=== PATIENT | male | born 1955 | race Caucasian/White ===

== ENCOUNTER 2018-11-30 07:21 | Inpatient (IN) | payer MEDICARE, OTHER ==
[2018-11-30] MEDS ORDERED: FAMOTIDINE 20 MG/2 ML VIAL IV STA (07:38)
--- NOTE | 2018-11-30 07:43 | ED ---
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 He also states his abdomen is distended and feels tight. No reports of fevers chills sweats. He has no prior history of GI bleed he states. No other modifying factors currently MD complaint: coffee ground emesis, gross hematochezia - Related Data Home Medications Medication Instructions Recorded Confirmed Albuterol Nebulized [Ventolin 2.5 mg INHALATION RT-Q6H PRN 06/03/18 11/30/18 Nebulized] Aspirin 325 mg PO DAILY@1700 06/03/18 11/30/18 Atorvastatin [Lipitor] 20 mg PO DAILY@17006/03/18 11/30/18 Cholecalciferol (Vitamin D3) 2,000 unit PO DAILY@1700 06/03/18 11/30/18 [Vitamin D3] Clopidogrel Bisulfate [Plavix] 75 mg PO DAILY@1200 06/03/18 11/30/18 Furosemide [Lasix] 40 mg PO DAILY@0600 06/03/18 11/30/18 Gemfibrozil [Lopid] 600 mg PO BID@0900,1700 06/03/18 11/30/18 Insulin Aspart [NovoLOG Flexpen] 16 unit SQ AC-TID 06/03/18 11/30/18 Insulin Aspart [NovoLOG Flexpen] See Protocol SQ ACHS 06/03/18 11/30/18 Insulin Glargine,Hum.rec.anlog 20 unit SQ DAILY@0800 06/03/18 11/30/18 [Basaglar Kwikpen U-100] Insulin Glargine,Hum.rec.anlog 50 unit SQ DAILY@199906/03/18 11/30/18 [Basaglar Kwikpen U-100] Levothyroxine Sodium [Synthroid] 125 mcg PO DAILY@0606/03/1819 Liraglutide [Victoza 3-Felice] 1.2 mg PO DAILY@0600 06/03/18 11/30/18 Lisinopril 20 mg PO DAILY@0906/03/18 11/30/18 Metoprolol Tartrate [Lopressor] 50 mg PO BID@0600,1700 06/03/18 11/30/18 Niacin 500 mg PO DAILY@17006/03/18 11/30/18 PHENobarbital [Luminal] 64.8 mg PO DAILY@1200 06/03/18 11/30/18 Phenytoin Sodium Extended 200 mg PO BID@0900,17006/03/18 11/30/18 [Dilantin] Potassium Chloride [Klor-Con 20] 20 meq PO DAILY@0906/03/18 11/30/18 Topiramate [Topamax] 50 mg PO DAILY@17006/03/18 11/30/18 Vascepa (1gm) 2 gram PO BID@0900,17006/03/18 11/30/18 buPROPion HCL [buPROPion HCL SR] 150 mg PO DAILY@0906/03/18 11/30/18 buPROPion [Wellbutrin] 100 mg PO DAILY@169906/03/18 11/30/18 lamoTRIgine [LaMICtal] 25 mg PO BID@0900,169906/03/18 11/30/18 metFORMIN HCL 1,000 mg PO BID@0600,1700 06/03/18 11/30/18 Loperamide [Imodium] 4 mg PO BID PRN 11/30/18 11/30/18 Z-Guard 1 applic TOPICAL DIRECTED 11/30/18 11/30/18 Z-Guard 1 applic TOPICAL Q12H 11/30/18 11/30/18 Allergies Allergy/AdvReac Type Severity Reaction Status Date / Time No Known Allergies Allergy Verified 11/30/18 07:39 Review of Systems ROS Statement: Those systems with pertinent positive or pertinent negative responses have been documented in the HPI. ROS Other: All systems not noted in ROS Statement are negative. Past Medical History Past Medical History: CVA/TIA, Diabetes Mellitus, Hyperlipidemia, Hypertension, Myocardial Infarction (PR), Thyroid Disorder Additional Past Medical History / Comment(s): EPILEPSY History of Any Multi-Drug Resistant Organisms: None Reported Past Surgical History: Unable to Obtain Additional Past Surgical History / Comment(s): brain surg Past Psychological History: No Psychological Hx Reported Smoking Status: Current every day smoker Past Alcohol Use History: None Reported Past Drug Use History: None Reported General Exam - General Exam Comments Initial Comments: This a well-developed well-nourished awake alert oriented times 3 male Limitations: no limitations General appearance: alert, anxious, in distress, obese Head exam: Present: atraumatic, normocephalic, normal inspection Eye exam: Present: normal appearance, PERRL, EOMI. Absent: scleral icterus, conjunctival injection, periorbital swelling ENT exam: Present: mucous membranes dry, other (Black material in the patient's tongue which does test heme positive gastrocult at bedside) Neck exam: Present: normal inspection, full ROM. Absent: tenderness, men ingismus, lymphadenopathy Respiratory exam: Present: normal lung sounds bilaterally. Absent: respiratory distress, wheezes, rales, rhonchi, stridor Cardiovascular Exam: Present: normal rhythm, tachycardia, normal heart sounds. Absent: systolic murmur, diastolic murmur, rubs, gallop, clicks GI/Abdominal exam: Present: soft, distended, tenderness, normal bowel sounds. Absent: guarding, rebound, rigid Rectal exam: Present: normal inspection (Mucoid discharge no gross blood) Extremities exam: Present: normal capillary refill. Absent: full ROM, tenderness, pedal edema, joint swelling, calf tenderness Back exam: Present: normal inspection Neurological exam: Present: alert, oriented X3, CN II-XII intact, motor sensory deficit (Left upper and lower extremity hemiparesis) Psychiatric exam: Present: normal affect, normal mood Skin exam: Present: warm, dry, intact, normal color. Absent: rash Course Vital Signs 11/30/18 11/30/18 11/30/18 07:30 08:04 08:10 Temperature 98.3 F Pulse Rate 115 H 108 H 105 H Respiratory 18 26 H 23 Rate Blood Pressure 124/59 124/59 117/92 O2 Sat by Pulse 92 L 98 Oximetry 11/30/18 11/30/18 11/30/18 08:30 09:00 09:30 Temperature Pulse Rate 108 H 109 H 105 H Respiratory 24 23 Rate Blood Pressure 126/72 131/108 117/92 O2 Sat by Pulse Oximetry - Reevaluation(s) Reevaluation #1: 11/30/18 11:39 Reevaluation patient revealed that he did have improvement. He did feel better. He did have a large black bowel movement. Fecal management system was initiated. Reevaluation #2: 11/30/18 12:10 He has has been ordered I do anticipate this will be elevated due to the renal failure. Medical Decision Making - Medical Decision Making I did discuss findings with the patient and with Dr. Goldsmith patient will be admitted with GI consultation and nephrology consultation. - Lab Data Result diagrams: 11/30/18 07:50 11/30/18 07:50 Lab Results 11/30/18 11/30/18 11/30/18 Range/Units 07:50 07:50 07:50 WBC 26.6 H (3.8-10.6) k/uL RBC 4.76 (4.30-5.90) m/uL Hgb 13.7 (13.0-17.5) gm/dL Hct 41.8 (39.0-53.0) % MCV 87.7 (80.0-100.0) fL MCH 28.7 (25.0-35.0) pg MCHC 32.8 (31.0-37.0) g/dL RDW 13.4 (11.5-15.5) % Plt Count 498 H (150-450) k/uL Neutrophils % 93 % Lymphocytes % 3 % Monocytes % 3 % Eosinophils % 0 % Basophils % 0 % Neutrophils # 24.9 H (1.3-7.7) k/uL Lymphocytes # 0.7 L (1.0-4.8) k/uL Monocytes # 0.9 (0-1.0) k/uL Eosinophils # 0.0 (0-0.7) k/uL Basophils # 0.1 (0-0.2) k/uL Sodium 140 (137-145) mmol/L Potassium 6.6 H* (3.5-5.1) mmol/L Chloride 103 (98-107) mmol/L Carbon Dioxide 14 L (22-30) mmol/L Anion Gap 23 mmol/L BUN 79 H (9-20) mg/dL Creatinine 6.45 H (0.66-1.25) mg/dL Est GFR (CKD-EPI)AfAm 10 (>60 ml/min/1.73 sqM) Est GFR (CKD-EPI)NonAf 8 (>60 ml/min/1.73 sqM) Glucose 220 H (74-99) mg/dL Calcium 9.5 (8.4-10.2) mg/dL Magnesium 2.1 (1.6-2.3) mg/dL Total Bilirubin 0.9 (0.2-1.3) mg/dL AST 38 (17-59) U/L ALT 22 (21-72) U/L Alkaline Phosphatase 103 (38-126) U/L Creatine Kinase 263 H (55-170) U/L Total Protein 7.2 (6.3-8.2) g/dL Albumin 3.7 (3.5-5.0) g/dL Lipase 147 (23-300) U/L Stool Occult Blood (Negative) Blood Type B Positive Blood Type Recheck No Previous Record Bld Type Recheck Status CABO Indicated Antibody Screen NEGATIVE Spec Expiration Date 12/03/2018 - 234911/30/18 Range/Units 08:07 WBC (3.8-10.6) k/uL RBC (4.30-5.90) m/uL Hgb (13.0-17.5) gm/dL Hct (39.0-53.0) % MCV (80.0-100.0) fL MCH (25.0-35.0) pg MCHC (31.0-37.0) g/dL RDW (11.5-15.5) % Plt Count (150-450) k/uL Neutrophils % % Lymphocytes % % Monocytes % % Eosinophils % % Basophils % % Neutrophils # (1.3-7.7) k/uL Lymphocytes # (1.0-4.8) k/uL Monocytes # (0-1.0) k/uL Eosinophils # (0-0.7) k/uL Basophils # (0-0.2) k/uL Sodium (137-145) mmol/L Potassium (3.5-5.1) mmol/L Chloride (98-107) mmol/L Carbon Dioxide (22-30) mmol/L Anion Gap mmol/L BUN (9-20) mg/dL Creatinine (0.66-1.25) mg/dL Est GFR (CKD-EPI)AfAm (>60 ml/min/1.73 sqM) Est GFR (CKD-EPI)NonAf (>60 ml/min/1.73 sqM) Glucose (74-99) mg/dL Calcium (8.4-10.2) mg/dL Magnesium (1.6-2.3) mg/dL Total Bilirubin (0.2-1.3) mg/dL AST (17-59) U/L ALT (21-72) U/L Alkaline Phosphatase (38-126) U/L Creatine Kinase (55-170) U/L Total Protein (6.3-8.2) g/dL Albumin (3.5-5.0) g/dL Lipase (23-300) U/L Stool Occult Blood Positive (Negative) Blood Type Blood Type Recheck Bld Type Recheck Status Antibody Screen Spec Expiration Date - EKG Data -: EKG Interpreted by Me (EKG shows sinus tachycardia rate 105 appear interval 174 QRS duration 150 Q) EKG Comments: EKG shows a sinus tachycardia of 105 appear interval 174 QRS 150 QT since QTC 376/496 left exodeviation right bundle-branch block pattern this is similar to configuration noted on 05/08/12 - Radiology Data Radiology results: report reviewed (I did review the imaging and report evidence of dilated bowel in the upper abdomen. Some air-fluid level noted CAT scan showed evidence of colitis but no obstruction.), image reviewed Critical Care Time Critical Care Time: Yes Critical Care Time: 37 minutes of critical care time which includes initial presentation with history physical labs x-rays multiple reevaluation the patient response to therapy review old charting that was available discussed with the admitting physician discussion with the EMS crew breath patient admission orders and documentation above this does include discussion with Dr. Goldsmith. Disposition Clinical Impression: Hematochezia, Melena, Acute renal failure (ARF), Hyperkalemia, Colitis, Leukocytosis Disposition: ADMITTED IP TO THIS HOSP Condition: Fair Referrals: Eliezer Mandujano MD [Primary Care Provider] - 1-2 days
[2018-11-30 08:18] LABS: Basophils # (A) 0.1 k/uL (0-0.2); Basophils % (A) 0 %; Eosinophils % (A) 0 %; HCT 41.8 % (39.0-53.0); HGB 13.7 gm/dL (13.0-17.5); Lymphocytes # (A) 0.7 k/uL (1.0-4.8); Lymphocytes % (A) 3 %; MCH 28.7 pg (25.0-35.0); MCHC 32.8 g/dL (31.0-37.0); MCV 87.7 fL (80.0-100.0); Mean Platelet Volume 7.2; Monocytes # (A) 0.9 k/uL (0-1.0); Monocytes % (A) 3 %; Neutrophils # (A) 24.9 k/uL (1.3-7.7); Neutrophils % (A) 93 %; Platelet Count 498 k/uL (150-450); RBC 4.76 m/uL (4.30-5.90); RDW 13.4 % (11.5-15.5); WBC 26.6 k/uL (3.8-10.6)
[2018-11-30 08:26] LABS: Albumin 3.7 g/dL (3.5-5.0); Calcium 9.5 mg/dL (8.4-10.2); Magnesium 2.1 mg/dL (1.6-2.3); Total Bilirubin 0.9 mg/dL (0.2-1.3); Total Protein 7.2 g/dL (6.3-8.2)
[2018-11-30 08:33] LABS: Potassium 6.6 mmol/L (3.5-5.1)
[2018-11-30] MEDS ORDERED: SODIUM CHLORIDE 0.9% 1,000 ML IV STA (08:46)
[2018-11-30] MEDS ORDERED: SODIUM BICARB 8.4% 50 ML SYR (1 MEQ/ML) IV STA ×2 (08:46→19:44)
[2018-11-30] MEDS ORDERED: CALCIUM CHLORIDE 100 MG/ML 10 ML SYRINGE IVP STA (08:47)
--- NOTE | 2018-11-30 09:54 | XR ---
EXAMINATION TYPE: XR KUB portable DATE OF EXAM: 11/30/2018 9:49 AM CLINICAL HISTORY: GI bleed. Abdominal pain. TECHNIQUE: Single supine image of the abdomen is obtained. COMPARISON: None. FINDINGS: There is marked gastrectasis and dilatation of the colon up to 10.4 cm in the hepatic flexu re. Transverse colon measures up to 8.6 cm. Supine examination limits evaluation for pneumoperitoneum . Lung bases are well aerated. Paucity of bowel gas in the rectum is seen. Old fracture deformity or extensive arthropathy is seen of the left femoral acetabular joint. No suspicious calcifications in t he abdomen. IMPRESSION: Markedly dilated stomach and large bowel with paucity of gas in the rectum relates to sev ere ileus or large bowel obstruction.
--- NOTE | 2018-11-30 10:20 | CT ---
EXAMINATION TYPE: CT abdomen pelvis wo con DATE OF EXAM: 11/30/2018 COMPARISON: None INDICATION: Generalized pain and diarrhea DLP: 1701.4 mGycm, Automated exposure control for dose reduction was used. CONTRAST: 0 mL of Isovue 300. Study performed without Oral Contrast TECHNIQUE: Axial images were obtained from above the diaphragm to the pubic rami in the axial plane a t 5 mm thick sections. Reconstructed images are reviewed on the computer in the coronal plane. FINDINGS: Limited CT sections are obtained the lung bases. There is a consolidation within the left lower lobe . Correlate for pneumonia. CT ABDOMEN: Liver: Normal Spleen: Normal Pancreas: Normal Adrenal glands: The adrenal glands are normal. Gallbladder: Normal Kidneys: No masses are evident. No hydronephrosis is present. No cysts are present. Some minimal p erinephric stranding may be present. Aorta: Vascular calcification is within the aorta. Inferior vena cava: Normal. CT PELVIS: Loops of bowel within the abdomen and pelvis are normal. The distal colon contains fluid. Some mi ld inflammatory changes are adjacent. No diverticular changes are evident. Minimal wall thickening ma y be present. Fluid extends from the proximal descending colon through to the rectum. A mild colitis should be considered. Consider gastroenteritis. No dilated small bowel loops are evident. Appendix: Not visualized. No suspicious tubular structures are evident. There is some mild diffuse in flammatory change. Clinical management of any suspect appendicitis recommended. Inflammatory change a ppears more related to distal colon. Urinary bladder: Normal. Genitourinary structures: Prostate is unremarkable. Osseous structures: No suspicious lytic or sclerotic lesions. Old left pelvic fractures evident. IMPRESSIONS: 1. Fluid-filled ascending colon to rectum with minimal wall thickening and pericolonic inflammatory change. No diverticuli are evident. Findings are suggestive for mild colitis. Clinical correlation is recommended. Gastroenteritis could be considered.
[2018-11-30] MEDS: SODIUM CHLORIDE 0.9% 1,000 ML IV STA ×2 (10:49→15:14)
[2018-11-30] MEDS ORDERED: ONDANSETRON 4 MG/2 ML VIAL IVP PRN (11:46)
[2018-11-30] MEDS ORDERED: NALOXONE 0.4 MG/ML 1 ML VIAL IV PRN (11:46)
[2018-11-30] MEDS ORDERED: ALBUTEROL NEBULIZED (CONC) 20 MG, SODIUM CHLORIDE 0.9% NEBULIZ 3 ML INHALATION ONE ×2 (11:51)
[2018-11-30] MEDS ORDERED: PIPERACILLIN-TAZOBACTAM 3.375 GM in SODIUM CHLORIDE 0.9% 100 ML IVPB STA (12:06)
[2018-11-30] MEDS ORDERED: SODIUM CHLORIDE 0.9% 2,000 ML IV ONE (13:36)
[2018-11-30 13:38] LABS: Glucose,Whole Blood 181 mg/dL (75-99)
[2018-11-30 14:37] LABS: Amorphous Sediment,Urine Moderate /hpf; Appearance,Urine Turbid (Clear); Bilirubin,Urine Negative (Negative); Blood,Urine Small (Negative); Color,Urine Dark Brown; Glucose,Urine (UA) Trace (Negative); Ketones,Urine Negative (Negative); Leukocyte Esterase,Urine Negative (Negative); Mucus,Urine Rare /hpf; Nitrite,Urine Negative (Negative); PH, Urine 5.5 (5.0-8.0); Protein,Urine 2+ (Negative); RBC,Urine 5 /hpf (0-5); Specific Gravity,Urine 1.019 (1.001-1.035); Squamous Epithelial Cell,Urine 1 /hpf (0-4); Urobilinogen,Urine <2.0 mg/dL (<2.0); WBC,Urine <1 /hpf (0-5)
[2018-11-30 14:49] LABS: Basophils % (A) 0 %; Eosinophils % (A) 0 %; HCT 38.8 % (39.0-53.0); HGB 13.1 gm/dL (13.0-17.5); Lymphocytes # (A) 1.2 k/uL (1.0-4.8); Lymphocytes % (A) 6 %; MCH 29.6 pg (25.0-35.0); MCHC 33.8 g/dL (31.0-37.0); MCV 87.6 fL (80.0-100.0); Mean Platelet Volume 6.5; Monocytes # (A) 0.7 k/uL (0-1.0); Monocytes % (A) 4 %; Neutrophils # (A) 18.6 k/uL (1.3-7.7); Neutrophils % (A) 89 %; Platelet Count 366 k/uL (150-450); RBC 4.43 m/uL (4.30-5.90); RDW 13.2 % (11.5-15.5); WBC 20.8 k/uL (3.8-10.6)
[2018-11-30 14:57] LABS: Albumin 3.7 g/dL (3.5-5.0); Calcium 10.2 mg/dL (8.4-10.2); Total Bilirubin 0.6 mg/dL (0.2-1.3); Total Protein 7.6 g/dL (6.3-8.2)
[2018-11-30] MEDS ORDERED: SODIUM CHLORIDE 0.9% 1,000 ML IV ONE ×2 (15:02→18:52)
[2018-11-30 15:11] LABS: Potassium 6.4 mmol/L (3.5-5.1)
[2018-11-30 15:32] LABS: Glucose,Whole Blood 178 mg/dL (75-99)
[2018-11-30] MEDS: SODIUM CHLORIDE 0.9% 1,000 ML IV SCH ×2 (15:32→19:58)
[2018-11-30] MEDS ORDERED: DEXTROSE 50% SYRINGE 50 ML IVP STA ×2 (15:48→19:48)
[2018-11-30] MEDS ORDERED: INSULIN REGULAR 100 UNIT/ML VIAL IV ONE (15:48)
[2018-11-30] MEDS ORDERED: DEXTROSE 10 % IN WATER 125 ML IV STA (15:51)
[2018-11-30] MEDS ORDERED: ALBUTEROL NEBULIZED 2.5 MG/3 ML INHALATION PRN (16:38)
[2018-11-30 17:19] LABS: Glucose,Whole Blood 212 mg/dL (75-99)
[2018-11-30] MEDS: INSULIN ASPART (NovoLOG) 100 UNIT/ML VIAL SQ SCH (18:33)
[2018-11-30] MEDS: TOPIRAMATE 25 MG TAB PO SCH (18:34)
[2018-11-30] MEDS: PHENobarbital 64.8 MG TAB PO SCH (18:34)
[2018-11-30] MEDS: METOPROLOL TARTRATE 50 MG TAB PO SCH (18:34)
[2018-11-30] MEDS: ATORVASTATIN 20 MG TAB PO SCH (18:34)
--- NOTE | 2018-11-30 19:18 | P.CNPUL ---
History of Present Illness Consult date: 11/30/18 Chief complaint: GI bleed History of present illness: 63-year-old male patient with a known history of CVA with left-sided weakness who was brought in from care home due to concern of GI bleeding. The patient apparently has been having emesis for the past 2-3 days and he's been having coffee-ground emesis and he reported by the blood per rectum. His abdomen was quite distended time of his ED visit. NG tube was inserted and the patient had more than a liter of bloody material aspirated with some subsequent clinical improvement in his abdominal distention. No fever. No chills. No previous history of GI bleed. The patient has been maintained on aspirin on outpatient basis. The patient has also various comorbidities are then CVA which include hyperlipidemia, diabetes mellitus, hypothyroidism, hypertension, seizure disorder. The patient is currently in the intensive care unit. Hemoglobin is 13.1. White cell count is at 20.8. The patient was given IV fluids a total of 2 L in the emergency department currently is on normal saline at rate of 1 50 mL an hour. He is producing minimal amount of urine output in the order of 10 mL an hour. He has developed an acute kidney injury. Initial creatinine in the emergency department was at 6.7 with a BUN of 94. His potassium level is at 6.4. EKG showed sinus rhythm with a left axis deviation and right bundle branch block pattern. The patient has a lactic acid level of 4.9. CPKs at 263. Stool was positive for blood. Stool for C. diff has been negative. UA showing +2 protein. The CAT scan of the abdomen and pelvis was done in the emergency department and the patient was found to have fluid-filled ascending colon to the rectum with minimal amount of wall thickening and pericolonic inflammatory change. No diverticular disease. The findings were suggestive of mild colitis. No ileus and no dilated bowel. No free air. Currently the patient has FMF and he is producing liquid the black stool in the order of 100 mL over the past 8 hours. The patient also has an NG tube which is producing coffee-ground material. Review of Systems Constitutional: Reports fatigue, Reports poor appetite, Reports weakness (The patient is a wheelchair bound following his stroke. He has left-sided weakness.) Eyes: denies as per HPI, denies blurred vision, denies bulging eye, denies decreased vision, denies diplopia, denies discharge, denies dry eye, denies irritation, denies itching, denies pain, denies photophobia, denies loss of peripheral vision, denies loss of vision, denies tunnel vision/blind spots Ears: deny: decreased hearing, ear discharge, earache, tinnitus Ears, nose, mouth and throat: Reports as per HPI Cardiovascular: Denies chest pain, Denies shortness of breath Respiratory: Reports as per HPI Gastrointestinal: Reports BRBPR, Reports change in bowel habits, Reports coffee ground emesis, Reports nausea, Reports vomiting Genitourinary: Reports as per HPI (Diminished urine output and an acute kidney injury) Musculoskeletal: Reports as per HPI, Reports gait dysfunction, Reports muscle weakness Musculoskeletal: left: ankle swelling, absent: ankle pain, ankle stiffness Integumentary: Denies pruritus, Denies rash Neurological: Reports gait dysfunction, Reports lack of coordination, Reports paralysis, Reports seizures (Patient has history of seizure disorder), Reports weakness (The patient has paralysis on the left side) Psychiatric: Reports as per HPI, Reports depression Endocrine: Reports as per HPI Hematologic/Lymphatic: Reports as per HPI Allergic/Immunologic: Reports as per HPI Past Medical History Past Medical History: CVA/TIA, Diabetes Mellitus, Hyperlipidemia, Hypertension, Myocardial Infarction ([place]), Seizure Disorder, Thyroid Disorder, Vascular Disorder Additional Past Medical History / Comment(s): Brain surgery 10 yrs ago for aneurysm and had CVA with left sided weakness upper and lower extremity and had trach/vented, (pt was left hand dominent), muscle weakness, wheelchair bound, last seizure many years ago, ischemic cardiomyopathy, IDDM type II, hypothyroid, pilonidal cyst. Last Myocardial Infarction Date:: History of Any Multi-Drug Resistant Organisms: None Reported Past Surgical History: Unable to Obtain Additional Past Surgical History / Comment(s): brain surgery for aneurysm, PCI with stent, nasal cartlidge surgery. Past Anesthesia/Blood Transfusion Reactions: No Reported Reaction Smoking Status: Former smoker - Past Family History Mother History Unknown: Yes Additional Family Medical History / Comment(s): Mother is living. Father History Unknown: Yes Additional Family Medical History / Comment(s): Father is living. Medications and Allergies Home Medications Medication Instructions Recorded Confirmed Type Albuterol Nebulized [Ventolin 2.5 mg INHALATION RT-Q6H PRN 06/03/18 11/30/18 History Nebulized] Aspirin 325 mg PO DAILY@1700 06/03/18 11/30/18 History Atorvastatin [Lipitor] 20 mg PO DAILY@169906/03/18 11/30/18 History Cholecalciferol (Vitamin D3) 2,000 unit PO DAILY@0 06/03/18 11/30/18 History [Vitamin D3] Clopidogrel Bisulfate [Plavix] 75 mg PO DAILY@1200 06/03/18 11/30/18 History Furosemide [Lasix] 40 mg PO DAILY@0606/03/18 11/30/18 History Gemfibrozil [Lopid] 600 mg PO BID@0900,17006/03/18 11/30/18 History Insulin Aspart [NovoLOG Flexpen] 16 unit SQ AC-TID 06/03/18 11/30/18 History Insulin Aspart [NovoLOG Flexpen] See Protocol SQ ACHS 06/03/18 11/30/18 History Insulin Glargine,Hum.rec.anlog 20 unit SQ DAILY@0806/03/18 11/30/18 History [Basaglar Kwikpen U-100] Insulin Glargine,Hum.rec.anlog 50 unit SQ DAILY@199906/03/18 11/30/18 History [Basaglar Kwikpen U-100] Levothyroxine Sodium [Synthroid] 125 mcg PO DAILY@0606/03/18 11/30/18 History Liraglutide [Victoza 3-Felice] 1.2 mg PO DAILY@0606/03/18 11/30/18 History Lisinopril 20 mg PO DAILY@0900 06/03/18 11/30/18 History Metoprolol Tartrate [Lopressor] 50 mg PO BID@0600,1700 06/03/18 11/30/18 History Niacin 500 mg PO DAILY@169906/03/18 11/30/18 History PHENobarbital [Luminal] 64.8 mg PO DAILY@1200 06/03/18 11/30/18 History Phenytoin Sodium Extended 200 mg PO BID@0900,1700 06/03/18 11/30/18 History [Dilantin] Potassium Chloride [Klor-Con 20] 20 meq PO DAILY@0900 03/30/19 09/26/19 History Topiramate [Topamax] 50 mg PO DAILY@1700 06/03/18 11/30/18 History Vascepa (1gm) 2 gram PO BID@0900,1700 06/03/18 11/30/18 History buPROPion HCL [buPROPion HCL SR] 150 mg PO DAILY@0900 06/03/18 11/30/18 History buPROPion [Wellbutrin] 100 mg PO DAILY@17006/03/18 11/30/18 History lamoTRIgine [LaMICtal] 25 mg PO BID@0900,1700 06/03/18 11/30/18 History metFORMIN HCL 1,000 mg PO BID@0600,1700 06/03/18 11/30/18 History Loperamide [Imodium] 4 mg PO BID PRN 11/30/18 11/30/18 History Z-Guard 1 applic TOPICAL DIRECTED 11/30/18 11/30/18 History Z-Guard 1 applic TOPICAL Q12H 11/30/18 11/30/18 History Allergies Allergy/AdvReac Type Severity Reaction Status Date / Time No Known Allergies Allergy Verified 11/30/18 07:39 Physical Exam Vitals: Vital Signs Temp Pulse Resp BP Pulse Ox 11/30/18 18:00 100 23 103/56 99 11/30/18 17:30 106 H 19 114/61 98 11/30/18 17:00 106 H 20 130/61 99 11/30/18 16:30 108 H 22 145/54 96 11/30/18 16:00 98.4 F 107 H 21 131/57 99 11/30/18 15:30 106 H 19 136/58 98 11/30/18 15:00 106 H 21 118/69 98 11/30/18 14:30 108 H 24 103/63 98 11/30/18 14:00 106 H 26 H 122/66 98 11/30/18 13:36 98.6 F 103 H 17 122/66 97 11/30/18 13:32 102 H 11/30/18 13:27 98.3 F 107 H 22 135/86 97 11/30/18 13:00 135/86 11/30/18 12:30 97/81 97 11/30/18 12:00 107 H 22 150/65 11/30/18 11:30 101 H 11 L 128/87 11/30/18 11:00 112 H 29 H 117/82 11/30/18 10:30 30 H 107/88 11/30/18 10:00 120/83 11/30/18 09:30 105 H 23 117/92 11/30/18 09:00 109 H 131/108 11/30/18 08:30 108 H 24 126/72 11/30/18 08:10 105 H 23 117/92 11/30/18 08:04 108 H 26 H 124/59 98 11/30/18 07:30 98.3 F 115 H 18 124/59 92 L Intake and Output 11/30/18 11/30/18 11/30/18 06:59 14:59 22:59 Intake Total 1275 1825 Output Total 125 50 Balance 1150 1775 Intake: Amount of Fluid Infused ( 1200 ml) Intake, IV Titration 75 1825 Amount Dextrose 10 % in Water 125 125 ml @ 999 mls/hr IV ONCE STA Rx#:[id number] Piperacillin-Tazobactam 3 75 100 .375 gm In Sodium Chloride 0.9% 100 ml @ 200 mls/hr IVPB ONCE STA Rx#:[id number] Sodium Chloride 0.9% 1, 600 000 ml @ 150 mls/hr IV . Q6H40M [facility] Rx#:[id number] Sodium Chloride 0.9% 1, 1000 000 ml @ 999 mls/hr IV . Q1H1M [facility] Rx#:[id number] Output: Urine 125 50 Other: Voiding Method Indwelling Catheter Weight 125.1 kg Gen. appearance the patient is obese, comfortable likely distress. The patient currently has an NG tube in place. Coffee-ground material collecting in the suction canister. The patient has a garcia facies. The patient also has scar of previous craniotomy over the right scalp. Another scar in the front scalp/forehead area. A skin lesion was resected. Head exam was generally normal. There was no scleral icterus or corneal arcus. Mucous membranes were moist. Neck was supple and without jugular venous distension, thyromegaly, or carotid bruits. Carotids were easily palpable bilaterally. There was no adenopathy. The patient has NG tube in place. A tracheostomy scar is of an anterior neck area. Lungs were clear to auscultation and percussion, and with normal diaphragmatic excursion. No wheezes or rales were noted. Cardiac exam revealed the PMI to be normally situated and sized. The rhythm was regular and no extrasystoles were noted during several minutes of auscultation. The first and second heart sounds were normal and physiologic splitting of the second heart sound was noted. There were no murmurs, rubs, clicks, or gallops. Abdominal exam revealed normal bowel sounds. The abdomen was soft, non-tender, and without masses, organomegaly, or appreciable enlargement of the abdominal a tory.. Noted the patient's abdomen is less distended after insertion of an NG tube. No direct tenderness or rebound tensile guarding. The abdomen is still tympanic. Extremities are swollen and skin is quite thickened and scaly. No open wounds or sores or ulceration or cellulitis. Pulses are diminished at the present. No cyanosis or clubbing. The left lower extremity is quite swollen compared to the right and this is a chronic finding along with some extensive skin thickening with scaliness. Neurologically the patient has left-sided weakness along with chronic spasticity and contractures on the left. Results - Laboratory Findings CBC and BMP: 11/30/18 14:27 11/30/18 14:27 Abnormal lab findings: Abnormal Labs 11/30/18 11/30/18 11/30/18 07:50 07:50 13:36 WBC 26.6 H Hct Plt Count 498 H Neutrophils # 24.9 H Lymphocytes # 0.7 L Potassium 6.6 H* Carbon Dioxide 14 L BUN 79 H Creatinine 6.45 H Glucose 220 H POC Glucose (mg/dL) 181 H Plasma Lactic Acid Castro Creatine Kinase 263 H Urine Protein Urine Glucose (UA) Urine Blood Amorphous Sediment Urine Mucus 11/30/18 11/30/18 11/30/18 14:15 14:27 14:27 WBC 20.8 H Hct 38.8 L Plt Count Neutrophils # 18.6 H Lymphocytes # Potassium 6.4 H* Carbon Dioxide 16 L BUN 94 H Creatinine 6.71 H Glucose 208 H POC Glucose (mg/dL) Plasma Lactic Acid Castro Creatine Kinase Urine Protein 2+ H Urine Glucose (UA) Trace H Urine Blood Small H Amorphous Sediment Moderate H Urine Mucus Rare H 11/30/18 11/30/18 11/30/18 14:27 15:31 17:18 WBC Hct Plt Count Neutrophils # Lymphocytes # Potassium Carbon Dioxide BUN Creatinine Glucose POC Glucose (mg/dL) 178 H 212 H Plasma Lactic Acid Castro 4.9 H* Creatine Kinase Urine Protein Urine Glucose (UA) Urine Blood Amorphous Sediment Urine Mucus Assessment and Plan Plan: 1 acute GI bleed most likely an upper GI source. The presentation is possibly suggestive of Elis-Hqa tear as the patient had several bouts of emesis and subsequently developed coffee-ground emesis and bright red blood per rectum. Currently has an NG tube in place. Amount of blood is improved compared to this morning. NG tube was placed and the more than 1 L of coffee-ground material was aspirated. Abdomen is less distended. Extremities is in place and the patient is having some bloody dark material in small amounts. He ended 8, the patient is hemodynamically stable. However, despite this GI bleed, he maintained a hemoglobin of 13, probably hemoconcentrated. He shows no hypotension or hemodynamic instability. He has developed an acute kidney injury probably related to intravascular volume depletion and a creatinine is up to 6.7. CAT scan of the abdomen was done and the patient was found to have fluid- filled ascending colon to rectum. The ball is quite distended. The stomach is distended. No diverticular disease. Mild colitis. 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 Noted the patient required tracheostomy and he was vented for a long period of time following that neurologic event that occurred 10 years ago 8 wheelchair-bound and the patient is a care home resident 9 cardiomyopathy possibly of an ischemic type. Based on ejection fraction is not known 10 insulin-dependent diabetes mellitus type 2 11 hypothyroidism 12 history of pilonidal cyst 13 history of seizure disorder inactive and stable for now the patient has been well maintained on seizure medications 14 hyperlipidemia Plan Continue IV fluids with normal state rate of 150 mL an hour. Monitor lactic acid level. Given additional bolus of 1 L. We'll monitor urine output. Monitor renal function and electrolytes every 6 hours. Obtain ultrasound the kidneys. Keep the Plata catheter in place. Monitor urine output. Monitor potassium level. Monitored anion gap metabolic acidosis. Keep the NG tube in place. Keep the patient nothing by mouth for now. Keep the monitoring of the hemoglobin every 6 hours. IV Protonix. GI consultation regarding his ongoing GI bleed. The patient be kept in ICU for now. We'll also obtain an echocardiogram to assess LV function knowing that there is a history of ischemic cardiomyopathy. The patient will be given his antiepileptic medications. The patient will be given his Levemir insulin at a half dose. Hold aspirin for now. Hold Plavix . Keep nothing by mouth for now. Repeat abdominal films for tomorrow.
[2018-11-30 19:25] LABS: Basophils % (A) 0 %; Eosinophils % (A) 0 %; HCT 35.1 % (39.0-53.0); HGB 11.9 gm/dL (13.0-17.5); Lymphocytes # (A) 0.7 k/uL (1.0-4.8); Lymphocytes % (A) 4 %; MCH 29.6 pg (25.0-35.0); MCHC 33.9 g/dL (31.0-37.0); MCV 87.3 fL (80.0-100.0); Mean Platelet Volume 6.3; Monocytes # (A) 0.7 k/uL (0-1.0); Monocytes % (A) 4 %; Neutrophils # (A) 17.7 k/uL (1.3-7.7); Neutrophils % (A) 92 %; Platelet Count 388 k/uL (150-450); RBC 4.02 m/uL (4.30-5.90); RDW 13.2 % (11.5-15.5); WBC 19.3 k/uL (3.8-10.6)
[2018-11-30 19:36] LABS: Albumin 3.2 g/dL (3.5-5.0); Calcium 9.3 mg/dL (8.4-10.2); Total Bilirubin 0.5 mg/dL (0.2-1.3); Total Protein 6.4 g/dL (6.3-8.2)
[2018-11-30 19:41] LABS: Potassium 6.5 mmol/L (3.5-5.1)
[2018-11-30] MEDS ORDERED: INSULIN REGULAR 100 UNIT/ML VIAL IV STA (19:47)
[2018-11-30] MEDS ORDERED: DEXTROSE 10 % IN WATER 250 ML IV ONE (19:50)
[2018-11-30] MEDS: lamoTRIgine 25 MG TAB PO SCH (19:57)
[2018-11-30] MEDS: PHENYTOIN SODIUM EXTENDED 100 MG CAP PO SCH (19:57)
[2018-11-30] MEDS: buPROPion 100 MG TAB PO SCH ×2 (19:57→19:58)
[2018-11-30] MEDS: FENOFIBRATE 160 MG TAB PO SCH (19:57)
[2018-11-30] MEDS: INSULIN DETEMIR (LEVEMIR) 100 UNIT/ML SYR SQ SCH (20:56)
[2018-11-30] MEDS: PANTOPRAZOLE 40 MG/10 ML VIAL IV SCH (21:10)
--- NOTE | 2018-11-30 21:55 | P.HPIM ---
History of Present Illness H&P Date: 11/30/18 Chief Complaint: Coffee-ground emesis History of presenting complaint: This is a 63-year-old patient who follows with Dr. Mandujano. Presented to ER this morning. Patient has a prior history of stroke with left-sided paralysis and dysarthria. Patient was complaining of nausea and vomiting for last 2 or 3 days. Now presents with coffee-ground emesis and Dr. Romero stools. Has some abdominal discomfort 2. Patient was admitted to the ICU. NG tube was placed and also fecal management system was placed. No fever or chills. 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 Patient pretty much wheelchair-bound. Also as a stent coronary stent. Patient normally uses a power chair and can feed himself. Review of systems: GEN.: Tired EYES: None HEENT: None NECK: None RESPIRATORY: None CARDIOVASCULAR: None GASTROINTESTINAL: As above GENITOURINARY: Plata catheter MUSCULOSKELETAL: None LYMPHATICS: Chronic swelling of lower extremity HEMATOLOGICAL: None PSYCHIATRY: None NEUROLOGICAL: Left-sided weakness and dysarthria Social history: Lives in [facility]. Uses a power chair. Can feed himself. Patient was a heavy drinker up to 80s. Does smoke marijuana many years ago. Patient smoked since a teen and stopped smoking about a year ago. Family history: Reviewed, noncontributory to presentation Physical examination: VITAL SIGNS: 98.3, 115, 18, 124/59, 92% on 6 L GENERAL: BMI 43.2, laying in bed. EYES: Pupils equal. Conjunctiva normal. HEENT: External appearance of nose and ears normal, oral cavity dry, NG tube in place. NECK: JVD unable to assess neck is short and thick; masses not palpable. HEART: Distant heart sounds; some edema. LUNGS: Respiratory rate increased, diminished breath sounds. ABDOMEN: Soft, nontender, liver spleen not palpable, no masses palpable. PSYCH: Awake answering simple questionsl. NEUROLOGICAL: Dysarthric, power on the left side is 0/5. LYMPHATICS: No lymph nodes palpable in the axilla and neck Investigations White count 9.3 hemoglobin 11.9 potassium 6.5 BUN 98 crit to 6.3 to partake as a 3.1 Assessment: -Acute GI bleed in a patient is on aspirin and Plavix -Acute renal failure possibly ATN related further workup -Severe hyperkalemia in the setting of renal failure -Morbid obesity BMI 42.2 -Chronic left-sided hemiparesis from a brain tumor being removed -Avid is mellitus type II on oral hypoglycemic -Depression otherwise specified -hypothyroid new coronary artery disease with history of stent -Chronic dysarthria Plan: Patient admitted to the ICU. Child And Adolescent Psychologist was consulted. Also consultation made to GI nephrology. Patient been given cocktail to bring the potassium down. NG tube in place. Accu-Cheks will be closely followed. Prognosis guarded. Follow H&H closely. Past Medical History Past Medical History: CVA/TIA, Diabetes Mellitus, Hyperlipidemia, Hypertension, Myocardial Infarction ([place]), Seizure Disorder, Thyroid Disorder, Vascular Disorder Additional Past Medical History / Comment(s): Brain surgery 10 yrs ago for aneurysm and had CVA with left sided weakness upper and lower extremity and had trach/vented, (pt was left hand dominent), muscle weakness, wheelchair bound, last seizure many years ago, ischemic cardiomyopathy, IDDM type II, hypothyroid, pilonidal cyst. Last Myocardial Infarction Date:: History of Any Multi-Drug Resistant Organisms: None Reported Past Surgical History: Unable to Obtain Additional Past Surgical History / Comment(s): brain surgery for aneurysm, PCI with stent, nasal cartlidge surgery. Past Anesthesia/Blood Transfusion Reactions: No Reported Reaction Smoking Status: Former smoker - Past Family History Mother History Unknown: Yes Additional Family Medical History / Comment(s): Mother is living. Father History Unknown: Yes Additional Family Medical History / Comment(s): Father is living. Medications and Allergies Home Medications Medication Instructions Recorded Confirmed Type Albuterol Nebulized [Ventolin 2.5 mg INHALATION RT-Q6H PRN 06/03/18 11/30/18 History Nebulized] Aspirin 325 mg PO DAILY@169906/03/18 11/30/18 History Atorvastatin [Lipitor] 20 mg PO DAILY@169906/03/18 11/30/18 History Cholecalciferol (Vitamin D3) 2,000 unit PO DAILY@169906/03/18 11/30/18 History [Vitamin D3] Clopidogrel Bisulfate [Plavix] 75 mg PO DAILY@1200 06/03/18 11/30/18 History Furosemide [Lasix] 40 mg PO DAILY@0600 06/03/18 11/30/18 History Gemfibrozil [Lopid] 600 mg PO BID@0900,1700 06/03/18 11/30/18 History Insulin Aspart [NovoLOG Flexpen] 16 unit SQ AC-TID 06/03/18 11/30/18 History Insulin Aspart [NovoLOG Flexpen] See Protocol SQ ACHS 06/03/18 11/30/18 History Insulin Glargine,Hum.rec.anlog 20 unit SQ DAILY@0806/03/18 11/30/18 History [Basaglar Kwikpen U-100] Insulin Glargine,Hum.rec.anlog 50 unit SQ DAILY@199906/03/18 11/30/18 History [Basaglar Kwikpen U-100] Levothyroxine Sodium [Synthroid] 125 mcg PO DAILY@0606/03/18 11/30/18 History Liraglutide [Victoza 3-Felice] 1.2 mg PO DAILY@0606/03/18 11/30/18 History Lisinopril 20 mg PO DAILY@0906/03/18 11/30/18 History Metoprolol Tartrate [Lopressor] 50 mg PO BID@0600,169906/03/18 11/30/18 History Niacin 500 mg PO DAILY@169906/03/18 11/30/18 History PHENobarbital [Luminal] 64.8 mg PO DAILY@1200 06/03/18 11/30/18 History Phenytoin Sodium Extended 200 mg PO BID@0900,1700 06/03/18 11/30/18 History [Dilantin] Potassium Chloride [Klor-Con 20] 20 meq PO DAILY@0906/03/18 11/30/18 History Topiramate [Topamax] 50 mg PO DAILY@169906/03/18 11/30/18 History Vascepa (1gm) 2 gram PO BID@0900,1700 06/03/18 11/30/18 History buPROPion HCL [buPROPion HCL SR] 150 mg PO DAILY@0900 06/03/18 11/30/18 History buPROPion [Wellbutrin] 100 mg PO DAILY@1700 06/03/18 11/30/18 History lamoTRIgine [LaMICtal] 25 mg PO BID@0900,1700 06/03/18 11/30/18 History metFORMIN HCL 1,000 mg PO BID@0600,1700 06/03/18 11/30/18 History Loperamide [Imodium] 4 mg PO BID PRN 11/30/18 11/30/18 History Z-Guard 1 applic TOPICAL DIRECTED 11/30/18 11/30/18 History Z-Guard 1 applic TOPICAL Q12H 11/30/18 11/30/18 History Allergies Allergy/AdvReac Type Severity Reaction Status Date / Time No Known Allergies Allergy Verified 11/30/18 07:39 Physical Exam Vitals: Vital Signs Temp Pulse Resp BP Pulse Ox 11/30/18 21:00 84 22 113/65 98 11/30/18 20:00 98.2 F 84 23 116/70 96 11/30/18 19:29 99 11/30/18 19:00 100 22 127/65 97 11/30/18 18:30 104 H 19 113/57 98 11/30/18 18:00 100 23 103/56 99 11/30/18 17:30 106 H 19 114/61 98 11/30/18 17:00 106 H 20 130/61 99 11/30/18 16:30 108 H 22 145/54 96 11/30/18 16:00 98.4 F 107 H 21 131/57 99 11/30/18 15:30 106 H 19 136/58 98 11/30/18 15:00 106 H 21 118/69 98 11/30/18 14:30 108 H 24 103/63 98 11/30/18 14:00 106 H 26 H 122/66 98 11/30/18 13:36 98.6 F 103 H 17 122/66 97 11/30/18 13:32 102 H 11/30/18 13:27 98.3 F 107 H 22 135/86 97 11/30/18 13:00 135/86 11/30/18 12:30 97/81 97 11/30/18 12:00 107 H 22 150/65 11/30/18 11:30 101 H 11 L 128/87 11/30/18 11:00 112 H 29 H 117/82 11/30/18 10:30 30 H 107/88 11/30/18 10:00 120/83 11/30/18 09:30 105 H 23 117/92 11/30/18 09:00 109 H 131/108 11/30/18 08:30 108 H 24 126/72 11/30/18 08:10 105 H 23 117/92 11/30/18 08:04 108 H 26 H 124/59 98 11/30/18 07:30 98.3 F 115 H 18 124/59 92 L Intake and Output 11/30/18 11/30/18 11/30/18 06:59 14:59 22:59 Intake Total 1275 3675 Output Total 125 765 Balance 1150 2910 Intake: Amount of Fluid Infused ( 1200 ml) Intake, IV Titration 75 3525 Amount Dextrose 10 % in Water 125 125 ml @ 999 mls/hr IV ONCE STA Rx#:[id number] Dextrose 10 % in Water 250 250 ml @ 999 mls/hr IV ONCE ONE Rx#:[id number] Piperacillin-Tazobactam 3 75 100 .375 gm In Sodium Chloride 0.9% 100 ml @ 200 mls/hr IVPB ONCE STA Rx#:[id number] Sodium Chloride 0.9% 1, 1050 000 ml @ 150 mls/hr IV . Q6H40M [facility] Rx#:[id number] Sodium Chloride 0.9% 1, 1000 000 ml @ 999 mls/hr IV . Q1H1M ONE Rx#:[id number] Sodium Chloride 0.9% 1, 1000 000 ml @ 999 mls/hr IV . Q1H1M ONE Rx#:[id number] Oral 150 Output: Gastric Drainage 650 Urine 125 115 Other: Voiding Method Indwelling Catheter Weight 125.1 kg Results CBC & Chem 7: 11/30/18 19:05 11/30/18 18:41 Labs: Abnormal Lab Results - Last 24 Hours (Table) 11/30/18 11/30/18 11/30/18 Range/Units 07:50 07:50 13:36 WBC 26.6 H (3.8-10.6) k/uL RBC (4.30-5.90) m/uL Hgb (13.0-17.5) gm/dL Hct (39.0-53.0) % Plt Count 498 H (150-450) k/uL Neutrophils # 24.9 H (1.3-7.7) k/uL Lymphocytes # 0.7 L (1.0-4.8) k/uL Potassium 6.6 H* (3.5-5.1) mmol/L Carbon Dioxide 14 L (22-30) mmol/L BUN 79 H (9-20) mg/dL Creatinine 6.45 H (0.66-1.25) mg/dL Glucose 220 H (74-99) mg/dL POC Glucose (mg/dL) 181 H (75-99) mg/dL Plasma Lactic Acid Castro (0.7-2.0) mmol/L ALT (21-72) U/L Creatine Kinase 263 H (55-170) U/L Albumin (3.5-5.0) g/dL Urine Protein (Negative) Urine Glucose (UA) (Negative) Urine Blood (Negative) Amorphous Sediment (None) /hpf Urine Mucus (None) /hpf 11/30/18 11/30/18 11/30/18 Range/Units 14:15 14:27 14:27 WBC 20.8 H (3.8-10.6) k/uL RBC (4.30-5.90) m/uL Hgb (13.0-17.5) gm/dL Hct 38.8 L (39.0-53.0) % Plt Count (150-450) k/uL Neutrophils # 18.6 H (1.3-7.7) k/uL Lymphocytes # (1.0-4.8) k/uL Potassium 6.4 H* (3.5-5.1) mmol/L Carbon Dioxide 16 L (22-30) mmol/L BUN 94 H (9-20) mg/dL Creatinine 6.71 H (0.66-1.25) mg/dL Glucose 208 H (74-99) mg/dL POC Glucose (mg/dL) (75-99) mg/dL Plasma Lactic Acid Castro (0.7-2.0) mmol/L ALT (21-72) U/L Creatine Kinase (55-170) U/L Albumin (3.5-5.0) g/dL Urine Protein 2+ H (Negative) Urine Glucose (UA) Trace H (Negative) Urine Blood Small H (Negative) Amorphous Sediment Moderate H (None) /hpf Urine Mucus Rare H (None) /hpf 11/30/18 11/30/18 11/30/18 Range/Units 14:27 15:31 17:18 WBC (3.8-10.6) k/uL RBC (4.30-5.90) m/uL Hgb (13.0-17.5) gm/dL Hct (39.0-53.0) % Plt Count (150-450) k/uL Neutrophils # (1.3-7.7) k/uL Lymphocytes # (1.0-4.8) k/uL Potassium (3.5-5.1) mmol/L Carbon Dioxide (22-30) mmol/L BUN (9-20) mg/dL Creatinine (0.66-1.25) mg/dL Glucose (74-99) mg/dL POC Glucose (mg/dL) 178 H 212 H (75-99) mg/dL Plasma Lactic Acid Castro 4.9 H* (0.7-2.0) mmol/L ALT (21-72) U/L Creatine Kinase (55-170) U/L Albumin (3.5-5.0) g/dL Urine Protein (Negative) Urine Glucose (UA) (Negative) Urine Blood (Negative) Amorphous Sediment (None) /hpf Urine Mucus (None) /hpf 11/30/18 11/30/18 11/30/18 Range/Units 18:41 18:41 19:05 WBC 19.3 H (3.8-10.6) k/uL RBC 4.02 L (4.30-5.90) m/uL Hgb 11.9 L (13.0-17.5) gm/dL Hct 35.1 L (39.0-53.0) % Plt Count (150-450) k/uL Neutrophils # 17.7 H (1.3-7.7) k/uL Lymphocytes # 0.7 L (1.0-4.8) k/uL Potassium 6.5 H* (3.5-5.1) mmol/L Carbon Dioxide 12 L (22-30) mmol/L BUN 98 H (9-20) mg/dL Creatinine 6.32 H (0.66-1.25) mg/dL Glucose 195 H (74-99) mg/dL POC Glucose (mg/dL) (75-99) mg/dL Plasma Lactic Acid Castro 3.1 H* (0.7-2.0) mmol/L ALT 19 L (21-72) U/L Creatine Kinase (55-170) U/L Albumin 3.2 L (3.5-5.0) g/dL Urine Protein (Negative) Urine Glucose (UA) (Negative) Urine Blood (Negative) Amorphous Sediment (None) /hpf Urine Mucus (None) /hpf Microbiology - Last 24 Hours (Table) 11/30/18 14:15 Urine Culture - Preliminary Urine,Catheterized Thrombosis Risk Factor Assmnt - Choose All That Apply Any of the Below Risk Factors Present?: Yes Each Factor Represents 1 point: Obesity (BMI >25) Other Risk Factors: Yes Each Risk Factor Represents 2 Points: Age 61-74 years Other congenital or acquired thrombophilia - If yes, enter type in comment: No Thrombosis Risk Factor Assessment Total Risk Factor Score: 3 Thrombosis Risk Factor Assessment Level: Moderate Risk
[2018-12-01] MEDS ORDERED: FUROSEMIDE 10 MG/ML 4 ML VIAL IV STA (00:02)
[2018-12-01 00:05] LABS: Glucose,Whole Blood 127 mg/dL (75-99)
[2018-12-01] MEDS: DEXTROSE 5% IN WATER 1,000 ML with SODIUM BICARB (1 MEQ/ML) 150 ML IV SCH ×3 (00:07→18:20)
[2018-12-01 00:28] LABS: Basophils % (A) 0 %; Eosinophils % (A) 0 %; HCT 33.2 % (39.0-53.0); HGB 11.2 gm/dL (13.0-17.5); Lymphocytes # (A) 0.8 k/uL (1.0-4.8); Lymphocytes % (A) 5 %; MCH 29.5 pg (25.0-35.0); MCHC 33.8 g/dL (31.0-37.0); MCV 87.2 fL (80.0-100.0); Mean Platelet Volume 6.3; Monocytes # (A) 0.8 k/uL (0-1.0); Monocytes % (A) 5 %; Neutrophils # (A) 14.5 k/uL (1.3-7.7); Neutrophils % (A) 89 %; Platelet Count 373 k/uL (150-450); RBC 3.81 m/uL (4.30-5.90); RDW 13.2 % (11.5-15.5); WBC 16.3 k/uL (3.8-10.6)
[2018-12-01 00:41] LABS: Albumin 2.9 g/dL (3.5-5.0); Calcium 8.5 mg/dL (8.4-10.2); Total Bilirubin 0.4 mg/dL (0.2-1.3); Total Protein 5.9 g/dL (6.3-8.2)
[2018-12-01 00:47] LABS: Potassium 6.2 mmol/L (3.5-5.1)
[2018-12-01] MEDS: INSULIN ASPART (NovoLOG) 100 UNIT/ML VIAL SQ SCH ×5 (01:00→21:23)
[2018-12-01] MEDS: PIPERACILLIN-TAZOBACTAM 3.375 GM in SODIUM CHLORIDE 0.9% 100 ML IVPB SCH ×2 (01:05→12:02)
[2018-12-01 04:19] LABS: Basophils % (A) 0 %; Eosinophils % (A) 0 %; Lymphocytes # (A) 0.7 k/uL (1.0-4.8); Lymphocytes % (A) 5 %; MCH 29.6 pg (25.0-35.0); MCHC 33.2 g/dL (31.0-37.0); Mean Platelet Volume 7.4; Monocytes # (A) 0.5 k/uL (0-1.0); Monocytes % (A) 4 %; Neutrophils # (A) 12.9 k/uL (1.3-7.7); Neutrophils % (A) 90 %; Platelet Count 315 k/uL (150-450); RDW 13.4 % (11.5-15.5); WBC 14.3 k/uL (3.8-10.6)
[2018-12-01 04:31] LABS: Albumin 2.8 g/dL (3.5-5.0); Calcium 7.9 mg/dL (8.4-10.2); Total Bilirubin 0.6 mg/dL (0.2-1.3); Total Protein 5.7 g/dL (6.3-8.2)
[2018-12-01 04:32] LABS: Potassium 6.2 mmol/L (3.5-5.1)
[2018-12-01] MEDS ORDERED: SODIUM BICARB 8.4% 50 ML SYR (1 MEQ/ML) IV STA (05:25)
[2018-12-01] MEDS ORDERED: INSULIN REGULAR 100 UNIT/ML VIAL IV ONE (05:26)
[2018-12-01] MEDS ORDERED: DEXTROSE 50% SYRINGE 50 ML IVP STA (05:28)
[2018-12-01] MEDS: PANTOPRAZOLE 40 MG/10 ML VIAL IV SCH ×2 (08:39→21:24)
[2018-12-01] MEDS: METOPROLOL TARTRATE 50 MG TAB PO SCH ×2 (08:39→16:47)
[2018-12-01] MEDS: lamoTRIgine 25 MG TAB PO SCH ×2 (08:39→16:47)
[2018-12-01] MEDS: LEVOTHYROXINE 125 MCG TAB PO SCH (08:39)
[2018-12-01] MEDS: PHENYTOIN SODIUM EXTENDED 100 MG CAP PO SCH ×2 (08:39→16:47)
[2018-12-01] MEDS: buPROPion SR 150 MG TABLET.ER PO SCH (08:42)
[2018-12-01] MEDS ORDERED: LISINOPRIL 20 MG TAB PO SCH (09:00)
--- NOTE | 2018-12-01 09:17 | P.CONS ---
History of Present Illness - Reason for Consult Consult date: 11/30/18 Coffee ground emesis Requesting physician: Yonathan Goldsmith - Chief Complaint Nausea, vomiting, diarrhea - History of Present Illness 63-year-old male with multiple medical comorbidities including diabetes mellitus, hypothyroidism, hypertension, seizure disorder, CVA with left-sided weakness who presented to the hospital with a constellation of concerns including nausea, vomiting, diarrhea and GI bleed. Of note the patients history has been taken in conversation with the patient, the medical team and on review of the medical record. The patient had been having multiple episodes of loose stool was sent in for evaluation of blood noted with the bowel movements. Pat ient reports that he did not see any gross bleeding but believes that the workers at his facility had noted the blood and sent in for further evaluation. The patient also been having multiple episodes of nausea and vomiting and was noted to have coffee-ground emesis in the emergency department. An NG tube was placed with significant output of coffee-ground material. Patient reports that he has not had any endoscopic evaluation in the past. He denies any history of GI bleeding. Patient had multiple laboratory abnormalities on presentation with leukocytosis of 26.6, potassium 6.1, creatinine 6.7, lactic acid 4.9. Hemoglobin was 13.7 on presentation and subsequently 13.1 on repeat draw with total bilirubin 0.6, alkaline phosphatase 200, AST 41 and ALT 22. Computed tomography scan showed a fluid-filled colon with bowel wall thickening suggestive of mild colitis. Currently the patient has been admitted to the ICU where he is receiving care. Review of Systems REVIEW OF SYSTEMS: CONSTITUTIONAL: Denies any fevers, chills, weight change or fatigue. CARDIOVASCULAR: Denies any chest pain, palpitations high or low blood pressures RESPIRATORY: Denies any shortness of breath, hemoptysis or cough. GENITOURINARY: No dysuria or hematuria. MUSCULOSKELETAL: No weakness reported. SKIN: Denies any new rashes or lesions, jaundice or pallor. PSYCHIATRIC: Denies any depression or anxiety. NEUROLOGY: Denies headache, denies any new focal deficits, but has chronic stable left-sided weakness after CVA. EARS/NOSE/THROAT: No recent hearing change, congestion, nasal discharge or sore throat. EYES: No pain in eyes, discharge or change in vision. GASTROINTESTINAL: As per HPI. Past Medical History Past Medical History: CVA/TIA, Diabetes Mellitus, Hyperlipidemia, Hypertension, Myocardial Infarction ([place]), Seizure Disorder, Thyroid Disorder, Vascular Disorder Additional Past Medical History / Comment(s): Brain surgery 10 yrs ago for aneurysm and had CVA with left sided weakness upper and lower extremity and had trach/vented, (pt was left hand dominent), muscle weakness, wheelchair bound, last seizure many years ago, ischemic cardiomyopathy, IDDM type II, hypothyroid, pilonidal cyst. Last Myocardial Infarction Date:: History of Any Multi-Drug Resistant Organisms: None Reported Past Surgical History: Unable to Obtain Additional Past Surgical History / Comment(s): brain surgery for aneurysm, PCI with stent, nasal cartlidge surgery. Past Anesthesia/Blood Transfusion Reactions: No Reported Reaction Smoking Status: Former smoker - Past Family History Mother History Unknown: Yes Additional Family Medical History / Comment(s): Mother is living. Father History Unknown: Yes Additional Family Medical History / Comment(s): Father is living. Medications and Allergies Home Medications Medication Instructions Recorded Confirmed Type Albuterol Nebulized [Ventolin 2.5 mg INHALATION RT-Q6H PRN 06/03/18 11/30/18 History Nebulized] Aspirin 325 mg PO DAILY@1700 06/03/18 11/30/18 History Atorvastatin [Lipitor] 20 mg PO DAILY@1700 06/03/18 11/30/18 History Cholecalciferol (Vitamin D3) 2,000 unit PO DAILY@1700 06/03/18 11/30/18 History [Vitamin D3] Clopidogrel Bisulfate [Plavix] 75 mg PO DAILY@1200 06/03/18 11/30/18 History Furosemide [Lasix] 40 mg PO DAILY@0600 06/03/18 11/30/18 History Gemfibrozil [Lopid] 600 mg PO BID@0900,1700 06/03/18 11/30/18 History Insulin Aspart [NovoLOG Flexpen] 16 unit SQ AC-TID 06/03/18 11/30/18 History Insulin Aspart [NovoLOG Flexpen] See Protocol SQ ACHS 06/03/18 11/30/18 History Insulin Glargine,Hum.rec.anlog 20 unit SQ DAILY@0800 06/03/18 11/30/18 History [Basaglar Kwikpen U-100] Insulin Glargine,Hum.rec.anlog 50 unit SQ DAILY@199906/03/18 11/30/18 History [Basaglar Kwikpen U-100] Levothyroxine Sodium [Synthroid] 125 mcg PO DAILY@0606/03/18 11/30/18 History Liraglutide [Victoza 3-Felice] 1.2 mg PO DAILY@0606/03/18 11/30/18 History Lisinopril 20 mg PO DAILY@89906/03/18 11/30/18 History Metoprolol Tartrate [Lopressor] 50 mg PO BID@0600,169906/03/18 11/30/18 History Niacin 500 mg PO DAILY@169906/03/18 11/30/18 History PHENobarbital [Luminal] 64.8 mg PO DAILY@1200 06/03/18 11/30/18 History Phenytoin Sodium Extended 200 mg PO BID@0900,169906/03/18 11/30/18 History [Dilantin] Potassium Chloride [Klor-Con 20] 20 meq PO DAILY@0906/03/18 11/30/18 History Topiramate [Topamax] 50 mg PO DAILY@169906/03/18 11/30/18 History Vascepa (1gm) 2 gram PO BID@0900,169906/03/18 11/30/18 History buPROPion HCL [buPROPion HCL SR] 150 mg PO DAILY@0906/03/18 11/30/18 History buPROPion [Wellbutrin] 100 mg PO DAILY@169906/03/18 11/30/18 History lamoTRIgine [LaMICtal] 25 mg PO BID@0900,17006/03/18 11/30/18 History metFORMIN HCL 1,000 mg PO BID@0600,169906/03/18 11/30/18 History Loperamide [Imodium] 4 mg PO BID PRN 11/30/18 11/30/18 History Z-Guard 1 applic TOPICAL DIRECTED 11/30/18 11/30/18 History Z-Guard 1 applic TOPICAL Q12H 11/30/18 11/30/18 History Allergies Allergy/AdvReac Type Severity Reaction Status Date / Time No Known Allergies Allergy Verified 11/30/18 07:39 Physical Exam Vitals: Vital Signs Temp Pulse Resp BP Pulse Ox 11/30/18 15:00 106 H 21 118/69 98 11/30/18 14:30 108 H 24 103/63 98 11/30/18 14:00 106 H 26 H 122/66 98 11/30/18 13:36 98.6 F 103 H 17 122/66 97 11/30/18 13:32 102 H 11/30/18 13:27 98.3 F 107 H 22 135/86 97 11/30/18 13:00 135/86 11/30/18 12:30 97/81 97 11/30/18 12:00 107 H 22 150/65 11/30/18 11:30 101 H 11 L 128/87 11/30/18 11:00 112 H 29 H 117/82 11/30/18 10:30 30 H 107/88 11/30/18 10:00 120/83 11/30/18 09:30 105 H 23 117/92 11/30/18 09:00 109 H 131/108 11/30/18 08:30 108 H 24 126/72 11/30/18 08:10 105 H 23 117/92 11/30/18 08:04 108 H 26 H 124/59 98 11/30/18 07:30 98.3 F 115 H 18 124/59 92 L Intake and Output 11/30/18 11/30/18 11/30/18 06:59 14:59 22:59 Intake Total 1275 1250 Output Total 125 15 Balance 1150 1235 Intake: Amount of Fluid Infused ( 1200 ml) Intake, IV Titration 75 1250 Amount Piperacillin-Tazobactam 3 75 100 .375 gm In Sodium Chloride 0.9% 100 ml @ 200 mls/hr IVPB ONCE STA Rx#:[id number] Sodium Chloride 0.9% 1, 150 000 ml @ 150 mls/hr IV . Q6H40M [facility] Rx#:[id number] Sodium Chloride 0.9% 1, 1000 000 ml @ 999 mls/hr IV . Q1H1M ONE Rx#:[id number] Output: Urine 125 15 Other: Weight 125.1 kg On physical examination, patient appears comfortable in no apparent distress. HEAD: Normocephalic, atraumatic. EYES: No scleral icterus. No conjunctival injection. MOUTH: No lesions, tongue midline. NECK: Trachea midline, no gross abnormalities. CHEST: Decreased air entry in all lung ramirez, no wheezing appreciated. HEART: S1-S2 appreciated. ABDOMEN: Soft, obese, nontender. Bowel sounds are positive. No organomegaly. No guarding or rigidity. EXTREMITIES: No pedal edema. SKIN: No rashes, no jaundice. NEUROLOGIC: Alert and oriented x3. No focal deficits. Results CBC & Chem 7: 12/01/18 03:52 12/01/18 03:52 Labs: Abnormal Lab Results - Last 24 Hours (Table) 11/30/18 11/30/18 11/30/18 Range/Units 07:50 07:50 13:36 WBC 26.6 H (3.8-10.6) k/uL Hct (39.0-53.0) % Plt Count 498 H (150-450) k/uL Neutrophils # 24.9 H (1.3-7.7) k/uL Lymphocytes # 0.7 L (1.0-4.8) k/uL Potassium 6.6 H* (3.5-5.1) mmol/L Carbon Dioxide 14 L (22-30) mmol/L BUN 79 H (9-20) mg/dL Creatinine 6.45 H (0.66-1.25) mg/dL Glucose 220 H (74-99) mg/dL POC Glucose (mg/dL) 181 H (75-99) mg/dL Plasma Lactic Acid Castro (0.7-2.0) mmol/L Creatine Kinase 263 H (55-170) U/L Urine Protein (Negative) Urine Glucose (UA) (Negative) Urine Blood (Negative) Amorphous Sediment (None) /hpf Urine Mucus (None) /hpf 11/30/18 11/30/18 11/30/18 Range/Units 14:15 14:27 14:27 WBC 20.8 H (3.8-10.6) k/uL Hct 38.8 L (39.0-53.0) % Plt Count (150-450) k/uL Neutrophils # 18.6 H (1.3-7.7) k/uL Lymphocytes # (1.0-4.8) k/uL Potassium 6.4 H* (3.5-5.1) mmol/L Carbon Dioxide 16 L (22-30) mmol/L BUN 94 H (9-20) mg/dL Creatinine 6.71 H (0.66-1.25) mg/dL Glucose 208 H (74-99) mg/dL POC Glucose (mg/dL) (75-99) mg/dL Plasma Lactic Acid Castro (0.7-2.0) mmol/L Creatine Kinase (55-170) U/L Urine Protein 2+ H (Negative) Urine Glucose (UA) Trace H (Negative) Urine Blood Small H (Negative) Amorphous Sediment Moderate H (None) /hpf Urine Mucus Rare H (None) /hpf 11/30/18 11/30/18 Range/Units 14:27 15:31 WBC (3.8-10.6) k/uL Hct (39.0-53.0) % Plt Count (150-450) k/uL Neutrophils # (1.3-7.7) k/uL Lymphocytes # (1.0-4.8) k/uL Potassium (3.5-5.1) mmol/L Carbon Dioxide (22-30) mmol/L BUN (9-20) mg/dL Creatinine (0.66-1.25) mg/dL Glucose (74-99) mg/dL POC Glucose (mg/dL) 178 H (75-99) mg/dL Plasma Lactic Acid Castro 4.9 H* (0.7-2.0) mmol/L Creatine Kinase (55-170) U/L Urine Protein (Negative) Urine Glucose (UA) (Negative) Urine Blood (Negative) Amorphous Sediment (None) /hpf Urine Mucus (None) /hpf CT scan - abdomen: report reviewed (Computed tomography scan findings suggestive of mild colitis) Assessment and Plan (1) Coffee ground emesis Narrative/Plan: 63-year-old male with multiple medical comorbidities who presented with 2-3 days of nausea, vomiting and diarrhea and subsequently developed coffee-ground emesis in the emergency department. Hemoglobin was stable at 13.1 from 13.7 initially and then fell and has been stable in the 11 range after fluid hydration. Suspicion is for Elis-Haq tear in the setting of retching, nausea and vomiting, with differential also including peptic ulcer disease, gastritis/esophagitis, or other etiology. Current Visit: Yes Status: Acute Code(s): K92.0 - HEMATEMESIS SNOMED Code(s): 81366324 (2) Colitis Narrative/Plan: Patient with 2-3 days of nausea, vomiting and diarrhea with CT showing a fluid-filled colon with some wall thickening suggestive of mild colitis. Current Visit: Yes Status: Acute Code(s): K52.9 - NONINFECTIVE GASTROENTERITIS AND COLITIS, UNSPECIFIED SNOMED Code(s): 36843561 (3) Anemia associated with acute blood loss Current Visit: Yes Status: Acute Code(s): D62 - ACUTE POSTHEMORRHAGIC ANEMIA SNOMED Code(s): 298959437 (4) Acute renal failure (ARF) Current Visit: Yes Status: Acute Code(s): N17.9 - ACUTE KIDNEY FAILURE, UNSPECIFIED SNOMED Code(s): 34343200 Plan: Supportive care Continue to monitor hemoglobin and transfuse as needed Continue Protonix IV twice daily Continue broad-spectrum antibiotic use Continue ICU care of lactic acidosis, ROBERTO and hyperkalemia No plans for immediate endoscopic evaluation as the patient's hemoglobin has been stable after fluid resuscitation and he is currently receiving treatment for sepsis, however we'll investigate further when medically stable Thank you for allowing us to participate in the care of this patient we will continue to follow
--- NOTE | 2018-12-01 10:53 | P.PN ---
Subjective Progress Note Date: 12/01/18 Principal diagnosis: Nausea vomiting diarrhea possible GI bleed 63-year-old male admitted with nausea vomiting diarrhea GI bleed ATN. History of CVA left-sided hemiparesis. Occult blood positive. Multiple episodes of blood-tinged bowel movements. Coffee-ground emesis NG tube placed. No history of EGD colonoscopy. Admission hemoglobin 13.7 presently 11. BUN 98. Creatini ne 5.8. Potassium 6.2. C. diff negative. CT abdomen and pelvis minimal wall thickening. Colonic inflammatory change in the distal colon. Presently NGT w/o gross blood or CGE. Objective - Vital Signs Vital signs: Vital Signs Temp 97.5 F L 12/01/18 08:00 Pulse 80 12/01/18 09:00 Resp 10 L 12/01/18 09:00 BP 117/62 12/01/18 09:00 Pulse Ox 100 12/01/18 09:00 Intake & Output 11/30/18 12/01/18 12/01/18 18:59 06:59 18:59 Intake Total 3100 3200 150 Output Total 175 920 15 Balance 2925 2280 135 Weight 125.1 kg 128 kg Intake: Amount of Fluid Infused ( 1200 ml) Intake, IV Titration 1900 3050 150 Amount Dextrose 10 % in Water 125 125 ml @ 999 mls/hr IV ONCE STA Rx#:[id number] Dextrose 10 % in Water 250 250 ml @ 999 mls/hr IV ONCE ONE Rx#:[id number] Dextrose 5% in Water 1, 900 150 000 ml @ 150 mls/hr IV . Q7H40M MAGDA with Sodium Bicarb (1 Meq/ml) 150 ml Rx#:[id number] Piperacillin-Tazobactam 3 175 .375 gm In Sodium Chloride 0.9% 100 ml @ 200 mls/hr IVPB ONCE STA Rx#:[id number] Sodium Chloride 0.9% 1, 600 900 000 ml @ 150 mls/hr IV . Q6H40M MAGDA Rx#:[id number] Sodium Chloride 0.9% 1, 1000 000 ml @ 999 mls/hr IV . Q1H1M ONE Rx#:[id number] Sodium Chloride 0.9% 1, 1000 000 ml @ 999 mls/hr IV . Q1H1M ONE Rx#:[id number] Oral 150 Output: Gastric Drainage 650 Urine 175 270 15 Other: Voiding Method Indwelling Catheter Indwelling Catheter - Exam General appearance: The patient is alert, oriented, in no acute distress. HET: Head is normocephalic and atraumatic. Pupils are equal and reactive. Oropharynx is clear without lesions. NGT w/o gross blood. Neck: Supple without lymphadenopathy. Trachea midline. Heart: S1 S2. Regular rate and rhythm. Lungs: No crackles or wheezes are heard. Abdomen: Soft, nontender, nondistended with bowel sounds. No peritoneal signs. No palpable organomegaly or masses. - Labs CBC & Chem 7: 12/01/18 03:52 12/01/18 03:52 Labs: Abnormal Lab Results - Last 24 Hours (Table) 11/30/18 11/30/18 11/30/18 Range/Units 13:36 14:15 14:27 WBC 20.8 H (3.8-10.6) k/uL RBC (4.30-5.90) m/uL Hgb (13.0-17.5) gm/dL Hct 38.8 L (39.0-53.0) % Neutrophils # 18.6 H (1.3-7.7) k/uL Lymphocytes # (1.0-4.8) k/uL Potassium (3.5-5.1) mmol/L Carbon Dioxide (22-30) mmol/L BUN (9-20) mg/dL Creatinine (0.66-1.25) mg/dL Glucose (74-99) mg/dL POC Glucose (mg/dL) 181 H (75-99) mg/dL Plasma Lactic Acid Castro (0.7-2.0) mmol/L Calcium (8.4-10.2) mg/dL ALT (21-72) U/L Total Protein (6.3-8.2) g/dL Albumin (3.5-5.0) g/dL Urine Protein 2+ H (Negative) Urine Glucose (UA) Trace H (Negative) Urine Blood Small H (Negative) Amorphous Sediment Moderate H (None) /hpf Urine Mucus Rare H (None) /hpf 11/30/18 11/30/18 11/30/18 Range/Units 14:27 14:27 15:31 WBC (3.8-10.6) k/uL RBC (4.30-5.90) m/uL Hgb (13.0-17.5) gm/dL Hct (39.0-53.0) % Neutrophils # (1.3-7.7) k/uL Lymphocytes # (1.0-4.8) k/uL Potassium 6.4 H* (3.5-5.1) mmol/L Carbon Dioxide 16 L (22-30) mmol/L BUN 94 H (9-20) mg/dL Creatinine 6.71 H (0.66-1.25) mg/dL Glucose 208 H (74-99) mg/dL POC Glucose (mg/dL) 178 H (75-99) mg/dL Plasma Lactic Acid Castro 4.9 H* (0.7-2.0) mmol/L Calcium (8.4-10.2) mg/dL ALT (21-72) U/L Total Protein (6.3-8.2) g/dL Albumin (3.5-5.0) g/dL Urine Protein (Negative) Urine Glucose (UA) (Negative) Urine Blood (Negative) Amorphous Sediment (None) /hpf Urine Mucus (None) /hpf 11/30/18 11/30/18 11/30/18 Range/Units 17:18 18:41 18:41 WBC (3.8-10.6) k/uL RBC (4.30-5.90) m/uL Hgb (13.0-17.5) gm/dL Hct (39.0-53.0) % Neutrophils # (1.3-7.7) k/uL Lymphocytes # (1.0-4.8) k/uL Potassium 6.5 H* (3.5-5.1) mmol/L Carbon Dioxide 12 L (22-30) mmol/L BUN 98 H (9-20) mg/dL Creatinine 6.32 H (0.66-1.25) mg/dL Glucose 195 H (74-99) mg/dL POC Glucose (mg/dL) 212 H (75-99) mg/dL Plasma Lactic Acid Castro 3.1 H* (0.7-2.0) mmol/L Calcium (8.4-10.2) mg/dL ALT 19 L (21-72) U/L Total Protein (6.3-8.2) g/dL Albumin 3.2 L (3.5-5.0) g/dL Urine Protein (Negative) Urine Glucose (UA) (Negative) Urine Blood (Negative) Amorphous Sediment (None) /hpf Urine Mucus (None) /hpf 11/30/18 12/01/18 12/01/18 Range/Units 19:05 00:02 00:06 WBC 19.3 H (3.8-10.6) k/uL RBC 4.02 L (4.30-5.90) m/uL Hgb 11.9 L (13.0-17.5) gm/dL Hct 35.1 L (39.0-53.0) % Neutrophils # 17.7 H (1.3-7.7) k/uL Lymphocytes # 0.7 L (1.0-4.8) k/uL Potassium 6.2 H* (3.5-5.1) mmol/L Carbon Dioxide 17 L (22-30) mmol/L BUN 97 H (9-20) mg/dL Creatinine 6.50 H (0.66-1.25) mg/dL Glucose 144 H (74-99) mg/dL POC Glucose (mg/dL) 127 H (75-99) mg/dL Plasma Lactic Acid Castro (0.7-2.0) mmol/L Calcium (8.4-10.2) mg/dL ALT (21-72) U/L Total Protein 5.9 L (6.3-8.2) g/dL Albumin 2.9 L (3.5-5.0) g/dL Urine Protein (Negative) Urine Glucose (UA) (Negative) Urine Blood (Negative) Amorphous Sediment (None) /hpf Urine Mucus (None) /hpf 12/01/18 12/01/18 12/01/18 Range/Units 00:06 00:06 03:52 WBC 16.3 H (3.8-10.6) k/uL RBC 3.81 L (4.30-5.90) m/uL Hgb 11.2 L (13.0-17.5) gm/dL Hct 33.2 L (39.0-53.0) % Neutrophils # 14.5 H (1.3-7.7) k/uL Lymphocytes # 0.8 L (1.0-4.8) k/uL Potassium 6.2 H* (3.5-5.1) mmol/L Carbon Dioxide 11 L (22-30) mmol/L BUN 98 H (9-20) mg/dL Creatinine 5.84 H (0.66-1.25) mg/dL Glucose 165 H (74-99) mg/dL POC Glucose (mg/dL) (75-99) mg/dL Plasma Lactic Acid Castro 2.1 H* (0.7-2.0) mmol/L Calcium 7.9 L (8.4-10.2) mg/dL ALT (21-72) U/L Total Protein 5.7 L (6.3-8.2) g/dL Albumin 2.8 L (3.5-5.0) g/dL Urine Protein (Negative) Urine Glucose (UA) (Negative) Urine Blood (Negative) Amorphous Sediment (None) /hpf Urine Mucus (None) /hpf 12/01/18 Range/Units 03:52 WBC 14.3 H (3.8-10.6) k/uL RBC 3.70 L (4.30-5.90) m/uL Hgb 11.0 L (13.0-17.5) gm/dL Hct 33.0 L (39.0-53.0) % Neutrophils # 12.9 H (1.3-7.7) k/uL Lymphocytes # 0.7 L (1.0-4.8) k/uL Potassium (3.5-5.1) mmol/L Carbon Dioxide (22-30) mmol/L BUN (9-20) mg/dL Creatinine (0.66-1.25) mg/dL Glucose (74-99) mg/dL POC Glucose (mg/dL) (75-99) mg/dL Plasma Lactic Acid Castro (0.7-2.0) mmol/L Calcium (8.4-10.2) mg/dL ALT (21-72) U/L Total Protein (6.3-8.2) g/dL Albumin (3.5-5.0) g/dL Urine Protein (Negative) Urine Glucose (UA) (Negative) Urine Blood (Negative) Amorphous Sediment (None) /hpf Urine Mucus (None) /hpf Microbiology - Last 24 Hours (Table) 11/30/18 14:15 Stool Culture - Preliminary Stool 11/30/18 14:15 Urine Culture - Preliminary Urine,Catheterized Assessment and Plan (1) Acute GI bleeding Narrative/Plan: 63-year-old afebrile male admitted with acute coffee-ground emesis positive stool guaiac with 3 day history of nausea and diarrhea leukocytosis elevated BUN creatinine consistent with acute kidney injury ATN possible Elis-Haq tear possible peptic ulcer disease gastritis esophagitis or other etiology. History of CVA left sided hemiparesis maintained on dual intact platelet therapy prior to admission. Present hemoglobin 11. CT left-sided colitis underlying inflammatory possible self limiting infectious etiology cannot be excluded. Current Visit: Yes Status: Acute Code(s): K92.2 - GASTROINTESTINAL HEMORRHAGE, UNSPECIFIED SNOMED Code(s): 46759503 (2) Nausea vomiting and diarrhea Current Visit: Yes Status: Acute Code(s): R11.2 - NAUSEA WITH VOMITING, UNSPECIFIED; R19.7 - DIARRHEA, UNSPECIFIED SNOMED Code(s): 9870660 (3) Coffee ground emesis Current Visit: Yes Status: Acute Code(s): K92.0 - HEMATEMESIS SNOMED Code(s): 35615659 (4) Colitis Current Visit: Yes Status: Acute Code(s): K52.9 - NONINFECTIVE GASTROENTERITIS AND COLITIS, UNSPECIFIED SNOMED Code(s): 97598564 Plan: 1. CBC monitoring. Presently potassium 6.2. Creatinine slowly improving 5.8. Protonix IV twice daily. Broad spectrum antibiotics. No plans for endoscopic evaluation today; contingent on clinical course will continue to follow closely. Assessment and plan a care discussed with Dr. Quiñonez
--- NOTE | 2018-12-01 11:03 | ECHOF ---
Referral Reason:edema MEASUREMENTS -------- HEIGHT: 170.2 cm WEIGHT: 124.7 kg BP: 120/60 RVIDd: 3.1 cm (< 3.3) IVSd: 1.8 cm (0.6 - 1.1) LVIDd: 4.8 cm (3.9 - 5.3) LVPWd: 1.3 cm (0.6 - 1.1) IVSs: 2.5 cm LVIDs: 2.8 cm LVPWs: 1.9 cm Ao Diam: 3.2 cm (2.0 - 3.7) AV Cusp: 1.9 cm (1.5 - 2.6) LA Diam: 4.2 cm (2.7 - 3.8) EPSS: 0.6 cm MV E Young: 0.88 m/s MV DecT: 185 ms MV A Young: 0.96 m/s MV E/A Ratio: 0.92 RAP: 5.00 mmHg RVSP: 19.79 mmHg MV EF SLOPE: 54.04 mm/s (70 - 150) MV EXCURSION: 1.20 cm (> 18.000) FINDINGS -------- Sinus rhythm. This was a technically adequate study. The left ventricular size is normal. There is moderate concentric left ventricular hypertrophy. O verall left ventricular systolic function is normal with, an EF between 55 - 60 %. The diastolic fi lling pattern is normal for the age of the patient {E/E'}. The right ventricle is normal in size. The left atrium is mildly dilated. The right atrium was not well visualized. Lumason used Interatrial and interventricular septum intact. There is mild aortic valve sclerosis. There is no evidence of aortic regurgitation. The mitral valve was not well visualized. No mitral regurgitation. Mild tricuspid regurgitation present. There is no evidence of pulmonary hypertension. The right v entricular systolic pressure, as measured by Doppler, is 19.79mmHg. The pulmonic valve was not well visualized. There is no pulmonic regurgitation present. The aortic root size is normal. IVC not well visualized There is no pericardial effusion. CONCLUSIONS -------- 1. Sinus rhythm. 2. The left ventricular size is normal. 3. There is moderate concentric left ventricular hypertrophy. 4. Overall left ventricular systolic function is normal with, an EF between 55 - 60 %. 5. The diastolic filling pattern is normal for the age of the patient {E/E'} 6. The left atrium is mildly dilated. 7. The right atrium was not well visualized. 8. Lumason used 9. There is mild aortic valve sclerosis. 10. There is no evidence of aortic regurgitation. 11. The mitral valve was not well visualized. 12. No mitral regurgitation. 13. Mild tricuspid regurgitation present. 14. There is no evidence of pulmonary hypertension. 15. There is no pulmonic regurgitation present. 16. The aortic root size is normal. 17. IVC not well visualized 18. There is no pericardial effusion. PATIENT COORDINATOR FRONT DESK: Talia Zavala RDCS
--- NOTE | 2018-12-01 11:37 | XR ---
EXAMINATION TYPE: XR abdomen 1V DATE OF EXAM: 12/01/2018 COMPARISON: 11/30/2018 INDICATION: Abdominal distention TECHNIQUE: Single view abdomen supine view FINDINGS: There is a normal bowel gas pattern. Prominent bowel gas is within the colon. Psoas margins are poorly visualized. No organomegaly is present. Endotracheal tube tip is in the left upper quadrant of the abdomen. IMPRESSION: 1. Nonspecific abdomen.
--- NOTE | 2018-12-01 11:39 | US ---
EXAMINATION TYPE: US kidneys/renal and bladder DATE OF EXAM: 12/01/2018 COMPARISON: CT CLINICAL HISTORY: renal failure. Renal failure EXAM MEASUREMENTS: Right Kidney: 12.5 x 6.3 x 6.2 cm Left Kidney: 13.1 x 7.5 x 5.7 cm Right Kidney: Appeared wnl Left Kidney: Possible hypoechoic lesion laterally= 1.5 x 1.2 x 1.7 cm Bladder: Pt has cath in place IMPRESSION: 1. Small lateral cyst like area left kidney.
[2018-12-01 11:44] LABS: Glucose,Whole Blood 175 mg/dL (75-99)
[2018-12-01] MEDS: PHENobarbital 64.8 MG TAB PO SCH (12:03)
--- NOTE | 2018-12-01 13:24 | P.PN ---
Subjective Progress Note Date: 12/01/18 63-year-old male patient with a known history of CVA with left-sided weakness who was brought in from [facility] due to concern of GI bleeding. The patient apparently has been having emesis for the past 2-3 days and he's been having coffee-ground emesis and he reported by the blood per rectum. His abdomen was quite distended time of his ED visit. NG tube was inserted and the patient had more than a liter of bloody material aspirated with some subsequent clinical improvement in his abdominal distention. No fever. No chills. No previous history of GI bleed. The patient has been maintained on aspirin on outpatient basis. The patient has also various comorbidities are then CVA which include hyperlipidemia, diabetes mellitus, hypothyroidism, hypertension, seizure disorder. The patient is currently in the intensive care unit. Hemoglobin is 13.1. White cell count is at 20.8. The patient was given IV fluids a total of 2 L in the emergency department currently is on normal saline at rate of 1 50 mL an hour. He is producing minimal amount of urine output in the order of 10 mL an hour. He has developed an acute kidney injury. Initial creatinine in the emergency department was at 6.7 with a BUN of 94. His potassium level is at 6.4. EKG showed sinus rhythm with a left axis deviation and right bundle branch block pattern. The patient has a lactic acid level of 4.9. CPKs at 263. Stool was positive for blood. Stool for C. diff has been negative. UA showing +2 protein. The CAT scan of the abdomen and pelvis was done in the emergency department and the patient was found to have fluid-filled ascending colon to the rectum with minimal amount of wall thickening and pericolonic inflammatory change. No diverticular disease. The findings were suggestive of mild colitis. No ileus and no dilated bowel. No free air. Currently the patient has FMF and he is producing liquid the black stool in the order of 100 mL over the past 8 hours. The patient also has an NG tube which is producing coffee-ground material. On today's evaluation of 12/01/2018, the patient is being seen for a follow-up. The patient remains in intensive care unit. We also resuscitated with patient with IV fluids. The patient was switched a bicarb infusion based on ongoing metabolic acidosis and hyperkalemia. The patient lactic acidosis improving. The patient's creatinine is also improving. On today's evaluation, the patient has still an NG tube in place. Output from the NG tube is improved. The abdomen however is still tympanic and slightly distended. No episodes of any bloody bowel movement since yesterday. As far as the blood work, the patient's hemoglobin is at 11.0. The potassium level was at 6.2 and dropped down to 5.7. Creatinine is down to 5.84 and a BUN is down to 98. The serum bicarb is at 11 and 9 gap of 22. The lactic acid level has normalized and is down to 1.4. Stool cultures of been negative. Blood cultures of been negative. A repeat abdominal film shows a normal gas pattern. It is a nonspecific x-ray. The patient is awake and alert and following commands and answering questions appropriately. His abdomen remains slightly distended which is comparable to yesterday's examination. Her net fluid balance of the +5.2 L over the past 24 hours. The NG drainage was 650cc yesterday Objective - Vital Signs Vital signs: Vital Signs Temp 98.0 F 12/01/18 12:00 Pulse 73 12/01/18 12:00 Resp 14 12/01/18 12:00 BP 112/62 12/01/18 12:00 Pulse Ox 100 12/01/18 12:00 Intake & Output 11/30/18 12/01/18 12/01/18 18:59 06:59 18:59 Intake Total 3100 3200 900 Output Total 175 920 105 Balance 2925 2280 795 Weight 125.1 kg 128 kg Intake: IV 750 Dextrose 5% in Water 1, 750 000 ml @ 150 mls/hr IV . Q7H40M MAGDA with Sodium Bicarb (1 Meq/ml) 150 ml Rx#:[id number] Amount of Fluid Infused ( 1200 ml) Intake, IV Titration 1900 3050 150 Amount Dextrose 10 % in Water 125 125 ml @ 999 mls/hr IV ONCE STA Rx#:[id number] Dextrose 10 % in Water 250 250 ml @ 999 mls/hr IV ONCE ONE Rx#:[id number] Dextrose 5% in Water 1, 900 150 000 ml @ 150 mls/hr IV . Q7H40M MAGDA with Sodium Bicarb (1 Meq/ml) 150 ml Rx#:[id number] Piperacillin-Tazobactam 3 175 .375 gm In Sodium Chloride 0.9% 100 ml @ 200 mls/hr IVPB ONCE STA Rx#:[id number] Sodium Chloride 0.9% 1, 600 900 000 ml @ 150 mls/hr IV . Q6H40M MAGDA Rx#:[id number] Sodium Chloride 0.9% 1, 1000 000 ml @ 999 mls/hr IV . Q1H1M ONE Rx#:[id number] Sodium Chloride 0.9% 1, 1000 000 ml @ 999 mls/hr IV . Q1H1M ONE Rx#:[id number] Oral 150 Output: Gastric Drainage 650 Urine 175 270 105 Other: Voiding Method Indwelling Catheter Indwelling Catheter Indwelling Catheter - Exam Gen. appearance the patient is obese, comfortable likely distress. The patient currently has an NG tube in place. Coffee-ground material collecting in the suction canister. The patient has a garcia facies. The patient also has scar of previous craniotomy over the right scalp. Another scar in the front scalp/forehead area. A skin lesion was resected. Head exam was generally normal. There was no scleral icterus or corneal arcus. Mucous membranes were moist. Neck was supple and without jugular venous distension, thyromegaly, or carotid bruits. Carotids were easily palpable bilaterally. There was no adenopathy. The patient has NG tube in place. A tracheostomy scar is of an anterior neck area. Lungs were clear to auscultation and percussion, and with normal diaphragmatic excursion. No wheezes or rales were noted. Cardiac exam revealed the PMI to be normally situated and sized. The rhythm was regular and no extrasystoles were noted during several minutes of auscultation. The first and second heart sounds were normal and physiologic splitting of the second heart sound was noted. There were no murmurs, rubs, clicks, or gallops. Abdominal exam revealed normal bowel sounds. The abdomen was soft, non-tender, and without masses, organomegaly, or appreciable enlargement of the abdominal aorta.. Noted the patient's abdomen is less distended after insertion of an NG tube. No direct tenderness or rebound tensile guarding. The abdomen is still tympanic. Extremities are swollen and skin is quite thickened and scaly. No open wounds or sores or ulceration or cellulitis. Pulses are diminished at the present. No cyanosis or clubbing. The left lower extremity is quite swollen compared to the right and this is a chronic finding along with some extensive skin thickening with scaliness. Neurologically the patient has left-sided weakness along with chronic spasticity and contractures on the left. - Labs CBC & Chem 7: 12/01/18 03:52 12/01/18 10:27 Labs: Abnormal Lab Results - Last 24 Hours (Table) 11/30/18 11/30/18 11/30/18 Range/Units 13:36 14:15 14:27 WBC 20.8 H (3.8-10.6) k/uL RBC (4.30-5.90) m/uL Hgb (13.0-17.5) gm/dL Hct 38.8 L (39.0-53.0) % Neutrophils # 18.6 H (1.3-7.7) k/uL Lymphocytes # (1.0-4.8) k/uL Potassium (3.5-5.1) mmol/L Carbon Dioxide (22-30) mmol/L BUN (9-20) mg/dL Creatinine (0.66-1.25) mg/dL Glucose (74-99) mg/dL POC Glucose (mg/dL) 181 H (75-99) mg/dL Plasma Lactic Acid Castro (0.7-2.0) mmol/L Calcium (8.4-10.2) mg/dL ALT (21-72) U/L Total Protein (6.3-8.2) g/dL Albumin (3.5-5.0) g/dL Urine Protein 2+ H (Negative) Urine Glucose (UA) Trace H (Negative) Urine Blood Small H (Negative) Amorphous Sediment Moderate H (None) /hpf Urine Mucus Rare H (None) /hpf 11/30/18 11/30/18 11/30/18 Range/Units 14:27 14:27 15:31 WBC (3.8-10.6) k/uL RBC (4.30-5.90) m/uL Hgb (13.0-17.5) gm/dL Hct (39.0-53.0) % Neutrophils # (1.3-7.7) k/uL Lymphocytes # (1.0-4.8) k/uL Potassium 6.4 H* (3.5-5.1) mmol/L Carbon Dioxide 16 L (22-30) mmol/L BUN 94 H (9-20) mg/dL Creatinine 6.71 H (0.66-1.25) mg/dL Glucose 208 H (74-99) mg/dL POC Glucose (mg/dL) 178 H (75-99) mg/dL Plasma Lactic Acid Castro 4.9 H* (0.7-2.0) mmol/L Calcium (8.4-10.2) mg/dL ALT (21-72) U/L Total Protein (6.3-8.2) g/dL Albumin (3.5-5.0) g/dL Urine Protein (Negative) Urine Glucose (UA) (Negative) Urine Blood (Negative) Amorphous Sediment (None) /hpf Urine Mucus (None) /hpf 11/30/18 11/30/18 11/30/18 Range/Units 17:18 18:41 18:41 WBC (3.8-10.6) k/uL RBC (4.30-5.90) m/uL Hgb (13.0-17.5) gm/dL Hct (39.0-53.0) % Neutrophils # (1.3-7.7) k/uL Lymphocytes # (1.0-4.8) k/uL Potassium 6.5 H* (3.5-5.1) mmol/L Carbon Dioxide 12 L (22-30) mmol/L BUN 98 H (9-20) mg/dL Creatinine 6.32 H (0.66-1.25) mg/dL Glucose 195 H (74-99) mg/dL POC Glucose (mg/dL) 212 H (75-99) mg/dL Plasma Lactic Acid Castro 3.1 H* (0.7-2.0) mmol/L Calcium (8.4-10.2) mg/dL ALT 19 L (21-72) U/L Total Protein (6.3-8.2) g/dL Albumin 3.2 L (3.5-5.0) g/dL Urine Protein (Negative) Urine Glucose (UA) (Negative) Urine Blood (Negative) Amorphous Sediment (None) /hpf Urine Mucus (None) /hpf 11/30/18 12/01/18 12/01/18 Range/Units 19:05 00:02 00:06 WBC 19.3 H (3.8-10.6) k/uL RBC 4.02 L (4.30-5.90) m/uL Hgb 11.9 L (13.0-17.5) gm/dL Hct 35.1 L (39.0-53.0) % Neutrophils # 17.7 H (1.3-7.7) k/uL Lymphocytes # 0.7 L (1.0-4.8) k/uL Potassium 6.2 H* (3.5-5.1) mmol/L Carbon Dioxide 17 L (22-30) mmol/L BUN 97 H (9-20) mg/dL Creatinine 6.50 H (0.66-1.25) mg/dL Glucose 144 H (74-99) mg/dL POC Glucose (mg/dL) 127 H (75-99) mg/dL Plasma Lactic Acid Castro (0.7-2.0) mmol/L Calcium (8.4-10.2) mg/dL ALT (21-72) U/L Total Protein 5.9 L (6.3-8.2) g/dL Albumin 2.9 L (3.5-5.0) g/dL Urine Protein (Negative) Urine Glucose (UA) (Negative) Urine Blood (Negative) Amorphous Sediment (None) /hpf Urine Mucus (None) /hpf 12/01/18 12/01/18 12/01/18 Range/Units 00:06 00:06 03:52 WBC 16.3 H (3.8-10.6) k/uL RBC 3.81 L (4.30-5.90) m/uL Hgb 11.2 L (13.0-17.5) gm/dL Hct 33.2 L (39.0-53.0) % Neutrophils # 14.5 H (1.3-7.7) k/uL Lymphocytes # 0.8 L (1.0-4.8) k/uL Potassium 6.2 H* (3.5-5.1) mmol/L Carbon Dioxide 11 L (22-30) mmol/L BUN 98 H (9-20) mg/dL Creatinine 5.84 H (0.66-1.25) mg/dL Glucose 165 H (74-99) mg/dL POC Glucose (mg/dL) (75-99) mg/dL Plasma Lactic Acid Castro 2.1 H* (0.7-2.0) mmol/L Calcium 7.9 L (8.4-10.2) mg/dL ALT (21-72) U/L Total Protein 5.7 L (6.3-8.2) g/dL Albumin 2.8 L (3.5-5.0) g/dL Urine Protein (Negative) Urine Glucose (UA) (Negative) Urine Blood (Negative) Amorphous Sediment (None) /hpf Urine Mucus (None) /hpf 12/01/18 12/01/18 12/01/18 Range/Units 03:52 10:27 11:42 WBC 14.3 H (3.8-10.6) k/uL RBC 3.70 L (4.30-5.90) m/uL Hgb 11.0 L (13.0-17.5) gm/dL Hct 33.0 L (39.0-53.0) % Neutrophils # 12.9 H (1.3-7.7) k/uL Lymphocytes # 0.7 L (1.0-4.8) k/uL Potassium 5.7 H (3.5-5.1) mmol/L Carbon Dioxide (22-30) mmol/L BUN (9-20) mg/dL Creatinine (0.66-1.25) mg/dL Glucose (74-99) mg/dL POC Glucose (mg/dL) 175 H (75-99) mg/dL Plasma Lactic Acid Castro (0.7-2.0) mmol/L Calcium (8.4-10.2) mg/dL ALT (21-72) U/L Total Protein (6.3-8.2) g/dL Albumin (3.5-5.0) g/dL Urine Protein (Negative) Urine Glucose (UA) (Negative) Urine Blood (Negative) Amorphous Sediment (None) /hpf Urine Mucus (None) /hpf Microbiology - Last 24 Hours (Table) 11/30/18 14:15 Stool Culture - Preliminary Stool 11/30/18 14:15 Urine Culture - Preliminary Urine,Catheterized Assessment and Plan Plan: 1 acute GI bleed most likely an upper GI source. The presentation is possibly suggestive of Elis-Ahq tear as the patient had several bouts of emesis and subsequently developed coffee-ground emesis and bright red blood per rectum. Currently has an NG tube in place. Amount of blood is improved compared to this morning. NG tube was placed and the more than 1 L of coffee-ground material was aspirated. Abdomen is less distended. Extremities is in place and the patient is having some bloody dark material in small amounts. He ended 8, the patient is hemodynamically stable. However, despite this GI bleed, he maintained a hemoglobin of 13, probably hemoconcentrated. He shows no hypotension or hemodynamic instability. He has developed an acute kidney injury probably related to intravascular volume depletion and a creatinine is up to 6.7. CAT scan of the abdomen from yesterday was noted. Flat film of the abdomen from today was noted and the findings are nonspecific. No massive drop in hemoglobin which remains at 11.0. The patient is being resuscitated IV fluids. The creatinine is also improving. 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 Noted the patient required tracheostomy and he was vented for a long period of time following that neurologic event that occurred 10 years ago 8 wheelchair-bound and the patient is a [facility] resident 9 cardiomyopathy possibly of an ischemic type. Based on ejection fraction is not known 10 insulin-dependent diabetes mellitus type 2 11 hypothyroidism 12 history of pilonidal cyst 13 history of seizure disorder inactive and stable for now the patient has been well maintained on seizure medications 14 hyperlipidemia Plan Continue the bicarb infusion. Monitor hemoglobin. Keep NG tube in place. IV Protonix. Continue antibiotics. Endoscopy per GI. Meanwhile, we will aggressively monitor the patient's electrolytes including renal function and potassium and metabolic acidosis. Anticipate further improvement. We'll continue to follow.
[2018-12-01] MEDS ORDERED: FUROSEMIDE 10 MG/ML 10 ML VIAL IV STA (16:07)
[2018-12-01] MEDS: TOPIRAMATE 25 MG TAB PO SCH (16:47)
[2018-12-01] MEDS: ATORVASTATIN 20 MG TAB PO SCH (16:47)
[2018-12-01] MEDS: FENOFIBRATE 160 MG TAB PO SCH (16:48)
[2018-12-01 16:53] LABS: Glucose,Whole Blood 177 mg/dL (75-99)
--- NOTE | 2018-12-01 17:22 | P.PN ---
Progress Note - Text Progress Note Date: 12/01/18 Chief Complaint: Coffee-ground emesis Interval history: This is a 63-year-old patient who follows with Dr. Mandujano. Presented to ER this morning. Patient has a prior history of stroke with left-sided paralysis and dysarthria. Patient was complaining of nausea and vomiting for last 2 or 3 days. Now presents with coffee-ground emesis and DrRabia Louien stools. Has some abdominal discomfort 2. Patient was admitted to the ICU. NG tube was placed and also fecal management system was placed. No fever or chills. 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 Patient pretty much wheelchair-bound. Also as a stent coronary stent. Patient normally uses a power chair and can feed himself. Admitted with acute GI bleed Today-laying in bed. Dark stools in the [facility]. Has hematuria. On a clear liquid diet. Review of systems: Was done for constitutional, cardiovascular, GI, pulmonary. relevant finding as above Active Medications Albuterol Sulfate (Ventolin Nebulized) 2.5 mg INHALATION RT-Q6H PRN PRN Reason: Shortness Of Breath Atorvastatin Calcium (Lipitor) 20 mg PO DAILY@1700 [facility] Last Admin: 12/01/18 16:47 Dose: 20 mg Documented by: Bupropion HCl (Wellbutrin) 100 mg PO DAILY@1700 [facility] Last Admin: 11/30/18 19:58 Dose: 100 mg Documented by: Bupropion HCl (Wellbutrin Sr) 150 mg PO DAILY@0900 [facility] Last Admin: 12/01/18 08:42 Dose: 150 mg Documented by: Fenofibrate (Lofibra) 160 mg PO DAILY@1700 [facility] Last Admin: 12/01/18 16:48 Dose: 160 mg Documented by: Piperacillin Sod/Tazobactam (Sod 3.375 gm/ Sodium Chloride) 100 mls @ 25 mls/hr IVPB Q12H [facility] Last Admin: 12/01/18 12:02 Dose: 25 mls/hr Documented by: Sodium Bicarbonate 150 ml/ (Dextrose/Water) 1,150 mls @ 150 mls/hr IV .Q7H40M [facility] Last Admin: 12/01/18 08:51 Dose: 150 mls/hr Documented by: Insulin Aspart (Novolog) 0 unit SQ Q6HR [facility]; Protocol Last Admin: 12/01/18 16:57 Dose: 2 unit Documented by: Insulin Detemir (Levemir) 40 unit SQ DAILY@1999 [facility] Last Admin: 11/30/18 20:56 Dose: 40 unit Documented by: Lamotrigine (Lamictal) 25 mg PO BID@0900,1700 [facility] Last Admin: 12/01/18 16:47 Dose: 25 mg Documented by: Levothyroxine Sodium (Synthroid) 125 mcg PO DAILY@0600 [facility] Last Admin: 12/01/18 08:39 Dose: 125 mcg Documented by: Metoprolol Tartrate (Lopressor) 50 mg PO BID@0600,1700 [facility] Last Admin: 12/01/18 16:47 Dose: 50 mg Documented by: Naloxone HCl (Narcan) 0.2 mg IV Q2M PRN PRN Reason: Opioid Reversal Ondansetron HCl (Zofran) 4 mg IVP Q8HR PRN PRN Reason: Nausea And Vomiting Pantoprazole Sodium (Protonix) 40 mg IV BID [facility] Last Admin: 12/01/18 08:39 Dose: 40 mg Documented by: Phenobarbital (Luminal) 64.8 mg PO DAILY@1200 [facility] Last Admin: 12/01/18 12:03 Dose: 64.8 mg Documented by: Phenytoin Sodium (Dilantin) 200 mg PO BID@0900,1700 [facility] Last Admin: 12/01/18 16:47 Dose: 200 mg Documented by: Topiramate (Topamax) 50 mg PO DAILY@1700 [facility] Last Admin: 12/01/18 16:47 Dose: 50 mg Documented by: Physical examination: VITAL SIGNS: 98, 73, 14, 112 / 62, 100% on 4 L GENERAL: Laying in bed, awake no NG tube. EYES: Pupils equal. Conjunctiva normal. HEENT: External appearance of nose and ears normal, oral cavity dry, NG tube in place. NECK: JVD unable to assess neck is short and thick; masses not palpable. HEART: Distant heart sounds; some edema. LUNGS: Respiratory rate increased, diminished breath sounds. ABDOMEN: Soft, nontender, liver spleen not palpable, no masses palpable. Plata catheter with hematuria in the Plata bag PSYCH: Awake answering simple questionsl. NEUROLOGICAL: Dysarthric, power on the left side is 0/5. LYMPHATICS: No lymph nodes palpable in the axilla and neck Investigations White count 14.3 hemoglobin 11 potassium 6. 2 repeat 5.7 bun 98 creatinine 5.84 Assessment: -Acute GI bleed in a patient is on aspirin and Plavix -Acute renal failure possibly ATN related further workup -Severe hyperkalemia in the setting of renal failure, slow to respond -Morbid obesity BMI 42.2 -Chronic left-sided hemiparesis from a brain tumor being removed -Diabetes mellitus type II on oral hypoglycemic -Depression otherwise specified -hypothyroid new coronary artery disease with history of stent -Chronic dysarthria Plan: Remains in the ICU. Nephrology of the case. Received Lasix, 10 units of insulin with dextrose sodium bicarb. Prognosis guarded. Follow electrolytes closely.
--- NOTE | 2018-12-01 18:40 | CONS ---
CONSULTATION REASON FOR CONSULT: Renal failure, hyperkalemia. HISTORY OF PRESENT ILLNESS: Patient is a 63-year-old male who [facility] with having coffee-ground emesis. He also had bright red blood per rectum. Patient was hypotensive initially. Patient received IV fluids. His creatinine was noted to be 6.45 mg/dL and it did go up to 6.7. Urine output was about 30 to 40 mL/hour. Patient was found to be quite acidotic as well. Potassium was up to 6.6 and it is now down to 5.7. Lactic acid was elevated and now it is down to 1.4. Hemoglobin has dropped from about 13.7 to 11.0 now. It is difficult to obtain other history from the patient. However, he denies any prior kidney disease. No previous labs are available for comparison. PAST MEDICAL HISTORY: Past medical history is significant for: 1. History of type 2 diabetes. 2. Hyperlipidemia. 3. Hypertension. 4. Coronary artery disease. 5. Seizure disorder. 6. Hypothyroidism. 7. History of brain aneurysm, status post surgery. 8. History of CVA. 9. History of cardiomyopathy, ejection fraction not known. PAST SURGICAL HISTORY: Not available. MEDICATIONS: Medications prior to admission included: 1. Aspirin. 2. Lipitor. 3. Vitamin D3. 4. Albuterol. 5. Plavix. 6. Lasix. 7. Lopid. 8. Insulin. 9. Synthroid. 10.Victoza. 11.Lopressor. 12.Potassium. 13.Topamax. 14.Wellbutrin. 15.Lamictal. 16.Metformin. 17.Imodium. ALLERGIES: NONE. PHYSICAL EXAMINATION: Patient is currently comfortable. He is not in any acute distress. He was seen this morning. Blood pressure was 118/78, heart rate 71 per minute. He is afebrile. EXAMINATION OF THE HEART: S1 and S2. EXAMINATION OF LUNGS: Decreased breath sounds at bases. ABDOMEN: Soft, non-tender. Examination of lower extremities shows chronic skin changes. 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 Patient has been moving his extremities. LABS/IMAGING: Labs from this morning show sodium 138, potassium 6.2, chloride 105. CO2 is 11. BUN 98, serum creatinine 5.8. UA shows 2+ protein, blood small, WBCs less than 1. Stool for occult blood was positive. Echocardiogram from this morning shows moderate concentric LVH, EF 55% to 60%. ASSESSMENT: 1. Acute kidney injury, most likely acute tubular necrosis. Previous creatinine not available for comparison. Patient is nonoliguric; however, urine output is on the lower side. He is maintained on IV fluids, which I will continue for now. We will check an ultrasound of the kidneys and repeat labs in a.m. Avoid any nephrotoxic agents. Continue to hold off on the metformin. 2. Severe metabolic acidosis, anion gap, secondary to lactic acidosis, which can also be from the metformin. Currently improved. Continue with the IV bicarb. Lactic acid is down to 1.4; however, CO2 had decreased to 11 this morning. We will repeat labs again later on this evening. Continue with the bicarb drip for now. 3. Hyperkalemia associated with acute kidney injury, metabolic acidosis and gastrointestinal bleed. Serum potassium was improved to 5.7 this morning. We will repeat labs this evening. Expect further improvement with continuation of the bicarb drip. 4. Gastrointestinal bleed, status post evaluation by Gastroenterology. 5. History of cerebrovascular accident. 6. History of brain aneurysm, status post surgery and craniotomy, with left-sided weakness. PLAN: Continue bicarb drip. Repeat labs this evening. Follow up on ultrasound of the kidneys. Continue to avoid nephrotoxic medications. MMODL / IJN: [id number] /
[2018-12-01 20:24] LABS: Glucose,Whole Blood 164 mg/dL (75-99)
[2018-12-01] MEDS: INSULIN DETEMIR (LEVEMIR) 100 UNIT/ML SYR SQ SCH (20:55)
[2018-12-02] MEDS: PIPERACILLIN-TAZOBACTAM 3.375 GM in SODIUM CHLORIDE 0.9% 100 ML IVPB SCH ×2 (01:17→12:16)
[2018-12-02] MEDS: DEXTROSE 5% IN WATER 1,000 ML with SODIUM BICARB (1 MEQ/ML) 150 ML IV SCH ×2 (01:18→08:31)
[2018-12-02 04:40] LABS: Basophils % (A) 0 %; Eosinophils # (A) 0.2 k/uL (0-0.7); Eosinophils % (A) 2 %; HCT 30.2 % (39.0-53.0); HGB 10.2 gm/dL (13.0-17.5); Lymphocytes # (A) 0.8 k/uL (1.0-4.8); Lymphocytes % (A) 8 %; MCH 29.5 pg (25.0-35.0); MCHC 33.7 g/dL (31.0-37.0); MCV 87.4 fL (80.0-100.0); Mean Platelet Volume 7.1; Monocytes # (A) 0.5 k/uL (0-1.0); Monocytes % (A) 5 %; Neutrophils # (A) 8.4 k/uL (1.3-7.7); Neutrophils % (A) 84 %; Platelet Count 297 k/uL (150-450); RBC 3.45 m/uL (4.30-5.90); RDW 13.1 % (11.5-15.5); WBC 10.1 k/uL (3.8-10.6)
[2018-12-02 04:53] LABS: Albumin 2.7 g/dL (3.5-5.0); Calcium 7.4 mg/dL (8.4-10.2); Potassium 4.9 mmol/L (3.5-5.1); Total Bilirubin 0.6 mg/dL (0.2-1.3); Total Protein 5.4 g/dL (6.3-8.2)
[2018-12-02 07:02] LABS: Glucose,Whole Blood 105 mg/dL (75-99)
[2018-12-02] MEDS: METOPROLOL TARTRATE 50 MG TAB PO SCH ×2 (07:30→17:44)
[2018-12-02] MEDS: LEVOTHYROXINE 125 MCG TAB PO SCH (07:31)
[2018-12-02] MEDS: INSULIN ASPART (NovoLOG) 100 UNIT/ML VIAL SQ SCH ×4 (07:42→20:54)
[2018-12-02] MEDS: PANTOPRAZOLE 40 MG/10 ML VIAL IV SCH ×2 (08:31→21:00)
[2018-12-02] MEDS: lamoTRIgine 25 MG TAB PO SCH ×2 (08:31→17:44)
[2018-12-02] MEDS: buPROPion SR 150 MG TABLET.ER PO SCH (08:31)
[2018-12-02] MEDS: PHENYTOIN SODIUM EXTENDED 100 MG CAP PO SCH ×2 (08:32→17:44)
[2018-12-02] MEDS: SODIUM CHLORIDE 0.9% 1,000 ML IV SCH ×2 (09:56→20:55)
--- NOTE | 2018-12-02 10:25 | PN ---
PROGRESS NOTE DATE OF DICTATION: 12/02/2018 Patient is a 63-year-old white male with history of diabetes mellitus, hypothyroidism, hypertension, admitted to the hospital with nausea, vomiting, diarrhea and some rectal bleeding. He said he initially had some coffee-ground emesis. He was evaluated by Dr. Coffman on consultation 2 days ago. He was being treated conservatively and the symptoms have been gradually improving. This morning he is on a clear liquid diet, tolerating well. He denies any abdominal pain. No further episodes of nausea, vomiting. He had one bowel movement yesterday. He reports no abdominal pain. Stool studies for C difficile toxin were negative. CT of the abdomen showed some minimal wall thickening in the left colon. PHYSICAL EXAMINATION: He appears comfortable. No apparent distress. VITAL SIGNS: Stable. Blood pressure is 94/66, pulse rate 94, temperature 99.7. HEENT examination unremarkable. Conjunctivae pink, sclerae anicteric. Oral cavity no lesions. NECK: No JVD or lymph node enlargement. CHEST: Clear to auscultation. HEART: Regular rate and rhythm. ABDOMEN was obese. Bowel sounds are positive. No organomegaly. EXTREMITIES: No pedal edema. SKIN: No rashes. NEUROLOGIC: Alert and oriented x3. No focal deficits. LABS: WBC 10.1, hemoglobin 10.2. Platelets are normal. Basic metabolic panel showed a BUN of 109, creatinine of 6.7. The rest of the labs were within normal limits. Stool occult blood was positive. C difficile toxin was negative. IMPRESSION: 1. Acute onset of nausea, vomiting and diarrhea with a couple of episodes of coffee- ground emesis which subsequently have resolved. At present no further episodes of bleeding. No further episodes of nausea, vomiting or coffee-ground emesis. Tolerating clear liquid diet. 2. Elevated BUN and creatinine/acute tubular necrosis. Nephrology is following the patient closely. RECOMMENDATIONS: 1. Advance diet as tolerated. 2. Monitor CBC on a daily basis. 3. No plans for any endoscopic intervention at the present time. 4. Will continue to follow him closely during his hospital stay. Thank you for this consultation. MMGEEL / SOHAILN: [id number] /
--- NOTE | 2018-12-02 11:28 | XR ---
EXAMINATION TYPE: XR abdomen 1V , 3 VIEWS DATE OF EXAM ORDERED: 12/02/2018 HISTORY: Abdominal distention. COMPARISON: Previous study dated 12/01/2018. FINDINGS: There are mildly dilated loops of large bowel throughout the abdomen with air present the level of the rectum. A metallic suture line projects over the right midabdomen. The lung bases appear clear. No definite small bowel dilatation is seen. IMPRESSION: LARGE BOWEL DILATATION WITH AIR PRESENT IN THE COLON TO THE RECTUM. CONSIDER KANDIS'S SYNDROME.
--- NOTE | 2018-12-02 11:28 | P.PN ---
Subjective Progress Note Date: 12/02/18 Seen and examined for the follow-up of acute kidney injury. Denies any chest pain shortness of breath palpitation. Abdomen still distended with diarrhea and fecal pouch. Plata catheter is in place with dark brown/bloody urine. No nausea vomiting. Objective - Vital Signs Vital signs: Vital Signs Temp 99.7 F H 12/02/18 08:00 Pulse 72 12/02/18 10:00 Resp 16 12/02/18 10:00 BP 109/65 12/02/18 10:00 Pulse Ox 98 12/02/18 10:00 Intake & Output 12/01/18 12/02/18 12/02/18 18:59 06:59 18:59 Intake Total 1950 1650 600 Output Total 250 145 640 Balance 1700 1505 -40 Weight 129.1 kg Intake: IV 1800 1650 600 Dextrose 5% in Water 1, 1800 1650 600 000 ml @ 150 mls/hr IV . Q7H40M MAGDA with Sodium Bicarb (1 Meq/ml) 150 ml Rx#:[id number] Intake, IV Titration 150 Amount Dextrose 5% in Water 1, 150 000 ml @ 150 mls/hr IV . Q7H40M MAGDA with Sodium Bicarb (1 Meq/ml) 150 ml Rx#:[id number] Output: Urine 250 145 40 Stool 600 Other: Voiding Method Indwelling Catheter Indwelling Catheter Indwelling Catheter - Exam No acute distress S1-S2 heard Decreased breath sounds Abdomen distended and tight. Trace edema Plata with dark/bloody urine - Labs CBC & Chem 7: 12/02/18 04:18 12/02/18 04:18 Labs: Abnormal Lab Results - Last 24 Hours (Table) 12/01/18 12/01/18 12/01/18 Range/Units 11:42 16:52 17:28 RBC (4.30-5.90) m/uL Hgb (13.0-17.5) gm/dL Hct (39.0-53.0) % Neutrophils # (1.3-7.7) k/uL Lymphocytes # (1.0-4.8) k/uL Potassium 5.5 H (3.5-5.1) mmol/L Chloride (98-107) mmol/L BUN (9-20) mg/dL Creatinine (0.66-1.25) mg/dL Glucose (74-99) mg/dL POC Glucose (mg/dL) 175 H 177 H (75-99) mg/dL Calcium (8.4-10.2) mg/dL Total Protein (6.3-8.2) g/dL Albumin (3.5-5.0) g/dL 12/01/18 12/02/18 12/02/18 Range/Units 20:23 04:18 04:18 RBC 3.45 L (4.30-5.90) m/uL Hgb 10.2 L (13.0-17.5) gm/dL Hct 30.2 L (39.0-53.0) % Neutrophils # 8.4 H (1.3-7.7) k/uL Lymphocytes # 0.8 L (1.0-4.8) k/uL Potassium (3.5-5.1) mmol/L Chloride 92 L (98-107) mmol/L BUN 109 H* (9-20) mg/dL Creatinine 6.70 H (0.66-1.25) mg/dL Glucose 115 H (74-99) mg/dL POC Glucose (mg/dL) 164 H (75-99) mg/dL Calcium 7.4 L (8.4-10.2) mg/dL Total Protein 5.4 L (6.3-8.2) g/dL Albumin 2.7 L (3.5-5.0) g/dL 12/02/18 Range/Units 06:59 RBC (4.30-5.90) m/uL Hgb (13.0-17.5) gm/dL Hct (39.0-53.0) % Neutrophils # (1.3-7.7) k/uL Lymphocytes # (1.0-4.8) k/uL Potassium (3.5-5.1) mmol/L Chloride (98-107) mmol/L BUN (9-20) mg/dL Creatinine (0.66-1.25) mg/dL Glucose (74-99) mg/dL POC Glucose (mg/dL) 105 H (75-99) mg/dL Calcium (8.4-10.2) mg/dL Total Protein (6.3-8.2) g/dL Albumin (3.5-5.0) g/dL Microbiology - Last 24 Hours (Table) 11/30/18 14:15 Urine Culture - Final Urine,Catheterized 11/30/18 15:25 Blood Culture - Preliminary Blood No Growth after 24 hours 11/30/18 15:17 Blood Culture - Preliminary Blood No Growth after 24 hours Assessment and Plan Assessment: #1 oliguric acute kidney injury. Suspect hemodynamic ATN with low blood pressures and diarrhea. - Rule out abdominal compartment syndrome with distended belly. -Also rule out GN with abnormal urine. #2 suspect it CKD with underlying diabetes. Unknown baseline creatinine. #3 distended colon #4 metabolic acidosis secondary to acute kidney injury #5 hematuria Plan: #1 renal function continued to worsen. Check bladder pressures. If bladder pressures more than 20 he needs decompression of his colon. #2 GN serology #3 avoid nephrotoxic agents and hypotensive episodes. #4 no acute indication for renal replacement therapy at this time.
--- NOTE | 2018-12-02 11:30 | XR ---
EXAMINATION TYPE: XR chest 1V portable DATE OF EXAM: 12/02/2018 HISTORY: sob. REFERENCE: Previous study dated 05/08/2012. FINDINGS: Heart is mildly enlarged. There is bibasilar airspace disease either representing atelectas is or pneumonia. The study is quite rotated. There is blunting of the left CP angle. I could not excl ude a small left effusion. IMPRESSION: 1. MILD CARDIOMEGALY. 2. BIBASILAR AIRSPACE DISEASE. 3. LEFT-SIDED EFFUSION.
[2018-12-02 11:55] LABS: Glucose,Whole Blood 136 mg/dL (75-99)
[2018-12-02] MEDS: PHENobarbital 64.8 MG TAB PO SCH (12:16)
[2018-12-02] MEDS ORDERED: BENZOCAINE SPRAY 1 CAN MUCOUS MEM PRN (13:07)
--- NOTE | 2018-12-02 14:04 | P.PN ---
Subjective Progress Note Date: 12/02/18 63-year-old male patient with a known history of CVA with left-sided weakness who was brought in from [facility] due to concern of GI bleeding. The patient apparently has been having emesis for the past 2-3 days and he's been having coffee-ground emesis and he reported by the blood per rectum. His abdomen was quite distended time of his ED visit. NG tube was inserted and the patient had more than a liter of bloody material aspirated with some subsequent clinical improvement in his abdominal distention. No fever. No chills. No previous history of GI bleed. The patient has been maintained on aspirin on outpatient basis. The patient has also various comorbidities are then CVA which include hyperlipidemia, diabetes mellitus, hypothyroidism, hypertension, seizure disorder. The patient is currently in the intensive care unit. Hemoglobin is 13.1. White cell count is at 20.8. The patient was given IV fluids a total of 2 L in the emergency department currently is on normal saline at rate of 1 50 mL an hour. He is producing minimal amount of urine output in the order of 10 mL an hour. He has developed an acute kidney injury. Initial creatinine in the emergency department was at 6.7 with a BUN of 94. His potassium level is at 6.4. EKG showed sinus rhythm with a left axis deviation and right bundle branch block pattern. The patient has a lactic acid level of 4.9. CPKs at 263. Stool was positive for blood. Stool for C. diff has been negative. UA showing +2 protein. The CAT scan of the abdomen and pelvis was done in the emergency department and the patient was found to have fluid-filled ascending colon to the rectum with minimal amount of wall thickening and pericolonic inflammatory change. No diverticular disease. The findings were suggestive of mild colitis. No ileus and no dilated bowel. No free air. Currently the patient has FMF and he is producing liquid the black stool in the order of 100 mL over the past 8 hours. The patient also has an NG tube which is producing coffee-ground material. On today's evaluation of 12/01/2018, the patient is being seen for a follow-up. The patient remains in intensive care unit. We also resuscitated with patient with IV fluids. The patient was switched a bicarb infusion based on ongoing metabolic acidosis and hyperkalemia. The patient lactic acidosis improving. The patient's creatinine is also improving. On today's evaluation, the patient has still an NG tube in place. Output from the NG tube is improved. The abdomen however is still tympanic and slightly distended. No episodes of any bloody bowel movement since yesterday. As far as the blood work, the patient's hemoglobin is at 11.0. The potassium level was at 6.2 and dropped down to 5.7. Creatinine is down to 5.84 and a BUN is down to 98. The serum bicarb is at 11 and 9 gap of 22. The lactic acid level has normalized and is down to 1.4. Stool cultures of been negative. Blood cultures of been negative. A repeat abdominal film shows a normal gas pattern. It is a nonspecific x-ray. The patient is awake and alert and following commands and answering questions appropriately. His abdomen remains slightly distended which is comparable to yesterday's examination. Her net fluid balance of the +5.2 L over the past 24 hours. The NG drainage was 650cc yesterday on 12/02/2018 and seeing this patient for a follow-up. The patient is still having ongoing gastrointestinal issues as the patient's abdomen continues to be tympanic and distended. The patient had the NG tube removed yesterday and a son GIs recommendation was given some clear liquid diet.patient continues to be an acute kidney injury in renal failure. Urine output is still diminished. Urine output is also bloody. Based on all this, obtain another x-ray of the abdomen this morning that showed large bowel dilatation with air present in the colon to the rectum, suggestive of Leandra's syndrome.chest x-ray showing a left lower lobe consolidation and effusion. patient had a rectal tube earlier that was pulled out by the patient. accordingly was given a fecal management system and he has some liquidy stool, gout and the collection bag. Stool for C. diff has been negative. The patient is currently covered with IV Zosyn. The patient has shown some improvement in the where the lactic acid level dropped down to 1.4 times normalized. Meanwhile, the patient still having issues with acute kidney injury. Creatinine is up to 6.7 with a BUN of 109.the patient is potassium level is at 4.9. the patient is oliguric. Based on hybrid car mechanic recommendations, we measured intra-abdominal pressures which was measured to be around 22 and I recommended to put the NG tube back again and obtain a surgical consultation regarding this colonic distention/dilatation. Objective - Vital Signs Vital signs: Vital Signs Temp 97.9 F 12/02/18 12:00 Pulse 73 12/02/18 13:00 Resp 16 12/02/18 13:00 BP 99/60 12/02/18 13:00 Pulse Ox 99 12/02/18 13:00 Intake & Output 12/01/18 12/02/18 12/02/18 18:59 06:59 18:59 Intake Total 1950 1650 900 Output Total 250 145 675 Balance 1700 1505 225 Weight 129.1 kg Intake: IV 1800 1650 900 Dextrose 5% in Water 1, 1800 1650 600 000 ml @ 150 mls/hr IV . Q7H40M MAGDA with Sodium Bicarb (1 Meq/ml) 150 ml Rx#:[id number] Sodium Chloride 0.9% 1, 300 000 ml @ 100 mls/hr IV . Q10H MAGDA Rx#:[id number] Intake, IV Titration 150 Amount Dextrose 5% in Water 1, 150 000 ml @ 150 mls/hr IV . Q7H40M MAGDA with Sodium Bicarb (1 Meq/ml) 150 ml Rx#:[id number] Output: Urine 250 145 75 Stool 600 Other: Voiding Method Indwelling Catheter Indwelling Catheter Indwelling Catheter - Exam Gen. appearance the patient is obese, comfortable likely distress. The patient has a garcia facies. The patient also has scar of previous craniotomy over the right scalp. Another scar in the front scalp/forehead area. A skin lesion was resected. Head exam was generally normal. There was no scleral icterus or corneal arcus. Mucous membranes were moist. Neck was supple and without jugular venous distension, thyromegaly, or carotid bruits. Carotids were easily palpable bilaterally. There was no adenopathy. The patient has NG tube in place. A tracheostomy scar is of an anterior neck area. Lungs were clear to auscultation and percussion, and with normal diaphragmatic excursion. No wheezes or rales were noted. Cardiac exam revealed the PMI to be normally situated and sized. The rhythm was regular and no extrasystoles were noted during several minutes of auscultation. The first and second heart sounds were normal and physiologic splitting of the second heart sound was noted. There were no murmurs, rubs, clicks, or gallops. Abdominal exam revealed normal bowel sounds. The abdomen was soft, non-tender, and without masses, organomegaly, or appreciable enlargement of the abdominal aorta.. No direct tenderness or rebound tensile guarding. The abdomen is still tympanic *continues to be quite distended on today's evaluation. Extremities are swollen and skin is quite thickened and scaly. No open wounds or sores or ulceration or cellulitis. Pulses are diminished at the present. No cyanosis or clubbing. The left lower extremity is quite swollen compared to the right and this is a chronic finding along with some extensive skin thickening with scaliness. Neurologically the patient has left-sided weakness along with chronic spasticity and contractures on the left. - Labs CBC & Chem 7: 12/02/18 04:18 12/02/18 04:18 Labs: Abnormal Lab Results - Last 24 Hours (Table) 12/01/18 12/01/18 12/01/18 Range/Units 16:52 17:28 20:23 RBC (4.30-5.90) m/uL Hgb (13.0-17.5) gm/dL Hct (39.0-53.0) % Neutrophils # (1.3-7.7) k/uL Lymphocytes # (1.0-4.8) k/uL Potassium 5.5 H (3.5-5.1) mmol/L Chloride (98-107) mmol/L BUN (9-20) mg/dL Creatinine (0.66-1.25) mg/dL Glucose (74-99) mg/dL POC Glucose (mg/dL) 177 H 164 H (75-99) mg/dL Calcium (8.4-10.2) mg/dL Total Protein (6.3-8.2) g/dL Albumin (3.5-5.0) g/dL 12/02/18 12/02/18 12/02/18 Range/Units 04:18 04:18 06:59 RBC 3.45 L (4.30-5.90) m/uL Hgb 10.2 L (13.0-17.5) gm/dL Hct 30.2 L (39.0-53.0) % Neutrophils # 8.4 H (1.3-7.7) k/uL Lymphocytes # 0.8 L (1.0-4.8) k/uL Potassium (3.5-5.1) mmol/L Chloride 92 L (98-107) mmol/L BUN 109 H* (9-20) mg/dL Creatinine 6.70 H (0.66-1.25) mg/dL Glucose 115 H (74-99) mg/dL POC Glucose (mg/dL) 105 H (75-99) mg/dL Calcium 7.4 L (8.4-10.2) mg/dL Total Protein 5.4 L (6.3-8.2) g/dL Albumin 2.7 L (3.5-5.0) g/dL 12/02/18 Range/Units 11:53 RBC (4.30-5.90) m/uL Hgb (13.0-17.5) gm/dL Hct (39.0-53.0) % Neutrophils # (1.3-7.7) k/uL Lymphocytes # (1.0-4.8) k/uL Potassium (3.5-5.1) mmol/L Chloride (98-107) mmol/L BUN (9-20) mg/dL Creatinine (0.66-1.25) mg/dL Glucose (74-99) mg/dL POC Glucose (mg/dL) 136 H (75-99) mg/dL Calcium (8.4-10.2) mg/dL Total Protein (6.3-8.2) g/dL Albumin (3.5-5.0) g/dL Microbiology - Last 24 Hours (Table) 11/30/18 14:15 Urine Culture - Final Urine,Catheterized 11/30/18 15:25 Blood Culture - Preliminary Blood No Growth after 24 hours 11/30/18 15:17 Blood Culture - Preliminary Blood No Growth after 24 hours Assessment and Plan Plan: 1 acute GI bleed most likely an upper GI source. The presentation is possibly suggestive of Elis-Haq tear as the patient had several bouts of emesis and subsequently developed coffee-ground emesis and bright red blood per rectum. Currently has an NG tube in place. Amount of blood is improved compared to this morning. NG tube was placed and the more than 1 L of coffee-ground material was aspirated. Abdomen is less distended. Extremities is in place and the patient is having some bloody dark material in small amounts. He ended 8, the patient is hemodynamically stable. However, despite this GI bleed, he maintained a hemoglobin of 13, probably hemoconcentrated. subsequent hemoglobin dropped down the temperature is currently inactive and stable. 2 abdominal distention with colonic distention and there is also a in the colon and the rectum. Consider or guilty syndrome. Will need a surgical consultation. May need decompression whether it's manual or via crectal tube or endoscopic. 3 acute kidney injury with oligoria,And the patient the still receiving IV fluids in the form of normal saline at the rate of 100 mL an hour. Balance is +3.2 L over the past 24 hours. 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 Noted the patient required tracheostomy and he was vented for a long period of time following that neurologic event that occurred 10 years ago 8 wheelchair-bound and the patient is a [facility] resident 9 cardiomyopathy possibly of an ischemic type. Based on ejection fraction is not known 10 insulin-dependent diabetes mellitus type 2 11 hypothyroidism 12 history of pilonidal cyst 13 history of seizure disorder inactive and stable for now the patient has been well maintained on seizure medications 14 hyperlipidemia Plan into new normal saline. Insert NG tube. Obtain a surgical consultation regarding colonic decompression.the patient was kept in ICU. The patient will be kept nothing by mouth. We'll continue to follow.
--- NOTE | 2018-12-02 14:30 | P.PN ---
Progress Note - Text Progress Note Date: 12/02/18 Chief Complaint: Coffee-ground emesis Interval history: This is a 63-year-old patient who follows with Dr. Mandujano. Presented to ER this morning. Patient has a prior history of stroke with left-sided paralysis and dysarthria. Patient was complaining of nausea and vomiting for last 2 or 3 days. Now presents with coffee-ground emesis and DrRabia Louien stools. Has some abdominal discomfort 2. Patient was admitted to the ICU. NG tube was placed and also fecal management system was placed. No fever or chills. 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 Patient pretty much wheelchair-bound. Also as a stent coronary stent. Patient normally uses a power chair and can feed himself. Admitted with acute GI bleed Today-in ICU. patient still having dark liquid stools. Fecal management system in place. Still having hematuria. Abdomen more distended. Unsuccessful attempt at placing a G-tube earlier today. Review of systems: Was done for constitutional, cardiovascular, GI, pulmonary. relevant finding as above Active Medications Albuterol Sulfate (Ventolin Nebulized) 2.5 mg INHALATION RT-Q6H PRN PRN Reason: Shortness Of Breath Atorvastatin Calcium (Lipitor) 20 mg PO DAILY@1700 [facility] Last Admin: 12/01/18 16:47 Dose: 20 mg Documented by: Benzocaine (Hurricaine [place]) 1 spray MUCOUS MEM TID PRN PRN Reason: Mouth Irritation Bupropion HCl (Wellbutrin) 100 mg PO DAILY@1700 [facility] Last Admin: 11/30/18 19:58 Dose: 100 mg Documented by: Bupropion HCl (Wellbutrin Sr) 150 mg PO DAILY@0900 [facility] Last Admin: 12/02/18 08:31 Dose: 150 mg Documented by: Fenofibrate (Lofibra) 160 mg PO DAILY@1700 [facility] Last Admin: 12/01/18 16:48 Dose: 160 mg Documented by: Piperacillin Sod/Tazobactam (Sod 3.375 gm/ Sodium Chloride) 100 mls @ 25 mls/hr IVPB Q12H [facility] Last Admin: 12/02/18 12:16 Dose: 25 mls/hr Documented by: Sodium Chloride (Saline 0.9%) 1,000 mls @ 100 mls/hr IV .Q10H [facility] Last Admin: 12/02/18 09:56 Dose: 100 mls/hr Documented by: Insulin Aspart (Novolog) 0 unit SQ ACHS [facility]; Protocol Last Admin: 12/02/18 12:17 Dose: 1 unit Documented by: Insulin Detemir (Levemir) 40 unit SQ DAILY@2000 [facility] Last Admin: 12/01/18 20:55 Dose: 40 unit Documented by: Lamotrigine (Lamictal) 25 mg PO BID@0900,1700 [facility] Last Admin: 12/02/18 08:31 Dose: 25 mg Documented by: Levothyroxine Sodium (Synthroid) 125 mcg PO DAILY@0600 [facility] Last Admin: 12/02/18 07:31 Dose: 125 mcg Documented by: Metoprolol Tartrate (Lopressor) 50 mg PO BID@0600,1700 [facility] Last Admin: 12/02/18 07:30 Dose: 50 mg Documented by: Naloxone HCl (Narcan) 0.2 mg IV Q2M PRN PRN Reason: Opioid Reversal Ondansetron HCl (Zofran) 4 mg IVP Q8HR PRN PRN Reason: Nausea And Vomiting Pantoprazole Sodium (Protonix) 40 mg IV BID [facility] Last Admin: 12/02/18 08:31 Dose: 40 mg Documented by: Phenobarbital (Luminal) 64.8 mg PO DAILY@1200 [facility] Last Admin: 12/02/18 12:16 Dose: 64.8 mg Documented by: Phenytoin Sodium (Dilantin) 200 mg PO BID@0900,1700 [facility] Last Admin: 12/02/18 08:32 Dose: 200 mg Documented by: Topiramate (Topamax) 50 mg PO DAILY@1700 [facility] Last Admin: 12/01/18 16:47 Dose: 50 mg Documented by: Physical examination: VITAL SIGNS: 97.9, 72, 16, 103/59, 98% on 2 L GENERAL: Laying in bed, awake EYES: Pupils equal. Conjunctiva pale HEENT: External appearance of nose and ears normal, oral cavity dry, no NG tube NECK: JVD unable to assess neck is short and thick; masses not palpable. HEART: Distant heart sounds; some edema. LUNGS: Respiratory rate increased, diminished breath sounds. ABDOMEN: Soft, distended, hypertympanitic, mild-tender, liver spleen not palpable, no masses palpable. Plata catheter with hematuria in the Plata bag PSYCH: Awake answering questionsl. NEUROLOGICAL: Dysarthric, power on the left side is 0/5. 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 Romero. Patient may need a rectal tube for decompression significantly distended. General surgery will be consulted for the same. Keep a close eye on hemodynamics. Prognosis guarded.
--- NOTE | 2018-12-02 15:03 | P.GSCN ---
History of Present Illness Consult date: 12/02/18 History of present illness: CHIEF COMPLAINT: Abdominal distention HISTORY OF PRESENT ILLNESS: The patient is a 63 year old male who was admitted for nausea and vomiting including coffee ground emesis for over 2 days. He has baseline history of stroke with left sided paralysis. He has history of abdominal distention. He also had dark bowel movement. He comes in with acute renal failure. He has refractory hyperkalemia. He was being conservatively treated for colitis. Today, he has no reports of abdominal pain. He is independently breathing. He is in the ICU. General surgery is consulted for ileus. Initial WBC elevated of 26,000 is now normal to 10,000. PAST MEDICAL HISTORY: See list. PAST SURGICAL HISTORY: See list. MEDICATIONS: See list. ALLERGIES: See list. SOCIAL HISTORY: See list. FAMILY HISTORY: See list. REVIEW OF ORGAN SYSTEMS: CONSTITUTIONAL: No fevers or chills. No recent weight loss. EYES: Denies any trouble with vision. No glasses. HEENT: No difficulties with hearing. No nosebleeds. No difficulty swallowing. RESPIRATORY: Denies pneumonia. Has asthma CARDIOVASCULAR: Past chest pain, palpitations, or recent heart attacks. Has hyperlipidemia. Has hypertension. Has myocardial infarction. GASTROINTESTINAL: Has chronic diarrhea GENITOURINARY: Denies any blood in urine or increased urinary frequency. NEUROLOGICAL: Denies any numbness or tingling along the distal extremities. Has seizure disorders. Past stroke. MUSCULOSKELETAL: Denies any back pain, stiffness or joint arthritis. SKIN: No current skin cancer. No rash. PSYCHIATRIC: Has depression. No suicidal thoughts. Has anxiety. ENDOCRINE: Has thyroid disorders. Has blood sugar glucose intolerance. HEME/LYMPHATIC: Denies any lumps and bumps around the neck. No recent deep venous thrombosis. ALLERGY/IMMUNOLOGY: No immunoglobulin therapy. No immune deficiencies. BREAST: Denies current breast lumps, pain or nipple discharge. PHYSICAL EXAM: VITALS: Reviewed CONSTITUTIONAL: Well developed and in no acute distress. EYES: Conjuctivae without sclera icterus. Extraocular movements grossly intact. HEAD, EARS, NOSE, THROAT: Moist buccal mucosa. Head is atraumatic, normocephalic. Hears conversational speech. No nasal drainage. NECK: Supple. No JV distention. No thyroidomegaly. RESPIRATORY: Non-labored respirations and equal bilateral excursions. CARDIOVASCULAR: Regular rate and rhythm. Extremities with edema. Palpable 2+ radial pulses. ABDOMEN: Distended but still soft, obese. Non-tender. LYMPH: No neck lymphadenopathy. No axillary lymphadenopathy. MUSCULOSKELETAL: Nail and fingers with good capillary refill. SKIN: Warm and well perfused with good skin turgor. NEUROLOGIC: Cranial nerves I through XII grossly intact. Sensation upper and e xtremities intact. Left sided weakness. PSYCH: Alert and oriented to person. CLINCAL LABS: Reviewed. Initial 26,000 now to 10,000. Creatinine elevated 6.75 on admission still elevated. RADIOLOGY: Report reviewed showed colitis for gastroenteritis. Abdominal xray with diffuse ileus. IMAGING: Independently reviewed CT of the abdomen shows moderately dilated stomach. Colon was dilated. Recent abdominal xray shows air within rectum and colon. ASSESSMENT: 1. Colitis 2. Ileus 3. Acute renal failure 4. Morbid obesity PLAN: 1. He has ileus from multiple electrolyte dyscrasia 2. Agree with NGT with history of distended stomach 3. Hold rectal tube 4. May start Neostigmine tomorrow as he has transient hypotension now 5. No surgical intervention for now 6. Keep NPO for now. Thank you for this kind consultation. Past Medical History Past Medical History: CVA/TIA, Diabetes Mellitus, Hyperlipidemia, Hypertension, Myocardial Infarction (VT), Seizure Disorder, Thyroid Disorder, Vascular Disorder Additional Past Medical History / Comment(s): Brain surgery 10 yrs ago for aneurysm and had CVA with left sided weakness upper and lower extremity and had trach/vented, (pt was left hand dominent), muscle weakness, wheelchair bound, last seizure many years ago, ischemic cardiomyopathy, IDDM type II, hypothyroid, pilonidal cyst. Last Myocardial Infarction Date:: History of Any Multi-Drug Resistant Organisms: None Reported Past Surgical History: Unable to Obtain Additional Past Surgical History / Comment(s): brain surgery for aneurysm, PCI with stent, nasal cartlidge surgery. Past Anesthesia/Blood Transfusion Reactions: No Reported Reaction Smoking Status: Former smoker - Past Family History Mother History Unknown: Yes Additional Family Medical History / Comment(s): Mother is living. Father History Unknown: Yes Additional Family Medical History / Comment(s): Father is living. Medications and Allergies Home Medications Medication Instructions Recorded Confirmed Type Albuterol Nebulized [Ventolin 2.5 mg INHALATION RT-Q6H PRN 06/03/18 11/30/18 History Nebulized] Aspirin 325 mg PO DAILY@1700 06/03/18 11/30/18 History Atorvastatin [Lipitor] 20 mg PO DAILY@169906/03/18 11/30/18 History Cholecalciferol (Vitamin D3) 2,000 unit PO DAILY@0 06/03/18 11/30/18 History [Vitamin D3] Clopidogrel Bisulfate [Plavix] 75 mg PO DAILY@1200 06/03/18 11/30/18 History Furosemide [Lasix] 40 mg PO DAILY@0606/03/18 11/30/18 History Gemfibrozil [Lopid] 600 mg PO BID@0900,169906/03/18 11/30/18 History Insulin Aspart [NovoLOG Flexpen] 16 unit SQ AC-TID 06/03/18 11/30/18 History Insulin Aspart [NovoLOG Flexpen] See Protocol SQ ACHS 06/03/18 11/30/18 History Insulin Glargine,Hum.rec.anlog 20 unit SQ DAILY@0806/03/18 11/30/18 History [Basaglar Kwikpen U-100] Insulin Glargine,Hum.rec.anlog 50 unit SQ DAILY@199906/03/18 11/30/18 History [Basaglar Kwikpen U-100] Levothyroxine Sodium [Synthroid] 125 mcg PO DAILY@0606/03/18 11/30/18 History Liraglutide [Victoza 3-Felice] 1.2 mg PO DAILY@0606/03/18 11/30/18 History Lisinopril 20 mg PO DAILY@0900 06/03/18 11/30/18 History Metoprolol Tartrate [Lopressor] 50 mg PO BID@0600,1700 06/03/18 11/30/18 History Niacin 500 mg PO DAILY@169906/03/18 11/30/18 History PHENobarbital [Luminal] 64.8 mg PO DAILY@1200 06/03/18 11/30/18 History Phenytoin Sodium Extended 200 mg PO BID@0900,1700 06/03/18 11/30/18 History [Dilantin] Potassium Chloride [Klor-Con 20] 20 meq PO DAILY@0900 06/03/18 11/30/18 History Topiramate [Topamax] 50 mg PO DAILY@169906/03/18 11/30/18 History Vascepa (1gm) 2 gram PO BID@0900,169906/03/18 11/30/18 History buPROPion HCL [buPROPion HCL SR] 150 mg PO DAILY@0900 06/03/18 11/30/18 History buPROPion [Wellbutrin] 100 mg PO DAILY@169906/03/18 11/30/18 History lamoTRIgine [LaMICtal] 25 mg PO BID@0900,169906/03/18 11/30/18 History metFORMIN HCL 1,000 mg PO BID@0600,169906/03/18 11/30/18 History Loperamide [Imodium] 4 mg PO BID PRN 11/30/18 11/30/18 History Z-Guard 1 applic TOPICAL DIRECTED 11/30/18 11/30/18 History Z-Guard 1 applic TOPICAL Q12H 11/30/18 11/30/18 History Allergies Allergy/AdvReac Type Severity Reaction Status Date / Time No Known Allergies Allergy Verified 11/30/18 07:39 Surgical - Exam Vital Signs Temp Pulse Resp BP Pulse Ox 98.3 F 115 H 18 124/59 92 L 11/30/18 07:30 11/30/18 07:30 11/30/18 07:30 11/30/18 07:30 11/30/18 07:30 Results - Labs 12/02/18 04:18 12/02/18 04:18 Abnormal Lab Results - Last 24 Hours (Table) 12/01/18 12/01/18 12/01/18 Range/Units 16:52 17:28 20:23 RBC (4.30-5.90) m/uL Hgb (13.0-17.5) gm/dL Hct (39.0-53.0) % Neutrophils # (1.3-7.7) k/uL Lymphocytes # (1.0-4.8) k/uL Potassium 5.5 H (3.5-5.1) mmol/L Chloride (98-107) mmol/L BUN (9-20) mg/dL Creatinine (0.66-1.25) mg/dL Glucose (74-99) mg/dL POC Glucose (mg/dL) 177 H 164 H (75-99) mg/dL Calcium (8.4-10.2) mg/dL Total Protein (6.3-8.2) g/dL Albumin (3.5-5.0) g/dL 12/02/18 12/02/18 12/02/18 Range/Units 04:18 04:18 06:59 RBC 3.45 L (4.30-5.90) m/uL Hgb 10.2 L (13.0-17.5) gm/dL Hct 30.2 L (39.0-53.0) % Neutrophils # 8.4 H (1.3-7.7) k/uL Lymphocytes # 0.8 L (1.0-4.8) k/uL Potassium (3.5-5.1) mmol/L Chloride 92 L (98-107) mmol/L BUN 109 H* (9-20) mg/dL Creatinine 6.70 H (0.66-1.25) mg/dL Glucose 115 H (74-99) mg/dL POC Glucose (mg/dL) 105 H (75-99) mg/dL Calcium 7.4 L (8.4-10.2) mg/dL Total Protein 5.4 L (6.3-8.2) g/dL Albumin 2.7 L (3.5-5.0) g/dL 12/02/18 Range/Units 11:53 RBC (4.30-5.90) m/uL Hgb (13.0-17.5) gm/dL Hct (39.0-53.0) % Neutrophils # (1.3-7.7) k/uL Lymphocytes # (1.0-4.8) k/uL Potassium (3.5-5.1) mmol/L Chloride (98-107) mmol/L BUN (9-20) mg/dL Creatinine (0.66-1.25) mg/dL Glucose (74-99) mg/dL POC Glucose (mg/dL) 136 H (75-99) mg/dL Calcium (8.4-10.2) mg/dL Total Protein (6.3-8.2) g/dL Albumin (3.5-5.0) g/dL Microbiology - Last 24 Hours (Table) 11/30/18 14:15 Urine Culture - Final Urine,Catheterized 11/30/18 15:25 Blood Culture - Preliminary Blood No Growth after 24 hours 11/30/18 15:17 Blood Culture - Preliminary Blood No Growth after 24 hours Diabetes panel 12/01/18 12/02/18 Range/Units 17:28 04:18 Sodium 138 (137-145) mmol/L Potassium 5.5 H 4.9 (3.5-5.1) mmol/L Chloride 92 L (98-107) mmol/L Carbon Dioxide 25 (22-30) mmol/L BUN 109 H* (9-20) mg/dL Creatinine 6.70 H (0.66-1.25) mg/dL Glucose 115 H (74-99) mg/dL Calcium 7.4 L (8.4-10.2) mg/dL AST 50 (17-59) U/L ALT 35 (21-72) U/L Alkaline Phosphatase 51 (38-126) U/L Total Protein 5.4 L (6.3-8.2) g/dL Albumin 2.7 L (3.5-5.0) g/dL Calcium panel 12/02/18 Range/Units 04:18 Calcium 7.4 L (8.4-10.2) mg/dL Albumin 2.7 L (3.5-5.0) g/dL Pituitary panel 12/01/18 12/02/18 Range/Units 17:28 04:18 Sodium 138 (137-145) mmol/L Potassium 5.5 H 4.9 (3.5-5.1) mmol/L Chloride 92 L (98-107) mmol/L Carbon Dioxide 25 (22-30) mmol/L BUN 109 H* (9-20) mg/dL Creatinine 6.70 H (0.66-1.25) mg/dL Glucose 115 H (74-99) mg/dL Calcium 7.4 L (8.4-10.2) mg/dL Adrenal panel 12/01/18 12/02/18 Range/Units 17:28 04:18 Sodium 138 (137-145) mmol/L Potassium 5.5 H 4.9 (3.5-5.1) mmol/L Chloride 92 L (98-107) mmol/L Carbon Dioxide 25 (22-30) mmol/L BUN 109 H* (9-20) mg/dL Creatinine 6.70 H (0.66-1.25) mg/dL Glucose 115 H (74-99) mg/dL Calcium 7.4 L (8.4-10.2) mg/dL Total Bilirubin 0.6 (0.2-1.3) mg/dL AST 50 (17-59) U/L ALT 35 (21-72) U/L Alkaline Phosphatase 51 (38-126) U/L Total Protein 5.4 L (6.3-8.2) g/dL Albumin 2.7 L (3.5-5.0) g/dL Assessment and Plan (1) Morbid obesity due to excess calories Current Visit: Yes Status: Acute Code(s): E66.01 - MORBID (SEVERE) OBESITY DUE TO EXCESS CALORIES SNOMED Code(s): 565810709 (2) BMI 40.0-44.9, adult Current Visit: Yes Status: Acute Code(s): Z68.41 - BODY MASS INDEX (BMI) 40.0-44.9, ADULT SNOMED Code(s): 962701354 (3) Acute renal failure (ARF) Current Visit: Yes Status: Acute Code(s): N17.9 - ACUTE KIDNEY FAILURE, UNSPECIFIED SNOMED Code(s): 30620989 (4) Anemia associated with acute blood loss Current Visit: Yes Status: Acute Code(s): D62 - ACUTE POSTHEMORRHAGIC ANEMIA SNOMED Code(s): 767592407 (5) Coffee ground emesis Current Visit: Yes Status: Acute Code(s): K92.0 - HEMATEMESIS SNOMED Code(s): 85584674 (6) Colitis Current Visit: Yes Status: Acute Code(s): K52.9 - NONINFECTIVE GASTROENTERITIS AND COLITIS, UNSPECIFIED SNOMED Code(s): 23325151 (7) Hyperkalemia Current Visit: Yes Status: Acute Code(s): E87.5 - HYPERKALEMIA SNOMED Code(s): 56703407 (8) Leukocytosis Current Visit: Yes Status: Acute Code(s): D72.829 - ELEVATED WHITE BLOOD CELL COUNT, UNSPECIFIED SNOMED Code(s): 172292531 (9) Ileus Current Visit: Yes Status: Acute Code(s): K56.7 - ILEUS, UNSPECIFIED SNOM ED Code(s): 558221793
--- NOTE | 2018-12-02 16:27 | XR ---
EXAMINATION TYPE: XR chest 1V portable DATE OF EXAM: 12/02/2018 COMPARISON: 12/02/2018 INDICATION: NG Tube placement TECHNIQUE: Single frontal view of the chest is obtained. FINDINGS: The heart size is normal. The pulmonary vasculature is normal. The lungs are clear. Normal left pleural effusion may be present. The nasogastric tube is not identified. IMPRESSION: 1. Normal left pleural effusion. 2. Nasogastric tube is not within the [id number].
[2018-12-02 16:47] LABS: Glucose,Whole Blood 243 mg/dL (75-99)
[2018-12-02] MEDS: ATORVASTATIN 20 MG TAB PO SCH (17:43)
[2018-12-02 17:44] LABS: Glucose,Whole Blood 81 mg/dL (75-99)
[2018-12-02] MEDS: buPROPion 100 MG TAB PO SCH (17:44)
[2018-12-02] MEDS: TOPIRAMATE 25 MG TAB PO SCH (17:44)
[2018-12-02] MEDS: FENOFIBRATE 160 MG TAB PO SCH (18:27)
[2018-12-02 20:41] LABS: Glucose,Whole Blood 68 mg/dL (75-99)
[2018-12-02] MEDS ORDERED: DEXTROSE 50% SYRINGE 50 ML IVP STA (20:48)
[2018-12-02] MEDS ORDERED: DEXTROSE 10 % IN WATER 250 ML IV ONE (20:53)
[2018-12-02] MEDS: INSULIN DETEMIR (LEVEMIR) 100 UNIT/ML SYR SQ SCH (20:54)
[2018-12-02] MEDS ORDERED: INSULIN ASPART (NovoLOG) 100 UNIT/ML VIAL SQ SCH (21:05)
[2018-12-02 21:38] LABS: Glucose,Whole Blood 125 mg/dL (75-99)
--- NOTE | 2018-12-02 23:03 | XR ---
EXAMINATION TYPE: XR chest 1V DATE OF EXAM: 12/02/2018 COMPARISON: Today HISTORY: NG tube placement TECHNIQUE: Single frontal view of the chest is obtained. FINDINGS: Heart is probably enlarged. There is no gross heart failure. There is poor inspiration. Th ere is probably some atelectasis left lower lobe. There are chest leads. I see no nasogastric tube. IMPRESSION: There is some mild infiltrate and atelectasis left lower lobe unchanged compared to exam earlier today. No nasogastric tube seen.
--- NOTE | 2018-12-02 23:30 | XR ---
EXAMINATION TYPE: XR chest 1V DATE OF EXAM: 12/02/2018 COMPARISON: Today HISTORY: NG tube placement TECHNIQUE: Single frontal view of the chest is obtained. FINDINGS: There is nasogastric tube in the tip is well into the stomach. Lower end is not included o n the exam. There is some mild infiltrate and atelectasis left lower lobe. There is no gross heart fa ilure. IMPRESSION: Left lower lobe infiltrate and atelectasis unchanged. Nasogastric tube in good position.
[2018-12-03 02:15] LABS: Glucose,Whole Blood 73 mg/dL (75-99)
[2018-12-03 04:49] LABS: Basophils # (A) 0.1 k/uL (0-0.2); Basophils % (A) 0 %; Eosinophils # (A) 0.9 k/uL (0-0.7); Eosinophils % (A) 6 %; HCT 30.9 % (39.0-53.0); HGB 10.6 gm/dL (13.0-17.5); Lymphocytes # (A) 0.7 k/uL (1.0-4.8); Lymphocytes % (A) 5 %; MCH 29.4 pg (25.0-35.0); MCHC 34.3 g/dL (31.0-37.0); MCV 85.7 fL (80.0-100.0); Mean Platelet Volume 6.2; Monocytes # (A) 0.6 k/uL (0-1.0); Monocytes % (A) 5 %; Neutrophils % (A) 82 %; Platelet Count 336 k/uL (150-450); RDW 12.6 % (11.5-15.5); WBC 13.5 k/uL (3.8-10.6)
[2018-12-03 04:58] LABS: Albumin 2.7 g/dL (3.5-5.0); Potassium 5.3 mmol/L (3.5-5.1); Total Bilirubin 0.6 mg/dL (0.2-1.3); Total Protein 5.6 g/dL (6.3-8.2); Uric Acid 10.7 mg/dL (3.5-8.5)
[2018-12-03] MEDS: LEVOTHYROXINE 125 MCG TAB PO SCH (05:41)
[2018-12-03] MEDS: METOPROLOL TARTRATE 50 MG TAB PO SCH ×2 (05:41→16:52)
[2018-12-03] MEDS: SODIUM CHLORIDE 0.9% 1,000 ML IV SCH ×2 (05:42→16:44)
[2018-12-03] MEDS ORDERED: DEXTROSE 10 % IN WATER 250 ML IV ONE ×2 (05:54→17:18)
[2018-12-03 05:55] LABS: Glucose,Whole Blood 66 mg/dL (75-99)
[2018-12-03 06:38] LABS: Glucose,Whole Blood 122 mg/dL (75-99)
[2018-12-03] MEDS: INSULIN ASPART (NovoLOG) 100 UNIT/ML VIAL SQ SCH ×4 (06:50→22:44)
--- NOTE | 2018-12-03 08:03 | XR ---
EXAMINATION TYPE: XR abdomen 1V , 2 VIEWS DATE OF EXAM ORDERED: 12/03/2018 HISTORY: abdominal distention. COMPARISON: Previous study dated 12/02/2018. FINDINGS: The study is limited by technical factors. There continues to be some dilatation of the la rge bowel. Largest transverse diameter 12 cm at the level of the cecum. Surgical suture lines are aga in evident. Small bowel does not appear dilated. Distal colonic gas has been expelled. There is no lo nger gas within the rectum. IMPRESSION: FINDINGS MOST CONSISTENT WITH LARGE BOWEL ILEUS WITH MAXIMAL TRANSVERSE DIAMETER OF 12 CENTIMETERS. C ONSIDER KANDIS'S SYNDROME.
--- NOTE | 2018-12-03 08:40 | P.PN ---
Subjective Progress Note Date: 12/03/18 63-year-old male patient with a known history of CVA with left-sided weakness who was brought in from half-way due to concern of GI bleeding. The patient apparently has been having emesis for the past 2-3 days and he's been having coffee-ground emesis and he reported by the blood per rectum. His abdomen was quite distended time of his ED visit. NG tube was inserted and the patient had more than a liter of bloody material aspirated with some subsequent clinical improvement in his abdominal distention. No fever. No chills. No previous history of GI bleed. The patient has been maintained on aspirin on outpatient basis. The patient has also various comorbidities are then CVA which include hyperlipidemia, diabetes mellitus, hypothyroidism, hypertension, seizure disorder. The patient is currently in the intensive care unit. Hemoglobin is 13.1. White cell count is at 20.8. The patient was given IV fluids a total of 2 L in the emergency department currently is on normal saline at rate of 1 50 mL an hour. He is producing minimal amount of urine output in the order of 10 mL an hour. He has developed an acute kidney injury. Initial creatinine in the emergency department was at 6.7 with a BUN of 94. His potassium level is at 6.4. EKG showed sinus rhythm with a left axis deviation and right bundle branch block pattern. The patient has a lactic acid level of 4.9. CPKs at 263. Stool was positive for blood. Stool for C. diff has been negative. UA showing +2 protein. The CAT scan of the abdomen and pelvis was done in the emergency department and the patient was found to have fluid-filled ascending colon to the rectum with minimal amount of wall thickening and pericolonic inflammatory change. No diverticular disease. The findings were suggestive of mild colitis. No ileus and no dilated bowel. No free air. Currently the patient has FMF and he is producing liquid the black stool in the order of 100 mL over the past 8 hours. The patient also has an NG tube which is producing coffee-ground material. On today's evaluation of 12/01/2018, the patient is being seen for a follow-up. The patient remains in intensive care unit. We also resuscitated with patient with IV fluids. The patient was switched a bicarb infusion based on ongoing metabolic acidosis and hyperkalemia. The patient lactic acidosis improving. The patient's creatinine is also improving. On today's evaluation, the patient has still an NG tube in place. Output from the NG tube is improved. The abdomen however is still tympanic and slightly distended. No episodes of any bloody bowel movement since yesterday. As far as the blood work, the patient's hemoglobin is at 11.0. The potassium level was at 6.2 and dropped down to 5.7. Creatinine is down to 5.84 and a BUN is down to 98. The serum bicarb is at 11 and 9 gap of 22. The lactic acid level has normalized and is down to 1.4. Stool cultures of been negative. Blood cultures of been negative. A repeat abdominal film shows a normal gas pattern. It is a nonspecific x-ray. The patient is awake and alert and following commands and answering questions appropriately. His abdomen remains slightly distended which is comparable to yesterday's examination. Her net fluid balance of the +5.2 L over the past 24 hours. The NG drainage was 650cc yesterday on 12/02/2018 and seeing this patient for a follow-up. The patient is still having ongoing gastrointestinal issues as the patient's abdomen continues to be tympanic and distended. The patient had the NG tube removed yesterday and a son GIs recommendation was given some clear liquid diet.patient continues to be an acute kidney injury in renal failure. Urine output is still diminished. Urine output is also bloody. Based on all this, obtain another x-ray of the abdomen this morning that showed large bowel dilatation with air present in the colon to the rectum, suggestive of Leandra's syndrome.chest x-ray showing a left lower lobe consolidation and effusion. patient had a rectal tube earlier that was pulled out by the patient. accordingly was given a fecal management system and he has some liquidy stool, gout and the collection bag. Stool for C. diff has been negative. The patient is currently covered with IV Zosyn. The patient has shown some improvement in the where the lactic acid level dropped down to 1.4 times normalized. Meanwhile, the patient still having issues with acute kidney injury. Creatinine is up to 6.7 with a BUN of 109.the patient is potassium level is at 4.9. the patient is oliguric. Based on spice room worker recommendations, we measured intra-abdominal pressures which was measured to be around 22 and I recommended to put the NG tube back again and obtain a surgical consultation regarding this colonic distention/dilatation. On 12/03/2018 I'm seeing this patient for a follow-up. Is awake and alert. NG tube was inserted again yesterday and output is not considered to be high. Nevertheless, the abdomen remains quite distended and the presentation may be related to large bowel ileus with a maximum transverse diameter being around 12 cm, consider Leandra's syndrome. The patient unfortunately is not making much of urine output. Creatinine is on the rise. The patient's BUN is up to 118 in the creatinine is up to 8.2. No further episodes of any GI bleeding. Output from the NG tube is nonbloody. Hemoglobin stable at 10.6. I've consulted with nephrology. I will also consult with general surgery and GI. The patient would have his rectal tube inserted today. We noted that the intra-abdominal pressures were high and this could have been contributed to his acute kidney injury. His uric acid level is also at 10.7. His calcium is at 7. Blood sugars are stable at 122. Potassium level is at 5.3. He remains on IV Zosyn. His stool for C. diff has been negative. Objective - Vital Signs Vital signs: Vital Signs Temp 98.4 F 12/03/18 04:00 Pulse 70 12/03/18 07:00 Resp 18 12/03/18 07:00 BP 110/64 12/03/18 07:00 Pulse Ox 99 12/03/18 07:00 Intake & Output 12/02/18 12/03/18 12/03/18 18:59 06:59 18:59 Intake Total 1500 1200 100 Output Total 765 509 15 Balance 735 691 85 Weight 131.4 kg Intake: IV 1500 1200 100 Dextrose 5% in Water 1, 600 000 ml @ 150 mls/hr IV . Q7H40M MAGDA with Sodium Bicarb (1 Meq/ml) 150 ml Rx#:[id number] Piperacillin-Tazobactam 3 100 .375 gm In Sodium Chloride 0.9% 100 ml @ 25 mls/hr IVPB Q12H MAGDA Rx# :[id number] Sodium Chloride 0.9% 1, 900 1100 100 000 ml @ 100 mls/hr IV . Q10H MAGDA Rx#:[id number] Output: Gastric Drainage 300 Urine 165 209 15 Stool 600 Other: Voiding Method Indwelling Catheter Indwelling Catheter - Exam Gen. appearance the patient is obese, comfortable likely distress. The patient has a garcia facies. The patient also has scar of previous craniotomy over the right scalp. Another scar in the front scalp/forehead area. A skin lesion was resected. The NG tube is in place and output is low at this point in time. Head exam was generally normal. There was no scleral icterus or corneal arcus. Mucous membranes were moist. Neck was supple and without jugular venous distension, thyromegaly, or carotid bruits. Carotids were easily palpable bilaterally. There was no adenopathy. The patient has NG tube in place. A tracheostomy scar is of an anterior neck area. Lungs were clear to auscultation and percussion, and with normal diaphragmatic excursion. No wheezes or rales were noted. Cardiac exam revealed the PMI to be normally situated and sized. The rhythm was regular and no extrasystoles were noted during several minutes of auscultation. The first and second heart sounds were normal and physiologic splitting of the second heart sound was noted. There were no murmurs, rubs, clicks, or gallops. Abdominal exam revealed normal bowel sounds. The abdomen was soft, non-tender, and without masses, organomegaly, or appreciable enlargement of the abdominal aorta.. No direct tenderness or rebound tensile guarding. The abdomen is still tympanic *continues to be quite distended on today's evaluation. Extremities are swollen and skin is quite thickened and scaly. No open wounds or sores or ulceration or cellulitis. Pulses are diminished at the present. No cyanosis or clubbing. The left lower extremity is quite swollen compared to the right and this is a chronic finding along with some extensive skin thickening with scaliness. Neurologically the patient has left-sided weakness along with chronic spasticity and contractures on the left. - Labs CBC & Chem 7: 12/03/18 04:35 12/03/18 04:35 Labs: Abnormal Lab Results - Last 24 Hours (Table) 12/02/18 12/02/18 12/02/18 Range/Units 11:53 16:46 20:40 WBC (3.8-10.6) k/uL RBC (4.30-5.90) m/uL Hgb (13.0-17.5) gm/dL Hct (39.0-53.0) % Neutrophils # (1.3-7.7) k/uL Lymphocytes # (1.0-4.8) k/uL Eosinophils # (0-0.7) k/uL Sodium (137-145) mmol/L Potassium (3.5-5.1) mmol/L Chloride (98-107) mmol/L BUN (9-20) mg/dL Creatinine (0.66-1.25) mg/dL Glucose (74-99) mg/dL POC Glucose (mg/dL) 136 H 243 H 68 L (75-99) mg/dL Uric Acid (3.5-8.5) mg/dL Calcium (8.4-10.2) mg/dL Total Protein (6.3-8.2) g/dL Albumin (3.5-5.0) g/dL 12/02/18 12/03/18 12/03/18 Range/Units 21:36 02:12 04:35 WBC (3.8-10.6) k/uL RBC (4.30-5.90) m/uL Hgb (13.0-17.5) gm/dL Hct (39.0-53.0) % Neutrophils # (1.3-7.7) k/uL Lymphocytes # (1.0-4.8) k/uL Eosinophils # (0-0.7) k/uL Sodium 136 L (137-145) mmol/L Potassium 5.3 H (3.5-5.1) mmol/L Chloride 94 L (98-107) mmol/L BUN 115 H* (9-20) mg/dL Creatinine 8.27 H* (0.66-1.25) mg/dL Glucose 61 L (74-99) mg/dL POC Glucose (mg/dL) 125 H 73 L (75-99) mg/dL Uric Acid 10.7 H (3.5-8.5) mg/dL Calcium 7.0 L (8.4-10.2) mg/dL Total Protein 5.6 L (6.3-8.2) g/dL Albumin 2.7 L (3.5-5.0) g/dL 09/29/19 09/29/19 09/29/19 Range/Units 04:35 05:53 06:36 WBC 13.5 H (3.8-10.6) k/uL RBC 3.60 L (4.30-5.90) m/uL Hgb 10.6 L (13.0-17.5) gm/dL Hct 30.9 L (39.0-53.0) % Neutrophils # 11.0 H (1.3-7.7) k/uL Lymphocytes # 0.7 L (1.0-4.8) k/uL Eosinophils # 0.9 H (0-0.7) k/uL Sodium (137-145) mmol/L Potassium (3.5-5.1) mmol/L Chloride (98-107) mmol/L BUN (9-20) mg/dL Creatinine (0.66-1.25) mg/dL Glucose (74-99) mg/dL POC Glucose (mg/dL) 66 L 122 H (75-99) mg/dL Uric Acid (3.5-8.5) mg/dL Calcium (8.4-10.2) mg/dL Total Protein (6.3-8.2) g/dL Albumin (3.5-5.0) g/dL Microbiology - Last 24 Hours (Table) 11/30/18 14:15 Stool Culture - Preliminary Stool 11/30/18 15:17 Blood Culture - Preliminary Blood No Growth after 48 hours 11/30/18 15:25 Blood Culture - Preliminary Blood No Growth after 48 hours Assessment and Plan Plan: 1 acute GI bleed most likely an upper GI source. The presentation is possibly suggestive of Elis-Haq tear as the patient had several bouts of emesis and subsequently developed coffee-ground emesis and bright red blood per rectum. Currently has an NG tube in place. Amount of blood is improved compared to hemoglobin is stable and NG tube will be kept in place for now. GI is on the case. 2 abdominal distention with colonic distention and there is also a in the colon and the rectum. 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 Transverse colon is reaching up to 12 cm in size and his largest diameter. Abdomen remains distended. There is a concern for increased intra-abdominal pressure causing acute kidney injury. A rectal tube is being inserted by gastroenterology. Follow-up flat film of the abdomen will be obtained. 3 acute kidney injury with oligoria, oliguric and the patient has a rise in the creatinine of 8.27. 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 Noted the patient required tracheostomy and he was vented for a long period of time following that neurologic event that occurred 10 years ago 8 wheelchair-bound and the patient is a half-way resident 9 cardiomyopathy possibly of an ischemic type. Based on ejection fraction is not known 10 insulin-dependent diabetes mellitus type 2 11 hypothyroidism 12 history of pilonidal cyst 13 history of seizure disorder inactive and stable for now the patient has been well maintained on seizure medications 14 hyperlipidemia Plan We'll consult nephrology regarding the acute kidney injury. Continue IV fluids. Potassium is improved. Metabolic acidosis is improved. I'm hoping that insertion of a rectal tube was deflated abdomen and release some of the intra- abdominal pressure and improve his urine output. The patient will be kept in I [facility]. NG tube is in place. Keep the patient nothing by mouth. Monitor hemoglobin. We'll continue to follow.
[2018-12-03] MEDS: PANTOPRAZOLE 40 MG/10 ML VIAL IV SCH ×2 (09:24→22:53)
[2018-12-03] MEDS: PHENYTOIN SODIUM EXTENDED 100 MG CAP PO SCH ×2 (09:24→16:52)
[2018-12-03] MEDS: buPROPion SR 150 MG TABLET.ER PO SCH (09:24)
[2018-12-03] MEDS: lamoTRIgine 25 MG TAB PO SCH ×2 (09:24→16:52)
--- NOTE | 2018-12-03 10:11 | P.PN ---
Subjective Progress Note Date: 12/03/18 Seen and examined for the follow-up of acute kidney injury. Denies any chest pain shortness of breath palpitation. Abdominis still distended. Urine output about 1200 ML's in the last 24 hours. Urine still pinkish and dark. No nausea or vomiting. NG tube is placed and fecal tube was placed this morning. Objective - Vital Signs Vital signs: Vital Signs Temp 98.2 F 12/03/18 08:00 Pulse 71 12/03/18 10:00 Resp 16 12/03/18 10:00 BP 112/60 12/03/18 10:00 Pulse Ox 96 12/03/18 10:00 Intake & Output 12/02/18 12/03/18 12/03/18 18:59 06:59 18:59 Intake Total 1500 1200 400 Output Total 765 509 565 Balance 735 691 -165 Weight 131.4 kg Intake: IV 1500 1200 400 Dextrose 5% in Water 1, 600 000 ml @ 150 mls/hr IV . Q7H40M MAGDA with Sodium Bicarb (1 Meq/ml) 150 ml Rx#:[id number] Piperacillin-Tazobactam 3 100 .375 gm In Sodium Chloride 0.9% 100 ml @ 25 mls/hr IVPB Q12H MAGDA Rx# :[id number] Sodium Chloride 0.9% 1, 900 1100 400 000 ml @ 100 mls/hr IV . Q10H MAGDA Rx#:[id number] Output: Gastric Drainage 300 500 Urine 165 209 65 Stool 600 Other: Voiding Method Indwelling Catheter Indwelling Catheter Indwelling Catheter - Exam No acute distress S1-S2 heard Decreased breath sounds Abdomen distended and tight. Trace edema Plata with dark/bloody urine - Labs CBC & Chem 7: 12/03/18 04:35 12/03/18 04:35 Labs: Abnormal Lab Results - Last 24 Hours (Table) 12/02/18 12/02/18 12/02/18 Range/Units 11:53 16:46 20:40 WBC (3.8-10.6) k/uL RBC (4.30-5.90) m/uL Hgb (13.0-17.5) gm/dL Hct (39.0-53.0) % Neutrophils # (1.3-7.7) k/uL Lymphocytes # (1.0-4.8) k/uL Eosinophils # (0-0.7) k/uL Sodium (137-145) mmol/L Potassium (3.5-5.1) mmol/L Chloride (98-107) mmol/L BUN (9-20) mg/dL Creatinine (0.66-1.25) mg/dL Glucose (74-99) mg/dL POC Glucose (mg/dL) 136 H 243 H 68 L (75-99) mg/dL Uric Acid (3.5-8.5) mg/dL Calcium (8.4-10.2) mg/dL Total Protein (6.3-8.2) g/dL Albumin (3.5-5.0) g/dL 12/02/18 12/03/18 12/03/18 Range/Units 21:36 02:12 04:35 WBC (3.8-10.6) k/uL RBC (4.30-5.90) m/uL Hgb (13.0-17.5) gm/dL Hct (39.0-53.0) % Neutrophils # (1.3-7.7) k/uL Lymphocytes # (1.0-4.8) k/uL Eosinophils # (0-0.7) k/uL Sodium 136 L (137-145) mmol/L Potassium 5.3 H (3.5-5.1) mmol/L Chloride 94 L (98-107) mmol/L BUN 115 H* (9-20) mg/dL Creatinine 8.27 H* (0.66-1.25) mg/dL Glucose 61 L (74-99) mg/dL POC Glucose (mg/dL) 125 H 73 L (75-99) mg/dL Uric Acid 10.7 H (3.5-8.5) mg/dL Calcium 7.0 L (8.4-10.2) mg/dL Total Protein 5.6 L (6.3-8.2) g/dL Albumin 2.7 L (3.5-5.0) g/dL 12/03/18 12/03/18 12/03/18 Range/Units 04:35 05:53 06:36 WBC 13.5 H (3.8-10.6) k/uL RBC 3.60 L (4.30-5.90) m/uL Hgb 10.6 L (13.0-17.5) gm/dL Hct 30.9 L (39.0-53.0) % Neutrophils # 11.0 H (1.3-7.7) k/uL Lymphocytes # 0.7 L (1.0-4.8) k/uL Eosinophils # 0.9 H (0-0.7) k/uL Sodium (137-145) mmol/L Potassium (3.5-5.1) mmol/L Chloride (98-107) mmol/L BUN (9-20) mg/dL Creatinine (0.66-1.25) mg/dL Glucose (74-99) mg/dL POC Glucose (mg/dL) 66 L 122 H (75-99) mg/dL Uric Acid (3.5-8.5) mg/dL Calcium (8.4-10.2) mg/dL Total Protein (6.3-8.2) g/dL Albumin (3.5-5.0) g/dL Microbiology - Last 24 Hours (Table) 11/30/18 14:15 Stool Culture - Preliminary Stool 11/30/18 15:17 Blood Culture - Preliminary Blood No Growth after 48 hours 11/30/18 15:25 Blood Culture - Preliminary Blood No Growth after 48 hours Assessment and Plan Assessment: #1 non-oliguric acute kidney injury. Suspect hemodynamic ATN with low blood pre ssures and diarrhea. -Possibility of abdominal compartment syndrome with elevated bladder pressures. -Also rule out GN with abnormal urine. #2 suspect it CKD with underlying diabetes. Unknown baseline creatinine. #3 distended colon #4 metabolic acidosis secondary to acute kidney injury #5 hematuria Plan: #1 renal function continued to worsen. Appreciate GI input with rectal tube and NG tube. Bladder pressures around 25. #2 GN serology pending. #3 avoid nephrotoxic agents and hypotensive episodes. #4 no acute indication for renal replacement therapy at this time.
[2018-12-03 11:36] LABS: Glucose,Whole Blood 93 mg/dL (75-99)
[2018-12-03] MEDS: PHENobarbital 64.8 MG TAB PO SCH (12:17)
[2018-12-03] MEDS: PIPERACILLIN-TAZOBACTAM 3.375 GM in SODIUM CHLORIDE 0.9% 100 ML IVPB SCH ×3 (12:17)
[2018-12-03 13:12] VITALS: BMI 45.3
--- NOTE | 2018-12-03 14:03 | PN ---
PROGRESS NOTE DATE OF SERVICE: 12/03/2018 Patient is a 63-year-old pleasant white male admitted to hospital with acute onset of nausea, vomiting, and diarrhea with some rectal bleeding. His symptoms have gradually subsided. However, he has had developed an abdominal distention for the last 2 days. Abdominal x-rays done yesterday showed distended abdomen as well as dilated colon suggestive of syndrome. NG tube placed last night, which is connected to suction and he had in place for diarrhea. The was removed yesterday despite which there was no significant improvement in his symptoms. The patient is a poor historian. As per the nursing staff, he continued to have some abdominal distention. However, he denies any abdominal pain. He is presently n.p.o. He had abdominal x-rays done this morning that showed a dilated transverse colon with a maximum diameter of 12 cm. PHYSICAL EXAMINATION: He appears comfortable. No obvious distress. VITAL SIGNS: Stable. Blood pressure is 133/78, pulse rate is 70, temperature 98. HEENT examination unremarkable. Conjunctivae pink. Sclerae anicteric. Oral cavity no lesions. NECK: No JVD or lymph node enlargement. CHEST: Clear to auscultation. HEART: Regular rate and rhythm. ABDOMEN: Obese, it was slightly distended. It was tympanic. Bowel sounds are positive. Slight tenderness in the right lower quadrant and left lower quadrant area. EXTREMITIES: No pedal edema. SKIN no rashes. NEURO: He is alert and oriented x3. LAB: Done WBC 13.5, hemoglobin 10.6, platelets are normal. Basic metabolic panel showed a BUN of 115 and creatinine of 8.27. Stool Hemoccult was positive and C diff was negative. IMPRESSION: 1. Nausea, vomiting, diarrhea and coffee ground emesis at the time of admission to the hospital, which has resolved. 2. 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 3. Worsening BUN and creatinine/acute kidney injury. Nephrology following the patient closely. 4. Electrolytes abnormalities with hyperkalemia, which is gradually improving. 5. Diabetes mellitus type 2. RECOMMENDATIONS: 1. Reviewed the abdominal x-rays from today and yesterday and there was some worsening colonic distention noted. Hence, a rectal tube was placed without any difficulty and immediately there was some air and fluid that was coming out of the rectal tube. For now, we will keep it in place and connect it to the bag for continued decompression. 2. Continue with NG decompression for now. 3. We will monitor his clinical progress on a daily basis. If he continues to have worsening distention, consideration for IV neostigmine and this was briefly discussed with Dr. Romero. 4. Also, I discussed with Dr. Pena about conservative approach for now. 5. Monitor CBC on a daily basis. We will follow with you closely during his hospital stay. Thank you for this consultation. MMODL / IJN: [id number] /
--- NOTE | 2018-12-03 16:26 | P.PN ---
Subjective Progress Note Date: 12/03/18 CHIEF COMPLAINT: Abdominal distention HISTORY OF PRESENT ILLNESS: The patient is a 63 year old male who was admitted for nausea and vomiting including coffee ground emesis for over 2 days prior to admission. He has baseline history of stroke with left sided paralysis. Yesterday, surgery was consulted for abdominal distention. Nasogastric tube was placed however repeat films this morning demonstrated increased dilation of the cecum. A rectal tube was placed this morning. This time he is obtaining additional abdominal x-ray. No reports of increased abdominal pain. No reports of fevers or chills. He has persistent hypotension and in the ICU. ROS: No new chest pain. No productive sputum. No fevers or chills. PHYSICAL EXAM: VITALS: Reviewed CONSTITUTIONAL: Well developed and in no acute distress. EYES: Conjuctivae without sclera icterus. Extraocular movements grossly intact. HEAD, EARS, NOSE, THROAT: Moist buccal mucosa. Head is atraumatic, normocephalic. Hears conversational speech. Nasogastric tube present RESPIRATORY: Non-labored respirations and equal bilateral excursions. CARDIOVASCULAR: Regular rate and rhythm. Extremities with edema. Palpable 2+ radial pulses. ABDOMEN: Morbidly obese. Nontender. Soft. Has abdominal distention however improved. Rectal tube present. MUSCULOSKELETAL: Nail and fingers with good capillary refill. SKIN: Warm and well perfused with good skin turgor. NEUROLOGIC: Cranial nerves I through XII grossly intact. Sensation upper and extremities intact. Left sided weakness. PSYCH: Alert and oriented to person. CLINCAL LABS: Reviewed. Initial 26,000 now to 10,000 elevated 15,000. Creatinine elevated 6.75 to over 8.0 RADIOLOGY: Initial abdominal x-ray independently reviewed from this morning measured by me with cecum of 12 cm. Repeat abdominal films independently reviewed done at bedside demonstrates decreased gaseous distention of the colon. ASSESSMENT: 1. Colitis 2. Ileus 3. Acute renal failure 4. Morbid obesity PLAN: 1. Continue nasogastric tube including rectal tube. 2. Do not remove until electrolyte dyscrasias are resolved for more than 24 hours. 3. No acute surgical intervention at this time Objective - Vital Signs Vital signs: Vital Signs Temp 98.2 F 12/03/18 12:00 Pulse 68 12/03/18 15:00 Resp 12 12/03/18 15:00 BP 123/65 12/03/18 15:00 Pulse Ox 96 12/03/18 15:00 Intake & Output 12/02/18 12/03/18 12/03/18 18:59 06:59 18:59 Intake Total 1500 1200 1000 Output Total 765 509 690 Balance 735 691 310 Weight 131.4 kg 131.4 kg Intake: IV 1500 1200 1000 Dextrose 5% in Water 1, 600 000 ml @ 150 mls/hr IV . Q7H40M MAGDA with Sodium Bicarb (1 Meq/ml) 150 ml Rx#:[id number] Piperacillin-Tazobactam 3 100 100 .375 gm In Sodium Chloride 0.9% 100 ml @ 25 mls/hr IVPB Q12H MAGDA Rx# :[id number] Sodium Chloride 0.9% 1, 900 1100 900 000 ml @ 100 mls/hr IV . Q10H MAGDA Rx#:[id number] Output: Gastric Drainage 300 500 Urine 165 209 190 Stool 600 Other: Voiding Method Indwelling Catheter Indwelling Catheter Indwelling Catheter - Labs CBC & Chem 7: 12/03/18 04:35 12/03/18 04:35 Labs: Abnormal Lab Results - Last 24 Hours (Table) 12/02/18 12/02/18 12/02/18 Range/Units 16:46 20:40 21:36 WBC (3.8-10.6) k/uL RBC (4.30-5.90) m/uL Hgb (13.0-17.5) gm/dL Hct (39.0-53.0) % Neutrophils # (1.3-7.7) k/uL Lymphocytes # (1.0-4.8) k/uL Eosinophils # (0-0.7) k/uL Sodium (137-145) mmol/L Potassium (3.5-5.1) mmol/L Chloride (98-107) mmol/L BUN (9-20) mg/dL Creatinine (0.66-1.25) mg/dL Glucose (74-99) mg/dL POC Glucose (mg/dL) 243 H 68 L 125 H (75-99) mg/dL Uric Acid (3.5-8.5) mg/dL Calcium (8.4-10.2) mg/dL Total Protein (6.3-8.2) g/dL Albumin (3.5-5.0) g/dL 12/03/18 12/03/18 12/03/18 Range/Units 02:12 04:35 04:35 WBC 13.5 H (3.8-10.6) k/uL RBC 3.60 L (4.30-5.90) m/uL Hgb 10.6 L (13.0-17.5) gm/dL Hct 30.9 L (39.0-53.0) % Neutrophils # 11.0 H (1.3-7.7) k/uL Lymphocytes # 0.7 L (1.0-4.8) k/uL Eosinophils # 0.9 H (0-0.7) k/uL Sodium 136 L (137-145) mmol/L Potassium 5.3 H (3.5-5.1) mmol/L Chloride 94 L (98-107) mmol/L BUN 115 H* (9-20) mg/dL Creatinine 8.27 H* (0.66-1.25) mg/dL Glucose 61 L (74-99) mg/dL POC Glucose (mg/dL) 73 L (75-99) mg/dL Uric Acid 10.7 H (3.5-8.5) mg/dL Calcium 7.0 L (8.4-10.2) mg/dL Total Protein 5.6 L (6.3-8.2) g/dL Albumin 2.7 L (3.5-5.0) g/dL 12/03/18 12/03/18 Range/Units 05:53 06:36 WBC (3.8-10.6) k/uL RBC (4.30-5.90) m/uL Hgb (13.0-17.5) gm/dL Hct (39.0-53.0) % Neutrophils # (1.3-7.7) k/uL Lymphocytes # (1.0-4.8) k/uL Eosinophils # (0-0.7) k/uL Sodium (137-145) mmol/L Potassium (3.5-5.1) mmol/L Chloride (98-107) mmol/L BUN (9-20) mg/dL Creatinine (0.66-1.25) mg/dL Glucose (74-99) mg/dL POC Glucose (mg/dL) 66 L 122 H (75-99) mg/dL Uric Acid (3.5-8.5) mg/dL Calcium (8.4-10.2) mg/dL Total Protein (6.3-8.2) g/dL Albumin (3.5-5.0) g/dL Microbiology - Last 24 Hours (Table) 11/30/18 14:15 Stool Culture - Preliminary Stool 11/30/18 15:17 Blood Culture - Preliminary Blood No Growth after 48 hours 11/30/18 15:25 Blood Culture - Preliminary Blood No Growth after 48 hours Assessment and Plan (1) Morbid obesity due to excess calories Current Visit: Yes Status: Acute Code(s): E66.01 - MORBID (SEVERE) OBESITY DUE TO EXCESS CALORIES SNOMED Code(s): 763437103 (2) BMI 40.0-44.9, adult Current Visit: Yes Status: Acute Code(s): Z68.41 - BODY MASS INDEX (BMI) 40.0-44.9, ADULT SNOMED Code(s): 712507673 (3) Acute renal failure (ARF) Current Visit: Yes Status: Acute Code(s): N17.9 - ACUTE KIDNEY FAILURE, UNSPECIFIED SNOMED Code(s): 03338334 (4) Anemia associated with acute blood loss Current Visit: Yes Status: Acute Code(s): D62 - ACUTE POSTHEMORRHAGIC ANEMIA SNOMED Code(s): 369591776 (5) Coffee ground emesis Current Visit: Yes Status: Acute Code(s): K92.0 - HEMATEMESIS SNOMED Code(s): 53360773 (6) Colitis Current Visit: Yes Status: Acute Code(s): K52.9 - NONINFECTIVE GASTROENTERITIS AND COLITIS, UNSPECIFIED SNOMED Code(s): 16013107 (7) Hyperkalemia Current Visit: Yes Status: Acute Code(s): E87.5 - HYPERKALEMIA SNOMED Code(s): 98816996 (8) Leukocytosis Current Visit: Yes Status: Acute Code(s): D72.829 - ELEVATED WHITE BLOOD CELL COUNT, UNSPECIFIED SNOMED Code(s): 267243358 (9) Ileus Current Visit: Yes Status: Acute Code(s): K56.7 - ILEUS, UNSPECIFIED SNOMED Code(s): 321520635
[2018-12-03] MEDS: TOPIRAMATE 25 MG TAB PO SCH (16:52)
[2018-12-03] MEDS: ATORVASTATIN 20 MG TAB PO SCH (16:52)
[2018-12-03] MEDS: FENOFIBRATE 160 MG TAB PO SCH (16:52)
[2018-12-03] MEDS: buPROPion 100 MG TAB PO SCH (16:52)
--- NOTE | 2018-12-03 17:14 | XR ---
EXAMINATION TYPE: XR abdomen 1V DATE OF EXAM: 12/03/2018 COMPARISON: Today HISTORY: Abdominal distention TECHNIQUE: 2 views supine FINDINGS: There is increased density over the abdomen suggestive of ascites. There is some gas disten tion of large bowel without disproportionate enlargement of any one loop. Ascending colon measures 11 cm unchanged. There is a linear metallic density over the right mid abdomen consistent with a foreig n body that measures 6 cm in length. IMPRESSION: Mild large bowel ileus. No free air. Abdominal ascites. Metallic right-sided abdominal fo reign body unchanged.
[2018-12-03 17:19] LABS: Glucose,Whole Blood 68 mg/dL (75-99)
[2018-12-03 17:38] LABS: Glucose,Whole Blood 130 mg/dL (75-99)
[2018-12-03 20:08] LABS: Glucose,Whole Blood 105 mg/dL (75-99)
--- NOTE | 2018-12-03 22:40 | P.PN ---
Progress Note - Text Progress Note Date: 12/03/18 Chief Complaint: Coffee-ground emesis Interval history: This is a 63-year-old patient who follows with Dr. Mandujano. Presented to ER this morning. Patient has a prior history of stroke with left-sided paralysis and dysarthria. Patient was complaining of nausea and vomiting for last 2 or 3 days. Now presents with coffee-ground emesis and DrRabia Louien stools. Has some abdominal discomfort 2. Patient was admitted to the ICU. NG tube was placed and also fecal management system was placed. No fever or chills. 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 Patient pretty much wheelchair-bound. Also as a stent coronary stent. Patient normally uses a power chair and can feed himself. Admitted with acute GI bleed. Patient is having dark stools. Also is having hematuria. Had a fecal management system in place. Patient developed large bowel ileus on December 02. Today-in ICU. Abdomen was more distended this morning. Patient was seen by Dr. Bird yesterday evening. X-ray showed worsening large bowel ileus with about 12 cm diameter. Rectal tube was placed with patient passing gas liquids. Some improvement. Hematuria is improving. NG tube has been in place. Renal function has been worsening. Review of systems: Was done for constitutional, cardiovascular, GI, pulmonary. relevant finding as above Active Medications Albuterol Sulfate (Ventolin Nebulized) 2.5 mg INHALATION RT-Q6H PRN PRN Reason: Shortness Of Breath Atorvastatin Calcium (Lipitor) 20 mg PO DAILY@1700 MAGDA Last Admin: 12/03/18 16:52 Dose: 20 mg Documented by: Benzocaine (Hurricaine [place]) 1 spray MUCOUS MEM TID PRN PRN Reason: Mouth Irritation Last Admin: 12/02/18 14:51 Dose: 1 spray Documented by: Bupropion HCl (Wellbutrin) 100 mg PO DAILY@1700 MAGDA Last Admin: 12/03/18 16:52 Dose: 100 mg Documented by: Bupropion HCl (Wellbutrin Sr) 150 mg PO DAILY@0900 MAGDA Last Admin: 12/03/18 09:24 Dose: 150 mg Documented by: Fenofibrate (Lofibra) 160 mg PO DAILY@1700 [facility] Last Admin: 12/03/18 16:52 Dose: 160 mg Documented by: Piperacillin Sod/Tazobactam (Sod 3.375 gm/ Sodium Chloride) 100 mls @ 25 mls/hr IVPB Q12H [facility] Last Admin: 12/03/18 12:17 Dose: 25 mls/hr Documented by: Sodium Chloride (Saline 0.9%) 1,000 mls @ 100 mls/hr IV .Q10H [facility] Last Admin: 12/03/18 16:44 Dose: 100 mls/hr Documented by: Insulin Aspart (Novolog) 0 unit SQ Q4H [facility]; Protocol Lamotrigine (Lamictal) 25 mg PO BID@0900,1700 [facility] Last Admin: 12/03/18 16:52 Dose: 25 mg Documented by: Levothyroxine Sodium (Synthroid) 125 mcg PO DAILY@0600 [facility] Last Admin: 12/03/18 05:41 Dose: Not Given Documented by: Metoprolol Tartrate (Lopressor) 50 mg PO BID@0600,1700 [facility] Last Admin: 12/03/18 16:52 Dose: 50 mg Documented by: Naloxone HCl (Narcan) 0.2 mg IV Q2M PRN PRN Reason: Opioid Reversal Ondansetron HCl (Zofran) 4 mg IVP Q8HR PRN PRN Reason: Nausea And Vomiting Pantoprazole Sodium (Protonix) 40 mg IV BID [facility] Last Admin: 12/03/18 09:24 Dose: 40 mg Documented by: Phenobarbital (Luminal) 64.8 mg PO DAILY@1200 [facility] Last Admin: 12/03/18 12:17 Dose: 64.8 mg Documented by: Phenytoin Sodium (Dilantin) 200 mg PO BID@0900,1700 [facility] Last Admin: 12/03/18 16:52 Dose: 200 mg Documented by: Topiramate (Topamax) 50 mg PO DAILY@1700 [facility] Last Admin: 12/03/18 16:52 Dose: 50 mg Documented by: Physical examination: VITAL SIGNS: 98.2, 66, 14, 124/68, 96% GENERAL: Laying in bed, awake EYES: Pupils equal. Conjunctiva pale HEENT: External appearance of nose and ears normal, oral cavity dry, NG tube in place NECK: JVD unable to assess neck is short and thick; masses not palpable. HEART: Distant heart sounds; some edema. LUNGS: Respiratory rate increased, diminished breath sounds. ABDOMEN: Soft, a bit less distended, hypertympanitic, mild-tender, liver spleen not palpable, no masses palpable. Plata catheter with decreased bloody urine in the Plata bag PSYCH: Awake answering questionsl. NEUROLOGICAL: Dysarthric, power on the left side is 0/5. Investigations: White count 13.5 hemoglobin 10.6 potassium 5.3 bun 115, creatinine 8.27 uric acid 10.7 calcium 7 albumin 2.7 Accu-Cheks 66, 122 Abdominal x-ray film personally reviewed by me shows distended large bowel up to 12 cm reported, from this morning Assessment: -Acute GI bleed in a patient is on aspirin and Plavix, persisting -Acute renal failure possibly ATN related further workup, worsening -Severe hyperkalemia in the setting of renal failure, again worsening -Normocytic anemia multifactorial -Large bowel ileus, worsening -Morbid obesity BMI 42.2 -Chronic left-sided hemiparesis from a brain tumor being removed -Diabetes mellitus type II on oral hypoglycemic -Depression otherwise specified -hypothyroid new coronary artery disease with history of stent -Chronic dysarthria -Metabolic acidosis Plan: Patient is a rectal tube in place. Hematuria is improving. Renal function is worsening. Getting IV fluids. NG tube remains in place. If renal function continues to get worse patient will require renal replacement therapy. Especially in setting of metabolic acidosis hyperkalemia. Prognosis guarded
[2018-12-03 23:59] LABS: Glucose,Whole Blood 101 mg/dL (75-99)
[2018-12-04] MEDS: INSULIN ASPART (NovoLOG) 100 UNIT/ML VIAL SQ SCH ×4 (00:10→12:42)
[2018-12-04] MEDS: PIPERACILLIN-TAZOBACTAM 3.375 GM in SODIUM CHLORIDE 0.9% 100 ML IVPB SCH ×2 (00:58→12:41)
[2018-12-04] MEDS: SODIUM CHLORIDE 0.9% 1,000 ML IV SCH ×2 (02:17→12:42)
[2018-12-04 03:08] LABS: Anti-Glomerular Basement Memb 2 UNITS (0-20)
[2018-12-04 04:11] LABS: Glucose,Whole Blood 91 mg/dL (75-99)
[2018-12-04] MEDS: LEVOTHYROXINE 125 MCG TAB PO SCH (06:09)
[2018-12-04] MEDS: METOPROLOL TARTRATE 50 MG TAB PO SCH (06:09)
[2018-12-04 06:10] LABS: Basophils % (A) 0 %; Eosinophils % (A) 7 %; HCT 32.4 % (39.0-53.0); HGB 11.2 gm/dL (13.0-17.5); Lymphocytes # (A) 0.7 k/uL (1.0-4.8); Lymphocytes % (A) 5 %; MCH 29.3 pg (25.0-35.0); MCHC 34.5 g/dL (31.0-37.0); Mean Platelet Volume 6.5; Monocytes # (A) 0.7 k/uL (0-1.0); Monocytes % (A) 5 %; Neutrophils # (A) 11.5 k/uL (1.3-7.7); Neutrophils % (A) 82 %; Platelet Count 390 k/uL (150-450); RBC 3.82 m/uL (4.30-5.90); RDW 12.5 % (11.5-15.5); WBC 14.1 k/uL (3.8-10.6)
[2018-12-04 06:52] LABS: Calcium 7.2 mg/dL (8.4-10.2); Potassium 5.8 mmol/L (3.5-5.1)
[2018-12-04] MEDS ORDERED: buPROPion 75 MG TAB PO SCH ×2 (09:00→12:30)
[2018-12-04] MEDS: PHENYTOIN SODIUM EXTENDED 100 MG CAP PO SCH (10:52)
[2018-12-04] MEDS: PANTOPRAZOLE 40 MG/10 ML VIAL IV SCH (10:53)
[2018-12-04] MEDS: lamoTRIgine 25 MG TAB PO SCH (10:53)
[2018-12-04] MEDS: buPROPion SR 150 MG TABLET.ER PO SCH ×2 (10:53→12:06)
[2018-12-04] MEDS ORDERED: INSULIN REGULAR 100 UNIT/ML VIAL IV ONE (11:34)
[2018-12-04] MEDS ORDERED: DEXTROSE 50% SYRINGE 50 ML IVP STA (11:34)
[2018-12-04] MEDS ORDERED: DEXTROSE 10 % IN WATER 250 ML IV ONE (11:36)
--- NOTE | 2018-12-04 11:36 | P.PN ---
Subjective Patient is seen in follow-up for acute kidney injury. Renal function continues to worsen. Creatinine 9.29 today. Urine output about 50-70 mL an hour. Potassium remains persistently elevated. It is 5.8 this morning. Patient's bladder pressure this morning was 24. Surgery has been notified. Patient has an NG tube and a rectal tube in place. Vital signs are stable. General: The patient appeared well nourished and normally developed. HEENT: Head exam is unremarkable. Neck is without jugular venous distension. LUNGS: Lungs are clear to auscultation and percussion. Breath sounds decreased. HEART: Rate and Rhythm are regular. First and second heart sounds normal. No murmurs, rubs or gallops. ABDOMEN: Distention noted. EXTREMITITES: No clubbing, cyanosis, or edema. Objective - Vital Signs Vital signs: Vital Signs Temp 98.2 F 12/04/18 08:00 Pulse 83 12/04/18 08:00 Resp 10 L 12/04/18 08:00 BP 149/73 12/04/18 08:00 Pulse Ox 95 12/04/18 08:00 Intake & Output 12/03/18 12/04/18 12/04/18 18:59 06:59 18:59 Intake Total 1400 1140 200 Output Total 970 535 330 Balance 430 605 -130 Weight 131.4 kg 130.7 kg Intake: IV 1400 1100 200 Piperacillin-Tazobactam 3 100 .375 gm In Sodium Chloride 0.9% 100 ml @ 25 mls/hr IVPB Q12H MAGDA Rx# :[id number] Sodium Chloride 0.9% 1, 1300 1100 200 000 ml @ 100 mls/hr IV . Q10H MAGDA Rx#:[id number] Oral 40 Output: Gastric Drainage 600 50 Urine 325 535 130 Stool 45 150 Other: Voiding Method Indwelling Catheter Indwelling Catheter Indwelling Catheter - Labs CBC & Chem 7: 12/04/18 05:45 12/04/18 05:45 Labs: Abnormal Lab Results - Last 24 Hours (Table) 12/02/18 12/03/18 12/03/18 Range/Units 11:00 17:18 17:36 WBC (3.8-10.6) k/uL RBC (4.30-5.90) m/uL Hgb (13.0-17.5) gm/dL Hct (39.0-53.0) % Neutrophils # (1.3-7.7) k/uL Lymphocytes # (1.0-4.8) k/uL Eosinophils # (0-0.7) k/uL Potassium (3.5-5.1) mmol/L BUN (9-20) mg/dL Creatinine (0.66-1.25) mg/dL POC Glucose (mg/dL) 68 L 130 H (75-99) mg/dL Calcium (8.4-10.2) mg/dL Free [place] LC, Quant 36.10 H (0.33-1.94) mg/dL 12/03/18 12/03/18 12/03/18 Range/Units 20:07 20:19 23:57 WBC (3.8-10.6) k/uL RBC (4.30-5.90) m/uL Hgb (13.0-17.5) gm/dL Hct (39.0-53.0) % Neutrophils # (1.3-7.7) k/uL Lymphocytes # (1.0-4.8) k/uL Eosinophils # (0-0.7) k/uL Potassium 5.7 H (3.5-5.1) mmol/L BUN (9-20) mg/dL Creatinine (0.66-1.25) mg/dL POC Glucose (mg/dL) 105 H 101 H (75-99) mg/dL Calcium (8.4-10.2) mg/dL Free [place] LC, Quant (0.33-1.94) mg/dL 12/04/18 12/04/18 Range/Units 05:45 05:45 WBC 14.1 H (3.8-10.6) k/uL RBC 3.82 L (4.30-5.90) m/uL Hgb 11.2 L (13.0-17.5) gm/dL Hct 32.4 L (39.0-53.0) % Neutrophils # 11.5 H (1.3-7.7) k/uL Lymphocytes # 0.7 L (1.0-4.8) k/uL Eosinophils # 1.0 H (0-0.7) k/uL Potassium 5.8 H (3.5-5.1) mmol/L BUN 110 H* (9-20) mg/dL Creatinine 9.29 H* (0.66-1.25) mg/dL POC Glucose (mg/dL) (75-99) mg/dL Calcium 7.2 L (8.4-10.2) mg/dL Free [place] LC, Quant (0.33-1.94) mg/dL Microbiology - Last 24 Hours (Table) 11/30/18 14:15 Stool Culture - Final Stool 11/30/18 15:25 Blood Culture - Preliminary Blood No Growth after 72 hours 11/30/18 15:17 Blood Culture - Preliminary Blood No Growth after 72 hours Assessment and Plan Plan: Assessment: 1. Acute kidney injury secondary to ATN secondary to hypotension. Also concern for abdominal compartment syndrome. Bladder pressure this morning was 124. Rule out GN. Creatinine up to 9.29 today. Unknown baseline renal function. 2. Hyperkalemia secondary to acute kidney injury. 3. Colitis maintained on antibiotics. 4. Ileus. Surgery following. Currently has an NG tube and rectal tube. Plan: With worsening renal failure and persistent hyperkalemia, I will initiate renal replacement therapy. Consult vascular surgery for dialysis catheter placement. Plan for first time it of hemodialysis today and second treatment tomorrow. Surgery has been notified regarding the elevated bladder pressures. Patient may be transferred to a tertiary care center. Continue to monitor renal function and urine output. 10 units of IV insulin with an amp of D50 now. Follow-up serologies.
[2018-12-04] MEDS ORDERED: PHENYTOIN SODIUM INJ 50 MG/ML 2 ML VIAL IVP SCH (11:53)
[2018-12-04] MEDS ORDERED: PHENYTOIN SODIUM INJ 200 MG in SODIUM CHLORIDE 0.9% 100 ML IVPB SCH (12:00)
[2018-12-04 12:03] LABS: Glucose,Whole Blood 85 mg/dL (75-99)
[2018-12-04] MEDS: PHENobarbital 64.8 MG TAB PO SCH (12:03)
[2018-12-04 12:27] LABS: DNA Double-Stranded NEGATIVE (NEGATIVE)
[2018-12-04] MEDS ORDERED: PHENYTOIN SODIUM EXTENDED 100 MG CAP PO SCH ×2 (12:30→17:00)
[2018-12-04] MEDS ORDERED: buPROPion SR 150 MG TABLET.ER PO SCH (12:30)
[2018-12-04 12:43] VITALS: TEMP 97.9
--- NOTE | 2018-12-04 14:02 | P.PN ---
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 63-year-old male patient with a known history of CVA with left-sided weakness who was brought in from correction due to concern of GI bleeding. The patient apparently has been having emesis for the past 2-3 days and he's been having coffee-ground emesis and he reported by the blood per rectum. His abdomen was quite distended time of his ED visit. NG tube was inserted and the patient had more than a liter of bloody material aspirated with some subsequent clinical improvement in his abdominal distention. No fever. No chills. No previous history of GI bleed. The patient has been maintained on aspirin on outpatient basis. The patient has also various comorbidities are then CVA which include hyperlipidemia, diabetes mellitus, hypothyroidism, hypertension, seizure disorder. The patient is currently in the intensive care unit. Hemoglobin is 13.1. White cell count is at 20.8. The patient was given IV fluids a total of 2 L in the emergency department currently is on normal saline at rate of 1 50 mL an hour. He is producing minimal amount of urine output in the order of 10 mL an hour. He has developed an acute kidney injury. Initial creatinine in the emergency department was at 6.7 with a BUN of 94. His potassium level is at 6.4. EKG showed sinus rhythm with a left axis deviation and right bundle branch block pattern. The patient has a lactic acid level of 4.9. CPKs at 263. Stool was positive for blood. Stool for C. diff has been negative. UA showing +2 protein. The CAT scan of the abdomen and pelvis was done in the emergency department and the patient was found to have fluid-filled ascending colon to the rectum with minimal amount of wall thickening and pericolonic inflammatory change. No diverticular disease. The findings were suggestive of mild colitis. No ileus and no dilated bowel. No free air. Currently the patient has FMF and he is producing liquid the black stool in the order of 100 mL over the past 8 hours. The patient also has an NG tube which is producing coffee-ground material. On today's evaluation of 12/01/2018, the patient is being seen for a follow-up. The patient remains in intensive care unit. We also resuscitated with patient with IV fluids. The patient was switched a bicarb infusion based on ongoing metabolic acidosis and hyperkalemia. The patient lactic acidosis improving. The patient's creatinine is also improving. On today's evaluation, the patient has still an NG tube in place. Output from the NG tube is improved. The abdomen however is still tympanic and slightly distended. No episodes of any bloody bowel movement since yesterday. As far as the blood work, the patient's hemoglobin is at 11.0. The potassium level was at 6.2 and dropped down to 5.7. Creatinine is down to 5.84 and a BUN is down to 98. The serum bicarb is at 11 and 9 gap of 22. The lactic acid level has normalized and is down to 1.4. Stool cultures of been negative. Blood cultures of been negative. A repeat abdominal film shows a normal gas pattern. It is a nonspecific x-ray. The patient is awake and alert and following commands and answering questions appropriately. His abdomen remains slightly distended which is comparable to yesterday's examination. Her net fluid balance of the +5.2 L over the past 24 hours. The NG drainage was 650cc yesterday on 12/02/2018 and seeing this patient for a follow-up. The patient is still having ongoing gastrointestinal issues as the patient's abdomen continues to be tympanic and distended. The patient had the NG tube removed yesterday and a son GIs recommendation was given some clear liquid diet.patient continues to be an acute kidney injury in renal failure. Urine output is still diminished. Urine output is also bloody. Based on all this, obtain another x-ray of the abdomen this morning that showed large bowel dilatation with air present in the colon to the rectum, suggestive of Leandra's syndrome.chest x-ray showing a left lower lobe consolidation and effusion. patient had a rectal tube earlier that was pulled out by the patient. accordingly was given a fecal management system and he has some liquidy stool, gout and the collection bag. Stool for C. diff has been negative. The patient is currently covered with IV Zosyn. The patient has shown some improvement in the where the lactic acid level dropped down to 1.4 times normalized. Meanwhile, the patient still having issues with acute kidney injury. Creatinine is up to 6.7 with a BUN of 109.the patient is potassium level is at 4.9. the patient is oliguric. Based on manager of engineering recommendati ons, we measured intra-abdominal pressures which was measured to be around 22 and I recommended to put the NG tube back again and obtain a surgical consultation regarding this colonic distention/dilatation. On 12/03/2018 I'm seeing this patient for a follow-up. Is awake and alert. NG tube was inserted again yesterday and output is not considered to be high. Nevertheless, the abdomen remains quite distended and the presentation may be related to large bowel ileus with a maximum transverse diameter being around 12 cm, consider Leandra's syndrome. The patient unfortunately is not making much of urine output. Creatinine is on the rise. The patient's BUN is up to 118 in the creatinine is up to 8.2. No further episodes of any GI bleeding. Output from the NG tube is nonbloody. Hemoglobin stable at 10.6. I've consulted with nephrology. I will also consult with general surgery and GI. The patient would have his rectal tube inserted today. We noted that the intra-abdominal pressure s were high and this could have been contributed to his acute kidney injury. His uric acid level is also at 10.7. His calcium is at 7. Blood sugars are stable at 122. Potassium level is at 5.3. He remains on IV Zosyn. His stool for C. diff has been negative. Reevaluated today on 12/04/2018, patient remains in the ICU, continues to have nasogastric tube in place with significant output, has a rectal tube in place with minimal output. Abdomen remains quite distended, slightly tender to palp ation, and his bladder pressure is noted to be in the range of 24. Renal functioning seems to be getting worse, hence patient may require surgery/decompression for what seems to be a compartment syndrome. GI is on the case, discussed his condition with the admitting physician, and I have a feeling that the patient will require surgery, but he is extremely high surgical risk, and may not be a bad idea to consider a tertiary care center referral. Assuming the general surgeon on the case is agreeable with the transfer. Renal functioning is getting significantly worse BUN is 110 and creatinine is 9.29. WBC count is 14.1 hemoglobin is 11.2. Potassium is 5.8. Seen by nephrology today, and felt that the patient had acute kidney injury secondary to ATN secondary to hypotension and he is also as concerned as I am regarding possible abdominal compartment syndrome. The manager of engineering on the case is recommending renal replacement therapy and he is already consulting vascular surgery for dial ysis catheter placement. Surgery on the case is very well aware of the elevated bladder pressures and they seem to be agreeable to referral to a tertiary care center. His hyperkalemia is being addressed by nephrology. Given 10 units of IV insulin followed by 1 amp of D50. Objective - Vital Signs Vital signs: Vital Signs Temp 97.9 F 12/04/18 12:00 Pulse 87 12/04/18 13:00 Resp 16 12/04/18 13:00 BP 163/78 12/04/18 13:00 Pulse Ox 93 L 12/04/18 13:00 Intake & Output 12/03/18 12/04/18 12/04/18 18:59 06:59 18:59 Intake Total 1400 1140 800 Output Total 970 535 665 Balance 430 605 135 Weight 131.4 kg 130.7 kg Intake: IV 1400 1100 800 Piperacillin-Tazobactam 3 100 100 .375 gm In Sodium Chloride 0.9% 100 ml @ 25 mls/hr IVPB Q12H [facility] Rx# :[id number] Sodium Chloride 0.9% 1, 1300 1100 700 000 ml @ 100 mls/hr IV . Q10H [facility] Rx#:[id number] Oral 40 Output: Gastric Drainage 600 50 Urine 325 535 435 Stool 45 180 Other: Voiding Method Indwelling Catheter Indwelling Catheter Indwelling Catheter - Exam Physical Exam: Revealed a 63-year-old white male morbidly obese, in no distress. Head: Atraumatic, normocephalic. Nasogastric tube is noted with significant output. HEENT:[Neck is supple.] [No neck masses.] [No thyromegaly.] [No JVD.] Short obese neck is noted. Chest: [Diminished breath sounds at the bases no crackles or rhonchi or wheezes. Cardiac Exam: [Normal S1 and S2, no S3 gallop, no murmur.] Abdomen: [Distended, slightly tender, no megaly, no rebound, no guarding, negative bowel sounds Extremities: [No clubbing, no edema, no cyanosis.] Neurological Exam: [No focal neurologic deficit.] Alert and oriented 3. Psychiatric: Normal mood affect and normal mental status examination. Skin: No rashes. Skin is noted to be scaly. And thickened. Lymphatics: No lymphadenopathy. - Labs CBC & Chem 7: 12/04/18 05:45 12/04/18 05:45 Labs: Abnormal Lab Results - Last 24 Hours (Table) 12/02/18 12/03/18 12/03/18 Range/Units 11:00 17:18 17:36 WBC (3.8-10.6) k/uL RBC (4.30-5.90) m/uL Hgb (13.0-17.5) gm/dL Hct (39.0-53.0) % Neutrophils # (1.3-7.7) k/uL Lymphocytes # (1.0-4.8) k/uL Eosinophils # (0-0.7) k/uL Potassium (3.5-5.1) mmol/L BUN (9-20) mg/dL Creatinine (0.66-1.25) mg/dL POC Glucose (mg/dL) 68 L 130 H (75-99) mg/dL Calcium (8.4-10.2) mg/dL Free [place] LC, Quant 36.10 H (0.33-1.94) mg/dL 12/03/18 12/03/18 12/03/18 Range/Units 20:07 20:19 23:57 WBC (3.8-10.6) k/uL RBC (4.30-5.90) m/uL Hgb (13.0-17.5) gm/dL Hct (39.0-53.0) % Neutrophils # (1.3-7.7) k/uL Lymphocytes # (1.0-4.8) k/uL Eosinophils # (0-0.7) k/uL Potassium 5.7 H (3.5-5.1) mmol/L BUN (9-20) mg/dL Creatinine (0.66-1.25) mg/dL POC Glucose (mg/dL) 105 H 101 H (75-99) mg/dL Calcium (8.4-10.2) mg/dL Free [place] LC, Quant (0.33-1.94) mg/dL 12/04/18 12/04/18 Range/Units 05:45 05:45 WBC 14.1 H (3.8-10.6) k/uL RBC 3.82 L (4.30-5.90) m/uL Hgb 11.2 L (13.0-17.5) gm/dL Hct 32.4 L (39.0-53.0) % Neutrophils # 11.5 H (1.3-7.7) k/uL Lymphocytes # 0.7 L (1.0-4.8) k/uL Eosinophils # 1.0 H (0-0.7) k/uL Potassium 5.8 H (3.5-5.1) mmol/L BUN 110 H* (9-20) mg/dL Creatinine 9.29 H* (0.66-1.25) mg/dL POC Glucose (mg/dL) (75-99) mg/dL Calcium 7.2 L (8.4-10.2) mg/dL Free [place] LC, Quant (0.33-1.94) mg/dL Microbiology - Last 24 Hours (Table) 11/30/18 14:15 Stool Culture - Final Stool 11/30/18 15:25 Blood Culture - Preliminary Blood No Growth after 72 hours 11/30/18 15:17 Blood Culture - Preliminary Blood No Growth after 72 hours Assessment and Plan Assessment: Impression: 1 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 Patient has a rectal tube in place and nasogastric tube in place, however considering his abnormal bladder pressures, surgery may have to be seriously considered. I have discussed the patient's condition with the admitting physician, and I would suggest tertiary care referral at this point. Patient will need to be transferred. Assuming the surgeons on the case are agreeable with this decision. 3 acute kidney injury with oliguria possibly secondary to abdominal compartment syndrome and possible ATN. 4 acute hyperkalemia secondary to acute renal failure 5 acute lactic acidosis on presentation, resolved. 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 7 wheelchair bound patient in a correction. Patient is medically debilitated. 8 insulin-dependent diabetes2 9 Hypothyroidism 10 history of seizure disorder Recommendation: Discussed the patient's condition with multiple physicians on the case, patient will likely require surgical intervention considering his abdominal distention and considering his abnormal pressures of the bladder co nsistent with acute abdominal compartment syndrome. I discussed with Dr. Goldsmith, and we both feel at this point it would be best to transfer the patient to a tertiary care center of Dr. Goldsmith's choice. And he will discuss the patient's condition with the surgeon on the case. Prognosis is definitely poor and guarded, we'll continue to follow. Critical care time is 34 minutes Time with Patient: Greater than 30
[2018-12-04 14:05] VITALS: BP 143/72; PULSE 84; RESP 11
[2018-12-04 14:07] LABS: C-ANCA <1:20 Titer (<1:20)
--- NOTE | 2018-12-04 14:56 | P.PN ---
<Judy Conti - Last Filed: 12/04/18 14:56> Subjective Progress Note Date: 12/04/18 CHIEF COMPLAINT: Abdominal distention HISTORY OF PRESENT ILLNESS: Patient examined this morning in the ICU. He is awake and alert. Denies abdominal pain. Rectal tube present. NG to LIS. Patient remains NPO. Abdominal xray this morning reveals mild large bowel ileus. Abdominal ascites. WBC 14.1. Hemoglobin 11.2. Creatinine increased to 9.29. PHYSICAL EXAM: VITAL SIGNS: Reviewed GENERAL: Well-developed in no acute distress. HEENT: NG to LIS. No sclera icterus. Extraocular movements grossly intact. Moist buccal mucosa. Head is atraumatic, normocephalic. Hears conversational speech. No nasal drainage. NECK: Supple without lymphadenopathy. CHEST: Non-labored respirations and equal bilateral excursions. CARDIOVASCULAR: Regular rate with regular rhythm. Palpable 2+ radial pulses. ABDOMEN: Obese. Soft. Distended. Nontender. Positive bowel sounds. Rectal tube in place. MUSCULOSKELETAL: No clubbing or cyanosis. NEUROLOGIC: No focal or lateralizing signs. Cranial nerves II through XII grossly intact. PSYCH: Appropriate affect. Alert and oriented to person, place and time. SKIN: Well perfused. Good skin turgor. ASSESSMENT: 1. Colitis 2. Ileus with distended transverse colon, measuring 12cm 3. Acute renal failure 4. Morbid obesity PLAN: Dr. Mancilla is recommending transfer to tertiary center. Case discussed with Dr. Pena. Patient apparently had normal intra-abdominal pressures yesterday and this morning was found to have abdominal pressure of 25. Patients clinical exam has not changed since previous examination. He denies any abdominal pain. Creatinine is worsening, however he presented with kidney failure on the day of admission. Usually intra-abdominal pressures are performed on patients who are critically ill and unable to articulate if they are having abdominal pain (such as in the case if the patient were intubated). Patient is not having any abdominal discomfort at the time of examination. Per Dr. Pena, Intra- abdominal pressures can be inaccurate and unreliable in obese patients. Also, can not rule out possibility of clinical error during bladder pressure monito ring as this is not performed routinely at current facility so there is possibility of inaccurate technique when obtaining reading. It is noted the patient had normal pressures yesterday per nursing. After discussing case with Dr. Pena, she does not feel as though the patient has abdominal compartment syndrome. However, she is agreeable to transfer to tertiary center per Dr. Mancilla's recommendations for further evaluation Nurse practitioner note has been reviewed by physician. Signing provider agrees with the documented findings, assessment, and plan of care. Objective - Vital Signs Vital signs: Vital Signs Temp 97.9 F 12/04/18 12:00 Pulse 87 12/04/18 13:00 Resp 16 12/04/18 13:00 BP 163/78 12/04/18 13:00 Pulse Ox 93 L 12/04/18 13:00 Intake & Output 12/03/18 12/04/18 12/04/18 18:59 06:59 18:59 Intake Total 1400 1140 800 Output Total 970 535 665 Balance 430 605 135 Weight 131.4 kg 130.7 kg Intake: IV 1400 1100 800 Piperacillin-Tazobactam 3 100 100 .375 gm In Sodium Chloride 0.9% 100 ml @ 25 mls/hr IVPB Q12H [facility] Rx# :[id number] Sodium Chloride 0.9% 1, 1300 1100 700 000 ml @ 100 mls/hr IV . Q10H [facility] Rx#:[id number] Oral 40 Output: Gastric Drainage 600 50 Urine 325 535 435 Stool 45 180 Other: Voiding Method Indwelling Catheter Indwelling Catheter Indwelling Catheter - Labs CBC & Chem 7: 12/04/18 05:45 12/04/18 05:45 Labs: Abnormal Lab Results - Last 24 Hours (Table) 12/02/18 12/03/18 12/03/18 Range/Units 11:00 17:18 17:36 WBC (3.8-10.6) k/uL RBC (4.30-5.90) m/uL Hgb (13.0-17.5) gm/dL Hct (39.0-53.0) % Neutrophils # (1.3-7.7) k/uL Lymphocytes # (1.0-4.8) k/uL Eosinophils # (0-0.7) k/uL Potassium (3.5-5.1) mmol/L BUN (9-20) mg/dL Creatinine (0.66-1.25) mg/dL POC Glucose (mg/dL) 68 L 130 H (75-99) mg/dL Calcium (8.4-10.2) mg/dL Free [place] LC, Quant 36.10 H (0.33-1.94) mg/dL 12/03/18 12/03/18 12/03/18 Range/Units 20:07 20:19 23:57 WBC (3.8-10.6) k/uL RBC (4.30-5.90) m/uL Hgb (13.0-17.5) gm/dL Hct (39.0-53.0) % Neutrophils # (1.3-7.7) k/uL Lymphocytes # (1.0-4.8) k/uL Eosinophils # (0-0.7) k/uL Potassium 5.7 H (3.5-5.1) mmol/L BUN (9-20) mg/dL Creatinine (0.66-1.25) mg/dL POC Glucose (mg/dL) 105 H 101 H (75-99) mg/dL Calcium (8.4-10.2) mg/dL Free [place] LC, Quant (0.33-1.94) mg/dL 12/04/18 12/04/18 Range/Units 05:45 05:45 WBC 14.1 H (3.8-10.6) k/uL RBC 3.82 L (4.30-5.90) m/uL Hgb 11.2 L (13.0-17.5) gm/dL Hct 32.4 L (39.0-53.0) % Neutrophils # 11.5 H (1.3-7.7) k/uL Lymphocytes # 0.7 L (1.0-4.8) k/uL Eosinophils # 1.0 H (0-0.7) k/uL Potassium 5.8 H (3.5-5.1) mmol/L BUN 110 H* (9-20) mg/dL Creatinine 9.29 H* (0.66-1.25) mg/dL POC Glucose (mg/dL) (75-99) mg/dL Calcium 7.2 L (8.4-10.2) mg/dL Free [place] LC, Quant (0.33-1.94) mg/dL Microbiology - Last 24 Hours (Table) 11/30/18 14:15 Stool Culture - Final Stool 11/30/18 15:25 Blood Culture - Preliminary Blood No Growth after 72 hours 11/30/18 15:17 Blood Culture - Preliminary Blood No Growth after 72 hours <Whitney Pena N - Last Filed: 12/04/18 18:08> Subjective As above. Patient presents with multiple medical comorbidities including ileus secondary to acute renal failure, persistent hyperkalemia, multiple electrolyte dyscrasias and hypotension. Since assessments, patient denied any abdominal pain. Interventions and rectal tube demonstrated improvement of ileus. Agreeable with transfer to tertiary care center with multiple medical comorbidities. Patient overall extremely high risk for any surgical interventions with perioperative and postoperative complications. Objective - Vital Signs Vital signs: Vital Signs Temp 97.9 F 12/04/18 12:00 Pulse 84 12/04/18 14:00 Resp 11 L 12/04/18 14:00 BP 143/72 12/04/18 14:00 Pulse Ox 94 L 12/04/18 14:00 Intake & Output 12/03/18 12/04/18 12/04/18 18:59 06:59 18:59 Intake Total 1400 1140 900 Output Total 970 535 725 Balance 430 605 175 Weight 131.4 kg 130.7 kg Intake: IV 1400 1100 900 Piperacillin-Tazobactam 3 100 100 .375 gm In Sodium Chloride 0.9% 100 ml @ 25 mls/hr IVPB Q12H [facility] Rx# :[id number] Sodium Chloride 0.9% 1, 1300 1100 800 000 ml @ 100 mls/hr IV . Q10H [facility] Rx#:[id number] Oral 40 Output: Gastric Drainage 600 50 Urine 325 535 495 Stool 45 180 Other: Voiding Method Indwelling Catheter Indwelling Catheter Indwelling Catheter - Labs CBC & Chem 7: 12/04/18 05:45 12/04/18 05:45 Labs: Abnormal Lab Results - Last 24 Hours (Table) 12/02/18 12/03/18 12/03/18 Range/Units 11:00 20:07 20:19 WBC (3.8-10.6) k/uL RBC (4.30-5.90) m/uL Hgb (13.0-17.5) gm/dL Hct (39.0-53.0) % Neutrophils # (1.3-7.7) k/uL Lymphocytes # (1.0-4.8) k/uL Eosinophils # (0-0.7) k/uL Potassium 5.7 H (3.5-5.1) mmol/L BUN (9-20) mg/dL Creatinine (0.66-1.25) mg/dL POC Glucose (mg/dL) 105 H (75-99) mg/dL Calcium (8.4-10.2) mg/dL Free [place] LC, Quant 36.10 H (0.33-1.94) mg/dL 12/03/18 12/04/18 12/04/18 Range/Units 23:57 05:45 05:45 WBC 14.1 H (3.8-10.6) k/uL RBC 3.82 L (4.30-5.90) m/uL Hgb 11.2 L (13.0-17.5) gm/dL Hct 32.4 L (39.0-53.0) % Neutrophils # 11.5 H (1.3-7.7) k/uL Lymphocytes # 0.7 L (1.0-4.8) k/uL Eosinophils # 1.0 H (0-0.7) k/uL Potassium 5.8 H (3.5-5.1) mmol/L BUN 110 H* (9-20) mg/dL Creatinine 9.29 H* (0.66-1.25) mg/dL POC Glucose (mg/dL) 101 H (75-99) mg/dL Calcium 7.2 L (8.4-10.2) mg/dL Free [place] LC, Quant (0.33-1.94) mg/dL Microbiology - Last 24 Hours (Table) 11/30/18 15:25 Blood Culture - Preliminary Blood No Growth after 96 hours 11/30/18 15:17 Blood Culture - Preliminary Blood No Growth after 96 hours 11/30/18 14:15 Stool Culture - Final Stool Assessment and Plan (1) Morbid obesity due to excess calories Current Visit: Yes Status: Acute Code(s): E66.01 - MORBID (SEVERE) OBESITY DUE TO EXCESS CALORIES SNOMED Code(s): 640218340 (2) BMI 40.0-44.9, adult Current Visit: Yes Status: Acute Code(s): Z68.41 - BODY MASS INDEX (BMI) 40.0-44.9, ADULT SNOMED Code(s): 252295306 (3) Acute renal failure (ARF) Current Visit: Yes Status: Acute Code(s): N17.9 - ACUTE KIDNEY FAILURE, UNSPECIFIED SNOMED Code(s): 32675678 (4) Anemia associated with acute blood loss Current Visit: Yes Status: Acute Code(s): D62 - ACUTE POSTHEMORRHAGIC ANEMIA SNOMED Code(s): 250150957 (5) Coffee ground emesis Current Visit: Yes Status: Acute Code(s): K92.0 - HEMATEMESIS SNOMED Code(s): 67110711 (6) Colitis Current Visit: Yes Status: Acute Code(s): K52.9 - NONINFECTIVE GASTROENTERITIS AND COLITIS, UNSPECIFIED SNOMED Code(s): 75390939 (7) Hyperkalemia Current Visit: Yes Status: Acute Code(s): E87.5 - HYPERKALEMIA SNOMED Code(s): 13606153 (8) Leukocytosis Current Visit: Yes Status: Acute Code(s): D72.829 - ELEVATED WHITE BLOOD CELL COUNT, UNSPECIFIED SNOMED Code(s): 915455661 (9) Ileus Current Visit: Yes Status: Acute Code(s): K56.7 - ILEUS, UNSPECIFIED SNOMED Code(s): 756835165
--- NOTE | 2018-12-04 19:51 | P.DS ---
Providers Date of admission: 11/30/18 11:46 Expected date of discharge: 12/04/18 Attending physician: Yonathan Goldsmith Consults: 11/30/18 11:47 Consult Physician Routine Consulting Provider: Andrew Coffman Consult Reason/Comments: GI bleed Do you want consulting provider notified?: Yes 11/30/18 11:48 Consult Physician Routine Consulting Provider: Yoli Rdz Consult Reason/Comments: Acute renal failure Do you want consulting provider notified?: Yes 11/30/18 14:51 Consult Physician Routine Consulting Provider: Maraim Romero Consult Reason/Comments: ICU management Do you want consulting provider notified?: Already Contacted 12/02/18 14:06 Consult Physician Urgent Consulting Provider: Whitney Pena Consult Reason/Comments: large bowel dilation Do you want consulting provider notified?: Yes Primary care physician: Eliezer Mandujano [facility] Course: Chief Complaint: Coffee-ground emesis Hospital course: This is a 63-year-old patient who follows with Dr. Mandujano. Presented to ER this morning. Patient has a prior history of stroke with left-sided paralysis and dysarthria. Patient was complaining of nausea and vomiting for last 2 or 3 days. Now presents with coffee-ground emesis and Dr. Romero stools. Has some abdominal discomfort 2. Patient was admitted to the ICU. NG tube was placed and also fecal management system was placed. No fever or chills. Chronic stable medical conditions include left-sided paresis, diabetes, hypertension, hyperlipidemia, seizure disorder, hypothyroid brain surgery 10 years ago for an eurysm leaving him left-sided week. Patient pretty much wheelchair-bound. Also as a stent coronary stent. Patient normally uses a power chair and can feed himself. Admitted with acute GI bleed. Patient is having dark stools. Also is having hematuria. Had a fecal management system in place. Patient developed large bowel ileus on December 02. Subsequently patient had a rectal tube placed. Only slight improvement. Today-in the ICU. Dr. Waite called me this morning stating that patient Will be better served at a [facility] as he is concerned patient's abdomen is more surgical. Has a high risk surgical candidate. Concern about compartment syndrome in the abdomen. Pressures 24 this morning. Still slight hematuria. NG tube remains in place. I communicated this to Dr. Bird. She is okay with the patient getting transferred. I spoke to the accepting physician at ICU at [facility]. Get a full report. Patient is accepted. Did talk with the patient. He is agreeable to same. Discussion and discharge planning more than 35 minutes Consultation: Dr. Waite and colleagues from friction paint machine tender Dr. Bird from general surgery Dr. Jacquelyn Quiñonez from GI Physical examination: VITAL SIGNS: 97.9, 81, 14, and 4781, 94% room air GENERAL: Laying in bed, awake, tired EYES: Pupils equal. Conjunctiva pale HEENT: External appearance of nose and ears normal, oral cavity dry, NG tube in place NECK: JVD unable to assess neck is short and thick; masses not palpable. HEART: Distant heart sounds; some edema. LUNGS: Respiratory rate increased, diminished breath sounds. ABDOMEN: Soft, distended, hypertympanitic, mild-tender, liver spleen not palpable, no masses palpable. Plata catheter with decreased bloody urine in the Plata bag, rectal tube in place PSYCH: Awake answering questionsl. NEUROLOGICAL: Dysarthric, power on the left side is 0/5. Investigations: White count 14.1 hemoglobin 11.2 potassium 5.8 bun 110 creatinine 9.29 Admission labs White count 13.5 hemoglobin 10.6 potassium 5.3 bun 115, creatinine 8.27 uric acid 10.7 calcium 7 albumin 2.7 Accu-Cheks 66, 122 Abdominal x-ray film personally reviewed by me shows distended large bowel discharge diagnosis: -Acute GI bleed in a patient is on aspirin and Plavix, slowly improving -Acute renal failure possibly ATN related further workup, worsening -Severe hyperkalemia in the setting of renal failure, again worsening -Normocytic anemia multifactorial -Large bowel ileus, worsening -Morbid obesity BMI 42.2 -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 Jack for higher level of care Patient Condition at Discharge: Undetermined Plan - Discharge Summary Discharge Rx Participant: No New Discharge Prescriptions: No Action Albuterol Nebulized [Ventolin Nebulized] 2.5 mg INHALATION RT-Q6H PRN PRN Reason: Shortness Of Breath Insulin Aspart [NovoLOG Flexpen] See Protocol SQ ACHS Phenytoin Sodium Extended [Dilantin] 200 mg PO BID@0900,1700 Insulin Aspart [NovoLOG Flexpen] 16 unit SQ AC-TID metFORMIN HCL 1,000 mg PO BID@0600,1700 Metoprolol Tartrate [Lopressor] 50 mg PO BID@0600,1700 lamoTRIgine [LaMICtal] 25 mg PO BID@0900,1700 Gemfibrozil [Lopid] 600 mg PO BID@0900,1700 Liraglutide [Victoza 3-Felice] 1.2 mg PO DAILY@0600 Cholecalciferol (Vitamin D3) [Vitamin D3] 2,000 unit PO DAILY@1700 Topiramate [Topamax] 50 mg PO DAILY@1700 Furosemide [Lasix] 40 mg PO DAILY@0600 PHENobarbital [Luminal] 64.8 mg PO DAILY@1200 Niacin 500 mg PO DAILY@1700 Lisinopril 20 mg PO DAILY@0900 Potassium Chloride [Klor-Con 20] 20 meq PO DAILY@0900 Levothyroxine Sodium [Synthroid] 125 mcg PO DAILY@0600 Clopidogrel Bisulfate [Plavix] 75 mg PO DAILY@1200 buPROPion HCL [buPROPion HCL SR] 150 mg PO DAILY@0900 buPROPion [Wellbutrin] 100 mg PO DAILY@1700 Insulin Glargine,Hum.rec.anlog [Basaglar Kwikpen U-100] 20 unit SQ DAILY@0800 Insulin Glargine,Hum.rec.anlog [Basaglar Kwikpen U-100] 50 unit SQ DAILY@2000 Atorvastatin [Lipitor] 20 mg PO DAILY@1700 Aspirin 325 mg PO DAILY@1700 Vascepa (1gm) 2 gram PO BID@0900,1700 Z-Guard 1 applic TOPICAL Q12H Loperamide [Imodium] 4 mg PO BID PRN PRN Reason: Diarrhea Z-Guard 1 applic TOPICAL DIRECTED Discharge Medication List Albuterol Nebulized [Ventolin Nebulized] 2.5 mg INHALATION RT-Q6H PRN 06/03/18 [History] Aspirin 325 mg PO DAILY@1700 06/03/18 [History] Atorvastatin [Lipitor] 20 mg PO DAILY@169906/03/18 [History] Cholecalciferol (Vitamin D3) [Vitamin D3] 2,000 unit PO DAILY@169906/03/18 [History] Clopidogrel Bisulfate [Plavix] 75 mg PO DAILY@1200 06/03/18 [History] Furosemide [Lasix] 40 mg PO DAILY@0600 06/03/18 [History] Gemfibrozil [Lopid] 600 mg PO BID@0900,1700 06/03/18 [History] Insulin Aspart [NovoLOG Flexpen] 16 unit SQ AC-TID 06/03/18 [History] Insulin Aspart [NovoLOG Flexpen] See Protocol SQ ACHS 06/03/18 [History] Insulin Glargine,Hum.rec.anlog [Basaglar Kwikpen U-100] 20 unit SQ DAILY@0806/03/18 [History] Insulin Glargine,Hum.rec.anlog [Basaglar Kwikpen U-100] 50 unit SQ DAILY@199906/03/18 [History] Levothyroxine Sodium [Synthroid] 125 mcg PO DAILY@0606/03/18 [History] Liraglutide [Victoza 3-Felice] 1.2 mg PO DAILY@0606/03/18 [History] Lisinopril 20 mg PO DAILY@0906/03/18 [History] Metoprolol Tartrate [Lopressor] 50 mg PO BID@0600,1700 06/03/18 [History] Niacin 500 mg PO DAILY@169906/03/18 [History] PHENobarbital [Luminal] 64.8 mg PO DAILY@1200 06/03/18 [History] Phenytoin Sodium Extended [Dilantin] 200 mg PO BID@0900,1700 06/03/18 [History] Potassium Chloride [Klor-Con 20] 20 meq PO DAILY@0900 06/03/18 [History] Topiramate [Topamax] 50 mg PO DAILY@169906/03/18 [History] Vascepa (1gm) 2 gram PO BID@0900,1700 06/03/18 [History] buPROPion HCL [buPROPion HCL SR] 150 mg PO DAILY@0900 06/03/18 [History] buPROPion [Wellbutrin] 100 mg PO DAILY@1700 06/03/18 [History] lamoTRIgine [LaMICtal] 25 mg PO BID@0900,1700 06/03/18 [History] metFORMIN HCL 1,000 mg PO BID@0600,1700 06/03/18 [History] Loperamide [Imodium] 4 mg PO BID PRN 11/30/18 [History] Z-Guard 1 applic TOPICAL DIRECTED 11/30/18 [History] Z-Guard 1 applic TOPICAL Q12H 11/30/18 [History] Follow up Appointment(s)/Referral(s): Eliezer Mandujano MD [Primary Care Provider] - 1-2 days
== END 2018-12-04 14:15 | disposition short-term general hospital (02) | DRG 377 ==
LOC: EC 07:21 → 3SCARD 11:46 → 2SICU 12:44
PROVIDERS: ADMIT Hospitalist; ATTEND Hospitalist
PROC: 0D9670Z Drainage of Stomach with Drainage Device, Via Natural or Artificial Opening (ICD-10-PCS; principal; 2018-11-30)
DX: K92.2 Gastrointestinal hemorrhage, unspecified (principal); N17.0 Acute kidney failure with tubular necrosis; M79.A3 Nontraumatic compartment syndrome of abdomen; E87.2 Acidosis; K56.7 Ileus, unspecified; R18.8 Other ascites; Z68.42 Body mass index [BMI] 45.0-49.9, adult; I69.354 Hemiplegia and hemiparesis following cerebral infarction affecting left non-dominant side; D62 Acute posthemorrhagic anemia; K51.50 Left sided colitis without complications; I95.9 Hypotension, unspecified; E11.22 Type 2 diabetes mellitus with diabetic chronic kidney disease; E66.01 Morbid (severe) obesity due to excess calories; E87.5 Hyperkalemia; I12.9 Hypertensive chronic kidney disease with stage 1 through stage 4 chronic kidney disease, or unspecified chronic kidney disease; N18.9 Chronic kidney disease, unspecified; E86.9 Volume depletion, unspecified; G40.909 Epilepsy, unspecified, not intractable, without status epilepticus; I25.5 Ischemic cardiomyopathy; I25.10 Atherosclerotic heart disease of native coronary artery without angina pectoris; I69.322 Dysarthria following cerebral infarction; R31.9 Hematuria, unspecified; I45.10 Unspecified right bundle-branch block; E03.9 Hypothyroidism, unspecified; E78.5 Hyperlipidemia, unspecified; F32.9 Major depressive disorder, single episode, unspecified; I25.2 Old myocardial infarction; R40.2142 Coma scale, eyes open, spontaneous, at arrival to emergency department; R40.2362 Coma scale, best motor response, obeys commands, at arrival to emergency department; R40.2252 Coma scale, best verbal response, oriented, at arrival to emergency department; Z79.82 Long term (current) use of aspirin; Z79.02 Long term (current) use of antithrombotics/antiplatelets; Z79.4 Long term (current) use of insulin; Z79.890 Hormone replacement therapy; Z87.891 Personal history of nicotine dependence; Z79.899 Other long term (current) drug therapy; Z71.3 Dietary counseling and surveillance; Z86.79 Personal history of other diseases of the circulatory system; Z95.5 Presence of coronary angioplasty implant and graft; Z99.3 Dependence on wheelchair; Z98.890 Other specified postprocedural states; Z87.39 Personal history of other diseases of the musculoskeletal system and connective tissue
CPT/HCPCS: 36415; 71045; 74018; 74176; 76770; 80048; 80053; 81001; 82272; 82550; 83516; 83605; 83690; 83735; 83883; 84132; 84550; 85025; 86038; 86160; 86225; 86255; 86850; 86900; 86901; 87040; 87045; 87046; 87086; 87324; 93005; 93306; 94640; 96361; 96374; 96375; 99291

== ENCOUNTER 2019-01-07 00:21 | Inpatient (IN) | payer MEDICARE, OTHER ==
[2019-01-07 00:57] LABS: Albumin 3.8 g/dL (3.5-5.0); Anisocytosis Slight; Calcium 9.9 mg/dL (8.4-10.2); HCT 31.4 % (39.0-53.0); HGB 10.2 gm/dL (13.0-17.5); Hypochromasia Slight; MCH 29.9 pg (25.0-35.0); MCHC 32.6 g/dL (31.0-37.0); Mean Platelet Volume 6.3; Platelet Count 338 k/uL (150-450); Poikilocytosis Slight; RBC 3.42 m/uL (4.30-5.90); RDW 16.4 % (11.5-15.5); Total Bilirubin 0.3 mg/dL (0.2-1.3); Total Protein 8.2 g/dL (6.3-8.2); WBC 8.7 k/uL (3.8-10.6)
[2019-01-07 00:59] LABS: Potassium 6.1 mmol/L (3.5-5.1)
[2019-01-07 01:00] LABS: MCV 91.8 fL (80.0-100.0)
[2019-01-07] MEDS ORDERED: DEXTROSE 10 % IN WATER 250 ML IV ONE (01:00)
[2019-01-07] MEDS ORDERED: CALCIUM GLUCONATE 1 GM in SODIUM CHLORIDE 0.9% 100 ML IVPB ONE (01:00)
[2019-01-07] MEDS ORDERED: INSULIN REGULAR 100 UNIT/ML VIAL IV ONE (01:00)
[2019-01-07] MEDS ORDERED: SODIUM BICARB 8.4% 50 ML SYR (1 MEQ/ML) IV ONE (01:00)
[2019-01-07 01:25] LABS: Appearance,Urine Turbid (Clear); Bacteria,Urine Rare /hpf; Bilirubin,Urine Negative (Negative); Blood,Urine Moderate (Negative); Budding Yeast,Urine Many /hpf; Color,Urine Yellow; Glucose,Urine (UA) Negative (Negative); Granular Casts,Urine 39 /lpf (0); Hyaline Casts,Urine 31 /lpf (0-2); Ketones,Urine Negative (Negative); Leukocyte Esterase,Urine Large (Negative); Mucus,Urine Few /hpf; Nitrite,Urine Negative (Negative); Protein,Urine 2+ (Negative); RBC,Urine 164 /hpf (0-5); Specific Gravity,Urine 1.014 (1.001-1.035); Urobilinogen,Urine <2.0 mg/dL (<2.0); WBC,Urine >182 /hpf (0-5)
--- NOTE | 2019-01-07 01:27 | ED ---
General Adult HPI - General Source: EMS, RN notes reviewed, old records reviewed Mode of arrival: EMS Limitations: no limitations <Jose Alberto Jaramillo - Last Filed: 01/07/19 02:45> <Bharat Ruiz - Last Filed: 01/08/19 04:13> - General Chief complaint: Recheck/Abnormal Lab/Rx Stated complaint: abnormal labs Time Seen by Provider: 01/07/19 00:23 - History of Present Illness Initial comments: 63-year-old male patient with extensive past medical history, living in assisted care facility presents to ED for chief complaint of hyperkalemia. Patient reports he had labs drawn at this facility which displays hyperkalemia. Denies any complaints at this time. Systemic: Pt denies fatigue, fever/chills, rash. Pt denies weakness, night sweats, weight loss. Neuro: Pt denies headache, visual disturbances, syncope or pre-syncope. HEENT: Pt denies ocular discharge or irritation, otalgia, rhinorrhea, pharyngitis or notable lymphadenopathy. Cardiopulmonary: Pt denies chest pain, SOB, heart palpitations, dyspnea on exer tion. Abdominal/GI: Pt denies abdominal pain, n/v/d. : Pt denies dysuria, burning w/ urination, frequency/urgency. Denies new onset urinary or bowel incontinence. MSK: Pt denies myalgia, loss of strength or function in extremities. Neuro: Pt denies new onset weakness, paresthesias. (Jose Alberto Jaramillo) - Related Data Home Medications Medication Instructions Recorded Confirmed Atorvastatin [Lipitor] 20 mg PO DAILY@1700 06/03/18 01/07/19 Cholecalciferol (Vitamin D3) 2,000 unit PO DAILY@1700 06/03/18 01/07/19 [Vitamin D3] Gemfibrozil [Lopid] 600 mg PO BID@0900,1700 06/03/18 01/07/19 Insulin Aspart [NovoLOG Flexpen] 14 unit SQ AC-TID 06/03/18 01/07/19 Insulin Aspart [NovoLOG Flexpen] See Protocol SQ ACHS 06/03/18 01/07/19 Insulin Glargine,Hum.rec.anlog 10 unit SQ HS@2100 06/03/18 01/07/19 [Basaglar Kwikpen U-100] Levothyroxine Sodium [Synthroid] 125 mcg PO DAILY@0600 06/03/18 01/07/19 Liraglutide [Victoza 3-Felice] 1.2 mg PO DAILY@0600 06/03/18 01/07/19 Lisinopril 20 mg PO DAILY@0900 06/03/18 01/07/19 Metoprolol Tartrate [Lopressor] 50 mg PO BID@0600,1700 06/03/18 01/07/19 Niacin 500 mg PO DAILY@17006/03/18 01/07/19 PHENobarbital [Luminal] 64.8 mg PO DAILY@1200 06/03/18 01/07/19 Phenytoin Sodium Extended 200 mg PO BID@0900,1700 06/03/18 01/07/19 [Dilantin] Potassium Chloride [Klor-Con 20] 20 meq PO DAILY@0900 06/03/18 01/07/19 Topiramate [Topamax] 50 mg PO DAILY@1700 06/03/18 01/07/19 Vascepa (1gm) 2 gram PO BID@0900,1700 06/03/18 01/07/19 lamoTRIgine [LaMICtal] 50 mg PO BID@0900,1700 06/03/18 01/07/19 metFORMIN HCL 1,000 mg PO BID@0600,1700 06/03/18 01/07/19 Z-Guard 1 applic TOPICAL Q12H 11/30/18 01/07/19 Albuterol Sulfate [Proventil Hfa] 2 puff INHALATION RT-Q4H PRN 01/07/19 01/07/19 Aspirin [[place] Aspirin EC] 81 mg PO DAILY@0900 01/07/19 01/07/19 Cefepime HCl [Maxipime] 2 gm IV BID@0900,2100 01/07/19 01/07/19 Folic Acid 1 mg PO DAILY@1200 01/07/19 01/07/19 Folic Acid-Vit B Complex-Vit C 1 mg PO DAILY@1700 01/07/19 01/07/19 [Nephrocaps] Heparin Sodium,Porcine [Heparin 5,000 unit SQ TID@0600,1400,2200 01/07/19 01/07/19 Sodium] Thiamine HCl [Vitamin B-1] 100 mg PO DAILY@1200 01/07/19 01/07/19 Allergies Allergy/AdvReac Type Severity Reaction Status Date / Time piperacillin [From Zosyn] Allergy Unknown Verified 01/07/19 08:37 tazobactam [From Zosyn] Allergy Unknown Verified 01/07/19 08:37 Review of Systems ROS Other: All systems not noted in ROS Statement are negative. <Jose Alberto Jaramillo - Last Filed: 01/07/19 02:45> ROS Other: All systems not noted in ROS Statement are negative. <Bharat Ruiz - Last Filed: 01/08/19 04:13> ROS Statement: Those systems with pertinent positive or pertinent negative responses have been documented in the HPI. Past Medical History Past Medical History: CVA/TIA, Diabetes Mellitus, Hyperlipidemia, Hypertension, Myocardial Infarction ([place]), Seizure Disorder, Thyroid Disorder, Vascular Disorder Additional Past Medical History / Comment(s): Brain surgery 10 yrs ago for aneurysm and had CVA with left sided weakness upper and lower extremity and had trach/vented, (pt was left hand dominent), muscle weakness, wheelchair bound, last seizure many years ago, ischemic cardiomyopathy, IDDM type II, hypothyroid, pilonidal cyst. Last Myocardial Infarction Date:: History of Any Multi-Drug Resistant Organisms: None Reported Past Surgical History: Unable to Obtain Additional Past Surgical History / Comment(s): brain surgery for aneurysm, PCI with stent, nasal cartlidge surgery. Past Anesthesia/Blood Transfusion Reactions: No Reported Reaction Smoking Status: Former smoker - Past Family History Mother History Unknown: Yes Additional Family Medical History / Comment(s): Mother is living. Father History Unknown: Yes Additional Family Medical History / Comment(s): Father is living. <Jose Alberto Jaramillo - Last Filed: 01/07/19 02:45> General Exam Limitations: no limitations <Jose Alberto Jaramillo - Last Filed: 01/07/19 02:45> - General Exam Comments Initial Comments: Constitutional: NAD, AOX3, Pt has pleasant affect. HEENT: NC/AT, trachea midline, neck supple, no lymphadenopathy. Posterior pharynx non erythematous, without exudates. External ears appear normal, without discharge. Mucous membranes moist. Eyes PERRLA, EOM intact. There is no scleral icterus. No pallor noted. Cardiopulmonary: RRR, no murmurs, rubs or gallops, no JVD noted. Lungs CTAB in anterior and posterior ramirez. No peripheral edema. Abdominal exam: Abdomen soft and non-distended. Abdomen non-tender to palpation in all 4 quadrants. Bowel sounds active in LLQ. No hepatosplenomegaly. No ecchymosis Neuro: CN II-XII grossly intact. No nuchal rigidity. No raccon eyes, no hernández sign, no hemotympanum. No cervical spinal tenderness. MSK: No posterior calf tenderness bilaterally, homans sign negative bilaterally. Posterior tibialis and radial pulse +2 bilaterally. Sensation intact in upper and lower extremities. Full active ROM in upper and lower extremities, 5/5 stregnth. (Jose Alberto Jaramillo) Course Vital Signs 01/07/19 01/07/19 01/07/19 00:24 00:26 00:30 Temperature 98.1 F Pulse Rate 94 93 92 Pulse Rate [ Pulse Oximetery ] Respiratory 18 18 18 Rate Blood Pressure 154/85 154/85 Blood Pressure [Right Arm] O2 Sat by Pulse 98 99 99 Oximetry 01/07/19 01/07/19 01/07/19 00:40 00:50 01:00 EST Temperature 98.4 F 98 F Pulse Rate 96 99 90 Pulse Rate [ Pulse Oximetery ] Respiratory 17 14 20 Rate Blood Pressure 154/85 154/85 150/84 Blood Pressure [Right Arm] O2 Sat by Pulse 99 98 99 Oximetry 01/07/19 01/07/19 01/07/19 01:10 EST 01:20 EST 01:30 EST Temperature 98 F Pulse Rate 90 92 90 Pulse Rate [ Pulse Oximetery ] Respiratory 20 23 20 Rate Blood Pressure 150/84 142/88 150/84 Blood Pressure [Right Arm] O2 Sat by Pulse 99 Oximetry 01/07/19 01/07/19 01/07/19 01:40 EST 01:50 EST 02:00 Temperature Pulse Rate 90 90 96 Pulse Rate [ Pulse Oximetery ] Respiratory 20 24 18 Rate Blood Pressure 150/84 152/88 147/88 Blood Pressure [Right Arm] O2 Sat by Pulse Oximetry 01/07/19 01/07/19 01/07/19 02:30 02:50 03:00 Temperature 98 F 98.6 F Pulse Rate 95 94 Pulse Rate [ Pulse Oximetery ] Respiratory 20 19 Rate Blood Pressure 148/86 160/85 160/85 Blood Pressure [Right Arm] O2 Sat by Pulse Oximetry 01/07/19 01/07/19 01/07/19 03:10 03:20 03:30 Temperature Pulse Rate 93 92 92 Pulse Rate [ Pulse Oximetery ] Respiratory Rate Blood Pressure 174/92 174/92 174/92 Blood Pressure [Right Arm] O2 Sat by Pulse Oximetry 01/07/19 01/07/19 01/07/19 04:00 04:30 04:40 Temperature 98 F 98 F Pulse Rate 98 96 94 Pulse Rate [ Pulse Oximetery ] Respiratory Rate Blood Pressure 167/90 116/43 119/95 Blood Pressure [Right Arm] O2 Sat by Pulse Oximetry 01/07/19 01/07/19 01/07/19 04:50 05:00 05:10 Temperature Pulse Rate 93 94 93 Pulse Rate [ Pulse Oximetery ] Respiratory Rate Blood Pressure 119/95 119/95 148/72 Blood Pressure [Right Arm] O2 Sat by Pulse Oximetry 01/07/19 01/07/19 01/07/19 05:20 05:30 05:40 Temperature Pulse Rate 90 93 92 Pulse Rate [ Pulse Oximetery ] Respiratory Rate Blood Pressure 148/72 148/72 151/81 Blood Pressure [Right Arm] O2 Sat by Pulse Oximetry 01/07/19 01/07/19 01/07/19 05:50 06:00 06:10 Temperature Pulse Rate 93 92 91 Pulse Rate [ Pulse Oximetery ] Respiratory Rate Blood Pressure 151/81 151/81 149/84 Blood Pressure [Right Arm] O2 Sat by Pulse Oximetry 01/07/19 01/07/19 06:20 06:24 Temperature 97.7 F Pulse Rate 94 Pulse Rate [ 94 Pulse Oximetery ] Respiratory 16 Rate Blood Pressure 149/84 Blood Pressure 138/78 [Right Arm] O2 Sat by Pulse 95 Oximetry Medical Decision Making - Lab Data Result diagrams: 01/07/19 00:33 01/07/19 02:03 - EKG Data -: EKG Interpreted by Ct (and Dr. Gilliland) <Jose Alberto Jaramillo - Last Filed: 01/07/19 02:45> - Lab Data Result diagrams: 01/07/19 00:33 11/03/19 02:03 <Bharat Ruiz - Last Filed: 01/08/19 04:13> - Medical Decision Making 63-year-old male patient with extensive past medical history, living in assisted care facility presents to ED for chief complaint of hyperkalemia. Patient reports he had labs drawn at this facility which displays hyperkalemia. Denies any complaints at this time. Patient vital signs stable, afebrile. Physical exam did not say acute pathology. Laboratory investigations revealed hyperkalemia on UTI. EKG unchanged from prior. Hyperkalemia treatment initiated. He to achieve initiated and Rocephin. Patient be admitted for continued observation and treatment. Case discussed with Dr. Gilliland. (Jose Alberto Jaramillo) I saw this patient in conjunction with the physician family readiness support assistant. I performed independent history and physical exam. Agree with case management. (Bharat Ruiz) - Lab Data Lab Results 01/07/19 01/07/19 01/07/19 Range/Units 00:33 00:33 01:02 EST WBC 8.7 (3.8-10.6) k/uL RBC 3.42 L (4.30-5.90) m/uL Hgb 10.2 L (13.0-17.5) gm/dL Hct 31.4 L (39.0-53.0) % MCV 91.8 D (80.0-100.0) fL MCH 29.9 (25.0-35.0) pg MCHC 32.6 (31.0-37.0) g/dL RDW 16.4 H (11.5-15.5) % Plt Count 338 (150-450) k/uL Neutrophils % (Manual) 51 % Band Neutrophils % 4 % Lymphocytes % (Manual) 24 % Monocytes % (Manual) 6 % Eosinophils % (Manual) 15 % Neutrophils # (Manual) 4.70 (1.3-7.7) k/uL Lymphocytes # (Manual) 2.09 (1.0-4.8) k/uL Monocytes # (Manual) 0.52 (0-1.0) k/uL Eosinophils # (Manual) 1.31 H (0-0.7) k/uL Nucleated RBCs 0 (0-0) /100 WBC Manual Slide Review Performed Large Platelets Present Polychromasia Present Hypochromasia Slight Poikilocytosis Slight Anisocytosis Slight Sodium 141 (137-145) mmol/L Potassium 6.1 H* (3.5-5.1) mmol/L Chloride 113 H (98-107) mmol/L Carbon Dioxide 17 L (22-30) mmol/L Anion Gap 11 mmol/L BUN 35 H (9-20) mg/dL Creatinine 1.50 H (0.66-1.25) mg/dL Est GFR (CKD-EPI)AfAm 57 (>60 ml/min/1.73 sqM) Est GFR (CKD-EPI)NonAf 49 (>60 ml/min/1.73 sqM) Glucose 137 H (74-99) mg/dL Plasma Lactic Acid Castro (0.7-2.0) mmol/L Calcium 9.9 (8.4-10.2) mg/dL Total Bilirubin 0.3 (0.2-1.3) mg/dL AST 19 (17-59) U/L ALT 14 L (21-72) U/L Alkaline Phosphatase 142 H (38-126) U/L Total Protein 8.2 (6.3-8.2) g/dL Albumin 3.8 (3.5-5.0) g/dL Urine Color Yellow Urine Appearance Turbid (Clear) Urine pH 6.0 (5.0-8.0) Ur Specific [place] 1.014 (1.001-1.035) Urine Protein 2+ H (Negative) Urine Glucose (UA) Negative (Negative) Urine Ketones Negative (Negative) Urine Blood Moderate H (Negative) Urine Nitrite Negative (Negative) Urine Bilirubin Negative (Negative) Urine Urobilinogen <2.0 (<2.0) mg/dL Ur Leukocyte Esterase Large H (Negative) Urine RBC 164 H (0-5) /hpf Urine WBC >182 H (0-5) /hpf Urine WBC Clumps Few H (None) /hpf Urine Bacteria Rare H (None) /hpf Hyaline Casts 31 H (0-2) /lpf Granular Casts 39 (0) /lpf Urine Mucus Few H (None) /hpf Urine Yeast (Budding) Many H (None) /hpf 01/07/19 01/07/19 Range/Units 01:28 EST 02:03 WBC (3.8-10.6) k/uL RBC (4.30-5.90) m/uL Hgb (13.0-17.5) gm/dL Hct (39.0-53.0) % MCV (80.0-100.0) fL MCH (25.0-35.0) pg MCHC (31.0-37.0) g/dL RDW (11.5-15.5) % Plt Count (150-450) k/uL Neutrophils % (Manual) % Band Neutrophils % % Lymphocytes % (Manual) % Monocytes % (Manual) % Eosinophils % (Manual) % Neutrophils # (Manual) (1.3-7.7) k/uL Lymphocytes # (Manual) (1.0-4.8) k/uL Monocytes # (Manual) (0-1.0) k/uL Eosinophils # (Manual) (0-0.7) k/uL Nucleated RBCs (0-0) /100 WBC Manual Slide Review Large Platelets Polychromasia Hypochromasia Poikilocytosis Anisocytosis Sodium (137-145) mmol/L Potassium 5.2 H (3.5-5.1) mmol/L Chloride (98-107) mmol/L Carbon Dioxide (22-30) mmol/L Anion Gap mmol/L BUN (9-20) mg/dL Creatinine (0.66-1.25) mg/dL Est GFR (CKD-EPI)AfAm (>60 ml/min/1.73 sqM) Est GFR (CKD-EPI)NonAf (>60 ml/min/1.73 sqM) Glucose (74-99) mg/dL Plasma Lactic Acid Castro 1.1 (0.7-2.0) mmol/L Calcium (8.4-10.2) mg/dL Total Bilirubin (0.2-1.3) mg/dL AST (17-59) U/L ALT (21-72) U/L Alkaline Phosphatase (38-126) U/L Total Protein (6.3-8.2) g/dL Albumin (3.5-5.0) g/dL Urine Color Urine Appearance (Clear) Urine pH (5.0-8.0) Ur Specific [place] (1.001-1.035) Urine Protein (Negative) Urine Glucose (UA) (Negative) Urine Ketones (Negative) Urine Blood (Negative) Urine Nitrite (Negative) Urine Bilirubin (Negative) Urine Urobilinogen (<2.0) mg/dL Ur Leukocyte Esterase (Negative) Urine RBC (0-5) /hpf Urine WBC (0-5) /hpf Urine WBC Clumps (None) /hpf Urine Bacteria (None) /hpf Hyaline Casts (0-2) /lpf Granular Casts (0) /lpf Urine Mucus (None) /hpf Urine Yeast (Budding) (None) /hpf - EKG Data EKG Comments: Ventricular rate 94,. Full 172, QRS 144, QT/QTC 376 as 47. Normal sinus rhythm, left axis deviation, right bundle-branch block. Septal infarct age indeterminate. Abnormal ECG. No significant change from prior. No concern for acute ischemia.. (Jose Alberto Jaramillo) Disposition Is patient prescribed a controlled substance at d/c from ED?: No <Jose Alberto Jaramillo - Last Filed: 01/07/19 02:45> <Bharat Ruiz - Last Filed: 01/08/19 04:13> Clinical Impression: Hyperkalemia, UTI (urinary tract infection) Disposition: ADMITTED IP TO THIS HOSP Condition: Serious
[2019-01-07 01:32] LABS: Band Neutrophils % 4 %; Eosinophils # (M) 1.31 k/uL (0-0.7); Lymphocytes # (M) 2.09 k/uL (1.0-4.8); Monocytes # (M) 0.52 k/uL (0-1.0); Neutrophils % (M) 51 %; Nucleated Red Blood Cells 0 /100 WBC (0-0); Total Cells Counted 100
[2019-01-07 01:34] LABS: Large Platelets Present; Polychromasia Present
[2019-01-07] MEDS ORDERED: SODIUM CHLORIDE 0.9% 1,000 ML IV STA (01:55)
[2019-01-07] MEDS ORDERED: FUROSEMIDE 10 MG/ML 4 ML VIAL IV STA (01:56)
[2019-01-07] MEDS ORDERED: NALOXONE 0.4 MG/ML 1 ML VIAL IV PRN (02:49)
[2019-01-07] MEDS: SODIUM CHLORIDE 0.9% 1,000 ML IV SCH ×2 (03:33→17:04)
[2019-01-07 07:14] LABS: Glucose,Whole Blood 125 mg/dL (75-99)
[2019-01-07] MEDS: ASPIRIN 81 MG PO SCH (11:12)
[2019-01-07] MEDS: FOLIC ACID 1 MG TAB PO SCH (11:13)
[2019-01-07] MEDS: LISINOPRIL 20 MG TAB PO SCH (11:13)
[2019-01-07] MEDS ORDERED: NON FORMULARY DRUG (Cefepime Hcl [Maxipime] 2 GM) IV SCH (11:15)
[2019-01-07] MEDS: PHENYTOIN SODIUM EXTENDED 100 MG CAP PO SCH ×2 (11:21→17:04)
[2019-01-07] MEDS: lamoTRIgine 25 MG TAB PO SCH ×2 (11:21→17:04)
[2019-01-07] MEDS: metFORMIN 500 MG TAB PO SCH ×2 (11:25→17:12)
[2019-01-07 11:48] LABS: Glucose,Whole Blood 214 mg/dL (75-99)
[2019-01-07] MEDS: THIAMINE 100 MG TAB PO SCH (11:52)
[2019-01-07 12:12] VITALS: BMI 35.2
[2019-01-07] MEDS: PHENobarbital 64.8 MG TAB PO SCH (12:12)
[2019-01-07] MEDS: INSULIN ASPART (NovoLOG) 100 UNIT/ML VIAL SQ SCH ×3 (12:12→21:58)
[2019-01-07] MEDS ORDERED: PHENYTOIN SODIUM EXTENDED 100 MG CAP PO SCH (17:00)
[2019-01-07] MEDS ORDERED: metFORMIN 500 MG TAB PO SCH (17:00)
[2019-01-07] MEDS ORDERED: lamoTRIgine 25 MG TAB PO SCH (17:00)
[2019-01-07 17:02] LABS: Glucose,Whole Blood 114 mg/dL (75-99)
[2019-01-07] MEDS: TOPIRAMATE 25 MG TAB PO SCH (17:03)
[2019-01-07] MEDS: FENOFIBRATE 160 MG TAB PO SCH (17:04)
[2019-01-07] MEDS: CHOLECALCIFEROL 1,000 UNIT TAB PO SCH (17:04)
[2019-01-07] MEDS: FOLIC ACID-VIT B COMPLEX-VIT C 1 CAP PO SCH (17:04)
[2019-01-07] MEDS: NIACIN TR 500 MG CAPLET PO SCH (17:04)
[2019-01-07] MEDS: HEPARIN SODIUM,PORCINE 5,000 UNIT/ML 1 ML VIAL SQ SCH ×2 (17:04→21:58)
[2019-01-07] MEDS: ICOSAPENT ETHYL PO SCH (17:05)
[2019-01-07] MEDS: LIRAGLUTIDE 1.2 MG PO SCH (17:05)
[2019-01-07] MEDS: METOPROLOL TARTRATE 50 MG TAB PO SCH (17:12)
[2019-01-07] MEDS: ATORVASTATIN 20 MG TAB PO SCH (17:12)
--- NOTE | 2019-01-07 17:12 | P.HPIM ---
History of Present Illness H&P Date: 01/07/19 Chief Complaint: Hyperkalemia History of presenting complaint: This is a 63-year-old patient who is currently a resident of [facility] at [facility] being followed by Dr. Mandujano. Chronic stable medical conditions include diabetes mellitus type 2, hyperlipidemia, hypertension, seizure disorder, hypothyroid,. 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 Patient's primary much wheelchair-bound. Also could've ischemic cardiomyopathy and is mellitus type II. Patient had blood drawn on this Tuesday and patient's potassium came back at 6 has patient was sent into the hospital for further management. Patient in the ER received calcium gluconate, 10 units of insulin, sodium bicarbonate. Patient repeat potassium the ER was 6.1. Head and repeat potassium came down to 5.2. Patient is a poor historian. Speech is slow. Patient's in the hospital about a month ago-was in the ICU. [place] to have compartment syndrome of the abdomen. Patient was then seen by Dr. Waite from critical care and Dr. Bird from general surgery. Patient was transferred [facility]. Patient is not sure what transpired there. On the last admission patient also had a GI bleed from antiplatelet agents. Also had l arge bowel ileus. Review of systems: GEN.: Tired EYES: None HEENT: None NECK: None RESPIRATORY: None CARDIOVASCULAR: None GASTROINTESTINAL: None GENITOURINARY: Plata catheter MUSCULOSKELETAL: None LYMPHATICS: None HEMATOLOGICAL: None PSYCHIATRY: None NEUROLOGICAL: Left-sided weakness with a slow speech Social history: Resident of [facility]. Patient smoked for several years. Was a heavy drinker stopped the . Did marijuana many years ago. Family history: Patient cannot tell Physical examination: VITAL SIGNS: 98.1, 94, 18, 154/85, 98% room air GENERAL: [BMI 35.2, laying in bed awake tired. EYES: Pupils equal. Conjunctiva normal. HEENT: External appearance of nose and ears normal, oral cavity grossly normal. NECK: JVD unable to assess; masses not palpable. HEART: First and second heart sounds are normal; no edema. LUNGS: Respiratory rate normal; decreased breath sounds. ABDOMEN: Soft, nontender, liver spleen not palpable, no masses palpable. PSYCH: [Patient is able to answer simple questions l. NEUROLOGICAL: Speech is slow, left-sided weakness. LYMPHATICS: No lymph nodes palpable in the axilla and neck INVESTIGATIONS, reviewed in the clinical context: White count 8.7 hemoglobin 10.2 L 338 potassium 6.1 bun 35 creatinine 1.50 by cup 17 repeat potassium 5.2 admitted be noted that patient's BUN/creatinine was 110/10.2 and when patient was transferred out of here. 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 We'll keep the patient on IV fluids. Repeat potassium in the morning. Patient is on antibiotics will be continued. We'll try to obtain more information regarding patient's recent visit [facility]. Past Medical History Past Medical History: CVA/TIA, Diabetes Mellitus, Hyperlipidemia, Hypertension, Myocardial Infarction (RI), Seizure Disorder, Thyroid Disorder, Vascular Disorder Additional Past Medical History / Comment(s): Brain surgery 10 yrs ago for aneurysm and had CVA with left sided weakness upper and lower extremity and had trach/vented, (pt was left hand dominent), muscle weakness, wheelchair bound, last seizure many years ago, ischemic cardiomyopathy, IDDM type II, hypothyroid, pilonidal cyst. Last Myocardial Infarction Date:: History of Any Multi-Drug Resistant Organisms: None Reported Past Surgical History: Unable to Obtain Additional Past Surgical History / Comment(s): brain surgery for aneurysm, PCI with stent, nasal cartlidge surgery. Past Anesthesia/Blood Transfusion Reactions: No Reported Reaction Past Psychological History: Anxiety, Depression Additional Psychological History / Comment(s): Pt resides at [facility]. He is up in a powerchair. He feeds himself. Smoking Status: Former smoker Past Alcohol Use History: None Reported Additional Past Alcohol Use History / Comment(s): Pt started smoking as a teen and quit almost one year ago. In the past he was a very heavy drinker but gave that up in the . Past Drug Use History: Marijuana Additional Drug Use History / Comment(s): Pt smoked marijuana many years ago. - Past Family History Mother History Unknown: Yes Additional Family Medical History / Comment(s): Mother is living. Father History Unknown: Yes Additional Family Medical History / Comment(s): Father is living. Medications and Allergies Home Medications Medication Instructions Recorded Confirmed Type Atorvastatin [Lipitor] 20 mg PO DAILY@1700 06/03/18 01/07/19 History Cholecalciferol (Vitamin D3) 2,000 unit PO DAILY@1700 06/03/18 01/07/19 History [Vitamin D3] Gemfibrozil [Lopid] 600 mg PO BID@0900,1700 06/03/18 01/07/19 History Insulin Aspart [NovoLOG Flexpen] 14 unit SQ AC-TID 06/03/18 01/07/19 History Insulin Aspart [NovoLOG Flexpen] See Protocol SQ ACHS 06/03/18 01/07/19 History Insulin Glargine,Hum.rec.anlog 10 unit SQ HS@2100 06/03/18 01/07/19 History [Basaglar Kwikpen U-100] Levothyroxine Sodium [Synthroid] 125 mcg PO DAILY@0600 06/03/18 01/07/19 History Liraglutide [Victoza 3-Felice] 1.2 mg PO DAILY@0600 06/03/18 01/07/19 History Lisinopril 20 mg PO DAILY@0900 06/03/18 01/07/19 History Metoprolol Tartrate [Lopressor] 50 mg PO BID@0600,1700 06/03/18 01/07/19 History Niacin 500 mg PO DAILY@1700 06/03/18 01/07/19 History PHENobarbital [Luminal] 64.8 mg PO DAILY@1200 06/03/18 01/07/19 History Phenytoin Sodium Extended 200 mg PO BID@0900,1700 06/03/18 01/07/19 History [Dilantin] Potassium Chloride [Klor-Con 20] 20 meq PO DAILY@0900 06/03/18 01/07/19 History Topiramate [Topamax] 50 mg PO DAILY@1700 06/03/18 01/07/19 History Vascepa (1gm) 2 gram PO BID@0900,1700 06/03/18 01/07/19 History lamoTRIgine [LaMICtal] 50 mg PO BID@0900,1700 06/03/18 01/07/19 History metFORMIN HCL 1,000 mg PO BID@0600,1700 06/03/18 01/07/19 History Z-Guard 1 applic TOPICAL Q12H 11/30/18 01/07/19 History Albuterol Sulfate [Proventil Hfa] 2 puff INHALATION RT-Q4H PRN 01/07/19 01/07/19 History Aspirin [[place] Aspirin EC] 81 mg PO DAILY@0900 01/07/19 01/07/19 History Cefepime HCl [Maxipime] 2 gm IV BID@0900,2100 01/07/19 01/07/19 History Folic Acid 1 mg PO DAILY@1200 01/07/19 01/07/19 History Folic Acid-Vit B Complex-Vit C 1 mg PO DAILY@1700 01/07/19 01/07/19 History [Nephrocaps] Heparin Sodium,Porcine [Heparin 5,000 unit SQ TID@0600,1400,2200 01/07/19 1 03/09/18 History Sodium] Thiamine HCl [Vitamin B-1] 100 mg PO DAILY@1200 01/07/19 01/07/19 History Allergies Allergy/AdvReac Type Severity Reaction Status Date / Time piperacillin [From Zosyn] Allergy Unknown Verified 01/07/19 08:37 tazobactam [From Zosyn] Allergy Unknown Verified 01/07/19 08:37 Physical Exam Vitals: Vital Signs Temp Pulse Pulse Resp BP BP Pulse Ox 01/07/19 15:22 98 16 01/07/19 15:00 98.1 F 103 H 16 105/55 96 01/07/19 07:00 98 F 98 16 124/73 99 01/07/19 06:24 97.7 F 94 16 138/78 95 01/07/19 06:20 94 149/84 01/07/19 06:10 91 149/84 01/07/19 06:00 92 151/81 01/07/19 05:50 93 151/81 01/07/19 05:40 92 151/81 01/07/19 05:30 93 148/72 01/07/19 05:20 90 148/72 01/07/19 05:10 93 148/72 01/07/19 05:00 94 119/95 01/07/19 04:50 93 119/95 01/07/19 04:40 94 119/95 01/07/19 04:30 98 F 96 116/43 01/07/19 04:00 98 F 98 167/90 01/07/19 03:30 92 174/92 01/07/19 03:20 92 174/92 01/07/19 03:10 93 174/92 01/07/19 03:00 160/85 01/07/19 02:50 98.6 F 94 19 160/85 01/07/19 02:30 98 F 95 20 148/86 01/07/19 02:00 96 18 147/88 01/07/19 01:50 EST 90 24 152/88 01/07/19 01:40 EST 90 20 150/84 01/07/19 01:30 EST 90 20 150/84 01/07/19 01:20 EST 92 23 142/88 01/07/19 01:10 EST 98 F 90 20 150/84 99 01/07/19 01:00 EST 98 F 90 20 150/84 99 01/07/19 00:50 98.4 F 99 14 154/85 98 01/07/19 00:40 96 17 154/85 99 01/07/19 00:30 92 18 154/85 99 01/07/19 00:26 93 18 99 01/07/19 00:24 98.1 F 94 18 154/85 98 Intake and Output 01/07/19 01/07/19 01/07/19 06:59 14:59 22:59 Intake Total 118 Output Total Balance 118 Intake: Oral 118 Output: Urine Other: Voiding Method Indwelling Catheter Weight Results CBC & Chem 7: 01/07/19 00:33 01/07/19 02:03 Labs: Abnormal Lab Results - Last 24 Hours (Table) 01/07/19 01/07/19 01/07/19 Range/Units 00:33 00:33 01:02 EST RBC 3.42 L (4.30-5.90) m/uL Hgb 10.2 L (13.0-17.5) gm/dL Hct 31.4 L (39.0-53.0) % RDW 16.4 H (11.5-15.5) % Eosinophils # (Manual) 1.31 H (0-0.7) k/uL Potassium 6.1 H* (3.5-5.1) mmol/L Chloride 113 H (98-107) mmol/L Carbon Dioxide 17 L (22-30) mmol/L BUN 35 H (9-20) mg/dL Creatinine 1.50 H (0.66-1.25) mg/dL Glucose 137 H (74-99) mg/dL POC Glucose (mg/dL) (75-99) mg/dL ALT 14 L (21-72) U/L Alkaline Phosphatase 142 H (38-126) U/L Urine Protein 2+ H (Negative) Urine Blood Moderate H (Negative) Ur Leukocyte Esterase Large H (Negative) Urine RBC 164 H (0-5) /hpf Urine WBC >182 H (0-5) /hpf Urine WBC Clumps Few H (None) /hpf Urine Bacteria Rare H (None) /hpf Hyaline Casts 31 H (0-2) /lpf Urine Mucus Few H (None) /hpf Urine Yeast (Budding) Many H (None) /hpf 01/07/19 01/07/19 01/07/19 Range/Units 02:03 07:12 11:47 RBC (4.30-5.90) m/uL Hgb (13.0-17.5) gm/dL Hct (39.0-53.0) % RDW (11.5-15.5) % Eosinophils # (Manual) (0-0.7) k/uL Potassium 5.2 H (3.5-5.1) mmol/L Chloride (98-107) mmol/L Carbon Dioxide (22-30) mmol/L BUN (9-20) mg/dL Creatinine (0.66-1.25) mg/dL Glucose (74-99) mg/dL POC Glucose (mg/dL) 125 H 214 H (75-99) mg/dL ALT (21-72) U/L Alkaline Phosphatase (38-126) U/L Urine Protein (Negative) Urine Blood (Negative) Ur Leukocyte Esterase (Negative) Urine RBC (0-5) /hpf Urine WBC (0-5) /hpf Urine WBC Clumps (None) /hpf Urine Bacteria (None) /hpf Hyaline Casts (0-2) /lpf Urine Mucus (None) /hpf Urine Yeast (Budding) (None) /hpf Microbiology - Last 24 Hours (Table) 01/07/19 01:02 EST Urine Culture - Preliminary Urine,Catheterized
[2019-01-07 20:28] LABS: Glucose,Whole Blood 138 mg/dL (75-99)
[2019-01-07] MEDS: INSULIN DETEMIR (LEVEMIR) 100 UNIT/ML SYR SQ SCH (21:58)
[2019-01-08] MEDS: SODIUM CHLORIDE 0.9% 1,000 ML IV SCH ×2 (01:13→09:14)
[2019-01-08] MEDS: METOPROLOL TARTRATE 50 MG TAB PO SCH ×2 (06:03→17:01)
[2019-01-08] MEDS: HEPARIN SODIUM,PORCINE 5,000 UNIT/ML 1 ML VIAL SQ SCH ×3 (06:03→21:08)
[2019-01-08] MEDS: metFORMIN 500 MG TAB PO SCH (06:03)
[2019-01-08] MEDS: LEVOTHYROXINE 125 MCG TAB PO SCH (06:03)
[2019-01-08] MEDS: LIRAGLUTIDE 1.2 MG PO SCH (06:04)
[2019-01-08 06:49] LABS: Glucose,Whole Blood 108 mg/dL (75-99)
[2019-01-08] MEDS: INSULIN ASPART (NovoLOG) 100 UNIT/ML VIAL SQ SCH ×4 (07:02→21:07)
[2019-01-08 07:36] LABS: Anisocytosis Slight; Basophils # (A) 0.1 k/uL (0-0.2); Basophils % (A) 1 %; Eosinophils # (A) 0.9 k/uL (0-0.7); Eosinophils % (A) 8 %; HCT 28.7 % (39.0-53.0); HGB 9.2 gm/dL (13.0-17.5); Hypochromasia Slight; Lymphocytes # (A) 2.3 k/uL (1.0-4.8); Lymphocytes % (A) 21 %; MCH 29.8 pg (25.0-35.0); MCV 93.2 fL (80.0-100.0); Mean Platelet Volume 6.3; Monocytes # (A) 0.6 k/uL (0-1.0); Monocytes % (A) 5 %; Neutrophils # (A) 6.5 k/uL (1.3-7.7); Neutrophils % (A) 61 %; Platelet Count 340 k/uL (150-450); Poikilocytosis Slight; RBC 3.08 m/uL (4.30-5.90); RDW 16.3 % (11.5-15.5); WBC 10.7 k/uL (3.8-10.6)
[2019-01-08 07:48] LABS: Albumin 3.4 g/dL (3.5-5.0); Calcium 9.1 mg/dL (8.4-10.2); Potassium 5.8 mmol/L (3.5-5.1); Total Bilirubin 0.3 mg/dL (0.2-1.3); Total Protein 7.2 g/dL (6.3-8.2)
[2019-01-08] MEDS ORDERED: ASPIRIN 81 MG PO SCH (09:00)
[2019-01-08] MEDS ORDERED: LISINOPRIL 20 MG TAB PO SCH (09:00)
[2019-01-08] MEDS ORDERED: POTASSIUM CHLORIDE ER 20 MEQ TAB.ER PO SCH (09:00)
[2019-01-08] MEDS: LISINOPRIL 20 MG TAB PO SCH (09:12)
[2019-01-08] MEDS: ASPIRIN 81 MG PO SCH (09:12)
[2019-01-08] MEDS: FOLIC ACID 1 MG TAB PO SCH (09:12)
[2019-01-08] MEDS: THIAMINE 100 MG TAB PO SCH (09:12)
[2019-01-08] MEDS: PHENYTOIN SODIUM EXTENDED 100 MG CAP PO SCH ×2 (09:14→17:02)
[2019-01-08] MEDS: ICOSAPENT ETHYL PO SCH ×2 (09:15→16:49)
[2019-01-08] MEDS: lamoTRIgine 25 MG TAB PO SCH ×2 (09:17→17:02)
[2019-01-08] MEDS ORDERED: SODIUM POLYSTYRENE SULFONATE 15 GM/60 ML BOTTLE PO STA (11:19)
[2019-01-08] MEDS: PHENobarbital 64.8 MG TAB PO SCH (11:54)
[2019-01-08] MEDS: DEXTROSE 5% IN WATER 1,000 ML with SODIUM BICARB (1 MEQ/ML) 150 ML IV SCH (13:08)
[2019-01-08] MEDS: CEFEPIME 2 GM in SODIUM CHLORIDE 0.9% 100 ML IVPB SCH ×2 (13:18→23:12)
[2019-01-08 16:52] LABS: Glucose,Whole Blood 145 mg/dL (75-99)
--- NOTE | 2019-01-08 16:57 | CONS ---
CONSULTATION REASON FOR CONSULT: Renal failure, hyperkalemia. HISTORY OF PRESENT ILLNESS: Patient is a 63-year-old male who has been transferred from [facility] mainly for abnormal labs. It appears that patient had a prolonged hospitalization prior to this admission. He has a history of ischemic cardiomyopathy, type 2 diabetes, and left- sided weakness following a brain surgery. The patient had compartment syndrome and was evaluated by General Surgery during his last admission about a month ago and was then transferred to [facility]. Currently patient has an indwelling Plata catheter. He is mildly acidotic with CO2 at 15. Potassium was 5.8, which is down from 6.1 initially. The patient has received Kayexalate. His creatinine is 1.9, which is up from 1.5 yesterday. Previous creatinine was as high as 9.29 on 12/04/2018. I believe this was all acute kidney injury at that time. No nephrotoxic agents on board, although patient admitted having taken Motrin on and off for pain. PAST MEDICAL HISTORY: Type 2 diabetes, history of left-sided weakness after brain surgery, hypertension, history of coronary artery disease, seizure disorder, hypothyroidism, brain surgery for aneurysm, history of vent dependent respiratory failure, cardiomyopathy. PAST SURGICAL HISTORY: Brain surgery for aneurysm, coronary artery stent placement. SOCIAL HISTORY: Patient is a former smoker. No history of drug abuse or alcohol abuse. MEDICATIONS: Medications prior to admission included Lipitor, vitamin D3, insulin, Synthroid, lisinopril, Lopressor, potassium, Topamax, Lamictal, metformin, albuterol, Nephrocaps, thiamine. ALLERGIES: Include ZOSYN. EXAMINATION: Patient is currently awake, comfortable. He is not in any acute distress. Blood pressure this morning was 112/70, heart rate 95 per minute, he is afebrile. Examination of the heart S1, S2. Examination of the lungs, bilateral breath sounds are heard. Abdomen is soft, non-tender. Examination of lower extremities shows left-sided paralysis. Chronic skin changes are noted. Wasting is noted in the legs. LAB: Show sodium 140, potassium 5.8, chloride 114, CO2 is 15, BUN 41, creatinine 1.9, hemoglobin 9.2 g/dL. ASSESSMENT: 1. Acute kidney injury associated with hypotension, hypoperfusion, use of SHORTY inhibitors, currently nonoliguric. Patient has an indwelling Plata catheter, which we will continue. I will maintain him on IV fluids. Continue off SHORTY inhibitors for now. 2. Metabolic acidosis secondary to renal failure as well as possibly related to metformin. Discontinue the metformin for now. Maintain patient on IV bicarb. 3. Hyperkalemia associated with acute kidney injury and metabolic acidosis. Continue off SHORTY inhibitors. Avoid any nonsteroidal anti-inflammatory agents. No evidence of obstruction as patient has an indwelling Plata catheter. Correct acidosis and repeat labs in a.m. The patient has received Kayexalate. 4. History of recent hospitalization with abdominal compartment syndrome for which patient was transferred to another facility out of [facility]. 5. Anemia. No active bleeding noted at this time. Check iron studies. PLAN: Add IV bicarb. Repeat labs in a.m. Continue with Plata catheter. DC metformin. Continue off SHORTY inhibitors as well. Avoid NSAIDs. Thank you for this consultation. We will continue to follow the patient with you during his hospitalization. MMGEEL / SOHAILN: [id number] /
[2019-01-08] MEDS: CHOLECALCIFEROL 1,000 UNIT TAB PO SCH (17:01)
[2019-01-08] MEDS: FOLIC ACID-VIT B COMPLEX-VIT C 1 CAP PO SCH (17:01)
[2019-01-08] MEDS: ATORVASTATIN 20 MG TAB PO SCH (17:01)
[2019-01-08] MEDS: FENOFIBRATE 160 MG TAB PO SCH (17:01)
[2019-01-08] MEDS: TOPIRAMATE 25 MG TAB PO SCH (17:02)
[2019-01-08] MEDS: NIACIN TR 500 MG CAPLET PO SCH (17:02)
[2019-01-08 20:58] LABS: Glucose,Whole Blood 177 mg/dL (75-99)
[2019-01-08] MEDS: INSULIN DETEMIR (LEVEMIR) 100 UNIT/ML SYR SQ SCH (21:07)
--- NOTE | 2019-01-08 22:27 | P.PN ---
Progress Note - Text Progress Note Date: 01/08/19 Chief Complaint: Hyperkalemia History of presenting complaint: This is a 63-year-old patient who is currently a resident of [facility] at [facility] being followed by Dr. Mandujano. Chronic stable medical conditions include diabetes mellitus type 2, hyperlipidemia, hypertension, seizure disorder, hypothyroid,. 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 Patient's primary much wheelchair-bound. Also could've ischemic cardiomyopathy and is mellitus type II. Patient had blood drawn on this Tuesday and patient's potassium came back at 6 has patient was sent into the hospital for further management. Patient in the ER received calcium gluconate, 10 units of insulin, sodium bicarbonate. Patient repeat potassium the ER was 6.1. Head and repeat potassium came down to 5.2. Patient is a poor historian. Speech is slow. Patient's in the hospital about a month ago-was in the ICU. [place] to have compartment syndrome of the abdomen. Patient was then seen by Dr. Waite from critical care and Dr. Bird from general surgery. Patient was transferred [facility]. Patient is not sure what transpired there. On the last admission patient also had a GI bleed from antiplatelet agents. Also had large bowel ileus. Admitted with hyperkalemia Today-patient's potassium was gone up. Worsening of renal function. I ordered Kayexalate this morning. And nephrology consultation. Patient did tolerate some diet. Laying in bed. Review of systems: Was done for constitutional, cardiovascular, GI, pulmonary. relevant finding as above Active Medications Aspirin (Aspirin) 81 mg PO DAILY@0900 [facility] Last Admin: 01/08/19 09:12 Dose: 81 mg Documented by: Atorvastatin Calcium (Lipitor) 20 mg PO DAILY@1700 [facility] Last Admin: 01/08/19 17:01 Dose: 20 mg Documented by: Cholecalciferol (Vitamin D3 (25 Mcg = 1000 Iu)) 2,000 unit PO DAILY@1700 [facility] Last Admin: 01/08/19 17:01 Dose: 2,000 unit Documented by: Fenofibrate (Lofibra) 160 mg PO DAILY@1700 [facility] Last Admin: 01/08/19 17:01 Dose: 160 mg Documented by: Folic Acid (Folic Acid) 1 mg PO DAILY@1200 [facility] Last Admin: 01/08/19 09:12 Dose: 1 mg Documented by: Heparin Sodium (Porcine) (Heparin) 5,000 unit SQ TID@0600,1400,2200 [facility] Last Admin: 01/08/19 21:08 Dose: 5,000 unit Documented by: Cefepime HCl 2 gm/ Sodium (Chloride) 100 mls @ 200 mls/hr IVPB Q12HR@0000,1200 [facility] Stop: 01/12/19 23:00 Last Admin: 01/08/19 13:18 Dose: 200 mls/hr Documented by: Sodium Bicarbonate 150 ml/ (Dextrose/Water) 1,150 mls @ 75 mls/hr IV .[id number] [facility] Last Admin: 01/08/19 13:08 Dose: 75 mls/hr Documented by: Insulin Aspart (Novolog) 0 unit SQ ACHS [facility]; Protocol Last Admin: 01/08/19 21:07 Dose: 3 unit Documented by: Insulin Detemir (Levemir) 10 unit SQ HS@2100 [facility] Last Admin: 01/08/19 21:07 Dose: 10 unit Documented by: Lamotrigine (Lamictal) 50 mg PO BID@0900,1700 [facility] Last Admin: 01/08/19 17:02 Dose: 50 mg Documented by: Levothyroxine Sodium (Synthroid) 125 mcg PO DAILY@0600 [facility] Last Admin: 01/08/19 06:03 Dose: 125 mcg Documented by: Metoprolol Tartrate (Lopressor) 50 mg PO BID@0600,1700 [facility] Last Admin: 01/08/19 17:01 Dose: 50 mg Documented by: Multivit/Ca Carb/B Cmplx/FA/Prenat (Nephrocaps) 1 each PO DAILY@1700 [facility] Last Admin: 01/08/19 17:01 Dose: 1 each Documented by: Naloxone HCl (Narcan) 0.2 mg IV Q2M PRN PRN Reason: Opioid Reversal Niacin (Niacin Tr) 500 mg PO DAILY@1700 [facility] Last Admin: 01/08/19 17:02 Dose: 500 mg Documented by: Non-Formulary Medication (Liraglutide [Victoza 3-Felice]) 1.2 mg PO DAILY@0600 [facility] Last Admin: 01/08/19 06:04 Dose: Not Given Documented by: Non-Formulary Medication (Vascepa (1gm)) 2 gram PO BID@0900,1700 [facility] Last Admin: 01/08/19 16:49 Dose: Not Given Documented by: Phenobarbital (Luminal) 64.8 mg PO DAILY@1200 [facility] Last Admin: 01/08/19 11:54 Dose: 64.8 mg Documented by: Phenytoin Sodium (Dilantin) 200 mg PO BID@0900,1700 [facility] Last Admin: 01/08/19 17:02 Dose: 200 mg Documented by: Thiamine HCl (Vitamin B-1) 100 mg PO DAILY@1200 [facility] Last Admin: 01/08/19 09:12 Dose: 100 mg Documented by: Topiramate (Topamax) 50 mg PO DAILY@1700 [facility] Last Admin: 01/08/19 17:02 Dose: 50 mg Documented by: Physical examination: VITAL SIGNS: 98.7, 95, 16, 11 2/70, 95% room air GENERAL: Laying in bed, awake tired EYES: Pupils equal. Conjunctiva normal. HEENT: External appearance of nose and ears normal, oral cavity grossly normal. NECK: JVD unable to assess; masses not palpable. HEART: First and second heart sounds are normal; no edema. LUNGS: Respiratory rate normal; decreased breath sounds. ABDOMEN: Soft, nontender, liver spleen not palpable, no masses palpable. PSYCH: [Patient is able to answer simple questions l. NEUROLOGICAL: Speech is slow, left-sided weakness. INVESTIGATIONS, reviewed in the clinical context: White count 10.7 hemoglobin 9.2 platelets 340 potassium 4.8 white count 50 bun 41 crit 1.91 Previous testing White count 8.7 hemoglobin 10.2 L 338 potassium 6.1 bun 35 creatinine 1.50 by cup 17 repeat potassium 5.2 admitted be noted that patient's BUN/creatinine was 110/10.2 and when patient was transferred out of here. 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 SHORTY inhibitor discontinued. Kayexalate 30 g a given. Care was discussed with the patient. Nephrology was consulted. Repeat labs in the morning. Patient on a low potassium diet reinforced with the nurse.
[2019-01-09] MEDS: LEVOTHYROXINE 125 MCG TAB PO SCH (05:55)
[2019-01-09] MEDS: DEXTROSE 5% IN WATER 1,000 ML with SODIUM BICARB (1 MEQ/ML) 150 ML IV SCH ×2 (05:55→17:21)
[2019-01-09] MEDS: HEPARIN SODIUM,PORCINE 5,000 UNIT/ML 1 ML VIAL SQ SCH ×3 (05:55→20:49)
[2019-01-09] MEDS: METOPROLOL TARTRATE 50 MG TAB PO SCH ×2 (05:55→17:17)
[2019-01-09] MEDS: LIRAGLUTIDE 1.2 MG PO SCH (05:55)
[2019-01-09 06:56] LABS: Glucose,Whole Blood 150 mg/dL (75-99)
[2019-01-09 07:44] LABS: Calcium 8.7 mg/dL (8.4-10.2); Potassium 4.9 mmol/L (3.5-5.1)
[2019-01-09] MEDS: INSULIN ASPART (NovoLOG) 100 UNIT/ML VIAL SQ SCH ×4 (07:55→20:49)
[2019-01-09] MEDS: THIAMINE 100 MG TAB PO SCH (07:56)
[2019-01-09] MEDS: FOLIC ACID 1 MG TAB PO SCH (07:56)
[2019-01-09] MEDS: ASPIRIN 81 MG PO SCH (07:56)
[2019-01-09] MEDS: lamoTRIgine 25 MG TAB PO SCH ×2 (07:57→17:18)
[2019-01-09] MEDS: ICOSAPENT ETHYL PO SCH ×2 (07:58→17:13)
[2019-01-09] MEDS: PHENYTOIN SODIUM EXTENDED 100 MG CAP PO SCH ×2 (07:58→17:18)
[2019-01-09] MEDS: CEFEPIME 2 GM in SODIUM CHLORIDE 0.9% 100 ML IVPB SCH (11:11)
[2019-01-09] MEDS: PHENobarbital 64.8 MG TAB PO SCH (11:11)
[2019-01-09 11:48] LABS: Glucose,Whole Blood 149 mg/dL (75-99)
[2019-01-09 16:49] LABS: Glucose,Whole Blood 133 mg/dL (75-99)
[2019-01-09] MEDS: ATORVASTATIN 20 MG TAB PO SCH (17:17)
[2019-01-09] MEDS: FENOFIBRATE 160 MG TAB PO SCH (17:17)
[2019-01-09] MEDS: CHOLECALCIFEROL 1,000 UNIT TAB PO SCH (17:18)
[2019-01-09] MEDS: TOPIRAMATE 25 MG TAB PO SCH (17:18)
[2019-01-09] MEDS: NIACIN TR 500 MG CAPLET PO SCH (17:18)
[2019-01-09] MEDS: FOLIC ACID-VIT B COMPLEX-VIT C 1 CAP PO SCH (17:18)
[2019-01-09 20:44] LABS: Glucose,Whole Blood 168 mg/dL (75-99)
[2019-01-09] MEDS: INSULIN DETEMIR (LEVEMIR) 100 UNIT/ML SYR SQ SCH (20:49)
--- NOTE | 2019-01-09 23:05 | P.PN ---
Progress Note - Text Progress Note Date: 01/09/19 Chief Complaint: Hyperkalemia History of presenting complaint: This is a 63-year-old patient who is currently a resident of [facility] at [facility] being followed by Dr. Mandujano. Chronic stable medical conditions include diabetes mellitus type 2, hyperlipidemia, hypertension, seizure disorder, hypothyroid,. 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 Patient's primary much wheelchair-bound. Also could've ischemic cardiomyopathy and is mellitus type II. Patient had blood drawn on this Tuesday and patient's potassium came back at 6 has patient was sent into the hospital for further management. Patient in the ER received calcium gluconate, 10 units of insulin, sodium bicarbonate. Patient repeat potassium the ER was 6.1. Head and repeat potassium came down to 5.2. Patient is a poor historian. Speech is slow. Patient's in the hospital about a month ago-was in the ICU. [place] to have compartment syndrome of the abdomen. Patient was then seen by Dr. Waite from critical care and Dr. Bird from general surgery. Patient was transferred [facility]ab[facility]. Patient is not sure what transpired there. On the last admission patient also had a GI bleed from antiplatelet agents. Also had large bowel ileus. Admitted with hyperkalemia Today-laying in bed. Tired. Renal function is worse. Potassium did come down. Did tolerate her diet. Review of systems: Was done for constitutional, cardiovascular, GI, pulmonary. relevant finding as above Active Medications Aspirin (Aspirin) 81 mg PO DAILY@0900 [facility] Last Admin: 01/09/19 07:56 Dose: 81 mg Documented by: Atorvastatin Calcium (Lipitor) 20 mg PO DAILY@1700 [facility] Last Admin: 01/09/19 17:17 Dose: 20 mg Documented by: Cholecalciferol (Vitamin D3 (25 Mcg = 1000 Iu)) 2,000 unit PO DAILY@1700 [facility] Last Admin: 01/09/19 17:18 Dose: 2,000 unit Documented by: Fenofibrate (Lofibra) 160 mg PO DAILY@1700 [facility] Last Admin: 01/09/19 17:17 Dose: 160 mg Documented by: Folic Acid (Folic Acid) 1 mg PO DAILY@1200 [facility] Last Admin: 01/09/19 07:56 Dose: 1 mg Documented by: Heparin Sodium (Porcine) (Heparin) 5,000 unit SQ TID@0600,1400,2200 [facility] Last Admin: 01/09/19 20:49 Dose: 5,000 unit Documented by: Cefepime HCl 2 gm/ Sodium (Chloride) 100 mls @ 200 mls/hr IVPB Q12HR@0000,1200 [facility] Stop: 01/12/19 23:00 Last Admin: 01/09/19 11:11 Dose: 200 mls/hr Documented by: Sodium Bicarbonate 150 ml/ (Dextrose/Water) 1,150 mls @ 75 mls/hr IV .[id number] [facility] Last Admin: 01/09/19 17:21 Dose: Not Given Documented by: Insulin Aspart (Novolog) 0 unit SQ ACHS [facility]; Protocol Last Admin: 01/09/19 20:49 Dose: 2 unit Documented by: Insulin Detemir (Levemir) 10 unit SQ HS@2100 [facility] Last Admin: 01/09/19 20:49 Dose: 10 unit Documented by: Lamotrigine (Lamictal) 50 mg PO BID@0900,1700 [facility] Last Admin: 01/09/19 17:18 Dose: 50 mg Documented by: Levothyroxine Sodium (Synthroid) 125 mcg PO DAILY@0600 [facility] Last Admin: 01/09/19 05:55 Dose: 125 mcg Documented by: Metoprolol Tartrate (Lopressor) 50 mg PO BID@0600,1700 [facility] Last Admin: 01/09/19 17:17 Dose: 50 mg Documented by: Multivit/Ca Carb/B Cmplx/FA/Prenat (Nephrocaps) 1 each PO DAILY@1700 [facility] Last Admin: 01/09/19 17:18 Dose: 1 each Documented by: Naloxone HCl (Narcan) 0.2 mg IV Q2M PRN PRN Reason: Opioid Reversal Niacin (Niacin Tr) 500 mg PO DAILY@1700 [facility] Last Admin: 01/09/19 17:18 Dose: 500 mg Documented by: Non-Formulary Medication (Liraglutide [Victoza 3-Felice]) 1.2 mg PO DAILY@0600 [facility] Last Admin: 01/09/19 05:55 Dose: Not Given Documented by: Non-Formulary Medication (Vascepa (1gm)) 2 gram PO BID@0900,1700 [facility] Last Admin: 01/09/19 17:13 Dose: Not Given Documented by: Phenobarbital (Luminal) 64.8 mg PO DAILY@1200 [facility] Last Admin: 01/09/19 11:11 Dose: 64.8 mg Documented by: Phenytoin Sodium (Dilantin) 200 mg PO BID@0900,1700 [facility] Last Admin: 01/09/19 17:18 Dose: 200 mg Documented by: Thiamine HCl (Vitamin B-1) 100 mg PO DAILY@1200 [facility] Last Admin: 01/09/19 07:56 Dose: 100 mg Documented by: Topiramate (Topamax) 50 mg PO DAILY@1700 [facility] Last Admin: 01/09/19 17:18 Dose: 50 mg Documented by: Physical examination: VITAL SIGNS: 98.5, 88, 16, 120/69, 96% room air GENERAL: Laying in bed, awake EYES: Pupils equal. Conjunctiva normal. HEENT: External appearance of nose and ears normal, oral cavity grossly normal. NECK: JVD unable to assess; masses not palpable. HEART: First and second heart sounds are normal; no edema. LUNGS: Respiratory rate normal; decreased breath sounds. ABDOMEN: Soft, nontender, liver spleen not palpable, no masses palpable. PSYCH: [Patient is able to answer simple questions l. NEUROLOGICAL: Speech is slow, left-sided weakness. INVESTIGATIONS, reviewed in the clinical context: Potassium 4.9 bun 47 creatinine 2.36 bicarb 19 Previous testing White count 8.7 hemoglobin 10.2 L 338 potassium 6.1 bun 35 creatinine 1.50 by cup 17 repeat potassium 5.2 admitted be noted that patient's BUN/creatinine was 110/10.2 and when patient was transferred out of here. 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 Follow with nephrology. Care was discussed with the patient. Will add Diflucan. Continue with cefepime.
--- NOTE | 2019-01-09 23:10 | PN ---
PROGRESS NOTE Patient is seen for followup for acute kidney injury. His renal function is again slightly worse today, with creatinine up to 2.3 from 1.9 yesterday. Patient is maintained on IV fluids. He has an indwelling Plata catheter and has had good urine output with 24-hour urine output of 1 liter. There are no nephrotoxic agents on board. PHYSICAL EXAMINATION: On examination today, blood pressure was 103/63, heart rate of 90 per minute. He is afebrile. Examination of lower extremities shows chronic skin changes, bilateral lower extremities, with left hemiparesis noted. ABDOMEN: Soft, obese, nontender. VOCATIONAL PLACEMENT SPECIALIST examination shows left hemiparesis. LABS: Sodium 141, potassium 4.9, BUN 47, serum creatinine 2.36. ASSESSMENT: 1. Acute kidney injury with worsening renal function, currently maintained on IV fluids. Patient has good urine output. He has an indwelling Plata catheter. I will check an ultrasound of the kidneys since his renal function continues to worsen. Continue with IV fluids as well for now. Repeat labs in a.m. 2. Metabolic acidosis secondary to renal failure, currently improved. Patient is maintained on IV bicarb. 3. Mild hyperkalemia on initial admission, now improved. Patient received Kayexalate yesterday. 4. History of recent hospitalization with abdominal compartment syndrome, for which patient was transferred out of town. PLAN: Continue IV fluids. Check ultrasound of the kidneys. Repeat labs in a.m. MMJOCELINE / TOYIN: [id number] /
[2019-01-10] MEDS: CEFEPIME 2 GM in SODIUM CHLORIDE 0.9% 100 ML IVPB SCH ×2 (00:30→12:24)
[2019-01-10] MEDS: FLUCONAZOLE 100 MG TAB PO SCH ×2 (00:30→08:08)
[2019-01-10] MEDS: DEXTROSE 5% IN WATER 1,000 ML with SODIUM BICARB (1 MEQ/ML) 150 ML IV SCH (00:30)
[2019-01-10] MEDS: LIRAGLUTIDE 1.2 MG PO SCH (02:20)
[2019-01-10] MEDS: LEVOTHYROXINE 125 MCG TAB PO SCH (05:48)
[2019-01-10] MEDS: HEPARIN SODIUM,PORCINE 5,000 UNIT/ML 1 ML VIAL SQ SCH ×3 (05:48→21:18)
[2019-01-10] MEDS: METOPROLOL TARTRATE 50 MG TAB PO SCH ×2 (05:48→16:29)
[2019-01-10 07:00] LABS: Glucose,Whole Blood 159 mg/dL (75-99)
[2019-01-10] MEDS: INSULIN ASPART (NovoLOG) 100 UNIT/ML VIAL SQ SCH ×4 (07:43→21:17)
[2019-01-10] MEDS: ASPIRIN 81 MG PO SCH (08:08)
[2019-01-10] MEDS: lamoTRIgine 25 MG TAB PO SCH ×2 (08:08→16:30)
[2019-01-10] MEDS: PHENYTOIN SODIUM EXTENDED 100 MG CAP PO SCH ×2 (08:08→16:30)
[2019-01-10] MEDS: ICOSAPENT ETHYL PO SCH ×2 (08:09→16:31)
[2019-01-10 08:36] LABS: Calcium 8.8 mg/dL (8.4-10.2); Potassium 4.3 mmol/L (3.5-5.1)
--- NOTE | 2019-01-10 09:12 | US ---
EXAMINATION TYPE: US renals and bladder DATE OF EXAM: 01/10/2019 COMPARISON: US 2019 CLINICAL HISTORY: rf. Renal failure, hyperkalemia, UTI, exam done portable. EXAM MEASUREMENTS: Right Kidney: 13.2 x 6.1 x 6.6 cm Left Kidney: 14.9 x 7.3 x 6.6 cm Right Kidney: no hydronephrosis or masses seen Left Kidney: limited visualization, no hydronephrosis, lateral cyst seen on previous ultrasound not s een on today's exam Bladder: not distended, bonilla catheter There is no evidence for hydronephrosis at this point in time. No nephrolithiasis is seen. No andrzej s are identified. The urinary bladder is anechoic. Bilateral ureteral jets are seen. IMPRESSION: No significant abnormality appreciated.
[2019-01-10 11:42] LABS: Glucose,Whole Blood 531 mg/dL (75-99)
[2019-01-10 11:42] LABS: Glucose,Whole Blood 367 mg/dL (75-99)
[2019-01-10] MEDS: PHENobarbital 64.8 MG TAB PO SCH (12:24)
[2019-01-10] MEDS: THIAMINE 100 MG TAB PO SCH (12:24)
[2019-01-10] MEDS: FOLIC ACID 1 MG TAB PO SCH (12:24)
--- NOTE | 2019-01-10 14:45 | CDI ---
Documentation Clarification Form Date: 01/10/2019 2:06:45 PM From: Elva Chang RN CCDS Admit Date: 01/07/2019 2:50:00 AM Patient Name: Sharan Bermeo Visit Number: [id number] Discharge Date: ATTENTION: The Clinical Documentation Specialists (CDI) and [facility] Coding Staff appreciate your assistance in clarifying documentation. Please respond to the clarification below the line at the bottom and electronically sign. The CDI & [facility] Coding staff will review the response and follow-up if needed. Please note: Queries are made part of the Legal Health Record. If you have any questions, please contact the author of this message via ITS. Dr. Yonathan Goldsmith Acute UTI form cystitis is documented in your progress note 01/09/2019 History/Risk Factors: 63 year old male presents to the ED from [facility] for Potassium of 6. Medical history Wheelchair bound. Clinical Indicators: US - of Renals and bladder Vital Signs: 154/85 94 98.1 18 98% ra WBC: 11/3 Wbc 8.7 Urinalysis: Leukocyte Esterase Large; Wbc >182; Yeast budding many Urine Culture: Linda sp, not albicans/galbr Treatment Antibiotics Cefepime; Diflucan; Urinary Catheter Management Please document the condition that these clinical indicators signify, whether Present on Admission, and cause if known: * UTI POA not related to Catheter * UTI POA related to indwelling Catheter * UTI ruled out, Candiuria only * Other, please specify * Unable to determine (Last Revision: December 2016) UTI, POA, related to indwelling catheter MTDD
[2019-01-10] MEDS: FENOFIBRATE 160 MG TAB PO SCH (16:29)
[2019-01-10] MEDS: CHOLECALCIFEROL 1,000 UNIT TAB PO SCH (16:29)
[2019-01-10] MEDS: ATORVASTATIN 20 MG TAB PO SCH (16:29)
[2019-01-10] MEDS: TOPIRAMATE 25 MG TAB PO SCH (16:30)
[2019-01-10] MEDS: NIACIN TR 500 MG CAPLET PO SCH (16:31)
[2019-01-10] MEDS: FOLIC ACID-VIT B COMPLEX-VIT C 1 CAP PO SCH (16:31)
[2019-01-10 16:53] LABS: Glucose,Whole Blood 147 mg/dL (75-99)
[2019-01-10 18:35] LABS: Hemoglobin A1C 5.3 % (4.0-6.0)
--- NOTE | 2019-01-10 19:32 | PN ---
PROGRESS NOTE Patient is seen for followup for acute kidney injury. He was admitted to the hospital with hyperkalemia and elevated creatinine. Patient's creatinine continues to increase from 1.5 on initial admission up to 2.6 today. He is maintained on IV fluids. Patient also has an indwelling Plata catheter. UA is suggestive of UTI. Urine culture is growing paola. The patient is not on any nephrotoxic medications. He is maintained on IV fluids. Blood pressure is not significantly low. The patient has not had any IV contrast recently. Urine eosinophils have been sent out today to rule out underlying interstitial nephritis. Ultrasound was also ordered this morning. PHYSICAL EXAMINATION: On examination, blood pressure was 139/70, heart rate 82 per minute. He is afebrile. EXAMINATION OF THE HEART: S1 and S2. EXAMINATION OF LUNGS: Bilateral breath sounds are heard. ABDOMEN: Soft, non-tender. Examination of lower extremities shows trace edema bilaterally with chronic skin changes. Patient has left hemiparesis. LABS: Sodium 142, potassium 4.3, BUN 48, serum creatinine 2.64. ASSESSMENT: 1. Acute kidney injury, acute tubular necrosis. Rule out acute interstitial nephritis. Check urine for eosinophiles. There are no nephrotoxic agents on board. Patient has an indwelling Plata catheter. An ultrasound of the kidneys has been ordered. We will check serologies if renal function continues to worsen. I will continue with the IV fluids for now. 2. Hyperkalemia associated acute kidney injury and metabolic acidosis, now improved. 3. Non-gap metabolic acidosis secondary to renal failure, maintained on IV bicarb and improved. 4. History of cerebrovascular accident with left hemiparesis after brain surgery for aneurysm. 5. Type 2 diabetes. 6. Urinary tract infection with urine culture growing paola. 7. Coronary artery disease with history of coronary stents. PLAN: Check urine eosinophils. Add serologies if renal function continues to worsen tomorrow. MMODL / IJN: [id number] /
[2019-01-10 20:24] LABS: Glucose,Whole Blood 155 mg/dL (75-99)
[2019-01-10] MEDS: INSULIN DETEMIR (LEVEMIR) 100 UNIT/ML SYR SQ SCH (21:18)
--- NOTE | 2019-01-10 22:44 | P.PN ---
Progress Note - Text Progress Note Date: 01/10/19 Chief Complaint: Hyperkalemia History of presenting complaint: This is a 63-year-old patient who is currently a resident of [facility] at [facility] being followed by Dr. Mandujano. Chronic stable medical conditions include diabetes mellitus type 2, hyperlipidemia, hypertension, seizure disorder, hypothyroid,. 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 Patient's pretty much wheelchair-bound. Also has ischemic cardiomyopathy and diabetes mellitus type II. Patient had blood drawn on this Tuesday and patient's potassium came back at 6 . patient was sent into the hospital for further management. Patient in the ER received calcium gluconate, 10 units of insulin, sodium bicarbonate. Patient repeat potassium the ER was 6.1. repeat potassium came down to 5.2. Patient is a poor historian. Speech is slow. Patient's was in the hospital about a month ago-was in the ICU. [place] to have compartment syndrome of the abdomen. Patient was then seen by Dr. Waiet from critical care and Dr. Bird from general surgery. Patient was transferred to Dr. Ang Gandhi [facility]. Patient is not sure what transpired there. On the last admission patient also had a GI bleed from antiplatelet agents. Also had large bowel ileus. Admitted with hyperkalemia, acute renal failure Today-laying in bed. Tolerating his diet. Kidney function is worsening. There are no regional offensive medications.. Review of systems: Was done for constitutional, cardiovascular, GI, pulmonary. relevant finding as above Active Medications Aspirin (Aspirin) 81 mg PO DAILY@0900 [facility] Last Admin: 01/10/19 08:08 Dose: 81 mg Documented by: Atorvastatin Calcium (Lipitor) 20 mg PO DAILY@1700 [facility] Last Admin: 01/10/19 16:29 Dose: 20 mg Documented by: Cholecalciferol (Vitamin D3 (25 Mcg = 1000 Iu)) 2,000 unit PO DAILY@1700 [facility] Last Admin: 01/10/19 16:29 Dose: 2,000 unit Documented by: Fenofibrate (Lofibra) 160 mg PO DAILY@1700 [facility] Last Admin: 01/10/19 16:29 Dose: 160 mg Documented by: Fluconazole (Diflucan) 100 mg PO DAILY [facility] Last Admin: 01/10/19 08:08 Dose: 100 mg Documented by: Folic Acid (Folic Acid) 1 mg PO DAILY@1200 [facility] Last Admin: 01/10/19 12:24 Dose: 1 mg Documented by: Heparin Sodium (Porcine) (Heparin) 5,000 unit SQ TID@0600,1400,2200 [facility] Last Admin: 01/10/19 21:18 Dose: 5,000 unit Documented by: Cefepime HCl 2 gm/ Sodium (Chloride) 100 mls @ 200 mls/hr IVPB Q12HR@0000,1200 [facility] Stop: 01/12/19 23:00 Last Admin: 01/10/19 12:24 Dose: 200 mls/hr Documented by: Sodium Bicarbonate 150 ml/ (Dextrose/Water) 1,150 mls @ 75 mls/hr IV .[id number] [facility] Last Admin: 01/10/19 00:30 Dose: 75 mls/hr Documented by: Insulin Aspart (Novolog) 0 unit SQ ACHS [facility]; Protocol Last Admin: 01/10/19 21:17 Dose: 2 unit Documented by: Insulin Detemir (Levemir) 10 unit SQ HS@2100 [facility] Last Admin: 01/10/19 21:18 Dose: 10 unit Documented by: Lamotrigine (Lamictal) 50 mg PO BID@0900,1700 [facility] Last Admin: 01/10/19 16:30 Dose: 50 mg Documented by: Levothyroxine Sodium (Synthroid) 125 mcg PO DAILY@0600 [facility] Last Admin: 01/10/19 05:48 Dose: 125 mcg Documented by: Metoprolol Tartrate (Lopressor) 50 mg PO BID@0600,1700 [facility] Last Admin: 01/10/19 16:29 Dose: 50 mg Documented by: Multivit/Ca Carb/B Cmplx/FA/Prenat (Nephrocaps) 1 each PO DAILY@1700 [facility] Last Admin: 01/10/19 16:31 Dose: 1 each Documented by: Naloxone HCl (Narcan) 0.2 mg IV Q2M PRN PRN Reason: Opioid Reversal Niacin (Niacin Tr) 500 mg PO DAILY@1700 [facility] Last Admin: 01/10/19 16:31 Dose: 500 mg Documented by: Non-Formulary Medication (Liraglutide [Victoza 3-Felice]) 1.2 mg PO DAILY@0600 [facility] Last Admin: 01/10/19 02:20 Dose: Not Given Documented by: Non-Formulary Medication (Vascepa (1gm)) 2 gram PO BID@0900,1700 [facility] Last Admin: 01/10/19 16:31 Dose: Not Given Documented by: Phenobarbital (Luminal) 64.8 mg PO DAILY@1200 [facility] Last Admin: 01/10/19 12:24 Dose: 64.8 mg Documented by: Phenytoin Sodium (Dilantin) 200 mg PO BID@0900,1700 [facility] Last Admin: 01/10/19 16:30 Dose: 200 mg Documented by: Thiamine HCl (Vitamin B-1) 100 mg PO DAILY@1200 [facility] Last Admin: 01/10/19 12:24 Dose: 100 mg Documented by: Topiramate (Topamax) 50 mg PO DAILY@1700 [facility] Last Admin: 01/10/19 16:30 Dose: 50 mg Documented by: Physical examination: VITAL SIGNS: 98.3, 90, 18, 11 5/66, 95% room air GENERAL: Laying in bed, awake EYES: Pupils equal. Conjunctiva normal. HEENT: External appearance of nose and ears normal, oral cavity grossly normal. NECK: JVD unable to assess; masses not palpable. HEART: First and second heart sounds are normal; no edema. LUNGS: Respiratory rate normal; decreased breath sounds. ABDOMEN: Soft, nontender, liver spleen not palpable, no masses palpable. PSYCH: [Patient is able to answer simple questions l. NEUROLOGICAL: Speech is slow, left-sided weakness. INVESTIGATIONS, reviewed in the clinical context: Potassium 4.3 bun 48 creatine 2.64 Urine is no focal 0 Previous testing White count 8.7 hemoglobin 10.2 L 338 potassium 6.1 bun 35 creatinine 1.50 by cup 17 repeat potassium 5.2 admitted be noted that patient's BUN/creatinine was 110/10.2 and when patient was transferred out of here. 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 Continue current medication treatment plan. Follow with nephrology. Will get ID input.
[2019-01-11] MEDS: CEFEPIME 2 GM in SODIUM CHLORIDE 0.9% 100 ML IVPB SCH ×3 (01:10→23:35)
[2019-01-11] MEDS: DEXTROSE 5% IN WATER 1,000 ML with SODIUM BICARB (1 MEQ/ML) 150 ML IV SCH (05:03)
[2019-01-11] MEDS: LIRAGLUTIDE 1.2 MG PO SCH (05:03)
[2019-01-11] MEDS: METOPROLOL TARTRATE 50 MG TAB PO SCH ×2 (05:03→17:47)
[2019-01-11] MEDS: HEPARIN SODIUM,PORCINE 5,000 UNIT/ML 1 ML VIAL SQ SCH ×3 (05:03→22:21)
[2019-01-11] MEDS: LEVOTHYROXINE 125 MCG TAB PO SCH (05:03)
[2019-01-11 06:57] LABS: Glucose,Whole Blood 147 mg/dL (75-99)
[2019-01-11 07:33] LABS: Basophils # (A) 0.1 k/uL (0-0.2); Basophils % (A) 1 %; Eosinophils # (A) 0.6 k/uL (0-0.7); Eosinophils % (A) 9 %; HCT 26.1 % (39.0-53.0); HGB 8.7 gm/dL (13.0-17.5); Lymphocytes # (A) 1.4 k/uL (1.0-4.8); Lymphocytes % (A) 23 %; MCHC 33.2 g/dL (31.0-37.0); MCV 90.2 fL (80.0-100.0); Mean Platelet Volume 6.3; Monocytes # (A) 0.6 k/uL (0-1.0); Monocytes % (A) 9 %; Neutrophils # (A) 3.2 k/uL (1.3-7.7); Neutrophils % (A) 53 %; Platelet Count 335 k/uL (150-450); RDW 15.9 % (11.5-15.5); WBC 6.1 k/uL (3.8-10.6)
[2019-01-11] MEDS: INSULIN ASPART (NovoLOG) 100 UNIT/ML VIAL SQ SCH ×4 (07:40→22:18)
[2019-01-11 07:43] LABS: Albumin 3.2 g/dL (3.5-5.0); Calcium 8.6 mg/dL (8.4-10.2); Potassium 3.7 mmol/L (3.5-5.1); Total Bilirubin 0.3 mg/dL (0.2-1.3); Total Protein 6.7 g/dL (6.3-8.2)
[2019-01-11] MEDS: ICOSAPENT ETHYL PO SCH ×2 (09:36→17:49)
[2019-01-11] MEDS: PHENYTOIN SODIUM EXTENDED 100 MG CAP PO SCH ×2 (09:41→17:48)
[2019-01-11] MEDS: lamoTRIgine 25 MG TAB PO SCH ×2 (09:41→17:48)
[2019-01-11] MEDS: FLUCONAZOLE 100 MG TAB PO SCH (09:41)
[2019-01-11] MEDS: ASPIRIN 81 MG PO SCH (09:42)
--- NOTE | 2019-01-11 11:36 | P.PN ---
Subjective Patient is seen in follow-up for acute kidney injury. Renal function is a little worse today. Creatinine 2.91 today. Bicarb level is 25. He is c urrently maintained on bicarb drip at 75 mL an hour. Oral intake is fair. Vital signs are stable. General: The patient appeared well nourished and normally developed. HEENT: Head exam is unremarkable. Neck is without jugular venous distension. LUNGS: Lungs are clear to auscultation and percussion. Breath sounds decreased. HEART: Rate and Rhythm are regular. First and second heart sounds normal. No murmurs, rubs or gallops. ABDOMEN: Abdominal exam reveals normal bowel sounds. Non-tender and non- distended. Obese. EXTREMITITES: Chronic changes noted. Objective - Vital Signs Vital signs: Vital Signs Temp 98.1 F 01/11/19 07:00 Pulse 88 01/11/19 07:00 Resp 17 01/11/19 07:00 BP 144/76 01/11/19 07:00 Pulse Ox 97 01/11/19 07:00 Intake & Output 01/10/19 01/11/19 01/11/19 18:59 06:59 18:59 Intake Total 118 Output Total 600 1651 Balance -600 -1651 118 Intake: Oral 118 Output: Urine 600 1650 Uretheral (Plata) 600 Stool 1 Other: Voiding Method Indwelling Catheter Indwelling Catheter - Labs CBC & Chem 7: 01/11/19 07:00 01/11/19 07:00 Labs: Abnormal Lab Results - Last 24 Hours (Table) 01/10/19 01/10/19 01/10/19 Range/Units 11:39 11:40 16:49 RBC (4.30-5.90) m/uL Hgb (13.0-17.5) gm/dL Hct (39.0-53.0) % RDW (11.5-15.5) % Chloride (98-107) mmol/L BUN (9-20) mg/dL Creatinine (0.66-1.25) mg/dL Glucose (74-99) mg/dL POC Glucose (mg/dL) 531 H 367 H 147 H (75-99) mg/dL AST (17-59) U/L ALT (21-72) U/L Albumin (3.5-5.0) g/dL 01/10/19 01/11/19 01/11/19 Range/Units 20:22 06:56 07:00 RBC 2.90 L (4.30-5.90) m/uL Hgb 8.7 L (13.0-17.5) gm/dL Hct 26.1 L (39.0-53.0) % RDW 15.9 H (11.5-15.5) % Chloride (98-107) mmol/L BUN (9-20) mg/dL Creatinine (0.66-1.25) mg/dL Glucose (74-99) mg/dL POC Glucose (mg/dL) 155 H 147 H (75-99) mg/dL AST (17-59) U/L ALT (21-72) U/L Albumin (3.5-5.0) g/dL 01/11/19 Range/Units 07:00 RBC (4.30-5.90) m/uL Hgb (13.0-17.5) gm/dL Hct (39.0-53.0) % RDW (11.5-15.5) % Chloride 108 H (98-107) mmol/L BUN 45 H (9-20) mg/dL Creatinine 2.91 H (0.66-1.25) mg/dL Glucose 147 H (74-99) mg/dL POC Glucose (mg/dL) (75-99) mg/dL AST 16 L (17-59) U/L ALT 16 L (21-72) U/L Albumin 3.2 L (3.5-5.0) g/dL Assessment and Plan Plan: Assessment: 1. Acute kidney injury secondary to ATN secondary to infection. Rule out GN. No evidence of hydronephrosis noted on kidney ultrasound. Creatinine 2.91 today. Urine eosinophils negative. 2. UTI with urine culture positive for Linda. 3. Metabolic acidosis secondary to acute kidney injury. Resolved. 4. Anemia. Rule out iron deficiency. 5. Hyperkalemia secondary to acute kidney injury and metabolic acidosis. Resolved. 6. Diabetes mellitus. Plan: Plata catheter to be changed. Repeat UA and urine culture. Quantify proteinuria and check serologies. Encourage oral intake. Change IV fluids to normal saline. Discontinue bicarbonate drip. Check iron studies. Repeat electrolytes in the morning.
[2019-01-11 11:57] LABS: Glucose,Whole Blood 172 mg/dL (75-99)
[2019-01-11] MEDS: PHENobarbital 64.8 MG TAB PO SCH (12:56)
[2019-01-11] MEDS: THIAMINE 100 MG TAB PO SCH (12:56)
[2019-01-11] MEDS: FOLIC ACID 1 MG TAB PO SCH (12:57)
[2019-01-11 16:44] LABS: Glucose,Whole Blood 158 mg/dL (75-99)
[2019-01-11 17:16] LABS: Appearance,Urine Clear (Clear); Bilirubin,Urine Negative (Negative); Blood,Urine Moderate (Negative); Color,Urine Yellow; Glucose,Urine (UA) Negative (Negative); Hyaline Casts,Urine 1 /lpf (0-2); Ketones,Urine Negative (Negative); Leukocyte Esterase,Urine Small (Negative); Mucus,Urine Rare /hpf; Nitrite,Urine Negative (Negative); PH, Urine 7.5 (5.0-8.0); Protein,Urine 2+ (Negative); RBC,Urine 80 /hpf (0-5); Specific Gravity,Urine 1.014 (1.001-1.035); Squamous Epithelial Cell,Urine <1 /hpf (0-4); Urobilinogen,Urine <2.0 mg/dL (<2.0)
[2019-01-11] MEDS: FOLIC ACID-VIT B COMPLEX-VIT C 1 CAP PO SCH (17:47)
[2019-01-11] MEDS: NIACIN TR 500 MG CAPLET PO SCH (17:47)
[2019-01-11] MEDS: TOPIRAMATE 25 MG TAB PO SCH (17:48)
[2019-01-11] MEDS: CHOLECALCIFEROL 1,000 UNIT TAB PO SCH (17:48)
[2019-01-11] MEDS: ATORVASTATIN 20 MG TAB PO SCH (17:48)
[2019-01-11] MEDS: FENOFIBRATE 160 MG TAB PO SCH (17:48)
[2019-01-11] MEDS: SODIUM CHLORIDE 0.9% 1,000 ML IV SCH (17:49)
[2019-01-11 19:58] LABS: % Iron Saturation 15.81 (15.00-50.00)
[2019-01-11 20:04] LABS: Hepatitis A Antibody IgM Non-Reactive (Non-Reactive); Hepatitis B Core IgM Non-Reactive (Non-Reactive); Hepatitis B Surface Antigen Non-Reactive (Non-Reactive); Hepatitis C IgG Antibody Non-Reactive (Non-Reactive)
[2019-01-11 20:06] LABS: DNA Double-Stranded NEGATIVE (NEGATIVE)
[2019-01-11 20:07] LABS: Ferritin 134.8 ng/mL (22.0-322.0)
[2019-01-11 20:39] LABS: Protein, Total 6.1 g/dL (6.2-8.2)
[2019-01-11] MEDS: INSULIN DETEMIR (LEVEMIR) 100 UNIT/ML SYR SQ SCH (22:24)
[2019-01-11 22:34] LABS: Glucose,Whole Blood 180 mg/dL (75-99)
--- NOTE | 2019-01-11 23:18 | P.PN ---
Progress Note - Text Progress Note Date: 01/11/19 Chief Complaint: Hyperkalemia History of presenting complaint: This is a 63-year-old patient who is currently a resident of [facility] at [facility] being followed by Dr. Mandujano. Chronic stable medical conditions include diabetes mellitus type 2, hyperlipidemia, hypertension, seizure disorder, hypothyroid,. 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 Patient's pretty much wheelchair-bound. Also has ischemic cardiomyopathy and diabetes mellitus type II. Patient had blood drawn on this Tuesday and patient's potassium came back at 6 . patient was sent into the hospital for further management. Patient in the ER received calcium gluconate, 10 units of insulin, sodium bicarbonate. Patient repeat potassium the ER was 6.1. repeat potassium came down to 5.2. Patient is a poor historian. Speech is slow. Patient's was in the hospital about a month ago-was in the ICU. [place] to have compartment syndrome of the abdomen. Patient was then seen by Dr. Waite from critical care and Dr. Bird from general surgery. Patient was transferred to Dr. Ang Gandhi [facility]. Patient is not sure what transpired there. On the last admission patient also had a GI bleed from antiplatelet agents. Also had large bowel ileus. Admitted with hyperkalemia, acute renal failure. Renal function has been worsening Today-..laying in bed. Starting a diet. Bicarbonate drip.was discontinued by nephrology. Review of systems: Was done for constitutional, cardiovascular, GI, pulmonary. relevant finding as above Active Medications Aspirin (Aspirin) 81 mg PO DAILY@0900 [facility] Last Admin: 01/11/19 09:42 Dose: 81 mg Documented by: Atorvastatin Calcium (Lipitor) 20 mg PO DAILY@1700 [facility] Last Admin: 01/11/19 17:48 Dose: 20 mg Documented by: Cholecalciferol (Vitamin D3 (25 Mcg = 1000 Iu)) 2,000 unit PO DAILY@1700 [facility] Last Admin: 01/11/19 17:48 Dose: 2,000 unit Documented by: Fenofibrate (Lofibra) 160 mg PO DAILY@1700 [facility] Last Admin: 01/11/19 17:48 Dose: 160 mg Documented by: Fluconazole (Diflucan) 100 mg PO DAILY [facility] Last Admin: 01/11/19 09:41 Dose: 100 mg Documented by: Folic Acid (Folic Acid) 1 mg PO DAILY@1200 [facility] Last Admin: 01/11/19 12:57 Dose: 1 mg Documented by: Heparin Sodium (Porcine) (Heparin) 5,000 unit SQ TID@0600,1400,2200 [facility] Last Admin: 01/11/19 22:21 Dose: 5,000 unit Documented by: Cefepime HCl 2 gm/ Sodium (Chloride) 100 mls @ 200 mls/hr IVPB Q12HR@0000,1200 [facility] Stop: 01/12/19 23:00 Last Admin: 01/11/19 12:57 Dose: 200 mls/hr Documented by: Sodium Chloride (Saline 0.9%) 1,000 mls @ 75 mls/hr IV .[id number] [facility] Last Admin: 01/11/19 17:49 Dose: Not Given Documented by: Insulin Aspart (Novolog) 0 unit SQ ACHS [facility]; Protocol Last Admin: 01/11/19 22:18 Dose: 3 unit Documented by: Insulin Detemir (Levemir) 10 unit SQ HS@2100 [facility] Last Admin: 01/11/19 22:24 Dose: 10 unit Documented by: Lamotrigine (Lamictal) 50 mg PO BID@0900,1700 [facility] Last Admin: 01/11/19 17:48 Dose: 50 mg Documented by: Levothyroxine Sodium (Synthroid) 125 mcg PO DAILY@0600 [facility] Last Admin: 01/11/19 05:03 Dose: 125 mcg Documented by: Metoprolol Tartrate (Lopressor) 50 mg PO BID@0600,1700 [facility] Last Admin: 01/11/19 17:47 Dose: 50 mg Documented by: Multivit/Ca Carb/B Cmplx/FA/Prenat (Nephrocaps) 1 each PO DAILY@1700 [facility] Last Admin: 01/11/19 17:47 Dose: 1 each Documented by: Naloxone HCl (Narcan) 0.2 mg IV Q2M PRN PRN Reason: Opioid Reversal Niacin (Niacin Tr) 500 mg PO DAILY@1700 [facility] Last Admin: 01/11/19 17:47 Dose: 500 mg Documented by: Non-Formulary Medication (Liraglutide [Victoza 3-Felice]) 1.2 mg PO DAILY@0600 [facility] Last Admin: 01/11/19 05:03 Dose: Not Given Documented by: Non-Formulary Medication (Vascepa (1gm)) 2 gram PO BID@0900,1700 [facility] Last Admin: 01/11/19 17:49 Dose: Not Given Documented by: Phenobarbital (Luminal) 64.8 mg PO DAILY@1200 [facility] Last Admin: 01/11/19 12:56 Dose: 64.8 mg Documented by: Phenytoin Sodium (Dilantin) 200 mg PO BID@0900,1700 [facility] Last Admin: 01/11/19 17:48 Dose: 200 mg Documented by: Thiamine HCl (Vitamin B-1) 100 mg PO DAILY@1200 [facility] Last Admin: 01/11/19 12:56 Dose: 100 mg Documented by: Topiramate (Topamax) 50 mg PO DAILY@1700 [facility] Last Admin: 01/11/19 17:48 Dose: 50 mg Documented by: Physical examination: VITAL SIGNS: 98.1, 88, 17, 144/76, 97% room air GENERAL: Laying in bed, awake EYES: Pupils equal. Conjunctiva normal. HEENT: External appearance of nose and ears normal, oral cavity grossly normal. NECK: JVD unable to assess; masses not palpable. HEART: First and second heart sounds are normal; no edema. LUNGS: Respiratory rate normal; decreased breath sounds. ABDOMEN: Soft, nontender, liver spleen not palpable, no masses palpable. PSYCH: [Patient is able to answer simple questions l. NEUROLOGICAL: Speech is slow, left-sided weakness. INVESTIGATIONS, reviewed in the clinical context: white count 6.1 hemoglobin 8.7 potassium 3.7 bun 45 creatinine 2.91 TU screen negative. Hepatitis screen negative. Previous testing White count 8.7 hemoglobin 10.2 L 338 potassium 6.1 bun 35 creatinine 1.50 by cup 17 repeat potassium 5.2 admitted be noted that patient's BUN/creatinine was 110/10.2 and when patient was transferred out of here. 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 Additional testing is being carried out by nephrology. Hepatitis screen and and ANAnegative.infection may be contributing. ID on the case.output input. Care was discussed with the patient.
[2019-01-12] MEDS: SODIUM CHLORIDE 0.9% 1,000 ML IV SCH ×2 (04:38→20:50)
[2019-01-12] MEDS: LIRAGLUTIDE 1.2 MG PO SCH (06:15)
[2019-01-12] MEDS: HEPARIN SODIUM,PORCINE 5,000 UNIT/ML 1 ML VIAL SQ SCH ×3 (06:18→20:50)
[2019-01-12] MEDS: METOPROLOL TARTRATE 50 MG TAB PO SCH ×2 (06:19→17:09)
[2019-01-12] MEDS: LEVOTHYROXINE 125 MCG TAB PO SCH (06:19)
[2019-01-12 06:36] LABS: Glucose,Whole Blood 146 mg/dL (75-99)
[2019-01-12] MEDS: INSULIN ASPART (NovoLOG) 100 UNIT/ML VIAL SQ SCH ×4 (07:39→20:50)
[2019-01-12] MEDS: lamoTRIgine 25 MG TAB PO SCH ×2 (08:00→17:10)
[2019-01-12] MEDS: ASPIRIN 81 MG PO SCH (08:00)
[2019-01-12] MEDS: FLUCONAZOLE 100 MG TAB PO SCH (08:00)
[2019-01-12] MEDS: PHENYTOIN SODIUM EXTENDED 100 MG CAP PO SCH ×2 (08:01→17:10)
--- NOTE | 2019-01-12 08:50 | P.CONS ---
History of Present Illness - Reason for Consult Consult date: 01/11/19 Urinary tract infection Requesting physician: Yonathan Goldsmith - Chief Complaint Elevated potassium/abnormal lab 1 day - History of Present Illness Patient is 63 year male residential resident has been sent to the ER at [facility] after the patient was noticed to have elevated potassium on her outpatient blood test, patient do have a history of brain surgery with left-sided weakness patient is mostly wheelchair/bed bound and did have a chronic indwelling Plata catheter for urinary retention that apparently is changed once a month she is not a very clear when he was changing last before this admission to the hospital on admission the patient had did have a normal white count and the patient has been afebrile patient did have a UA obtained from his Plata catheter which was positive cloudy with large inside histories and it shows many budding yeast with the culture subsequently finalized as linda glabrata, that prompted his infectious disease consultation patient currently denies having any chest pain or shortness of breath or cough denies any nausea no vomiting denies having any suprapubic discomfort and no diarrhea Review of Systems Positive point has been mentioned in the HPI rest of the systems are negative Past Medical History Past Medical History: CVA/TIA, Diabetes Mellitus, Hyperlipidemia, Hypertension, Myocardial Infarction (DC), Seizure Disorder, Thyroid Disorder, Vascular Disorder Additional Past Medical History / Comment(s): Brain surgery 10 yrs ago for aneurysm and had CVA with left sided weakness upper and lower extremity and had trach/vented, (pt was left hand dominent), muscle weakness, wheelchair bound, last seizure many years ago, ischemic cardiomyopathy, IDDM type II, hypothyroid, pilonidal cyst. Last Myocardial Infarction Date:: History of Any Multi-Drug Resistant Organisms: None Reported Past Surgical History: Unable to Obtain Additional Past Surgical History / Comment(s): brain surgery for aneurysm, PCI with stent, nasal cartlidge surgery. Past Anesthesia/Blood Transfusion Reactions: No Reported Reaction Past Psychological History: Anxiety, Depression Additional Psychological History / Comment(s): Pt resides at [facility]. He is up in a powerchair. He feeds himself. Smoking Status: Former smoker Past Alcohol Use History: None Reported Additional Past Alcohol Use History / Comment(s): Pt started smoking as a teen and quit almost one year ago. In the past he was a very heavy drinker but gave that up in the 1980s. Past Drug Use History: Marijuana Additional Drug Use History / Comment(s): Pt smoked marijuana many years ago. - Past Family History Mother History Unknown: Yes Additional Family Medical History / Comment(s): Mother is living. Father History Unknown: Yes Additional Family Medical History / Comment(s): Father is living. Medications and Allergies Home Medications Medication Instructions Recorded Confirmed Type Atorvastatin [Lipitor] 20 mg PO DAILY@169906/03/18 01/07/19 History Cholecalciferol (Vitamin D3) 2,000 unit PO DAILY@169906/03/18 01/07/19 History [Vitamin D3] Gemfibrozil [Lopid] 600 mg PO BID@0900,169906/03/18 01/07/19 History Insulin Aspart [NovoLOG Flexpen] 14 unit SQ AC-TID 06/03/18 01/07/19 History Insulin Aspart [NovoLOG Flexpen] See Protocol SQ ACHS 06/03/18 01/07/19 History Insulin Glargine,Hum.rec.anlog 10 unit SQ HS@2100 06/03/18 01/07/19 History [Basaglar Kwikpen U-100] Levothyroxine Sodium [Synthroid] 125 mcg PO DAILY@0600 06/03/18 01/07/19 History Liraglutide [Victoza 3-Felice] 1.2 mg PO DAILY@0600 06/03/18 01/07/19 History Lisinopril 20 mg PO DAILY@0900 06/03/18 01/07/19 History Metoprolol Tartrate [Lopressor] 50 mg PO BID@0600,169906/03/18 01/07/19 History Niacin 500 mg PO DAILY@169906/03/18 01/07/19 History PHENobarbital [Luminal] 64.8 mg PO DAILY@1200 06/03/18 01/07/19 History Phenytoin Sodium Extended 200 mg PO BID@0900,1700 06/03/18 01/07/19 History [Dilantin] Potassium Chloride [Klor-Con 20] 20 meq PO DAILY@0900 06/03/18 01/07/19 History Topiramate [Topamax] 50 mg PO DAILY@17006/03/18 01/07/19 History Vascepa (1gm) 2 gram PO BID@0900,1700 06/03/18 01/07/19 History lamoTRIgine [LaMICtal] 50 mg PO BID@0900,1700 06/03/18 01/07/19 History metFORMIN HCL 1,000 mg PO BID@0600,1700 06/03/18 01/07/19 History Z-Guard 1 applic TOPICAL Q12H 11/30/18 01/07/19 History Albuterol Sulfate [Proventil Hfa] 2 puff INHALATION RT-Q4H PRN 01/07/19 01/07/19 History Aspirin [Henrietta Aspirin EC] 81 mg PO DAILY@0900 01/07/19 01/07/19 History Cefepime HCl [Maxipime] 2 gm IV BID@0900,2100 01/07/19 01/07/19 History Folic Acid 1 mg PO DAILY@1200 01/07/19 01/07/19 History Folic Acid-Vit B Complex-Vit C 1 mg PO DAILY@1700 01/07/19 01/07/19 History [Nephrocaps] Heparin Sodium,Porcine [Heparin 5,000 unit SQ TID@0600,1400,2200 01/07/19 01/07/19 History Sodium] Thiamine HCl [Vitamin B-1] 100 mg PO DAILY@1200 01/07/19 01/07/19 History Allergies Allergy/AdvReac Type Severity Reaction Status Date / Time piperacillin [From Zosyn] Allergy Unknown Verified 01/07/19 08:37 tazobactam [From Zosyn] Allergy Unknown Verified 01/07/19 08:37 Physical Exam Vitals: Vital Signs Temp Pulse Pulse Resp BP BP Pulse Ox 01/11/19 07:00 98.1 F 88 17 144/76 97 01/11/19 01:46 98.5 F 87 17 135/70 96 01/10/19 18:37 98.9 F 85 18 128/72 96 01/10/19 14:38 98.3 F 90 18 115/66 95 Intake and Output 01/10/19 01/11/19 01/11/19 22:59 06:59 14:59 Intake Total 118 Output Total 498 9516 Balance -250 -1273 118 Intake: Oral 118 Output: Urine 775 1275 Uretheral (Plata) 600 Stool 1 Other: Voiding Method Indwelling Catheter Indwelling Catheter GENERAL DESCRIPTION: Middle-aged male lying in bed, no distress. No tachypnea or accessory muscle of respiration use. HEENT: Shows Pallor , no scleral icterus. Oral mucous membrane is dry. No pharyngeal erythema or thrush NECK: Trachea central, no thyromegaly. LUNGS: Unlabored breathing. Clear to auscultation anteriorly. No wheeze or c rackle. HEART: S1, S2, regular rate and rhythm. No loud murmur ABDOMEN: Soft, no tenderness , guarding or rigidity, no organomegaly EXTREMITIES: No edema of feet. SKIN: No rash, no masses palpable. NEUROLOGICAL: The patient is awake, alert, oriented x3, mood and affect normal. Results CBC & Chem 7: 01/11/19 07:00 01/11/19 07:00 Labs: Abnormal Lab Results - Last 24 Hours (Table) 01/10/19 01/10/19 01/10/19 Range/Units 11:39 11:40 16:49 RBC (4.30-5.90) m/uL Hgb (13.0-17.5) gm/dL Hct (39.0-53.0) % RDW (11.5-15.5) % Chloride (98-107) mmol/L BUN (9-20) mg/dL Creatinine (0.66-1.25) mg/dL Glucose (74-99) mg/dL POC Glucose (mg/dL) 531 H 367 H 147 H (75-99) mg/dL AST (17-59) U/L ALT (21-72) U/L Albumin (3.5-5.0) g/dL 01/10/19 01/11/19 01/11/19 Range/Units 20:22 06:56 07:00 RBC 2.90 L (4.30-5.90) m/uL Hgb 8.7 L (13.0-17.5) gm/dL Hct 26.1 L (39.0-53.0) % RDW 15.9 H (11.5-15.5) % Chloride (98-107) mmol/L BUN (9-20) mg/dL Creatinine (0.66-1.25) mg/dL Glucose (74-99) mg/dL POC Glucose (mg/dL) 155 H 147 H (75-99) mg/dL AST (17-59) U/L ALT (21-72) U/L Albumin (3.5-5.0) g/dL 01/11/19 Range/Units 07:00 RBC (4.30-5.90) m/uL Hgb (13.0-17.5) gm/dL Hct (39.0-53.0) % RDW (11.5-15.5) % Chloride 108 H (98-107) mmol/L BUN 45 H (9-20) mg/dL Creatinine 2.91 H (0.66-1.25) mg/dL Glucose 147 H (74-99) mg/dL POC Glucose (mg/dL) (75-99) mg/dL AST 16 L (17-59) U/L ALT 16 L (21-72) U/L Albumin 3.2 L (3.5-5.0) g/dL Assessment and Plan Assessment: 1-patient with a positive urine culture with Linda glabrata in this patient with a chronic indwelling Plata catheter and this a UA has been obtained from Plata catheter with a question of possible Plata colonization as the patient is currently not running any fever and did not have an elevated white count and no systemic symptoms (1) UTI (urinary tract infection) Current Visit: Yes Status: Acute Code(s): N39.0 - URINARY TRACT INFECTION, SITE NOT SPECIFIED SNOMED Code(s): 05120939 Plan: 1-change Plata catheter and obtain a urine culture from the new Plata 2-we will hold on adding antifungal at this point We will follow on clinical condition and cultures to further adjust medication if needed Thank you for this consultation will follow this patient with you Time with Patient: Greater than 30
[2019-01-12 11:41] LABS: Glucose,Whole Blood 146 mg/dL (75-99)
[2019-01-12] MEDS: ICOSAPENT ETHYL PO SCH ×2 (12:05→18:04)
[2019-01-12] MEDS: CEFEPIME 2 GM in SODIUM CHLORIDE 0.9% 100 ML IVPB SCH (12:35)
[2019-01-12] MEDS: FOLIC ACID 1 MG TAB PO SCH (12:36)
[2019-01-12] MEDS: THIAMINE 100 MG TAB PO SCH (12:36)
[2019-01-12] MEDS: PHENobarbital 64.8 MG TAB PO SCH (12:36)
[2019-01-12 13:26] LABS: Albumin 2.77 g/dL (3.80-4.90); Gamma Globulin 0.99 g/dL (0.70-1.50)
[2019-01-12 13:59] LABS: C-ANCA <1:20 Titer (<1:20)
[2019-01-12 16:39] LABS: Glucose,Whole Blood 148 mg/dL (75-99)
--- NOTE | 2019-01-12 16:52 | P.PN ---
Progress Note - Text Progress Note Date: 01/12/19 Chief Complaint: Hyperkalemia History of presenting complaint: This is a 63-year-old patient who is currently a resident of [facility] at [facility] being followed by Dr. Mandujano. Chronic stable medical conditions include diabetes mellitus type 2, hyperlipidemia, hypertension, seizure disorder, hypothyroid,. 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 Patient's pretty much wheelchair-bound. Also has ischemic cardiomyopathy and diabetes mellitus type II. Patient had blood drawn on this Tuesday and patient's potassium came back at 6 . patient was sent into the hospital for further management. Patient in the ER received calcium gluconate, 10 units of insulin, sodium bicarbonate. Patient repeat potassium the ER was 6.1. repeat potassium came down to 5.2. Patient is a poor historian. Speech is slow. Patient's was in the hospital about a month ago-was in the ICU. [place] to have compartment syndrome of the abdomen. Patient was then seen by Dr. Waite from critical care and Dr. Bird from general surgery. Patient was transferred to Dr. Ang Gandhi [facility] Patient is not sure what transpired there. On the last admission patient also had a GI bleed from antiplatelet agents. Also had large bowel ileus. Admitted with hyperkalemia, acute renal failure. Renal function has been worsening. Has been on antibiotics. From previous admission. Plata cath on this admission was changed. Today-. Laying in bed. Did tolerate his diet. Labs are pending from today. Brothers present. Did update him. Review of systems: Was done for constitutional, cardiovascular, GI, pulmonary. relevant finding as above Active Medications Aspirin (Aspirin) 81 mg PO DAILY@0900 [facility] Last Admin: 01/12/19 08:00 Dose: 81 mg Documented by: Atorvastatin Calcium (Lipitor) 20 mg PO DAILY@1700 [facility] Last Admin: 01/11/19 17:48 Dose: 20 mg Documented by: Cholecalciferol (Vitamin D3 (25 Mcg = 1000 Iu)) 2,000 unit PO DAILY@1700 [facility] Last Admin: 01/11/19 17:48 Dose: 2,000 unit Documented by: Fenofibrate (Lofibra) 160 mg PO DAILY@1700 [facility] Last Admin: 01/11/19 17:48 Dose: 160 mg Documented by: Fluconazole (Diflucan) 100 mg PO DAILY [facility] Last Admin: 01/12/19 08:00 Dose: 100 mg Documented by: Folic Acid (Folic Acid) 1 mg PO DAILY@1200 [facility] Last Admin: 01/12/19 12:36 Dose: 1 mg Documented by: Heparin Sodium (Porcine) (Heparin) 5,000 unit SQ TID@0600,1400,2200 [facility] Last Admin: 01/12/19 12:48 Dose: 5,000 unit Documented by: Cefepime HCl 2 gm/ Sodium (Chloride) 100 mls @ 200 mls/hr IVPB Q12HR@0000,1200 [facility] Stop: 01/12/19 23:00 Last Admin: 01/12/19 12:35 Dose: 200 mls/hr Documented by: Sodium Chloride (Saline 0.9%) 1,000 mls @ 75 mls/hr IV .[id number] [facility] Last Admin: 01/12/19 04:38 Dose: Not Given Documented by: Insulin Aspart (Novolog) 0 unit SQ ACHS [facility]; Protocol Last Admin: 01/12/19 12:48 Dose: 1 unit Documented by: Insulin Detemir (Levemir) 10 unit SQ HS@2100 [facility] Last Admin: 01/11/19 22:24 Dose: 10 unit Documented by: Lamotrigine (Lamictal) 50 mg PO BID@0900,1700 [facility] Last Admin: 01/12/19 08:00 Dose: 50 mg Documented by: Levothyroxine Sodium (Synthroid) 125 mcg PO DAILY@0600 [facility] Last Admin: 01/12/19 06:19 Dose: 125 mcg Documented by: Metoprolol Tartrate (Lopressor) 50 mg PO BID@0600,1700 [facility] Last Admin: 01/12/19 06:19 Dose: 50 mg Documented by: Multivit/Ca Carb/B Cmplx/FA/Prenat (Nephrocaps) 1 each PO DAILY@1700 [facility] Last Admin: 01/11/19 17:47 Dose: 1 each Documented by: Naloxone HCl (Narcan) 0.2 mg IV Q2M PRN PRN Reason: Opioid Reversal Niacin (Niacin Tr) 500 mg PO DAILY@1700 [facility] Last Admin: 01/11/19 17:47 Dose: 500 mg Documented by: Non-Formulary Medication (Liraglutide [Victoza 3-Felice]) 1.2 mg PO DAILY@0600 [facility] Last Admin: 01/12/19 06:15 Dose: Not Given Documented by: Non-Formulary Medication (Vascepa (1gm)) 2 gram PO BID@0900,1700 [facility] Last Admin: 01/12/19 12:05 Dose: Not Given Documented by: Phenobarbital (Luminal) 64.8 mg PO DAILY@1200 [facility] Last Admin: 01/12/19 12:36 Dose: 64.8 mg Documented by: Phenytoin Sodium (Dilantin) 200 mg PO BID@0900,1700 [facility] Last Admin: 01/12/19 08:01 Dose: 200 mg Documented by: Thiamine HCl (Vitamin B-1) 100 mg PO DAILY@1200 [facility] Last Admin: 01/12/19 12:36 Dose: 100 mg Documented by: Topiramate (Topamax) 50 mg PO DAILY@1700 [facility] Last Admin: 01/11/19 17:48 Dose: 50 mg Documented by: Physical examination: VITAL SIGNS: 97.5, 76, 17, 1 4574, 97% room air GENERAL: Laying in bed, awake EYES: Pupils equal. Conjunctiva normal. HEENT: External appearance of nose and ears normal, oral cavity grossly normal. NECK: JVD unable to assess; masses not palpable. HEART: First and second heart sounds are normal; no edema. LUNGS: Respiratory rate normal; decreased breath sounds. ABDOMEN: Soft, nontender, liver spleen not palpable, no masses palpable. PSYCH: [Patient is able to answer simple questions l. NEUROLOGICAL: Speech is slow, left-sided weakness. INVESTIGATIONS, reviewed in the clinical context: Labs pending from today Previous testing White count 8.7 hemoglobin 10.2 L 338 potassium 6.1 bun 35 creatinine 1.50 by cup 17 repeat potassium 5.2 admitted be noted that patient's BUN/creatinine was 110/10.2 and when patient was transferred out of here. UA positive for leukoesterase WBC many yeast TU screen negative. Hepatitis screen negative. 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 Plan. Follow with nephrology. Patient remains on cefepime. And Diflucan. Follow with ID.
[2019-01-12] MEDS: FENOFIBRATE 160 MG TAB PO SCH (17:09)
[2019-01-12] MEDS: CHOLECALCIFEROL 1,000 UNIT TAB PO SCH (17:09)
[2019-01-12] MEDS: ATORVASTATIN 20 MG TAB PO SCH (17:09)
[2019-01-12] MEDS: NIACIN TR 500 MG CAPLET PO SCH (17:10)
[2019-01-12] MEDS: TOPIRAMATE 25 MG TAB PO SCH (17:10)
[2019-01-12] MEDS: FOLIC ACID-VIT B COMPLEX-VIT C 1 CAP PO SCH (17:11)
--- NOTE | 2019-01-12 18:33 | PN ---
PROGRESS NOTE DATE OF SERVICE: 01/12/2019 REASON FOR FOLLOWUP: Positive urine cultures. INTERVAL HISTORY: The patient is currently afebrile. The patient is breathing comfortably. Denies having any chest pain or cough. No nausea, vomiting, or any diarrhea. PHYSICAL EXAMINATION: Blood pressure 170/74 with a pulse of 79, temp is 97.9. He is 97% on room air. General description is a middle-aged male lying in bed in no distress. Respiratory system: Unlabored breathing. Clear to auscultation anteriorly. Heart S1, S2. Regular rate and rhythm. Abdomen is soft, no tenderness. LABS: Repeat urine did not show any yeast. Did have a white count of 22. DIAGNOSTIC IMPRESSION AND PLAN: Patient with a positive urine culture with Linda glabrata with possible Plata colonization as repeat urine did not show significant yeast. Will wait for the repeat culture to finalize and adjust medications further if needed. Currently on cefepime. Monitor clinical course closely. Continue supportive care. MMODL / IJN: [id number] /
[2019-01-12 19:15] LABS: Calcium 8.3 mg/dL (8.4-10.2); Potassium 3.7 mmol/L (3.5-5.1)
--- NOTE | 2019-01-12 20:06 | PN ---
PROGRESS NOTE Patient is seen for followup for acute kidney injury. The patient's brother was sitting at bedside this morning and he informed me that patient had been started on dialysis during his last admission when he was transferred to . At that time, it looks like his renal function had started to improve and renal replacement therapy was discontinued. The patient was discharged to rehab and from there he was readmitted with hyperkalemia and worsening renal function. He has had an indwelling Plata catheter with fair amount of urine output. There are no nephrotoxic agents on board and blood pressure has not been low. There is no evidence of obstructive uropathy. I have advised patient's brother that he may need to restart hemodialysis if his renal function continues to worsen, although there is no indication to start dialysis right at this moment. We will repeat labs in a.m. He may need to start dialysis by Tuesday if renal function continues to worsen. Eventually he will benefit from a kidney biopsy as well. So far, all serologies are negative. The patient does have 2+ proteinuria. O/E VSS Pt is awake, comfortable. alert and oriented x2. Heart exam shows S1 and S 2 Lungs are clear Abdomen is soft , nontender Ext shows chronic skin changes with Left hemiparesis. 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 Labs are reviewed ASSESSMENT: 1. 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 Consider kidney BX down the road. Serologies are negative. No obstruction noted. No nephrotoxic meds on board. 1. Hyperkalemia, currently improved. 2. Left hemiparesis. 3. Hypothyroidism. 4. Coronary artery disease with history of coronary stent placement. PLAN: Repeat labs in a.m., possibly start dialysis by Tuesday if renal function continues to worsen. The patient had been on dialysis prior to his readmission to the hospital this visit. MMODL / IJN: [id number] / ISMAEL
[2019-01-12 20:45] LABS: Glucose,Whole Blood 187 mg/dL (75-99)
[2019-01-12] MEDS: INSULIN DETEMIR (LEVEMIR) 100 UNIT/ML SYR SQ SCH (20:50)
[2019-01-13] MEDS: LIRAGLUTIDE 1.2 MG PO SCH (05:44)
[2019-01-13 07:05] LABS: Glucose,Whole Blood 152 mg/dL (75-99)
[2019-01-13 07:32] LABS: Calcium 8.3 mg/dL (8.4-10.2); Potassium 3.8 mmol/L (3.5-5.1)
[2019-01-13] MEDS: LEVOTHYROXINE 125 MCG TAB PO SCH (08:00)
[2019-01-13] MEDS: FLUCONAZOLE 100 MG TAB PO SCH (08:00)
[2019-01-13] MEDS: METOPROLOL TARTRATE 50 MG TAB PO SCH ×2 (08:00→17:17)
[2019-01-13] MEDS: ASPIRIN 81 MG PO SCH (08:01)
[2019-01-13] MEDS: HEPARIN SODIUM,PORCINE 5,000 UNIT/ML 1 ML VIAL SQ SCH ×3 (08:01→21:03)
[2019-01-13] MEDS: lamoTRIgine 25 MG TAB PO SCH ×2 (08:01→17:17)
[2019-01-13] MEDS: ICOSAPENT ETHYL PO SCH ×2 (08:02→17:09)
[2019-01-13] MEDS: INSULIN ASPART (NovoLOG) 100 UNIT/ML VIAL SQ SCH ×4 (08:02→20:42)
[2019-01-13] MEDS: PHENYTOIN SODIUM EXTENDED 100 MG CAP PO SCH ×2 (08:02→17:18)
[2019-01-13] MEDS: SODIUM CHLORIDE 0.9% 1,000 ML IV SCH ×2 (08:03→17:19)
[2019-01-13 11:38] LABS: Glucose,Whole Blood 165 mg/dL (75-99)
[2019-01-13] MEDS: THIAMINE 100 MG TAB PO SCH (12:05)
[2019-01-13] MEDS: PHENobarbital 64.8 MG TAB PO SCH (12:05)
[2019-01-13] MEDS: FOLIC ACID 1 MG TAB PO SCH (12:05)
--- NOTE | 2019-01-13 13:22 | P.PN ---
Subjective 63-year-old patient who is currently a resident of ECF at [facility] being followed by Dr. Mandujano. Chronic stable medical conditions include diabetes mellitus type 2, hyperlipidemia, hypertension, seizure disorder, hypothyroid,. 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 Patient's pretty much wheelchair-bound. Also has ischemic cardiomyopathy and diabetes mellitus type II. Patient had blood drawn on this Tuesday and patient's potassium came back at 6 . patient was sent into the hospital for further management. Patient in the ER received calcium gluconate, 10 units of insulin, sodium bicarbonate. Patient repeat potassium the ER was 6.1. repeat potassium came down to 5.2. Patient is a poor historian. Speech is slow. Patient's was in the hospital about a month ago-was in the ICU. [place] to have compartment syndrome of the abdomen. Patient was then seen by Dr. Waite from critical care and Dr. Bird from general surgery. Patient was transferred to [facility]. Patient is not sure what transpired there. On the last admission patient also had a GI bleed from antiplatelet agents. Also had large bowel ileus. Admitted with hyperkalemia, acute renal failure. Renal function has been worsening. Has been on antibiotics. From previous admission. Plata cath on this admission was changed. 01/13/2019 Nephrology valid to the patient in the recommending the hemodialysis which will be discussed with the family and will be initiated on hemodialysis on Tuesday no significant change in his clinical condition patient doesn't answer my questions much. Patient has weakness on the left side itches chronic. review of systems: Unable to obtain due to his clinical condition All inpatient medications were reviewed and appropriate changes in these medications as dictated in the interval history and assessment and plan. Objective - Vital Signs Vital signs: Vital Signs Temp 98.0 F 01/13/19 07:00 Pulse 75 01/13/19 07:00 Resp 17 01/13/19 08:00 BP 134/68 01/13/19 07:00 Pulse Ox 97 01/13/19 07:00 Intake & Output 01/12/19 01/13/19 01/13/19 18:59 06:59 18:59 Intake Total 250 1510 Output Total 1040 2400 700 Balance -790 -890 -700 Weight 102.058 kg Intake: Intake, IV Titration 1030 Amount Sodium Chloride 0.9% 1, 1030 000 ml @ 75 mls/hr IV . [id number] [facility] Rx#:[id number] Oral 250 480 Output: Urine 1040 2400 700 Uretheral (Plata) 240 Other: Voiding Method Indwelling Catheter Indwelling Catheter # Bowel Movements 2 - Exam PHYSICAL EXAMINATION: GENERAL: The patient is alertunable does his orientation not in acute distress. Obese. HEENT: Pupils are round and equally reacting to light. EOMI. No scleral icterus. No conjunctival pallor. Normocephalic, atraumatic. No pharyngeal erythema. No thyromegaly. CARDIOVASCULAR: S1 and S2 present. No murmurs, rubs, or gallops. PULMONARY: Chest is clear to auscultation, no wheezing or crackles. ABDOMEN: Soft, nontender, nondistended, normoactive bowel sounds. No palpable organomegaly. MUSCULOSKELETAL: No joint swelling or deformity. EXTREMITIES: No cyanosis, clubbing, or pedal edema. NEUROLOGICAL: Gross neurological examination did not reveal any newfocal de ficits. sleep bed bound generalized weakness along with significant weakness in the left side of the body which is chronic SKIN: No rashes. - Labs CBC & Chem 7: 01/11/19 07:00 01/13/19 07:01 Labs: Abnormal Lab Results - Last 24 Hours (Table) 01/11/19 01/12/19 01/12/19 Range/Units 12:18 16:38 18:30 Chloride 111 H (98-107) mmol/L Carbon Dioxide 20 L (22-30) mmol/L BUN 47 H (9-20) mg/dL Creatinine 2.86 H (0.66-1.25) mg/dL Glucose 176 H (74-99) mg/dL POC Glucose (mg/dL) 148 H (75-99) mg/dL Calcium 8.3 L (8.4-10.2) mg/dL Albumin (PEP) 2.77 L (3.80-4.90) g/dL Wickl-1-Depsfxjsk 0.41 H (0.10-0.40) g/dL 01/12/19 01/13/19 01/13/19 Range/Units 20:44 06:57 07:01 Chloride 115 H (98-107) mmol/L Carbon Dioxide 18 L (22-30) mmol/L BUN 45 H (9-20) mg/dL Creatinine 2.81 H (0.66-1.25) mg/dL Glucose 120 H (74-99) mg/dL POC Glucose (mg/dL) 187 H 152 H (75-99) mg/dL Calcium 8.3 L (8.4-10.2) mg/dL Albumin (PEP) (3.80-4.90) g/dL Rtncj-0-Mfqiugnlu (0.10-0.40) g/dL 01/13/19 Range/Units 11:33 Chloride (98-107) mmol/L Carbon Dioxide (22-30) mmol/L BUN (9-20) mg/dL Creatinine (0.66-1.25) mg/dL Glucose (74-99) mg/dL POC Glucose (mg/dL) 165 H (75-99) mg/dL Calcium (8.4-10.2) mg/dL Albumin (PEP) (3.80-4.90) g/dL Grgyp-4-Ykcrvtszv (0.10-0.40) g/dL Microbiology - Last 24 Hours (Table) 01/11/19 13:55 Urine Culture - Final Urine,Voided Assessment and Plan Plan: 510 hyperkalemia secondary to acute renal failure which is improving at this time patient's his serum creatinine is 5.0 -Renal failure: Patient appears to have had acute tubular necrosis and was on hemodialysis until recently, nephrology evaluated the patient patient now appears to have chronic kidney disease stage V and nephrology is recommending reinitiation of hemodialysis. -Type 2 diabetes mellitus -Depression -Coronary artery disease with history of stents in the past -Metabolic acidosis secondary to uremia and acute renal failure -Linda in the urine secondary to antibiotics and Plata catheter which was replaced and infectious disease is following the patient patient is on cefepime not sure if he requires that -generalized weakness from deconditioning and weakness as well as side of the body from his previous brain tumor
--- NOTE | 2019-01-13 13:29 | PN ---
PROGRESS NOTE DATE OF SERVICE: 01/13/2019 REASON FOR FOLLOWUP: Urinary tract infection. INTERVAL HISTORY: The patient is currently afebrile. Patient is breathing comfortably. Denies having any chest pain. No cough. No nausea, vomiting. No abdominal pain or diarrhea reported. PHYSICAL EXAMINATION: Blood pressure 134/68 with a pulse of 75, temperature 98. He is 97% on room air. General description is a middle-aged male lying in bed in no distress. Respiratory system: Unlabored breathing. Clear to auscultation anteriorly. Heart S1, S2. Regular rate and rhythm. Abdomen soft, no tenderness. LABS: Creatinine is 2.81. Repeat urine is so far negative. DIAGNOSTIC IMPRESSION AND PLAN: Patient with positive urine cultures with Linda glabrata, likely representing a Plata colonization as repeat UA is slightly positive but the culture has been negative. Antibiotic can be safely discontinued. Will monitor the patient closely off antibiotic therapy. Continue supportive care. MMODL / IJN: [id number] /
--- NOTE | 2019-01-13 17:10 | PN ---
PROGRESS NOTE Patient has had worsening renal function since admission. However, serum creatinine seems to have stabilized at 2.8 since yesterday. He continues to have good urine output. He has an indwelling Plata catheter. The patient had been on hemodialysis at the other facility prior to his readmission to this hospital and he was just taken off of dialysis about 3-4 weeks ago. PHYSICAL EXAMINATION: This morning, patient is comfortable, awake. He is not in any acute distress. Blood pressure was 134/68, heart rate 75 per minute, he is afebrile. Examination of the heart S1, S2. Examination of lungs, decreased breath sounds at the bases. Abdomen is soft, nontender. Examination of lower extremities shows chronic skin changes. Edema noted, 1+ bilaterally. Patient has left hemiplegia. LABS: Sodium 144, potassium 3.8, CO2 is 18, BUN 45, creatinine 2.8. ASSESSMENT: Acute kidney injury. Serum creatinine seems to have stabilized. There is no evidence of obstruction. No significant hypotension noted. Serologies have been negative. The patient may need to restart dialysis if his renal function continues to worsen. However, it appears that he has stabilized at a creatinine of about 2.8. He will continue with the indwelling Plata catheter for now and repeat labs in a.m. If he remains stable, patient can be discharged with plans to follow up as outpatient closely to monitor for restarting renal replacement therapy. MMGEEL / TOYIN: [id number] /
[2019-01-13 17:15] LABS: Glucose,Whole Blood 155 mg/dL (75-99)
[2019-01-13] MEDS: ATORVASTATIN 20 MG TAB PO SCH (17:16)
[2019-01-13] MEDS: CHOLECALCIFEROL 1,000 UNIT TAB PO SCH (17:16)
[2019-01-13] MEDS: FENOFIBRATE 160 MG TAB PO SCH (17:16)
[2019-01-13] MEDS: NIACIN TR 500 MG CAPLET PO SCH (17:18)
[2019-01-13] MEDS: FOLIC ACID-VIT B COMPLEX-VIT C 1 CAP PO SCH (17:18)
[2019-01-13] MEDS: TOPIRAMATE 25 MG TAB PO SCH (17:19)
[2019-01-13 20:18] LABS: Glucose,Whole Blood 191 mg/dL (75-99)
[2019-01-13] MEDS: INSULIN DETEMIR (LEVEMIR) 100 UNIT/ML SYR SQ SCH (20:42)
[2019-01-14] MEDS: LIRAGLUTIDE 1.2 MG PO SCH (04:12)
[2019-01-14 07:09] LABS: Glucose,Whole Blood 196 mg/dL (75-99)
[2019-01-14 07:39] LABS: Calcium 8.6 mg/dL (8.4-10.2)
[2019-01-14] MEDS: FLUCONAZOLE 100 MG TAB PO SCH (07:52)
[2019-01-14] MEDS: METOPROLOL TARTRATE 50 MG TAB PO SCH ×2 (07:52→17:11)
[2019-01-14] MEDS: ASPIRIN 81 MG PO SCH (07:52)
[2019-01-14] MEDS: LEVOTHYROXINE 125 MCG TAB PO SCH (07:53)
[2019-01-14] MEDS: INSULIN ASPART (NovoLOG) 100 UNIT/ML VIAL SQ SCH ×4 (07:53→21:21)
[2019-01-14] MEDS: HEPARIN SODIUM,PORCINE 5,000 UNIT/ML 1 ML VIAL SQ SCH ×3 (07:53→21:22)
[2019-01-14] MEDS: SODIUM CHLORIDE 0.9% 1,000 ML IV SCH ×2 (07:53→21:22)
[2019-01-14] MEDS: ICOSAPENT ETHYL PO SCH ×2 (07:54→17:09)
[2019-01-14] MEDS: PHENYTOIN SODIUM EXTENDED 100 MG CAP PO SCH ×2 (07:54→17:12)
[2019-01-14] MEDS: lamoTRIgine 25 MG TAB PO SCH ×2 (07:54→17:12)
--- NOTE | 2019-01-14 10:27 | PN ---
PROGRESS NOTE The patient is seen for followup for chronic kidney disease and acute kidney injury. Currently, renal function is stable for the last 3 days with creatinine staying at about 2.8 to 2.7 mg/dL. The patient was recently taken off dialysis. At this point, he does not need to resume renal replacement therapy. However, he will need close monitoring as outpatient. PHYSICAL EXAMINATION: On examination today, blood pressure was 162/73, heart rate 85 per minute, patient is afebrile. Examination of the heart S1, S2. Examination of the lungs, bilateral breath sounds are heard. ABDOMEN: Soft, nontender. Examination of lower extremities shows chronic skin changes. LEGAL EXECUTIVE exam shows left hemiplegia. LAB: Show sodium 145, potassium 4.0, chloride 116, CO2 is 18, BUN 41, creatinine 2.76. ASSESSMENT: 1. Acute kidney injury most likely acute tubular necrosis. Renal function stable for the last 3-4 days. No need to start dialysis this admission. However, patient will need close monitoring as outpatient. 2. Hyperkalemia, on initial admission, currently resolved. 3. History of recent dialysis dependent acute kidney injury. The patient came off dialysis about 3-4 weeks ago. 4. Metabolic acidosis secondary to renal failure, add oral sodium bicarb. PLAN: Continue to encourage increased oral intake. I will likely discontinue the IV fluids tomorrow. Add oral sodium bicarb. No need to start dialysis this admission, patient will need close followup as outpatient. MMGEEL / IJN: [id number] /
--- NOTE | 2019-01-14 11:19 | P.PN ---
Subjective 63-year-old patient who is currently a resident of ECF at [facility] being followed by Dr. Mandujano. Chronic stable medical conditions include diabetes mellitus type 2, hyperlipidemia, hypertension, seizure disorder, hypothyroid,. 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 Patient's pretty much wheelchair-bound. Also has ischemic cardiomyopathy and diabetes mellitus type II. Patient had blood drawn on this Tuesday and patient's potassium came back at 6 . patient was sent into the hospital for further management. Patient in the ER received calcium gluconate, 10 units of insulin, sodium bicarbonate. Patient repeat potassium the ER was 6.1. repeat potassium came down to 5.2. Patient is a poor historian. Speech is slow. Patient's was in the hospital about a month ago-was in the ICU. [place] to have compartment syndrome of the abdomen. Patient was then seen by Dr. Waite from critical care and Dr. Bird from general surgery. Patient was transferred to Dr. Fry [facility]. Patient is not sure what transpired there. On the last admission patient also had a GI bleed from antiplatelet agents. Also had large bowel ileus. Admitted with hyperkalemia, acute renal failure. Renal function has been worsening. Has been on antibiotics. From previous admission. Plata cath on this admission was changed. 01/13/2019 Nephrology valid to the patient in the recommending the hemodialysis which will be discussed with the family and will be initiated on hemodialysis on Tuesday no significant change in his clinical condition patient doesn't answer my questions much. Patient has weakness on the left side itches chronic. 01/14/2019 Patient's metabolic acidosis bit worse because of worsening renal function review of systems: Unable to obtain due to his clinical condition All inpatient medications were reviewed and appropriate changes in these medications as dictated in the interval history and assessment and plan. Objective - Vital Signs Vital signs: Vital Signs Temp 98.1 F 01/14/19 07:00 Pulse 85 01/14/19 07:00 Resp 17 01/14/19 08:30 BP 162/73 01/14/19 07:00 Pulse Ox 98 01/14/19 07:00 Intake & Output 01/13/19 01/14/19 01/14/19 18:59 06:59 18:59 Intake Total 900 Output Total 2024 300 226 Balance -2024 600 -226 Intake: Intake, IV Titration 900 Amount Sodium Chloride 0.9% 1, 900 000 ml @ 75 mls/hr IV . [id number] [facility] Rx#:[id number] Output: Urine 2024 300 225 Stool 1 Other: Voiding Method Indwelling Catheter Indwelling Catheter Indwelling Catheter - Exam PHYSICAL EXAMINATION: GENERAL: The patient is alertunable does his orientation not in acute distress. Obese. HEENT: Pupils are round and equally reacting to light. EOMI. No scleral icterus. No conjunctival pallor. Normocephalic, atraumatic. No pharyngeal erythema. No thyromegaly. CARDIOVASCULAR: S1 and S2 present. No murmurs, rubs, or gallops. PULMONARY: Chest is clear to auscultation, no wheezing or crackles. ABDOMEN: Soft, nontender, nondistended, normoactive bowel sounds. No palpable organomegaly. MUSCULOSKELETAL: No joint swelling or deformity. EXTREMITIES: No cyanosis, clubbing, or pedal edema. NEUROLOGICAL: Gross neurological examination did not reveal any newfocal deficits. sleep bed bound generalized weakness along with significant weakness in the left side of the body which is chronic SKIN: No rashes. - Labs CBC & Chem 7: 01/11/19 07:00 01/14/19 06:56 Labs: Abnormal Lab Results - Last 24 Hours (Table) 01/13/19 01/13/19 01/13/19 Range/Units 11:33 17:12 20:17 Chloride (98-107) mmol/L Carbon Dioxide (22-30) mmol/L BUN (9-20) mg/dL Creatinine (0.66-1.25) mg/dL Glucose (74-99) mg/dL POC Glucose (mg/dL) 165 H 155 H 191 H (75-99) mg/dL 01/14/19 01/14/19 Range/Units 06:56 07:07 Chloride 116 H (98-107) mmol/L Carbon Dioxide 18 L (22-30) mmol/L BUN 41 H (9-20) mg/dL Creatinine 2.76 H (0.66-1.25) mg/dL Glucose 162 H (74-99) mg/dL POC Glucose (mg/dL) 196 H (75-99) mg/dL Assessment and Plan Plan: 510 hyperkalemia secondary to acute renal failure which is improving at this time patient's his serum creatinine is 5.0 -Renal failure: Patient appears to have had acute tubular necrosis and was on hemodialysis until recently, nephrology evaluated the patient patient now appears to have chronic kidney disease stage V and nephrology is recommending reinitiation of hemodialysis. -Type 2 diabetes mellitus -Depression -Coronary artery disease with history of stents in the past -Metabolic acidosis secondary to uremia and acute renal failure -Linda in the urine secondary to antibiotics and Plata catheter which was replaced and infectious disease is following the patient patient is on cefepime not sure if he requires that -generalized weakness from deconditioning and weakness as well as side of the body from his previous brain tumor
[2019-01-14 11:39] LABS: Glucose,Whole Blood 184 mg/dL (75-99)
[2019-01-14] MEDS: THIAMINE 100 MG TAB PO SCH (11:58)
[2019-01-14] MEDS: FOLIC ACID 1 MG TAB PO SCH (11:58)
[2019-01-14] MEDS: PHENobarbital 64.8 MG TAB PO SCH (11:58)
[2019-01-14 16:42] LABS: Glucose,Whole Blood 228 mg/dL (75-99)
[2019-01-14] MEDS: FENOFIBRATE 160 MG TAB PO SCH (17:10)
[2019-01-14] MEDS: CHOLECALCIFEROL 1,000 UNIT TAB PO SCH (17:10)
[2019-01-14] MEDS: ATORVASTATIN 20 MG TAB PO SCH (17:11)
[2019-01-14] MEDS: FOLIC ACID-VIT B COMPLEX-VIT C 1 CAP PO SCH (17:12)
[2019-01-14] MEDS: NIACIN TR 500 MG CAPLET PO SCH (17:13)
[2019-01-14] MEDS: TOPIRAMATE 25 MG TAB PO SCH (17:13)
--- NOTE | 2019-01-14 19:08 | PN ---
PROGRESS NOTE DATE OF SERVICE: 01/14/2019 REASON FOR FOLLOWUP VISIT: Positive urine culture. INTERVAL HISTORY: The patient is currently afebrile. Patient is breathing comfortably. Hemodynamically stable. No chest pain. No cough or abdominal pain. No nausea, vomiting or diarrhea reported. PHYSICAL EXAMINATION: Blood pressure 132/73 with a pulse of 95, temperature 98.1. He is 98% on room air. General description is a middle-aged male lying in bed in no distress. Respiratory system: Unlabored breathing, clear to auscultation anteriorly. Heart S1, S2. Regular rate and rhythm. Abdomen soft, no tenderness. LABS: Repeat urine is negative. Initial was non albicans glabrata. DIAGNOSTIC IMPRESSION AND PLAN: Patient with a positive urine culture with Linda glabrata, possible colonization as the patient repeat UA looks clean and culture has been negative. No need for Diflucan antibiotic therapy. We will monitor the patient closely off antibiotics. Continue supportive care. MMODL / IJN: [id number] /
[2019-01-14 21:12] LABS: Glucose,Whole Blood 194 mg/dL (75-99)
[2019-01-14] MEDS: INSULIN DETEMIR (LEVEMIR) 100 UNIT/ML SYR SQ SCH (21:21)
[2019-01-14] MEDS: SODIUM BICARBONATE TAB 650 MG TAB PO SCH (21:21)
[2019-01-15 03:32] VITALS: TEMP 97.9
[2019-01-15] MEDS: LIRAGLUTIDE 1.2 MG PO SCH (05:40)
[2019-01-15 07:07] LABS: Glucose,Whole Blood 136 mg/dL (75-99)
[2019-01-15 07:07] LABS: Calcium 8.9 mg/dL (8.4-10.2); Potassium 4.2 mmol/L (3.5-5.1)
[2019-01-15] MEDS: INSULIN ASPART (NovoLOG) 100 UNIT/ML VIAL SQ SCH ×2 (07:13→12:27)
[2019-01-15] MEDS: METOPROLOL TARTRATE 50 MG TAB PO SCH (09:22)
[2019-01-15] MEDS: HEPARIN SODIUM,PORCINE 5,000 UNIT/ML 1 ML VIAL SQ SCH ×2 (09:22→15:18)
[2019-01-15] MEDS: ASPIRIN 81 MG PO SCH (09:22)
[2019-01-15] MEDS: FLUCONAZOLE 100 MG TAB PO SCH (09:22)
[2019-01-15] MEDS: LEVOTHYROXINE 125 MCG TAB PO SCH (09:22)
[2019-01-15] MEDS: PHENYTOIN SODIUM EXTENDED 100 MG CAP PO SCH (09:23)
[2019-01-15] MEDS: lamoTRIgine 25 MG TAB PO SCH (09:23)
[2019-01-15 09:24] VITALS: BP 146/82; PULSE 83; RESP 17
[2019-01-15] MEDS: SODIUM BICARBONATE TAB 650 MG TAB PO SCH (09:27)
[2019-01-15 12:28] LABS: Glucose,Whole Blood 142 mg/dL (75-99)
[2019-01-15] MEDS: ICOSAPENT ETHYL PO SCH (12:28)
--- NOTE | 2019-01-15 12:51 | P.DS ---
Providers Date of admission: 01/07/19 02:50 Expected date of discharge: 01/15/19 Attending physician: Yonathan Goldsmith Consults: 01/08/19 11:18 Consult Physician Routine Consulting Provider: Rikki Wyman Consult Reason/Comments: ROBERTO Do you want consulting provider notified?: Yes 01/10/19 22:45 Consult Physician Routine Consulting Provider: Sharif Scott Consult Reason/Comments: UTI/infection Do you want consulting provider notified?: Yes Primary care physician: Eliezer Mandujano Hospital Course: Final diagnosis -hyperkalemia secondary to acute renal failure -Renal failure: Patient appears to have had acute tubular necrosis and was on hemodialysis until recently, appears to have chronic kidney disease stage V -Type 2 diabetes mellitus -Depression -Coronary artery disease with history of stents in the past -Metabolic acidosis secondary to uremia and acute renal failure -Linda in the urine secondary to antibiotics and Plata catheter -generalized weakness from deconditioning and weakness Discharge disposition Patient is being discharged in a stable condition with guarded prognosis to [facility] on the [place] where he [place]. Patient will follow-up with nephrology in the outpatient setting upon discharge. Total time taken is 35 minutes. History of present illness This is a 63-year-old male who was recently admitted for hyperkalemia and acute renal failure and was being closely monitored. Patient's potassium today is 4.2. Patient's sodium is slightly elevated today at 146 and was recently started on sodium bicarbonate oral tabs and will continue in the outpatient setting. Patient will follow-up with nephrology in the outpatient setting upon discharge. During hospitalization it was discussed about possible resumption of dialysis and will continue to follow in the outpatient setting with nephrology closely. Patient will need repeat labs in a few days to monitor electrolytes. During hospitalization patient had indwelling Plata catheter replaced and is draining clear yellow urine. Repeat urine culture thus far is negative is the original one was showing Linda and was treated with oral Diflucan. Infectious disease was following. Currently patient's condition is stable and is ready for discharge back to [facility] today. Patient denies any chest pain, shortness of breath, or palpitations. Patient has been afebrile. Patient denies any nausea or vomiting and is tolerating diet. Patient is currently eating lunch at this time. Guarded prognosis. On exam vital signs are stable. Temp is 97.9F, pulse is 83, respirations are 17, blood pressure is 146/82, oxygen is 99% on room air. Cardio S1 and S2 are present. Respiratory system shows diminished breath sounds at the bases with no wheezing or crackles noted. Abdomen is soft, obese, nontender. Nervous system shows no focal deficits with chronic left-sided weakness due to a previous brain tumor. Please refer to medication reconciliation sheet for a list of medications. Patient Condition at Discharge: Fair Plan - Discharge Summary Discharge Rx Participant: No New Discharge Prescriptions: No Action Insulin Aspart [NovoLOG Flexpen] See Protocol SQ ACHS Phenytoin Sodium Extended [Dilantin] 200 mg PO BID@0900,1700 Insulin Aspart [NovoLOG Flexpen] 14 unit SQ AC-TID metFORMIN HCL 1,000 mg PO BID@0600,1700 Metoprolol Tartrate [Lopressor] 50 mg PO BID@0600,1700 lamoTRIgine [LaMICtal] 50 mg PO BID@0900,1700 Gemfibrozil [Lopid] 600 mg PO BID@0900,1700 Liraglutide [Victoza 3-Felice] 1.2 mg PO DAILY@0600 Cholecalciferol (Vitamin D3) [Vitamin D3] 2,000 unit PO DAILY@1700 Topiramate [Topamax] 50 mg PO DAILY@1700 PHENobarbital [Luminal] 64.8 mg PO DAILY@1200 Niacin 500 mg PO DAILY@1700 Lisinopril 20 mg PO DAILY@0900 Potassium Chloride [Klor-Con 20] 20 meq PO DAILY@0900 Levothyroxine Sodium [Synthroid] 125 mcg PO DAILY@0600 Insulin Glargine,Hum.rec.anlog [Basaglar Kwikpen U-100] 10 unit SQ HS@2100 Atorvastatin [Lipitor] 20 mg PO DAILY@1700 Vascepa (1gm) 2 gram PO BID@0900,1700 Z-Guard 1 applic TOPICAL Q12H Albuterol Sulfate [Proventil Hfa] 2 puff INHALATION RT-Q4H PRN PRN Reason: Wheezing Heparin Sodium,Porcine [Heparin Sodium] 5,000 unit SQ TID@0600,1400,2200 Cefepime HCl [Maxipime] 2 gm IV BID@0900,2100 Thiamine HCl [Vitamin B-1] 100 mg PO DAILY@1200 Folic Acid-Vit B Complex-Vit C [Nephrocaps] 1 mg PO DAILY@1700 Folic Acid 1 mg PO DAILY@1200 Aspirin [[place] Aspirin EC] 81 mg PO DAILY@0900 Discharge Medication List Atorvastatin [Lipitor] 20 mg PO DAILY@17006/03/18 [History] Cholecalciferol (Vitamin D3) [Vitamin D3] 2,000 unit PO DAILY@17006/03/18 [ History] Gemfibrozil [Lopid] 600 mg PO BID@0900,17006/03/18 [History] Insulin Aspart [NovoLOG Flexpen] 14 unit SQ AC-TID 06/03/18 [History] Insulin Aspart [NovoLOG Flexpen] See Protocol SQ ACHS 06/03/18 [History] Insulin Glargine,Hum.rec.anlog [Basaglar Kwikpen U-100] 10 unit SQ HS@2100 06/03/18 [History] Levothyroxine Sodium [Synthroid] 125 mcg PO DAILY@0606/03/18 [History] Liraglutide [Victoza 3-Felice] 1.2 mg PO DAILY@0606/03/18 [History] Lisinopril 20 mg PO DAILY@0906/03/18 [History] Metoprolol Tartrate [Lopressor] 50 mg PO BID@0600,169906/03/18 [History] Niacin 500 mg PO DAILY@169906/03/18 [History] PHENobarbital [Luminal] 64.8 mg PO DAILY@1200 06/03/18 [History] Phenytoin Sodium Extended [Dilantin] 200 mg PO BID@0900,169906/03/18 [History] Potassium Chloride [Klor-Con 20] 20 meq PO DAILY@0900 06/03/18 [History] Topiramate [Topamax] 50 mg PO DAILY@169906/03/18 [History] Vascepa (1gm) 2 gram PO BID@0900,17006/03/18 [History] lamoTRIgine [LaMICtal] 50 mg PO BID@0900,1700 06/03/18 [History] metFORMIN HCL 1,000 mg PO BID@0600,1700 06/03/18 [History] Z-Guard 1 applic TOPICAL Q12H 11/30/18 [History] Albuterol Sulfate [Proventil Hfa] 2 puff INHALATION RT-Q4H PRN 01/07/19 [History] Aspirin [[place] Aspirin EC] 81 mg PO DAILY@0900 01/07/19 [History] Cefepime HCl [Maxipime] 2 gm IV BID@0900,2100 01/07/19 [History] Folic Acid 1 mg PO DAILY@1200 01/07/19 [History] Folic Acid-Vit B Complex-Vit C [Nephrocaps] 1 mg PO DAILY@1700 01/07/19 [History] Heparin Sodium,Porcine [Heparin Sodium] 5,000 unit SQ TID@0600,1400,2200 01/07/19 [History] Thiamine HCl [Vitamin B-1] 100 mg PO DAILY@1200 01/07/19 [History] Follow up Appointment(s)/Referral(s): Eliezer Mandujano MD [Primary Care Provider] - 1-2 days
[2019-01-15] MEDS: THIAMINE 100 MG TAB PO SCH (12:52)
[2019-01-15] MEDS: FOLIC ACID 1 MG TAB PO SCH (12:52)
[2019-01-15] MEDS: PHENobarbital 64.8 MG TAB PO SCH (12:52)
--- NOTE | 2019-01-15 14:11 | PN ---
PROGRESS NOTE Patient is seen for followup for acute kidney injury. Patient's renal function has now stabilized. He does not need to start dialysis which was recently discontinued about 3- 4 weeks ago. He is doing well, he could be discharged from nephrology standpoint with plans to follow up as outpatient for close monitoring of his renal function. PHYSICAL EXAMINATION: This morning blood pressure is 146/82, heart rate 83 per minute, he is afebrile. Examination of the heart S1, S2. Examination of the lungs, bilateral breath sounds are heard. Abdomen is soft, non-tender. Examination of the lower extremities shows chronic skin changes. Patient also has left hemiplegia. LABS: Show sodium 146, potassium 4.2, BUN 38, creatinine 2.53. ASSESSMENT: 1. Chronic kidney disease with stable renal function. Patient can be discharged with close monitoring of renal function as outpatient. 2. Acute kidney injury, most likely prerenal currently slightly improved. Renal function is stable. No indication to start dialysis this admission. 3. Metabolic acidosis secondary to renal failure, currently on sodium bicarb. 4. Hyperkalemia on initial admission, now resolved. 5. History of left hemiplegia, following brain surgery for aneurysm. PLAN: Patient is stable for discharge from nephrology standpoint. Follow up as outpatient in about 2 weeks' time. MMODL / IJN: [id number] /
--- NOTE | 2019-01-15 15:56 | PN ---
PROGRESS NOTE DATE OF SERVICE: 01/15/2019 REASON FOR FOLLOWUP: Urinary tract infection. INTERVAL HISTORY: The patient is currently afebrile. The patient is breathing comfortably. Denies having any chest pain or any cough. No nausea. No vomiting. No abdominal pain or diarrhea. PHYSICAL EXAMINATION: Blood pressure 146/82 with a pulse of 83, temperature 97.9. He is 99% on room air. General description is a middle-aged male lying in bed in no distress. RESPIRATORY SYSTEM: Unlabored breathing. Clear to auscultation anteriorly. HEART: S1, S2. Regular rate and rhythm. ABDOMEN: Soft. No tenderness. LABS: Creatinine is 2.53. Repeat urine is negative. DIAGNOSTIC IMPRESSION AND PLAN: Patient with a positive urine culture with paola species, not albicans or glabrata; possible Plata colonization, as the patient's repeat UA has been negative and culture has been negative. No need for any Diflucan on discharge. Continue with supportive care. MMODL / IJN: [id number] /
== END 2019-01-15 15:35 | DRG 683 ==
LOC: EC 00:21 → 3NMEDONC 02:50 → 4SSUR 06:13
PROVIDERS: ADMIT Hospitalist; ATTEND Hospitalist
DX: N17.0 Acute kidney failure with tubular necrosis (principal); B37.49 Other urogenital candidiasis; T83.518A Infection and inflammatory reaction due to other urinary catheter, initial encounter; I12.0 Hypertensive chronic kidney disease with stage 5 chronic kidney disease or end stage renal disease; E87.2 Acidosis; I69.354 Hemiplegia and hemiparesis following cerebral infarction affecting left non-dominant side; T79.A0XA Compartment syndrome, unspecified, initial encounter; E11.22 Type 2 diabetes mellitus with diabetic chronic kidney disease; N18.5 Chronic kidney disease, stage 5; Z87.891 Personal history of nicotine dependence; Z79.4 Long term (current) use of insulin; D64.9 Anemia, unspecified; E03.9 Hypothyroidism, unspecified; E66.9 Obesity, unspecified; E78.5 Hyperlipidemia, unspecified; E87.5 Hyperkalemia; F32.9 Major depressive disorder, single episode, unspecified; F41.9 Anxiety disorder, unspecified; G40.909 Epilepsy, unspecified, not intractable, without status epilepticus; I25.10 Atherosclerotic heart disease of native coronary artery without angina pectoris; I25.2 Old myocardial infarction; I25.5 Ischemic cardiomyopathy; N30.90 Cystitis, unspecified without hematuria; Z68.35 Body mass index [BMI] 35.0-35.9, adult; Z79.02 Long term (current) use of antithrombotics/antiplatelets; Z79.82 Long term (current) use of aspirin; Z79.890 Hormone replacement therapy; Z79.899 Other long term (current) drug therapy; Z95.5 Presence of coronary angioplasty implant and graft; Z99.3 Dependence on wheelchair; Z74.01 Bed confinement status; R47.1 Dysarthria and anarthria; Z88.0 Allergy status to penicillin
CPT/HCPCS: 36415; 76770; 80048; 80053; 80074; 81001; 82570; 82728; 83036; 83540; 83550; 83605; 84132; 84156; 84165; 85025; 86038; 86160; 86162; 86225; 86255; 86334; 86335; 87086; 87205; 93005; 96361; 96374; 96375; 99285

== ENCOUNTER 2019-01-24 17:25 | Emergency (ER) | payer MEDICARE, OTHER ==
[2019-01-24] MEDS ORDERED: SODIUM CHLORIDE 0.9% 1,000 ML IV STA (17:46)
--- NOTE | 2019-01-24 17:48 | ED ---
General Adult HPI - General Chief complaint: Recheck/Abnormal Lab/Rx Stated complaint: abnormal labs Time Seen by Provider: 01/24/19 17:26 Source: patient, EMS, RN notes reviewed, old records reviewed Mode of arrival: EMS Limitations: no limitations - History of Present Illness Initial comments: Patient is a pleasant 63-year-old male presenting to the emergency department with concerns regarding hyperkalemia. Patient reports he has a history of this. Patient reportedly has history of renal problems. Patient states he feels fine at this time and has no complaints. Patient denies palpitations. Patient's history is somewhat limited. - Related Data Home Medications Medication Instructions Recorded Confirmed Atorvastatin [Lipitor] 20 mg PO DAILY@1700 06/03/18 01/07/19 Cholecalciferol (Vitamin D3) 2,000 unit PO DAILY@17006/03/18 01/07/19 [Vitamin D3] Gemfibrozil [Lopid] 600 mg PO BID@0900,1700 06/03/18 01/07/19 Insulin Aspart [NovoLOG Flexpen] 14 unit SQ AC-TID 06/03/18 01/07/19 Insulin Aspart [NovoLOG Flexpen] See Protocol SQ ACHS 06/03/18 01/07/19 Insulin Glargine,Hum.rec.anlog 10 unit SQ HS@2100 06/03/18 01/07/19 [Basaglar Kwikpen U-100] Levothyroxine Sodium [Synthroid] 125 mcg PO DAILY@0600 06/03/18 01/07/19 Liraglutide [Victoza 3-Felice] 1.2 mg PO DAILY@0600 06/03/18 01/07/19 Metoprolol Tartrate [Lopressor] 50 mg PO BID@0600,1700 06/03/18 01/07/19 Niacin 500 mg PO DAILY@1700 06/03/18 01/07/19 PHENobarbital [Luminal] 64.8 mg PO DAILY@1200 06/03/18 01/07/19 Phenytoin Sodium Extended 200 mg PO BID@0900,1700 06/03/18 01/07/19 [Dilantin] Topiramate [Topamax] 50 mg PO DAILY@1700 06/03/18 01/07/19 Vascepa (1gm) 2 gram PO BID@0900,1700 06/03/18 01/07/19 lamoTRIgine [LaMICtal] 50 mg PO BID@0900,1700 06/03/18 01/07/19 metFORMIN HCL 1,000 mg PO BID@0600,1700 06/03/18 01/07/19 Z-Guard 1 applic TOPICAL Q12H 11/30/18 01/07/19 Albuterol Sulfate [Proventil Hfa] 2 puff INHALATION RT-Q4H PRN 01/07/19 01/07/19 Aspirin [[place] Aspirin EC] 81 mg PO DAILY@0900 01/07/19 01/07/19 Folic Acid 1 mg PO DAILY@1200 01/07/19 01/07/19 Folic Acid-Vit B Complex-Vit C 1 mg PO DAILY@1700 01/07/19 01/07/19 [Nephrocaps] Heparin Sodium,Porcine [Heparin 5,000 unit SQ TID@0600,1400,2200 01/07/19 01/07/19 Sodium] Thiamine HCl [Vitamin B-1] 100 mg PO DAILY@1200 01/07/19 01/07/19 Previous Rx's Medication Instructions Recorded Fluconazole [Diflucan] 100 mg PO DAILY 4 Days #4 tab 01/15/19 Sodium Bicarbonate Tab 650 mg PO BID tab 01/15/19 Allergies Allergy/AdvReac Type Severity Reaction Status Date / Time piperacillin [From Zosyn] Allergy Unknown Verified 01/07/19 08:37 tazobactam [From Zosyn] Allergy Unknown Verified 01/07/19 08:37 Review of Systems ROS Statement: Those systems with pertinent positive or pertinent negative responses have been documented in the HPI. ROS Other: All systems not noted in ROS Statement are negative. Constitutional: Denies: fever Eyes: Denies: eye pain ENT: Denies: ear pain Respiratory: Denies: cough, dyspnea Cardiovascular: Denies: chest pain Endocrine: Denies: fatigue Gastrointestinal: Denies: abdominal pain, vomiting, diarrhea Genitourinary: Denies: dysuria Musculoskeletal: Denies: back pain Skin: Denies: rash Neurological: Denies: weakness Past Medical History Past Medical History: CVA/TIA, Diabetes Mellitus, Hyperlipidemia, Hypertension, Myocardial Infarction ([place]), Renal Disease, Seizure Disorder, Thyroid Disorder, Vascular Disorder Additional Past Medical History / Comment(s): Brain surgery 10 yrs ago for aneu rysm and had CVA with left sided weakness upper and lower extremity and had trach/vented, (pt was left hand dominent), muscle weakness, wheelchair bound, last seizure many years ago, ischemic cardiomyopathy, IDDM type II, hypothyroid, pilonidal cyst. Last Myocardial Infarction Date:: History of Any Multi-Drug Resistant Organisms: None Reported Past Surgical History: Unable to Obtain Additional Past Surgical History / Comment(s): brain surgery for aneurysm, PCI with stent, nasal cartlidge surgery. Past Anesthesia/Blood Transfusion Reactions: No Reported Reaction Past Psychological History: Anxiety, Depression Smoking Status: Former smoker Past Alcohol Use History: None Reported Past Drug Use History: Marijuana - Past Family History Mother History Unknown: Yes Additional Family Medical History / Comment(s): Mother is living. Father History Unknown: Yes Additional Family Medical History / Comment(s): Father is living. General Exam Limitations: no limitations General appearance: alert, in no apparent distress, obese Head exam: Present: other (Large frontal forehead scar) Eye exam: Present: normal appearance, PERRL ENT exam: Present: normal oropharynx Neck exam: Present: normal inspection Respiratory exam: Present: normal lung sounds bilaterally Cardiovascular Exam: Present: regular rate, normal rhythm GI/Abdominal exam: Present: soft. Absent: tenderness Extremities exam: Present: pedal edema Neurological exam: Present: alert Psychiatric exam: Present: flat affect Skin exam: Present: normal color Course Vital Signs 01/24/19 17:43 Temperature 98.5 F Pulse Rate 89 Respiratory 18 Rate Blood Pressure 165/89 O2 Sat by Pulse 96 Oximetry EKG Findings - EKG Comments: EKG Findings:: Normal sinus rhythm 89. MI 174. QRS 150. QT 396. QTc 41. Superior axis. Right bundle branch block. No acute ST change. Medical Decision Making - Medical Decision Making Case was discussed in detail with Dr. Goldsmith who does recommend treatment for potassium and that patient can be discharged. Patient reevaluated and updated. - Lab Data Result diagrams: 01/24/19 17:45 01/24/19 17:45 Lab Results 01/24/19 01/24/19 01/24/19 Range/Units 17:45 17:45 17:45 WBC 8.6 (3.8-10.6) k/uL RBC 3.49 L (4.30-5.90) m/uL Hgb 10.3 L (13.0-17.5) gm/dL Hct 31.6 L (39.0-53.0) % MCV 90.7 (80.0-100.0) fL MCH 29.5 (25.0-35.0) pg MCHC 32.6 (31.0-37.0) g/dL RDW 15.8 H (11.5-15.5) % Plt Count 566 H (150-450) k/uL Neutrophils % 60 % Lymphocytes % 24 % Monocytes % 8 % Eosinophils % 5 % Basophils % 1 % Neutrophils # 5.1 (1.3-7.7) k/uL Lymphocytes # 2.0 (1.0-4.8) k/uL Monocytes # 0.6 (0-1.0) k/uL Eosinophils # 0.5 (0-0.7) k/uL Basophils # 0.1 (0-0.2) k/uL PT 11.6 (9.0-12.0) sec INR 1.1 (<1.2) APTT 26.2 (22.0-30.0) sec Sodium 143 (137-145) mmol/L Potassium 6.0 H (3.5-5.1) mmol/L Chloride 112 H (98-107) mmol/L Carbon Dioxide 16 L (22-30) mmol/L Anion Gap 15 mmol/L BUN 55 H (9-20) mg/dL Creatinine 2.55 H (0.66-1.25) mg/dL Est GFR (CKD-EPI)AfAm 30 (>60 ml/min/1.73 sqM) Est GFR (CKD-EPI)NonAf 26 (>60 ml/min/1.73 sqM) Glucose 82 (74-99) mg/dL Calcium 10.0 (8.4-10.2) mg/dL Phosphorus 5.3 H (2.5-4.5) mg/dL Magnesium 1.6 (1.6-2.3) mg/dL Total Bilirubin 0.3 (0.2-1.3) mg/dL AST 22 (17-59) U/L ALT 17 L (21-72) U/L Alkaline Phosphatase 81 (38-126) U/L Total Protein 8.3 H (6.3-8.2) g/dL Albumin 4.1 (3.5-5.0) g/dL Disposition Clinical Impression: Hyperkalemia Disposition: HOME SELF-CARE Condition: Stable Instructions (If sedation given, give patient instructions): Hyperkalemia (ED) Additional Instructions: Please have potassium level checked tomorrow. Please follow-up with primary care physician in the next day or 2 for recheck. Return for increased potassium level, worsening symptoms or other concerns. Is patient prescribed a controlled substance at d/c from ED?: No Referrals: Eliezer Mandujano MD [Primary Care Provider] - 1-2 days Time of Disposition: 18:57
[2019-01-24 17:51] VITALS: TEMP 98.5
[2019-01-24 17:59] LABS: Basophils # (A) 0.1 k/uL (0-0.2); Basophils % (A) 1 %; Eosinophils # (A) 0.5 k/uL (0-0.7); Eosinophils % (A) 5 %; HCT 31.6 % (39.0-53.0); HGB 10.3 gm/dL (13.0-17.5); Lymphocytes % (A) 24 %; MCH 29.5 pg (25.0-35.0); MCHC 32.6 g/dL (31.0-37.0); MCV 90.7 fL (80.0-100.0); Mean Platelet Volume 6.4; Monocytes # (A) 0.6 k/uL (0-1.0); Monocytes % (A) 8 %; Neutrophils # (A) 5.1 k/uL (1.3-7.7); Neutrophils % (A) 60 %; Platelet Count 566 k/uL (150-450); RBC 3.49 m/uL (4.30-5.90); RDW 15.8 % (11.5-15.5); WBC 8.6 k/uL (3.8-10.6)
[2019-01-24 18:08] LABS: INR 1.1 (<1.2); Partial Thromboplastin Time 26.2 sec (22.0-30.0); Prothrombin Time 11.6 sec (9.0-12.0)
[2019-01-24 18:28] LABS: Albumin 4.1 g/dL (3.5-5.0); Magnesium 1.6 mg/dL (1.6-2.3); Phosphorus 5.3 mg/dL (2.5-4.5); Total Bilirubin 0.3 mg/dL (0.2-1.3); Total Protein 8.3 g/dL (6.3-8.2)
[2019-01-24] MEDS ORDERED: INSULIN REGULAR 100 UNIT/ML VIAL IV ONE (18:50)
[2019-01-24] MEDS ORDERED: FUROSEMIDE 10 MG/ML 4 ML VIAL IV STA (18:50)
[2019-01-24] MEDS ORDERED: SODIUM POLYSTYRENE SULFONATE 15 GM/60 ML BOTTLE PO STA (18:50)
[2019-01-24] MEDS ORDERED: DEXTROSE 50% SYRINGE 50 ML IVP STA (18:50)
[2019-01-24] MEDS ORDERED: SODIUM BICARB 8.4% 50 ML SYR (1 MEQ/ML) IV STA (18:55)
[2019-01-24 20:07] VITALS: PULSE 78
[2019-01-24 20:09] VITALS: BP 176/81; RESP 20
[2019-01-24 20:29] LABS: Appearance,Urine Clear (Clear); Bacteria,Urine Rare /hpf; Bilirubin,Urine Negative (Negative); Blood,Urine Moderate (Negative); Color,Urine Light Yellow; Glucose,Urine (UA) 2+ (Negative); Ketones,Urine Negative (Negative); Leukocyte Esterase,Urine Trace (Negative); Mucus,Urine Rare /hpf; Nitrite,Urine Negative (Negative); PH, Urine 7.5 (5.0-8.0); Protein,Urine 1+ (Negative); RBC,Urine 42 /hpf (0-5); Specific Gravity,Urine 1.011 (1.001-1.035); Squamous Epithelial Cell,Urine <1 /hpf (0-4); Urobilinogen,Urine <2.0 mg/dL (<2.0)
== END 2019-01-24 20:35 | disposition home or self-care (01) ==
LOC: EC 17:25
DX: E87.5 Hyperkalemia (principal); I25.2 Old myocardial infarction; E11.9 Type 2 diabetes mellitus without complications; E78.5 Hyperlipidemia, unspecified; I10 Essential (primary) hypertension; F41.9 Anxiety disorder, unspecified; F32.9 Major depressive disorder, single episode, unspecified; G40.909 Epilepsy, unspecified, not intractable, without status epilepticus; I69.354 Hemiplegia and hemiparesis following cerebral infarction affecting left non-dominant side; I25.5 Ischemic cardiomyopathy; E03.9 Hypothyroidism, unspecified; Z79.899 Other long term (current) drug therapy; Z79.82 Long term (current) use of aspirin; Z79.4 Long term (current) use of insulin; Z79.890 Hormone replacement therapy; Z95.5 Presence of coronary angioplasty implant and graft; Z87.891 Personal history of nicotine dependence; Z88.0 Allergy status to penicillin; Z88.1 Allergy status to other antibiotic agents; Z99.3 Dependence on wheelchair; Z86.79 Personal history of other diseases of the circulatory system; Z98.890 Other specified postprocedural states
CPT/HCPCS: 36415; 93005; 80053; 83735; 84100; 85025; 85610; 85730; 81001; 99285; 96374; 96375 ×2; 96361 ×2; J1940

== ENCOUNTER 2021-05-11 16:27 | Inpatient (IN) | payer MEDICARE, OTHER ==
--- NOTE | 2021-05-11 16:58 | ED ---
General Adult HPI - General Chief complaint: Abdominal Pain Stated complaint: Bowel Obstruction Time Seen by Provider: 05/11/21 16:29 Source: patient, EMS Mode of arrival: EMS Limitations: no limitations - History of Present Illness Initial comments: Dictation was produced using [employer] dictation software. please excuse any grammatical, word or spelling errors. Chief Complaint: Patient is a 65-year-old male with multiple comorbidities. He is sent in from [facility] for abdominal pain and vomiting. He had an abnormal outpatient x-ray History of Present Illness: 65-year-old male he is unable to provide history of present illness at this time. He is a resident at one of our local nursing homes nearby. Patient allegedly had 2 bouts of vomiting starting today. X-ray was performed showing possible ileus. Patient unable to find history present illness secondary to baseline mental status. According to nurse who received report from EMS there was no concern of patient's mental status. She reported that this is his baseline. Unable to obtain review of systems secondary to patient's mental status. PHYSICAL EXAM: General Impression: Alert and oriented x1/4, not in acute distress HEENT: Normocephalic atraumatic, extra-ocular movements intact, pupils equal and reactive to light bilaterally, mucous membranes moist. Cardiovascular: Heart regular rate and rhythm Chest: no retractions, no tachypnea Abdomen: abdomen soft, non-tender, and tympanitic, non-distended, no organomegaly Musculoskeletal: Pulses present and equal in all extremities, no peripheral edema Motor: no focal deficits noted Neurological: CN II-XII grossly intact, no focal motor or sensory deficits noted Skin: Intact with no visualized rashes ED course: 65-year-old male presents emergency department for 2 bouts of vomiting and abnormal x-ray suggesting ileus. Vital signs upon arrival are within acceptable limits. Patient is in no acute distress at the bedside. Chart review was performed. Has history of CVA, diabetes, dyslipidemia, seizure disorder or thyroid disease. He has history of brain aneurysm status post surgical intervention. He has history coronary artery disease. Laboratory evaluation obtained. CBC is unremarkable. Coag panel is negative. Metabolic panel shows anion gap acidosis with a bicarb of 14 and anion gap of 17. Elevated renal markers which per to be around patient's baseline. Rest of labs unremarkable. Patient given IV fluids. Patient has history of acidosis. Patient reevaluated bedside at 6:10 PM found to be in stable medical condition. Is not actively vomiting or nauseous appearing. Patient will be admitted to [facility]. Gen. surgery will be on consult. EKG interpretation: Ventricular rate 100, normal rhythm,. Interval 200, QRS 153, QTC 424, right bundle branch block. No FL prolongation, no QTC prolongation, no ST or T-wave changes noted. EKG compared to 01/24/2019 showing no changes. Overall, this EKG is unremarkable - Related Data Home Medications Medication Instructions Recorded Confirmed Atorvastatin [Lipitor] 20 mg PO HS@1800 06/03/18 05/11/21 Gemfibrozil [Lopid] 600 mg PO BID@0900,1700 06/03/18 05/11/21 Insulin Glargine,Hum.rec.anlog See Protocol SQ HS@2100 06/03/18 05/11/21 [Basaglar Kwikpen U-100] Levothyroxine Sodium [Synthroid] 125 mcg PO DAILY@0600 06/03/18 05/11/21 Liraglutide [Victoza 3-Felice] 1.2 mg PO DAILY@0600 06/03/18 05/11/21 Metoprolol Tartrate [Lopressor] 50 mg PO BID@0600,1700 06/03/18 05/11/21 Niacin 500 mg PO HS@1700 06/03/18 05/11/21 Phenytoin Sodium Extended 200 mg PO BID@0900,1700 06/03/18 05/11/21 [Dilantin] Topiramate [Topamax] 50 mg PO HS@1700 06/03/18 05/11/21 lamoTRIgine [LaMICtal] 50 mg PO BID@0900,1700 06/03/18 05/11/21 Aspirin [[place] Aspirin EC] 81 mg PO DAILY@0900 01/07/19 05/11/21 Heparin Sodium,Porcine [Heparin 5,000 unit SQ TID@0600,1400,2200 01/07/19 05/11/21 Sodium] PHENobarbitaL [PHENobarbital] 64.8 mg PO DAILY@1400 01/24/19 05/11/21 Sodium Bicarbonate Tab 650 mg PO DAILY@0900 01/24/19 05/11/21 Acetaminophen Tab [Tylenol] 650 mg PO Q4H PRN 05/11/21 05/11/21 Cholecalciferol [Vitamin D3 (25 50 mcg PO DAILY@0900 05/11/21 05/11/21 Mcg = 1000 Iu)] Ferrous Sulfate [Feosol] 325 mg PO DAILY@0900 05/11/21 05/11/21 INSULIN ASPART (NovoLOG) [NovoLOG See Protocol SQ BID 05/11/21 05/11/21 (formulary)] Loperamide [Imodium] 2 - 4 mg PO BID PRN 05/11/21 05/11/21 Loratadine [Claritin] 10 mg PO DAILY PRN 05/11/21 05/11/21 Tamsulosin HCl [Flomax] 0.4 mg PO DAILY@0900 05/11/21 05/11/21 icosapent ethyL [Icosapent Ethyl] 2 gm PO BID@0900,1700 05/11/21 05/11/21 Allergies Allergy/AdvReac Type Severity Reaction Status Date / Time piperacillin [From Zosyn] Allergy Unknown Verified 05/11/21 17:05 tazobactam [From Zosyn] Allergy Unknown Verified 05/11/21 17:05 Review of Systems ROS Statement: Those systems with pertinent positive or pertinent negative responses have been documented in the HPI. ROS Other: All systems not noted in ROS Statement are negative. Past Medical History Past Medical History: CVA/TIA, Diabetes Mellitus, Hyperlipidemia, Hypertension, Myocardial Infarction ([place]), Renal Disease, Seizure Disorder, Thyroid Disorder, Vascular Disorder Additional Past Medical History / Comment(s): Brain surgery 10 yrs ago for aneurysm and had CVA with left sided weakness upper and lower extremity and had trach/vented, (pt was left hand dominent), muscle weakness, wheelchair bound, last seizure many years ago, ischemic cardiomyopathy, IDDM type II, hypothyroid, pilonidal cyst. Last Myocardial Infarction Date:: History of Any Multi-Drug Resistant Organisms: None Reported Past Surgical History: Unable to Obtain Additional Past Surgical History / Comment(s): brain surgery for aneurysm, PCI with stent, nasal cartlidge surgery. Past Anesthesia/Blood Transfusion Reactions: No Reported Reaction Past Psychological History: Anxiety, Depression Past Alcohol Use History: None Reported Past Drug Use History: Marijuana - Past Family History Mother History Unknown: Yes Additional Family Medical History / Comment(s): Mother is living. Father History Unknown: Yes Additional Family Medical History / Comment(s): Father is living. General Exam Limitations: no limitations Course Vital Signs 05/11/21 16:29 Temperature 97.7 F Pulse Rate 100 Respiratory 18 Rate Blood Pressure 130/82 O2 Sat by Pulse 99 Oximetry Medical Decision Making - Lab Data Result diagrams: 05/11/21 17:15 05/11/21 17:15 Lab Results 05/11/21 05/11/21 05/11/21 Range/Units 17:15 17:15 17:15 WBC 13.6 H (3.8-10.6) k/uL RBC 4.43 (4.30-5.90) m/uL Hgb 14.1 (13.0-17.5) gm/dL Hct 41.1 (39.0-53.0) % MCV 92.9 (80.0-100.0) fL MCH 31.9 (25.0-35.0) pg MCHC 34.4 (31.0-37.0) g/dL RDW 14.7 (11.5-15.5) % Plt Count 352 (150-450) k/uL MPV 7.8 Neutrophils % 84 % Lymphocytes % 10 % Monocytes % 4 % Eosinophils % 1 % Basophils % 0 % Neutrophils # 11.5 H (1.3-7.7) k/uL Lymphocytes # 1.3 (1.0-4.8) k/uL Monocytes # 0.5 (0-1.0) k/uL Eosinophils # 0.1 (0-0.7) k/uL Basophils # 0.1 (0-0.2) k/uL Poikilocytosis Slight PT 11.3 (9.0-12.0) sec INR 1.1 (<1.2) APTT 26.6 (22.0-30.0) sec Sodium 142 (137-145) mmol/L Potassium 4.3 (3.5-5.1) mmol/L Chloride 111 H (98-107) mmol/L Carbon Dioxide 14 L (22-30) mmol/L Anion Gap 17 mmol/L BUN 57 H (9-20) mg/dL Creatinine 1.65 H (0.66-1.25) mg/dL Est GFR (CKD-EPI)AfAm 50 (>60 ml/min/1.73 sqM) Est GFR (CKD-EPI)NonAf 43 (>60 ml/min/1.73 sqM) Glucose 217 H (74-99) mg/dL Plasma Lactic Acid Castro (0.7-2.0) mmol/L Calcium 9.4 (8.4-10.2) mg/dL Total Bilirubin 0.5 (0.2-1.3) mg/dL AST 22 (17-59) U/L ALT 14 (4-49) U/L Alkaline Phosphatase 149 H (38-126) U/L Total Protein 8.9 H (6.3-8.2) g/dL Albumin 4.6 (3.5-5.0) g/dL 05/11/21 Range/Units 17:15 WBC (3.8-10.6) k/uL RBC (4.30-5.90) m/uL Hgb (13.0-17.5) gm/dL Hct (39.0-53.0) % MCV (80.0-100.0) fL MCH (25.0-35.0) pg MCHC (31.0-37.0) g/dL RDW (11.5-15.5) % Plt Count (150-450) k/uL MPV Neutrophils % % Lymphocytes % % Monocytes % % Eosinophils % % Basophils % % Neutrophils # (1.3-7.7) k/uL Lymphocytes # (1.0-4.8) k/uL Monocytes # (0-1.0) k/uL Eosinophils # (0-0.7) k/uL Basophils # (0-0.2) k/uL Poikilocytosis PT (9.0-12.0) sec INR (<1.2) APTT (22.0-30.0) sec Sodium (137-145) mmol/L Potassium (3.5-5.1) mmol/L Chloride (98-107) mmol/L Carbon Dioxide (22-30) mmol/L Anion Gap mmol/L BUN (9-20) mg/dL Creatinine (0.66-1.25) mg/dL Est GFR (CKD-EPI)AfAm (>60 ml/min/1.73 sqM) Est GFR (CKD-EPI)NonAf (>60 ml/min/1.73 sqM) Glucose (74-99) mg/dL Plasma Lactic Acid Castro 1.3 (0.7-2.0) mmol/L Calcium (8.4-10.2) mg/dL Total Bilirubin (0.2-1.3) mg/dL AST (17-59) U/L ALT (4-49) U/L Alkaline Phosphatase (38-126) U/L Total Protein (6.3-8.2) g/dL Albumin (3.5-5.0) g/dL Disposition Clinical Impression: Ileus Disposition: ADMITTED IP TO THIS HOSP Condition: Fair Referrals: None,Stated [Primary Care Provider] - 1-2 days
[2021-05-11 17:32] LABS: Basophils # (A) 0.1 k/uL (0-0.2); Basophils % (A) 0 %; Eosinophils # (A) 0.1 k/uL (0-0.7); Eosinophils % (A) 1 %; HCT 41.1 % (39.0-53.0); HGB 14.1 gm/dL (13.0-17.5); Lymphocytes # (A) 1.3 k/uL (1.0-4.8); Lymphocytes % (A) 10 %; MCH 31.9 pg (25.0-35.0); MCHC 34.4 g/dL (31.0-37.0); MCV 92.9 fL (80.0-100.0); Mean Platelet Volume 7.8; Monocytes # (A) 0.5 k/uL (0-1.0); Monocytes % (A) 4 %; Neutrophils # (A) 11.5 k/uL (1.3-7.7); Neutrophils % (A) 84 %; Platelet Count 352 k/uL (150-450); Poikilocytosis Slight; RBC 4.43 m/uL (4.30-5.90); RDW 14.7 % (11.5-15.5); WBC 13.6 k/uL (3.8-10.6)
[2021-05-11 17:41] LABS: INR 1.1 (<1.2); Partial Thromboplastin Time 26.6 sec (22.0-30.0); Prothrombin Time 11.3 sec (9.0-12.0)
--- NOTE | 2021-05-11 17:41 | XR ---
EXAMINATION TYPE: XR abdomen 1V DATE OF EXAM: 05/11/2021 5:34 PM INDICATION: Patient age:Male; 65 years old; Reason for study: abnormal outpatient xray; COMPARISON: Abdomen and pelvis 11/30/2018 TECHNIQUE: One radiographic view of the abdomen was obtained. FINDINGS: Gaseous dilation of bowel loops within the abdomen measuring up to 15 mm.. Chronic deformit y of the left hip as seen on prior statement back to 2019. Stool is seen within the rectum. IMPRESSION: 1. Gaseous dilation of bowel throughout the abdomen with small bowel dilation measuring up to measur ing up to 58 mm. Clinical correlation for ileus and/or obstruction. 2. Chronic deformity of the right hip dating back to 2019.
[2021-05-11 17:47] LABS: Albumin 4.6 g/dL (3.5-5.0); Calcium 9.4 mg/dL (8.4-10.2); Potassium 4.3 mmol/L (3.5-5.1); Total Bilirubin 0.5 mg/dL (0.2-1.3); Total Protein 8.9 g/dL (6.3-8.2)
[2021-05-11] MEDS ORDERED: SODIUM CHLORIDE 0.9% 1,000 ML IV STA (17:48)
[2021-05-11] MEDS ORDERED: NALOXONE 0.4 MG/ML 1 ML VIAL IV PRN (18:05)
[2021-05-11] MEDS ORDERED: ONDANSETRON 4 MG/2 ML VIAL IVP PRN (18:11)
[2021-05-11] MEDS: SODIUM CHLORIDE 0.9% 1,000 ML IV SCH (18:57)
[2021-05-12] MEDS ORDERED: SODIUM CHLORIDE 0.9% 1,000 ML IV ONE (00:52)
--- NOTE | 2021-05-12 01:21 | P.HPIM ---
History of Present Illness H&P Date: 05/11/21 Chief Complaint: Abdominal pain and vomiting 65-year-old male with multiple comorbidities, history of CVA, seizures, hypothyroid, diabetes mellitus, hypertension [facility] is a [facility]. He was sent in here for abdominal pain and vomiting for evaluation. So also reported that he had an abnormal outpatient x- ray didn't have access to information about that x-ray. Patient unable to provide any meaningful history however he would inconsistently answers some questions with yes and no. Apparently patient was sent in here for abdominal pain of unknown duration but reported vomiting twice today no report of bloody vomiting. While in the ED he had another episode of vomiting x-rays were done and showed possible bowel obstruction. Patient admitted for surgery evaluation During my interview with the patient he had another episode of vomiting which was bilious in color. Patient will be initiated on NG tube connected to intermittent low wall suctioning Again patient unable to provide any meaningful history Blood work showed leukocytosis Acute kidney injury on CK D Lactic acid was unremarkable Bicarb was low Patient was tachycardic Patient not requiring any supplemental oxygen Review of Systems ROS unobtainable: due to mental status Past Medical History Past Medical History: CVA/TIA, Diabetes Mellitus, Hyperlipidemia, Hypertension, Myocardial Infarction (DC), Renal Disease, Seizure Disorder, Thyroid Disorder, Vascular Disorder Additional Past Medical History / Comment(s): Brain surgery 10 yrs ago for aneurysm and had CVA with left sided weakness upper and lower extremity and had trach/vented, (pt was left hand dominent), muscle weakness, wheelchair bound, last seizure many years ago, ischemic cardiomyopathy, IDDM type II, hypothyroid, pilonidal cyst. Last Myocardial Infarction Date:: History of Any Multi-Drug Resistant Organisms: None Reported Past Surgical History: Unable to Obtain Additional Past Surgical History / Comment(s): brain surgery for aneurysm, PCI with stent, nasal cartlidge surgery. Past Anesthesia/Blood Transfusion Reactions: No Reported Reaction Past Psychological History: Anxiety, Depression Additional Psychological History / Comment(s): Pt resides at [facility]. He is up in a powerchair. He feeds himself. Smoking Status: Former smoker Past Alcohol Use History: None Reported Additional Past Alcohol Use History / Comment(s): Pt started smoking as a teen and quit almost one year ago. In the past he was a very heavy drinker but gave that up in the 1980s. Past Drug Use History: Marijuana Additional Drug Use History / Comment(s): Pt smoked marijuana many years ago. - Past Family History Mother History Unknown: Yes Additional Family Medical History / Comment(s): Mother is living. Father History Unknown: Yes Additional Family Medical History / Comment(s): Father is living. Medications and Allergies Home Medications Medication Instructions Recorded Confirmed Type Atorvastatin [Lipitor] 20 mg PO HS@1800 06/03/18 05/11/21 History Gemfibrozil [Lopid] 600 mg PO BID@0900,1700 06/03/18 05/11/21 History Insulin Glargine,Hum.rec.anlog See Protocol SQ HS@2100 06/03/18 05/11/21 History [Basaglar Kwikpen U-100] Levothyroxine Sodium [Synthroid] 125 mcg PO DAILY@0600 06/03/18 05/11/21 History Liraglutide [Victoza 3-Felice] 1.2 mg PO DAILY@0600 06/03/18 05/11/21 History Metoprolol Tartrate [Lopressor] 50 mg PO BID@0600,1700 06/03/18 05/11/21 History Niacin 500 mg PO HS@1700 06/03/18 05/11/21 History Phenytoin Sodium Extended 200 mg PO BID@0900,1700 06/03/18 05/11/21 History [Dilantin] Topiramate [Topamax] 50 mg PO HS@1700 06/03/18 05/11/21 History lamoTRIgine [LaMICtal] 50 mg PO BID@0900,1700 06/03/18 05/11/21 History Aspirin [[place] Aspirin EC] 81 mg PO DAILY@0900 01/07/19 05/11/21 History Heparin Sodium,Porcine [Heparin 5,000 unit SQ TID@0600,1400,2200 01/07/1905/11 History Sodium] PHENobarbitaL [PHENobarbital] 64.8 mg PO DAILY@1400 01/24/19 05/11/21 History Sodium Bicarbonate Tab 650 mg PO DAILY@0900 01/24/19 05/11/21 History Acetaminophen Tab [Tylenol] 650 mg PO Q4H PRN 05/11/21 05/11/21 History Cholecalciferol [Vitamin D3 (25 50 mcg PO DAILY@0900 05/11/21 05/11/21 History Mcg = 1000 Iu)] Ferrous Sulfate [Feosol] 325 mg PO DAILY@0900 05/11/21 05/11/21 History INSULIN ASPART (NovoLOG) [NovoLOG See Protocol SQ BID 05/11/21 05/11/21 History (formulary)] Loperamide [Imodium] 2 - 4 mg PO BID PRN 05/11/21 05/11/21 History Loratadine [Claritin] 10 mg PO DAILY PRN 05/11/21 05/11/21 History Tamsulosin HCl [Flomax] 0.4 mg PO DAILY@0900 05/11/21 05/11/21 History icosapent ethyL [Icosapent Ethyl] 2 gm PO BID@0900,1700 05/11/21 05/11/21 History Allergies Allergy/AdvReac Type Severity Reaction Status Date / Time piperacillin [From Zosyn] Allergy Unknown Verified 05/11/21 17:05 tazobactam [From Zosyn] Allergy Unknown Verified 05/11/21 17:05 Physical Exam Vitals: Vital Signs Temp Pulse Pulse Resp BP BP Pulse Ox 05/11/21 22:25 98.2 F 106 H 20 157/81 95 05/11/21 22:03 97.7 F 102 H 18 144/84 96 05/11/21 21:30 102 H 18 144/84 96 05/11/21 18:10 101 H 20 136/84 99 05/11/21 17:34 101 H 18 120/80 98 05/11/21 16:34 100 18 130/82 98 05/11/21 16:29 97.7 F 100 18 130/82 99 Intake and Output 05/11/21 05/11/21 05/12/21 14:59 22:59 06:59 Other: Weight 95 kg Constitutional: No acute distress, cooperative, doesn't talk but occasionally would answer questions with yes and no symptoms he would say, ra ndom one-word like hungry, or water Eyes: Anicteric sclerae, moist conjunctiva, Pupils equal round reactive to light ENMT: NC/AT Oropharynx clear Neck: Supple, no masses, or JVD No carotid bruits No thyromegaly Lungs: Clear to auscultation Clear to percussion Normal respiratory effort, no accessory muscle use Cardiovascular: Heart regular in rate and rhythm, No murmurs, gallops, or rubs Left-sided lower extremity nonpitting edema Abdominal: Distended abdomen does not seem to be tender to palpation no guarding, rebound or rigidity Abdomen moving with respiration Bowel sounds sluggish No hepatomegaly, No splenomegaly No palpable mass No abdominal wall hernia noted Skin: Chronic skin changes over the left lower extremity with nonpitting edema, multiple bruising over the left lower quadrant of the abdomen site of injection of heparin at [facility] at the [facility] Otherwise Normal temperature, tone, texture, turgor Extremities: Patient has hemiparesis of the left side No digital cyanosis No clubbing Pedal pulses weak and symmetrical, capillary refill immediate Radial pulses intact and symmetrical No calf tenderness Psychiatric: Patient is alert however does not answer questions appropria tely. Neuro patient moving right upper extremity purposefully, he claims that he can move the right lower extremity but he couldn't. Patient did not move his left upper or left lower extremity either. Other neuro exam was unobtainable as patient did not cooperate with that Lymphatics: no palpable cervical or supraclavicular , or inguinal lymph nodes Results CBC & Chem 7: 05/11/21 17:15 05/11/21 17:15 Labs: Abnormal Lab Results - Last 24 Hours (Table) 05/11/21 05/11/21 Range/Units 17:15 17:15 WBC 13.6 H (3.8-10.6) k/uL Neutrophils # 11.5 H (1.3-7.7) k/uL Chloride 111 H (98-107) mmol/L Carbon Dioxide 14 L (22-30) mmol/L BUN 57 H (9-20) mg/dL Creatinine 1.65 H (0.66-1.25) mg/dL Glucose 217 H (74-99) mg/dL Alkaline Phosphatase 149 H (38-126) U/L Total Protein 8.9 H (6.3-8.2) g/dL Thrombosis Risk Factor Assmnt - Choose All That Apply Any of the Below Risk Factors Present?: No Each Risk Factor Represents 2 Points: Age 61-74 years Thrombosis Risk Factor Assessment Total Risk Factor Score: 2 Thrombosis Risk Factor Assessment Level: Low Risk Assessment and Plan Assessment: Small bowel obstruction versus ileus Bowel rest NG tube to low intermittent suctioning Repeated bilious vomiting, Zofran when necessary General surgery consult IV fluid hydration with normal saline Supportive care Follow-up electrolytes Resume by mouth bicarb home medication Lactic acid within normal limits Acute abdominal series x-ray noted showing possible ileus versus small bowel obstruction Chronic conditions Hypothyroid resume levothyroxine Seizure disorder, resume antiepileptic drugs, switch phenytoin to IV History of CVA with left hemiparesis Diabetes mellitus, insulin sliding scale Hyperlipidemia statin on hold for now Hypertension resume home blood pressure medications DVT prophylaxis heparin subcu 3 times a day Full code Anticipated length of stay less than 2 midnights
[2021-05-12] MEDS: INSULIN ASPART (NovoLOG) 100 UNIT/ML VIAL SQ SCH ×4 (04:40→17:23)
[2021-05-12] MEDS: LEVOTHYROXINE 125 MCG TAB PO SCH (05:11)
[2021-05-12 07:31] LABS: Glucose,Whole Blood 159 mg/dL (75-99)
[2021-05-12] MEDS ORDERED: PHENYTOIN SODIUM EXTENDED 100 MG CAP PO SCH (09:00)
--- NOTE | 2021-05-12 09:10 | XR ---
2 view abdomen HISTORY: Ileus 2 views of the abdomen on 5 images correlated to prior abdomen 05/11/2021 Exam is limited technically due to patient body habitus. NG tube is coiled within the stomach. No evident pneumoperitoneum. Lung bases are clear. The colon is gas distended. Distortion of the left hip joint is stable. Probable atherosclerotic vascular calcifi cations are present within the abdomen. No definite small bowel distention. IMPRESSION: Findings may represent ileus, follow-up as indicated. There are limitations to the exam.
[2021-05-12] MEDS: METOPROLOL TARTRATE 50 MG TAB PO SCH ×2 (09:15→19:53)
[2021-05-12] MEDS: SODIUM BICARBONATE TAB 650 MG TAB PO SCH (09:15)
[2021-05-12] MEDS: HEPARIN SODIUM,PORCINE/PF 5,000 UNIT/0.5 ML SYRINGE SQ SCH ×2 (09:15→15:47)
[2021-05-12] MEDS: lamoTRIgine 25 MG TAB PO SCH ×2 (09:15→19:53)
[2021-05-12] MEDS: TAMSULOSIN 0.4 MG CAP.ER.24H PO SCH (09:15)
[2021-05-12] MEDS: SODIUM CHLORIDE 0.9% 1,000 ML IV SCH ×2 (09:17→14:05)
[2021-05-12] MEDS: PHENYTOIN SODIUM INJ 200 MG in SODIUM CHLORIDE 0.9% 36 ML IVPB SCH ×2 (11:07→21:41)
[2021-05-12 11:30] LABS: Glucose,Whole Blood 147 mg/dL (75-99)
--- NOTE | 2021-05-12 12:06 | P.GSCN ---
History of Present Illness Consult date: 05/12/21 History of present illness: CHIEF COMPLAINT: Vomiting HISTORY OF PRESENT ILLNESS: This is a 65-year-old male who is currently residing at [facility]. He was brought into the hospital due to having nausea, vomiting and upset stomach. His x-ray had showed evidence of ileus versus small bowel obstruction. Patient did have NG tube inserted. He's had 500 mL output through NG tube throughout the night. Patient reports no abdominal pain at this time. He feels that he may have had some flatus. He reports that he did have some diarrhea at the halfway. Denies any fevers chills or sweats. Denies any past surgical history. Denies any prior history of bowel section. Patient seen and examined with Dr. sandra PAST MEDICAL HISTORY: CVA, Diabetes Mellitus, Hyperlipidemia, Hypertension, Myocardial Infarction (ND), Renal Disease, Seizure Disorder, Thyroid Disorder, Vascular Disorder PAST SURGICAL HISTORY: Brain surgery 10 yrs ago for aneurysm and had CVA with left sided weakness upper and lower extremity and had trach/vented, (pt was left hand dominent), muscle weakness, wheelchair bound, last seizure many years ago, ischemic cardiomyopat hy, IDDM type II, hypothyroid, pilonidal cyst. MEDICATIONS: See list. ALLERGIES: See list. SOCIAL HISTORY: No illicit drug use. REVIEW OF SYSTEMS: CONSTITUTIONAL: Denies fever or chills. HEENT: Denies blurred vision, vision changes, or eye pain. Denies hemoptysis CARDIOVASCULAR: Denies chest pain or pressure. RESPIRATORY: No shortness of breath. GASTROINTESTINAL: See HPI for pertinent findings HEMATOLOGIC: Denies bleeding disorders. GENITOURINARY: Denies any blood in urine or increased urinary frequency. SKIN: Denies pruitis. Denies rash. PHYSICAL EXAM: VITAL SIGNS: Reviewed GENERAL: Well-developed in no acute distress. HEENT: No sclera icterus. Extraocular movements grossly intact. Moist buccal mucosa. Head is atraumatic, normocephalic. No nasal drainage. ABDOMEN: Soft. Mildly distended. Nontender NEUROLOGIC: Awake and alert LABORATORY DATA: WBC is 13.6 hemoglobin 14.1 platelets 352 Sodium 142 potassium 4.3 creatinine 1.65 Lactic acid 1.3 LFTs normal alk phos 149 IMAGING: Abdominal x-ray on admission gaseous dilation of bowel throughout the abdomen with small bowel dilation measuring up to 58 mm. Clinical correlation for ileus and/or obstruction. Abdominal x-ray from today findings may represent ileus. ASSESSMENT: 1. Ileus versus small bowel obstruction PLAN: -Continue conservative management -Continue to monitor -Continue NG tube for decompression -Keep patient nothing by mouth -Continue IV fluids -DVT prophylaxis subcu heparin Thank you for this consultation Physician Celery Packer note has been reviewed by physician. Signing provider agrees with the documented findings, assessment, and plan of care. Past Medical History Past Medical History: CVA/TIA, Diabetes Mellitus, Hyperlipidemia, Hypertension, Myocardial Infarction (ND), Renal Disease, Seizure Disorder, Thyroid Disorder, Vascular Disorder Additional Past Medical History / Comment(s): Brain surgery 10 yrs ago for aneurysm and had CVA with left sided weakness upper and lower extremity and had trach/vented, (pt was left hand dominent), muscle weakness, wheelchair bound, last seizure many years ago, ischemic cardiomyopathy, IDDM type II, hypothyroid, pilonidal cyst. Last Myocardial Infarction Date:: History of Any Multi-Drug Resistant Organisms: None Reported Past Surgical History: Unable to Obtain Additional Past Surgical History / Comment(s): brain surgery for aneurysm, PCI with stent, nasal cartlidge surgery. Past Anesthesia/Blood Transfusion Reactions: No Reported Reaction Past Psychological History: Anxiety, Depression Additional Psychological History / Comment(s): Pt resides at [facility]. He is up in a powerchair. He feeds himself. Smoking Status: Former smoker Past Alcohol Use History: None Reported Additional Past Alcohol Use History / Comment(s): Pt started smoking as a teen and quit almost one year ago. In the past he was a very heavy drinker but gave that up in the . Past Drug Use History: Marijuana Additional Drug Use History / Comment(s): Pt smoked marijuana many years ago. - Past Family History Mother History Unknown: Yes Additional Family Medical History / Comment(s): Mother is living. Father History Unknown: Yes Additional Family Medical History / Comment(s): Father is living. Medications and Allergies Home Medications Medication Instructions Recorded Confirmed Type Atorvastatin [Lipitor] 20 mg PO HS@1800 06/03/18 05/11/21 History Gemfibrozil [Lopid] 600 mg PO BID@0900,1700 06/03/18 05/11/21 History Insulin Glargine,Hum.rec.anlog See Protocol SQ HS@2100 06/03/18 05/11/21 History [Basaglar Kwikpen U-100] Levothyroxine Sodium [Synthroid] 125 mcg PO DAILY@0600 06/03/18 05/11/21 History Liraglutide [Victoza 3-Felice] 1.2 mg PO DAILY@0600 06/03/18 05/11/21 History Metoprolol Tartrate [Lopressor] 50 mg PO BID@0600,1700 06/03/18 05/11/21 History Niacin 500 mg PO HS@1700 06/03/18 05/11/21 History Phenytoin Sodium Extended 200 mg PO BID@0900,1700 06/03/18 05/11/21 History [Dilantin] Topiramate [Topamax] 50 mg PO HS@1700 06/03/18 05/11/21 History lamoTRIgine [LaMICtal] 50 mg PO BID@0900,1700 06/03/18 05/11/21 History Aspirin [[place] Aspirin EC] 81 mg PO DAILY@0900 01/07/19 05/11/21 History Heparin Sodium,Porcine [Heparin 5,000 unit SQ TID@0600,1400,2200 01/07/19 05/11/21 History Sodium] PHENobarbitaL [PHENobarbital] 64.8 mg PO DAILY@1400 01/24/19 05/11/21 History Sodium Bicarbonate Tab 650 mg PO DAILY@0900 01/24/19 05/11/21 History Acetaminophen Tab [Tylenol] 650 mg PO Q4H PRN 05/11/21 05/11/21 History Cholecalciferol [Vitamin D3 (25 50 mcg PO DAILY@0900 05/11/21 05/11/21 History Mcg = 1000 Iu)] Ferrous Sulfate [Feosol] 325 mg PO DAILY@0900 05/11/21 05/11/21 History INSULIN ASPART (NovoLOG) [NovoLOG See Protocol SQ BID 05/11/21 05/11/21 History (formulary)] Loperamide [Imodium] 2 - 4 mg PO BID PRN 05/11/21 05/11/21 History Loratadine [Claritin] 10 mg PO DAILY PRN 05/11/21 05/11/21 History Tamsulosin HCl [Flomax] 0.4 mg PO DAILY@0900 05/11/21 05/11/21 History icosapent ethyL [Icosapent Ethyl] 2 gm PO BID@0900,1700 05/11/21 05/11/21 History Allergies Allergy/AdvReac Type Severity Reaction Status Date / Time piperacillin [From Zosyn] Allergy Unknown Verified 05/11/21 17:05 tazobactam [From Zosyn] Allergy Unknown Verified 05/11/21 17:05 Surgical - Exam Vital Signs Temp Pulse Resp BP Pulse Ox 97.7 F 100 18 130/82 99 05/11/21 16:29 05/11/21 16:29 05/11/21 16:29 05/11/21 16:29 05/11/21 16:29 Results - Labs 05/11/21 17:15 05/11/21 17:15 Abnormal Lab Results - Last 24 Hours (Table) 05/11/21 05/11/21 05/12/21 Range/Units 17:15 17:15 07:26 WBC 13.6 H (3.8-10.6) k/uL Neutrophils # 11.5 H (1.3-7.7) k/uL Chloride 111 H (98-107) mmol/L Carbon Dioxide 14 L (22-30) mmol/L BUN 57 H (9-20) mg/dL Creatinine 1.65 H (0.66-1.25) mg/dL Glucose 217 H (74-99) mg/dL POC Glucose (mg/dL) 159 H (75-99) mg/dL Alkaline Phosphatase 149 H (38-126) U/L Total Protein 8.9 H (6.3-8.2) g/dL Diabetes panel 05/11/21 Range/Units 17:15 Sodium 142 (137-145) mmol/L Potassium 4.3 (3.5-5.1) mmol/L Chloride 111 H (98-107) mmol/L Carbon Dioxide 14 L (22-30) mmol/L BUN 57 H (9-20) mg/dL Creatinine 1.65 H (0.66-1.25) mg/dL Glucose 217 H (74-99) mg/dL Calcium 9.4 (8.4-10.2) mg/dL AST 22 (17-59) U/L ALT 14 (4-49) U/L Alkaline Phosphatase 149 H (38-126) U/L Total Protein 8.9 H (6.3-8.2) g/dL Albumin 4.6 (3.5-5.0) g/dL Calcium panel 05/11/21 Range/Units 17:15 Calcium 9.4 (8.4-10.2) mg/dL Albumin 4.6 (3.5-5.0) g/dL Pituitary panel 05/11/21 Range/Units 17:15 Sodium 142 (137-145) mmol/L Potassium 4.3 (3.5-5.1) mmol/L Chloride 111 H (98-107) mmol/L Carbon Dioxide 14 L (22-30) mmol/L BUN 57 H (9-20) mg/dL Creatinine 1.65 H (0.66-1.25) mg/dL Glucose 217 H (74-99) mg/dL Calcium 9.4 (8.4-10.2) mg/dL Adrenal panel 05/11/21 Range/Units 17:15 Sodium 142 (137-145) mmol/L Potassium 4.3 (3.5-5.1) mmol/L Chloride 111 H (98-107) mmol/L Carbon Dioxide 14 L (22-30) mmol/L BUN 57 H (9-20) mg/dL Creatinine 1.65 H (0.66-1.25) mg/dL Glucose 217 H (74-99) mg/dL Calcium 9.4 (8.4-10.2) mg/dL Total Bilirubin 0.5 (0.2-1.3) mg/dL AST 22 (17-59) U/L ALT 14 (4-49) U/L Alkaline Phosphatase 149 H (38-126) U/L Total Protein 8.9 H (6.3-8.2) g/dL Albumin 4.6 (3.5-5.0) g/dL
--- NOTE | 2021-05-12 16:44 | P.PN ---
Subjective Progress Note Date: 05/12/21 Hospital course: Patient is a very pleasant 65-year-old male who resides at [facility] on the [facility] secondary to history of CVA resulting in left-sided hemiparesis, hypertension, hyperlipidemia, hypothyroidism, seizure disorder, and diabetes mellitus. He presented with a chief complaint of abdominal pain, nausea, and vomiting. In the emergency department patient was seen and fully evaluated. Abdominal x-rays revealing gaseous dilation of bowel throughout the abdomen with small bowel dilation measuring up to 58 mm concerning for ileus versus obstruction and chronic right hip deformity. Labs significant for leukocytosis with WBC count of 13.6 with left shift with neutrophils of 11.5. Mild acidosis with chloride of 111, bicarb 14, and normal anion gap of 17. Acute kidney injury with BUN 57, creatinine 1.65, and GFR of 43 with baseline creatinine of 1.2. An NG tube was placed and patient was admitted under our services with consultation to general surgery. Physical exam: Patient seen and fully evaluated at bedside this morning. He reports slight improvement of abdominal pain since NG tube was placed. NG tube remains to low intermittent suction with returns of dark brown gastric contents. Patient has had no further episodes of nausea or vomiting. He remains on continuous hydration with IV fluids with 0.9% normal saline at 120 mL's per hour. Patient denies having any other complaints or needs at this time. General surgery following, appreciate further recommendations. Vital signs reviewed and stable. General: Nontoxic, no distress and appears stated age. Derm: Skin warm and dry, normal coloration for ethnicity. Head: Atraumatic, normocephalic and symmetric. Eyes: EOMs intact, no lid lag, and anicteric sclera Mouth: no lip lesions, mucus membranes moist Cardiovascular: regular rate and rhythm with normal S1S2, no murmur, positive posterior tibial pulses bilaterally, and cap refill < 2 seconds. Lungs: Respirations even, regular, and unlabored on room air. Lungs CTA bilaterally, no rhonchi, no rales, no wheezing, and no accessory muscle usage. Abdominal: soft distended, tenderness to palpation left middle and lower pamela drant, no guarding, no appreciable organomegaly. NG tube to low intermittent suction with return of gastric contents. Ext: Patient bedridden secondary to chronic deformity of right hip and previous CVA resulting in left-sided paralysis. Patient has full range of motion with right upper extremity. Bilateral lower extremity edema left greater than right patient reports chronic finding since CVA. Neuro: Speech clear, face symmetrical . Slow to respond. Patient with complete left side hemiparesis Psych: Alert and oriented to person, place, time, and situation. Appropriate and pleasant affect. Slow to respond. Assessment and Plan of Care: Small bowel obstruction -Gen. surgery following -Continue NG tube to low intermittent suction. -Strict NPO until further ordered by general surgery. -Continue IV hydration with 0.9% normal saline. Acute kidney injury Hold nephrotoxic medications Continue with IV fluid hydration Monitor I's and O's Continue close monitoring with repeat a.m. labs. Seizure disorder -Seizure precautions, fall precautions, aspiration precautions. -Continue daily medication regimen with Lamictal , Topamax, phenobarbital, and Dilantin. Hypertension Monitor vital signs and continue daily medication regimen with metoprolol. Insulin-dependent Diabetes mellitus -Glycemic protocol with NovoLog sliding scale. 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 -Continue with safe and supportive care. CODE STATUS: Full code DVT prophylaxis: Heparin Discussed with: Patient and RN Anticipated discharge date: Clinical course to determine Anticipated discharge place: Return to [facility] the [place] A total of 40 minutes was spent on the care of this complex patient more than 50% of the time was spent in counseling and care coordination. Objective - Vital Signs Vital signs: Vital Signs Temp 98.4 F 05/12/21 05:31 Pulse 94 05/12/21 05:31 Resp 20 05/12/21 05:31 BP 142/74 05/12/21 05:31 Pulse Ox 96 05/12/21 05:31 Intake & Output 05/11/21 05/12/21 05/12/21 18:59 06:59 18:59 Intake Total 0 Output Total 500 Balance -500 Weight 88.451 kg 95 kg Intake: Oral 0 Output: Gastric Drainage 500 Other: # Voids 2 - Labs CBC & Chem 7: 05/11/21 17:15 05/11/21 17:15 Labs: Abnormal Lab Results - Last 24 Hours (Table) 05/11/21 05/11/21 05/12/21 Range/Units 17:15 17:15 07:26 WBC 13.6 H (3.8-10.6) k/uL Neutrophils # 11.5 H (1.3-7.7) k/uL Chloride 111 H (98-107) mmol/L Carbon Dioxide 14 L (22-30) mmol/L BUN 57 H (9-20) mg/dL Creatinine 1.65 H (0.66-1.25) mg/dL Glucose 217 H (74-99) mg/dL POC Glucose (mg/dL) 159 H (75-99) mg/dL Alkaline Phosphatase 149 H (38-126) U/L Total Protein 8.9 H (6.3-8.2) g/dL
[2021-05-12 17:11] LABS: Glucose,Whole Blood 125 mg/dL (75-99)
[2021-05-12] MEDS: TOPIRAMATE 25 MG TAB PO SCH (20:07)
[2021-05-12 20:39] LABS: Glucose,Whole Blood 115 mg/dL (75-99)
[2021-05-13 01:47] LABS: Glucose,Whole Blood 117 mg/dL (75-99)
[2021-05-13] MEDS: HEPARIN SODIUM,PORCINE/PF 5,000 UNIT/0.5 ML SYRINGE SQ SCH ×3 (01:47→15:52)
[2021-05-13] MEDS: SODIUM CHLORIDE 0.9% 1,000 ML IV SCH ×3 (01:47→12:46)
[2021-05-13] MEDS: INSULIN ASPART (NovoLOG) 100 UNIT/ML VIAL SQ SCH ×4 (01:48→17:36)
[2021-05-13] MEDS: LEVOTHYROXINE 125 MCG TAB PO SCH (05:03)
[2021-05-13 07:26] LABS: Glucose,Whole Blood 116 mg/dL (75-99)
[2021-05-13] MEDS: METOPROLOL TARTRATE 50 MG TAB PO SCH ×2 (08:13→19:51)
[2021-05-13] MEDS: lamoTRIgine 25 MG TAB PO SCH ×2 (08:13→19:51)
[2021-05-13] MEDS: TAMSULOSIN 0.4 MG CAP.ER.24H PO SCH (08:13)
[2021-05-13] MEDS: SODIUM BICARBONATE TAB 650 MG TAB PO SCH (08:13)
[2021-05-13] MEDS: PHENYTOIN SODIUM INJ 200 MG in SODIUM CHLORIDE 0.9% 36 ML IVPB SCH (08:51)
[2021-05-13 10:26] LABS: Basophils # (A) 0.1 k/uL (0-0.2); Basophils % (A) 1 %; Eosinophils # (A) 0.2 k/uL (0-0.7); Eosinophils % (A) 2 %; HCT 34.5 % (39.0-53.0); HGB 11.5 gm/dL (13.0-17.5); Lymphocytes # (A) 1.5 k/uL (1.0-4.8); Lymphocytes % (A) 17 %; MCHC 33.4 g/dL (31.0-37.0); MCV 92.9 fL (80.0-100.0); Mean Platelet Volume 7.8; Monocytes # (A) 0.4 k/uL (0-1.0); Monocytes % (A) 5 %; Neutrophils # (A) 6.5 k/uL (1.3-7.7); Neutrophils % (A) 75 %; Platelet Count 269 k/uL (150-450); Poikilocytosis Slight; RBC 3.71 m/uL (4.30-5.90); RDW 14.6 % (11.5-15.5); WBC 8.7 k/uL (3.8-10.6)
[2021-05-13 11:11] LABS: African American GFR (CKD) 63 (>60 ml/min/1.73 sqM); Anion Gap 14 mmol/L; Blood Urea Nitrogen 41 mg/dL (9-20); Calcium 8.3 mg/dL (8.4-10.2); Carbon Dioxide 13 mmol/L (22-30); Chloride 122 mmol/L (98-107); Glucose 123 mg/dL (74-99); Non-African American GFR(CKD) 54 (>60 ml/min/1.73 sqM); Potassium 3.3 mmol/L (3.5-5.1); Sodium 149 mmol/L (137-145)
[2021-05-13] MEDS ORDERED: Potassium Replacement Protocol 1 EACH MISC MISCELLANE PRN (11:34)
[2021-05-13] MEDS: IOPAMIDOL CONTRAST (ORAL USE) VIAL PO PRN ×2 (11:37→12:24)
[2021-05-13] MEDS: POTASSIUM CHLORIDE ER 20 MEQ TAB.ER PO SCH ×2 (11:42→12:24)
[2021-05-13 11:53] LABS: Glucose,Whole Blood 123 mg/dL (75-99)
--- NOTE | 2021-05-13 12:45 | P.PN ---
Subjective Progress Note Date: 05/13/21 CHIEF COMPLAINT: Ileus versus small bowel obstruction HISTORY OF PRESENT ILLNESS: Patient has NG tube in place. His NG tube output is increasing he had 900 mL out through the night dark brownish color. He denies any flatus or bowel movement. Denies any abdominal pain. Abdomen is distended. Afebrile. WBC is 8.7 hemoglobin 11.5 sodium 149 potassium is 3.3 creatinine is 1.36 magnesium 1. PHYSICAL EXAM: VITAL SIGNS: Reviewed. GENERAL: Well-developed in no acute distress. HEENT: No sclera icterus. Extraocular movements grossly intact. Moist buccal mucosa. Head is atraumatic, normocephalic. ABDOMEN: Soft. distended. Nontender NEUROLOGIC: Alert and oriented. Cranial nerves II through XII grossly intact. ASSESSMENT: 1. Ileus versus small bowel obstruction 2. Hypokalemia 3. Hypomagnesemia PLAN: -Computed tomography scan abdomen and pelvis with oral contrast ordered due to patient's high NG tube output and no bowel function. Further evaluation of possible small bowel instruction -Continue NG tube for decompression -Keep patient nothing by mouth -Continue IV fluids -Potassium and magnesium being replaced -DVT prophylaxis subcu heparin Physician Mix Chemist note has been reviewed by physician. Signing provider agrees with the documented findings, assessment, and plan of care. Objective - Vital Signs Vital signs: Vital Signs Temp 98 F 05/13/21 04:30 Pulse 97 05/13/21 08:30 Resp 20 05/13/21 08:30 BP 145/75 05/13/21 04:30 Pulse Ox 98 05/13/21 04:30 Intake & Output 05/12/21 05/13/21 05/13/21 18:59 06:59 18:59 Intake Total 0 Output Total 900 Balance -900 Intake: Oral 0 Output: Gastric Drainage 900 Other: Voiding Method Diaper Diaper Diaper Incontinent Incontinent Incontinent # Voids 3 3 - Labs CBC & Chem 7: 05/13/21 10:04 05/13/21 10:04 Labs: Abnormal Lab Results - Last 24 Hours (Table) 05/12/21 05/12/21 05/13/21 Range/Units 17:08 20:32 01:44 RBC (4.30-5.90) m/uL Hgb (13.0-17.5) gm/dL Hct (39.0-53.0) % Sodium (137-145) mmol/L Potassium (3.5-5.1) mmol/L Chloride (98-107) mmol/L Carbon Dioxide (22-30) mmol/L BUN (9-20) mg/dL Creatinine (0.66-1.25) mg/dL Glucose (74-99) mg/dL POC Glucose (mg/dL) 125 H 115 H 117 H (75-99) mg/dL Calcium (8.4-10.2) mg/dL Magnesium (1.6-2.3) mg/dL 05/13/21 05/13/21 05/13/21 Range/Units 07:24 10:04 10:04 RBC 3.71 L (4.30-5.90) m/uL Hgb 11.5 L (13.0-17.5) gm/dL Hct 34.5 L (39.0-53.0) % Sodium 149 H (137-145) mmol/L Potassium 3.3 L (3.5-5.1) mmol/L Chloride 122 H (98-107) mmol/L Carbon Dioxide 13 L (22-30) mmol/L BUN 41 H (9-20) mg/dL Creatinine 1.37 H (0.66-1.25) mg/dL Glucose 123 H (74-99) mg/dL POC Glucose (mg/dL) 116 H (75-99) mg/dL Calcium 8.3 L (8.4-10.2) mg/dL Magnesium (1.6-2.3) mg/dL 05/13/21 05/13/21 Range/Units 10:04 11:52 RBC (4.30-5.90) m/uL Hgb (13.0-17.5) gm/dL Hct (39.0-53.0) % Sodium (137-145) mmol/L Potassium (3.5-5.1) mmol/L Chloride (98-107) mmol/L Carbon Dioxide (22-30) mmol/L BUN (9-20) mg/dL Creatinine (0.66-1.25) mg/dL Glucose (74-99) mg/dL POC Glucose (mg/dL) 123 H (75-99) mg/dL Calcium (8.4-10.2) mg/dL Magnesium 1.5 L (1.6-2.3) mg/dL
[2021-05-13] MEDS ORDERED: MAGNESIUM SULFATE-D5W PMX 1 GM in DEXTROSE/WATER 1 100ML.BAG IVPB ONE (13:00)
--- NOTE | 2021-05-13 14:03 | CT ---
EXAMINATION TYPE: CT abdomen pelvis wo con DATE OF EXAM: 05/13/2021 COMPARISON: CT dated 11/30/2018 HISTORY: abdominal pain CT DLP: 1468.1 mGycm Automated exposure control for dose reduction was used. TECHNIQUE: Helical acquisition of images was performed from the lung bases through the pelvis. No IV contrast administration. FINDINGS: LUNG BASES: Bilateral basal subsegmental pulmonary atelectasis is noted more on the left side, associ ated infection can't be excluded. Minimal left pleural reaction. Coronary arterial calcifications. LIVER/GB: Stable left hepatic lobe cyst. No other definite hepatic focal lesion. Significant motion a rtifacts at the level of the gallbladder without definite radiodense calculi. No pericholecystic fat stranding. PANCREAS: No significant abnormality is seen. SPLEEN: No significant abnormality is seen. ADRENALS: No significant abnormality is seen. KIDNEYS: 15 mm left mid pole exophytic renal lesion demonstrating a density of [address], st able compared to the previous CT scan and could represent a hemorrhagic/proteinaceous cyst however so lid lesion cannot be excluded. 2 mm nonobstructing calculus at the lower pole of the left kidney. No hydroureter or hydronephrosis. FREE AIR: No free air is visualized RETROPERITONEAL ADENOPATHY: None visualized REPRODUCTIVE ORGANS: No significant abnormality is seen URINARY BLADDER: No significant abnormality is seen. PELVIC ADENOPATHY: None visualized. OSSEOUS STRUCTURES: Diffuse osteopenia. Suspected chronic left pelvic bone fracture with adjacent so ft tissue calcification/heterotopic bone formation, appreciated previously. BOWEL: NG tube with tip within the stomach. Mild wall thickening of the stomach. Suspected sequela o f previous gastrostomy. Unremarkable duodenum. Nonspecific wall thickening of the distal ileal loops as well as the right hemicolon which could be related to chronic inflammatory changes. Wall thickenin g of the rectum, please correlate clinically for proctitis. The remainder of the colon is unremarkabl e. Normal appendix. OTHER: Scattered arterial atherosclerotic calcifications with infrarenal abdominal aortic ectasia sy suring up to 2.5 cm. No sizable ascites. Left anterior abdominal wall subcutaneous fat stranding, poc kets of fluid and reactive fluid, please correlate for recent subcutaneous injections. Underlying inf ection or abscess formation cannot be excluded, please correlate clinically. Air bubbles are also see n along the right side of the anterior abdominal wall. Significant fatty infiltration and wasting of the lower back muscles, pelvic muscles and upper thigh muscles. IMPRESSION: 1. Left anterior abdominal wall subcutaneous fat stranding, reactive fluid and pockets of fluid, plea se correlate clinically for recent injections. Underlying infection or abscess formation can't be exc luded. 2. Suboptimal assessment of the gallbladder, apparently well distended without definite radiodense ca lculi or pericholecystic fluid. 3. Thickened rectal wall, please correlate for proctitis. Other incidental findings as described abov e.
--- NOTE | 2021-05-13 16:23 | P.PN ---
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 He presented with a chief complaint of abdominal pain, nausea, and vomiting. In the emergency department patient was seen and fully evaluated. Abdominal x-rays revealing gaseous dilation of bowel throughout the abdomen with small bowel dilation measuring up to 58 mm concerning for ileus versus obstruction and chronic right hip deformity. Labs significant for leukocytosis with WBC count of 13.6 with left shift with neutrophils of 11.5. Mild acidosis with chloride of 111, bicarb 14, and normal anion gap of 17. Acute kidney injury with BUN 57, creatinine 1.65, and GFR of 43 with baseline creatinine of 1.2. An NG tube was placed and patient was admitted under our services with consultation to general surgery. Physical exam: Patient seen and fully evaluated at bedside this morning. He reports further improvement of abdominal pain since NG tube was placed. NG tube remains connected to low intermittent suction and patient has had 900 mL of documented dark brown gastric output over the past 24 hours. He denies any further episodes of nausea or vomiting and denies passing any flatus or bowel movements. Morning labs reviewed. Sodium has increased to 149, normal saline infusion discontinued and patient placed on D5.45 at 100 mL's per hour. Potassium 3.3 and magnesium 1.5, replaced. General surgery following and placed order for CT abdomen and pelvis. Vital signs reviewed and stable. General: Nontoxic, no distress and appears stated age. Derm: Skin warm and dry, normal coloration for ethnicity. Head: Atraumatic, normocephalic and symmetric. Eyes: EOMs intact, no lid lag, and anicteric sclera Mouth: no lip lesions, mucus membranes moist Cardiovascular: regular rate and rhythm with normal S1S2, no murmur, positive posterior tibial pulses bilaterally, and cap refill < 2 seconds. Lungs: Respirations even, regular, and unlabored on room air. Lungs CTA bilaterally, no rhonchi, no rales, no wheezing, and no accessory muscle usage. Abdominal: soft distended, tenderness to palpation left middle and lower quadrant, no guarding, no appreciable organomegaly. NG tube to low intermittent suction with return of dark brown gastric contents. Ext: Patient bedridden secondary to chronic deformity of right hip and previous CVA resulting in left-sided paralysis. Patient has full range of motion with right upper extremity. Bilateral lower extremity edema left greater than right patient reports chronic finding since CVA. Neuro: Speech clear, face symmetrical . Slow to respond. Patient with complete left side hemiparesis Psych: Alert and oriented to person, place, time, and situation. Appropriate and pleasant affect. Slow to respond. Assessment and Plan of Care: Small bowel obstruction -Gen. surgery following and placed order for CT abdomen and pelvis -Continue NG tube to low intermittent suction for decompression. -Strict NPO until further ordered by general surgery. -Continue IV hydration with D5.45. Acute kidney injury Hold nephrotoxic medications Continue with IV fluid hydration Monitor I's and O's Continue close monitoring with repeat a.m. labs. Hypomagnesemia Hypokalemia -Replaced, we will continue to monitor with repeat a.m. labs and replace abnorma l electrolyte values as needed. Hypernatremia -Sodium has increased to 149, normal saline infusion discontinued and patient placed on D5.45 at 100 mL's per hour. Seizure disorder -Seizure precautions, fall precautions, aspiration precautions. -Continue daily medication regimen with Lamictal , Topamax, phenobarbital, and Dilantin. Hypertension Monitor vital signs and continue daily medication regimen with metoprolol. Insulin-dependent Diabetes mellitus -Glycemic protocol with NovoLog sliding scale. 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 -Continue with safe and supportive care. CODE STATUS: Full code DVT prophylaxis: Heparin Discussed with: Patient and RN Anticipated discharge date: Clinical course to determine Anticipated discharge place: Return to [facility] on [facility] A total of 40 minutes was spent on the care of this complex patient more than 50% of the time was spent in counseling and care coordination. Objective - Vital Signs Vital signs: Vital Signs Temp 98 F 05/13/21 04:30 Pulse 97 05/13/21 04:30 Resp 20 05/13/21 04:30 BP 145/75 05/13/21 04:30 Pulse Ox 98 05/13/21 04:30 Intake & Output 05/12/21 05/13/21 05/13/21 18:59 06:59 18:59 Intake Total 0 Output Total 900 Balance -900 Intake: Oral 0 Output: Gastric Drainage 900 Other: Voiding Method Diaper Diaper Incontinent Incontinent # Voids 3 3 - Labs CBC & Chem 7: 05/13/21 10:04 05/13/21 10:04 Labs: Abnormal Lab Results - Last 24 Hours (Table) 05/12/21 05/12/21 05/12/21 Range/Units 11:28 17:08 20:32 POC Glucose (mg/dL) 147 H 125 H 115 H (75-99) mg/dL 05/13/21 05/13/21 Range/Units 01:44 07:24 POC Glucose (mg/dL) 117 H 116 H (75-99) mg/dL
[2021-05-13] MEDS: DEXTROSE 5%-0.45% NACL 1,000 ML IV SCH (17:26)
[2021-05-13 17:30] LABS: Glucose,Whole Blood 120 mg/dL (75-99)
[2021-05-13] MEDS: TOPIRAMATE 25 MG TAB PO SCH (19:52)
[2021-05-13 20:16] LABS: Glucose,Whole Blood 149 mg/dL (75-99)
[2021-05-14] MEDS: PHENYTOIN SODIUM INJ 200 MG in SODIUM CHLORIDE 0.9% 36 ML IVPB SCH ×2 (01:00→09:34)
[2021-05-14] MEDS: HEPARIN SODIUM,PORCINE/PF 5,000 UNIT/0.5 ML SYRINGE SQ SCH ×3 (01:00→15:16)
[2021-05-14] MEDS: DEXTROSE 5%-0.45% NACL 1,000 ML IV SCH ×2 (01:59→10:35)
[2021-05-14 02:13] LABS: Glucose,Whole Blood 174 mg/dL (75-99)
[2021-05-14] MEDS: INSULIN ASPART (NovoLOG) 100 UNIT/ML VIAL SQ SCH ×4 (03:21→20:39)
[2021-05-14] MEDS: LEVOTHYROXINE 125 MCG TAB PO SCH (05:22)
[2021-05-14 07:30] LABS: Glucose,Whole Blood 171 mg/dL (75-99)
[2021-05-14] MEDS: SODIUM BICARBONATE TAB 650 MG TAB PO SCH (08:14)
[2021-05-14] MEDS: METOPROLOL TARTRATE 50 MG TAB PO SCH ×2 (08:14→20:40)
[2021-05-14] MEDS: lamoTRIgine 25 MG TAB PO SCH ×2 (08:14→20:40)
[2021-05-14] MEDS: TAMSULOSIN 0.4 MG CAP.ER.24H PO SCH (08:14)
[2021-05-14 08:40] LABS: HCT 32.4 % (39.6-50.0); MCH 30.6 pg (27.0-32.0); MCV 90.3 fL (80.0-97.0); Mean Platelet Volume 10.5 fL (9.5-12.2); NRBC Per 100 WBC 0 /100 WBCS (0.0-0.0); Platelet Count 290 X 10*3/uL (140-440); RBC 3.59 X 10*6/uL (4.40-5.60); RDW 14.6 % (11.5-14.5); WBC 10.68 X 10*3/uL (4.50-10.00)
[2021-05-14 08:56] LABS: ALT 9 U/L (10-49); AST 14 U/L (14-35); African American GFR (CKD) 75.9 (60.0-200.0); Albumin 3.6 g/dL (3.8-4.9); Albumin/Globulin Ratio 1.27 (1.60-3.17); Alkaline Phosphatase 90 U/L (41-126); BUN/Creat Ratio 23.93 Ratio (12.00-20.00); Calcium 8.5 mg/dL (8.7-10.3); Chloride 115 mmol/L (96-109); Globulin 2.8 g/dL (1.6-3.3); Glucose 168 mg/dL (70-110); Non-African American GFR(CKD) 65.5 (60.0-200.0); Potassium 3.1 mmol/L (3.5-5.5); Sodium 149 mmol/L (135-145); Total Bilirubin <0.15 mg/dL (0.30-1.20); Total Protein 6.4 g/dL (6.2-8.2)
[2021-05-14 11:32] LABS: Glucose,Whole Blood 219 mg/dL (75-99)
[2021-05-14] MEDS ORDERED: POTASSIUM CHLORIDE ER 20 MEQ TAB.ER PO STA (12:16)
--- NOTE | 2021-05-14 12:19 | P.PN ---
Subjective Progress Note Date: 05/14/21 CHIEF COMPLAINT: Ileus versus small bowel obstruction HISTORY OF PRESENT ILLNESS: Surgical service followed for ileus versus small bowel obstruction. Patient does report flatus. No bowel movement reported. Computed tomography scan abdomen and pelvis shows left anterior abdominal wall subcutaneous fat stranding, reactive fluid pockets of fluid correlate clinically for recent injections. Underlying infection or abscess formation can't be excluded. Suboptimal assessment of the gallbladder. Apparently distended without definite radiodense calculi or cholecystic fluid. Thickened rectal wall please correlate for proctitis. Afebrile. WBC 10.68 hemoglobin 11 sodium 149 potassium 3.1 creatinine 1.2 magnesium 2.0 PHYSICAL EXAM: VITAL SIGNS: Reviewed. GENERAL: Well-developed in no acute distress. HEENT: No sclera icterus. Extraocular movements grossly intact. Moist buccal mucosa. Head is atraumatic, normocephalic. ABDOMEN: Soft. distended. Nontender NEUROLOGIC: Alert and oriented. Cranial nerves II through XII grossly intact. ASSESSMENT: 1. Ileus versus small bowel obstruction. Improved. No further evidence of ileus or bowel obstruction noted on CAT scan 2. Hypokalemia 3. Hypomagnesemia improved 4. Thickened rectal wall with possible proctitis PLAN: -Discontinue NG tube -Start clear liquid diet -Replace potassium -Continue to monitor -Hypernatremia management per medicine service -DVT prophylaxis subcu heparin Physician Research Professional note has been reviewed by physician. Signing provider agrees with the documented findings, assessment, and plan of care. Objective - Vital Signs Vital signs: Vital Signs Temp 98.0 F 05/14/21 04:27 Pulse 99 05/14/21 08:15 Resp 18 05/14/21 04:27 BP 168/81 05/14/21 08:15 Pulse Ox 98 05/14/21 04:27 Intake & Output 05/13/21 05/14/21 05/14/21 18:59 06:59 18:59 Intake Total 240 1200 Output Total 400 350 Balance -160 850 Intake: Intake, IV Titration 1200 Amount Dextrose 5%-0.45% NaCl 1, 1200 000 ml @ 100 mls/hr IV . Q10H [facility] Rx#:[id number] Oral 240 Output: Gastric Drainage 400 350 Other: Voiding Method Diaper Diaper Incontinent Incontinent # Voids 4 - Labs CBC & Chem 7: 05/14/21 06:10 05/14/21 06:10 Labs: Abnormal Lab Results - Last 24 Hours (Table) 05/13/21 05/13/21 05/14/21 Range/Units 17:29 20:15 02:10 WBC (4.50-10.00) X 10*3/uL RBC (4.40-5.60) X 10*6/uL Hgb (13.0-17.0) g/dL Hct (39.6-50.0) % RDW (11.5-14.5) % Sodium (135-145) mmol/L Potassium (3.5-5.5) mmol/L Chloride (96-109) mmol/L Carbon Dioxide (20.0-27.5) mmol/L BUN (9.0-27.0) mg/dL BUN/Creatinine Ratio (12.00-20.00) Ratio Glucose (70-110) mg/dL POC Glucose (mg/dL) 120 H 149 H 174 H (75-99) mg/dL Calcium (8.7-10.3) mg/dL Total Bilirubin (0.30-1.20) mg/dL ALT (10-49) U/L Albumin (3.8-4.9) g/dL Albumin/Globulin Ratio (1.60-3.17) g/dL 05/14/21 05/14/21 05/14/21 Range/Units 06:10 06:10 07:23 WBC 10.68 H (4.50-10.00) X 10*3/uL RBC 3.59 L (4.40-5.60) X 10*6/uL Hgb 11.0 L (13.0-17.0) g/dL Hct 32.4 L (39.6-50.0) % RDW 14.6 H (11.5-14.5) % Sodium 149 H (135-145) mmol/L Potassium 3.1 L (3.5-5.5) mmol/L Chloride 115 H (96-109) mmol/L Carbon Dioxide 18.0 L (20.0-27.5) mmol/L BUN 28.0 H (9.0-27.0) mg/dL BUN/Creatinine Ratio 23.93 H (12.00-20.00) Ratio Glucose 168 H (70-110) mg/dL POC Glucose (mg/dL) 171 H (75-99) mg/dL Calcium 8.5 L (8.7-10.3) mg/dL Total Bilirubin <0.15 L (0.30-1.20) mg/dL ALT 9 L (10-49) U/L Albumin 3.6 L (3.8-4.9) g/dL Albumin/Globulin Ratio 1.27 L (1.60-3.17) g/dL 05/14/21 Range/Units 11:25 WBC (4.50-10.00) X 10*3/uL RBC (4.40-5.60) X 10*6/uL Hgb (13.0-17.0) g/dL Hct (39.6-50.0) % RDW (11.5-14.5) % Sodium (135-145) mmol/L Potassium (3.5-5.5) mmol/L Chloride (96-109) mmol/L Carbon Dioxide (20.0-27.5) mmol/L BUN (9.0-27.0) mg/dL BUN/Creatinine Ratio (12.00-20.00) Ratio Glucose (70-110) mg/dL POC Glucose (mg/dL) 219 H (75-99) mg/dL Calcium (8.7-10.3) mg/dL Total Bilirubin (0.30-1.20) mg/dL ALT (10-49) U/L Albumin (3.8-4.9) g/dL Albumin/Globulin Ratio (1.60-3.17) g/dL
[2021-05-14] MEDS ORDERED: POTASSIUM CHLORIDE ER 20 MEQ TAB.ER PO SCH (13:00)
[2021-05-14] MEDS ORDERED: DEXTROSE 5% IN WATER 1,000 ML IV ONE (13:49)
[2021-05-14 17:33] LABS: Glucose,Whole Blood 172 mg/dL (75-99)
--- NOTE | 2021-05-14 17:58 | P.PN ---
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 He presented with a chief complaint of abdominal pain, nausea, and vomiting. In the emergency department patient was seen and fully evaluated. Abdominal x-rays revealing gaseous dilation of bowel throughout the abdomen with small bowel dilation measuring up to 58 mm concerning for ileus versus obstruction and chronic right hip deformity. Labs significant for leukocytosis with WBC count of 13.6 with left shift with neutrophils of 11.5. Mild acidosis with chloride of 111, bicarb 14, and normal anion gap of 17. Acute kidney injury with BUN 57, creatinine 1.65, and GFR of 43 with baseline creatinine of 1.2. An NG tube was placed and patient was admitted under our services with consultation to general surgery. Physical exam: Patient seen and fully evaluated at bedside this morning. NG tube has just been removed and patient tolerating clear liquids. He denies any further abdominal pain or episodes of nausea or vomiting he reports passing flatus but denies having any bowel movements. Abdominal CT completed yesterday evening showing no further evidence of ileus or small bowel obstruction revealing left anterior abdominal wall subcutaneous fat stranding, thickened rectal wall possibly secondary to proctitis. Vital signs reviewed and stable. General: Nontoxic, no distress and appears stated age. Derm: Skin warm and dry, normal coloration for ethnicity. Head: Atraumatic, normocephalic and symmetric. Eyes: EOMs intact, no lid lag, and anicteric sclera Mouth: no lip lesions, mucus membranes moist Cardiovascular: regular rate and rhythm with normal S1S2, no murmur, positive posterior tibial pulses bilaterally, and cap refill < 2 seconds. Lungs: Respirations even, regular, and unlabored on room air. Lungs CTA bilaterally, no rhonchi, no rales, no wheezing, and no accessory muscle usage. Abdominal: soft distended, tenderness to palpation left middle and lower quadrant, no guarding, no appreciable organomegaly. NG tube to low intermittent suction with return of dark brown gastric contents. Ext: Patient bedridden secondary to chronic deformity of right hip and previous CVA resulting in left-sided paralysis. Patient has full range of motion with right upper extremity. Bilateral lower extremity edema left greater than right patient reports chronic finding since CVA. Neuro: Speech clear, face symmetrical . Slow to respond. Patient with complete left side hemiparesis Psych: Alert and oriented to person, place, time, and situation. Appropriate and pleasant affect. Slow to respond. Assessment and Plan of Care: Ileus versus Small bowel obstruction, improved after placement of NG tube and hydration with IV fluids -Gen. surgery following, no plans for surgical intervention at this time -NG tube discontinued -Clear liquid diet advance as patient tolerates and per recommended by general surgery -Continue IV hydration with D5W at 50 mL's per hour Acute kidney injury, improving Hold nephrotoxic medications Continue with IV fluid hydration Monitor I's and O's Continue close monitoring with repeat a.m. labs. Hypomagnesemia, resolved Hypokalemia -Replaced, we will continue to monitor with repeat a.m. labs and replace abnormal electrolyte values as needed. Hypernatremia -Sodium 149, patient started on D5W at 50 mL's per hour. Will continue to monitor with repeat labs. Seizure disorder -Seizure precautions, fall precautions, aspiration precautions. -Continue daily medication regimen with Lamictal , Topamax, phenobarbital, and Dilantin. Hypertension Monitor vital signs and continue daily medication regimen with metoprolol. Insulin-dependent Diabetes mellitus -Glycemic protocol with NovoLog sliding scale. 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 -Continue with safe and supportive care. CODE STATUS: Full code DVT prophylaxis: Heparin Discussed with: Patient and RN Anticipated discharge date: Clinical course to determine Anticipated discharge place: Return to [facility] on the [place] A total of 35 minutes was spent on the care of this complex patient more than 50% of the time was spent in counseling and care coordination. Objective - Vital Signs Vital signs: Vital Signs Temp 98.0 F 05/14/21 04:27 Pulse 102 H 05/14/21 04:27 Resp 18 05/14/21 04:27 BP 153/76 05/14/21 04:27 Pulse Ox 98 05/14/21 04:27 Intake & Output 05/13/21 05/14/21 05/14/21 18:59 06:59 18:59 Intake Total 240 1200 Output Total 400 350 Balance -160 850 Intake: Intake, IV Titration 1200 Amount Dextrose 5%-0.45% NaCl 1, 1200 000 ml @ 100 mls/hr IV . Q10H [facility] Rx#:[id number] Oral 240 Output: Gastric Drainage 400 350 Other: Voiding Method Diaper Diaper Incontinent Incontinent # Voids 4 - Labs CBC & Chem 7: 05/14/21 06:10 05/14/21 06:10 Labs: Abnormal Lab Results - Last 24 Hours (Table) 05/13/21 05/13/21 05/13/21 Range/Units 10:04 10:04 10:04 RBC 3.71 L (4.30-5.90) m/uL Hgb 11.5 L (13.0-17.5) gm/dL Hct 34.5 L (39.0-53.0) % Sodium 149 H (137-145) mmol/L Potassium 3.3 L (3.5-5.1) mmol/L Chloride 122 H (98-107) mmol/L Carbon Dioxide 13 L (22-30) mmol/L BUN 41 H (9-20) mg/dL Creatinine 1.37 H (0.66-1.25) mg/dL Glucose 123 H (74-99) mg/dL POC Glucose (mg/dL) (75-99) mg/dL Calcium 8.3 L (8.4-10.2) mg/dL Magnesium 1.5 L (1.6-2.3) mg/dL 05/13/21 05/13/21 05/13/21 Range/Units 11:52 17:29 20:15 RBC (4.30-5.90) m/uL Hgb (13.0-17.5) gm/dL Hct (39.0-53.0) % Sodium (137-145) mmol/L Potassium (3.5-5.1) mmol/L Chloride (98-107) mmol/L Carbon Dioxide (22-30) mmol/L BUN (9-20) mg/dL Creatinine (0.66-1.25) mg/dL Glucose (74-99) mg/dL POC Glucose (mg/dL) 123 H 120 H 149 H (75-99) mg/dL Calcium (8.4-10.2) mg/dL Magnesium (1.6-2.3) mg/dL 05/14/21 05/14/21 Range/Units 02:10 07:23 RBC (4.30-5.90) m/uL Hgb (13.0-17.5) gm/dL Hct (39.0-53.0) % Sodium (137-145) mmol/L Potassium (3.5-5.1) mmol/L Chloride (98-107) mmol/L Carbon Dioxide (22-30) mmol/L BUN (9-20) mg/dL Creatinine (0.66-1.25) mg/dL Glucose (74-99) mg/dL POC Glucose (mg/dL) 174 H 171 H (75-99) mg/dL Calcium (8.4-10.2) mg/dL Magnesium (1.6-2.3) mg/dL
[2021-05-14 20:10] LABS: Glucose,Whole Blood 205 mg/dL (75-99)
[2021-05-14] MEDS: TOPIRAMATE 25 MG TAB PO SCH (20:40)
[2021-05-14] MEDS: PHENYTOIN SODIUM EXTENDED 100 MG CAP PO SCH (21:14)
[2021-05-15] MEDS: HEPARIN SODIUM,PORCINE/PF 5,000 UNIT/0.5 ML SYRINGE SQ SCH ×4 (00:08→23:19)
[2021-05-15 02:22] LABS: Glucose,Whole Blood 182 mg/dL (75-99)
[2021-05-15] MEDS: INSULIN ASPART (NovoLOG) 100 UNIT/ML VIAL SQ SCH ×6 (05:04→21:12)
[2021-05-15] MEDS: LEVOTHYROXINE 125 MCG TAB PO SCH (05:05)
[2021-05-15 05:18] LABS: Glucose,Whole Blood 201 mg/dL (75-99)
[2021-05-15 09:34] LABS: HCT 30.8 % (39.6-50.0); HGB 10.4 g/dL (13.0-17.0); MCH 30.1 pg (27.0-32.0); MCHC 33.8 g/dL (32.0-37.0); MCV 89.3 fL (80.0-97.0); Mean Platelet Volume 10.7 fL (9.5-12.2); NRBC Per 100 WBC 0 /100 WBCS (0.0-0.0); Platelet Count 268 X 10*3/uL (140-440); RBC 3.45 X 10*6/uL (4.40-5.60); RDW 14.5 % (11.5-14.5); WBC 9.35 X 10*3/uL (4.50-10.00)
[2021-05-15] MEDS: SODIUM BICARBONATE TAB 650 MG TAB PO SCH (09:43)
[2021-05-15] MEDS: TAMSULOSIN 0.4 MG CAP.ER.24H PO SCH (09:43)
[2021-05-15] MEDS: PHENYTOIN SODIUM EXTENDED 100 MG CAP PO SCH ×2 (09:43→21:13)
[2021-05-15] MEDS: lamoTRIgine 25 MG TAB PO SCH ×2 (09:44→21:12)
[2021-05-15] MEDS: METOPROLOL TARTRATE 50 MG TAB PO SCH ×2 (09:44→21:12)
[2021-05-15 10:05] LABS: ALT 10 U/L (10-49); AST 13 U/L (14-35); African American GFR (CKD) 77.5 (60.0-200.0); Albumin 3.2 g/dL (3.8-4.9); Albumin/Globulin Ratio 1.24 (1.60-3.17); Alkaline Phosphatase 84 U/L (41-126); BUN/Creat Ratio 16.09 Ratio (12.00-20.00); Blood Urea Nitrogen 18.5 mg/dL (9.0-27.0); Carbon Dioxide 17.9 mmol/L (20.0-27.5); Chloride 108 mmol/L (96-109); Globulin 2.6 g/dL (1.6-3.3); Glucose 194 mg/dL (70-110); Magnesium 1.8 mg/dL (1.5-2.4); Non-African American GFR(CKD) 66.9 (60.0-200.0); Sodium 141 mmol/L (135-145); Total Bilirubin <0.15 mg/dL (0.30-1.20); Total Protein 5.9 g/dL (6.2-8.2)
[2021-05-15 11:43] LABS: Glucose,Whole Blood 210 mg/dL (75-99)
--- NOTE | 2021-05-15 11:55 | P.PN ---
Subjective Progress Note Date: 05/15/21 CHIEF COMPLAINT: Ileus versus small bowel obstruction HISTORY OF PRESENT ILLNESS: Surgical service followed for ileus versus small bowel obstruction. Patient is having flatus and did have a bowel movement with liquidy stool. Denies any nausea or vomiting. Denies any abdominal pain. Tolerating clear liquids. Afebrile. WBC normalized at [age]-year-old woman 10.4 sodium 141 potassium is 3.0 creatinine 1.2 magnesium 1.8 PHYSICAL EXAM: VITAL SIGNS: Reviewed. GENERAL: Well-developed in no acute distress. HEENT: No sclera icterus. Extraocular movements grossly intact. Moist buccal mucosa. Head is atraumatic, normocephalic. ABDOMEN: Soft. distended. Nontender NEUROLOGIC: Alert and oriented. Cranial nerves II through XII grossly intact. ASSESSMENT: 1. Ileus versus small bowel obstruction. Improved with conservative management. No further evidence of ileus or bowel obstruction noted on CAT scan 2. Hypokalemia 3. Hypomagnesemia improved 4. Thickened rectal wall with possible proctitis 5. Hypernatremia resolved PLAN: -Patient can be discharged from surgical standpoint when medically stable -Advance to full liquids -Continue to correct potassium Physician Lasting Room Machine Operator note has been reviewed by physician. Signing provider agrees with the documented findings, assessment, and plan of care. Objective - Vital Signs Vital signs: Vital Signs Temp 97.5 F L 05/15/21 03:28 Pulse 92 05/15/21 03:28 Resp 20 05/15/21 03:28 BP 103/66 05/15/21 03:28 Pulse Ox 98 05/15/21 03:28 Intake & Output 05/14/21 05/15/21 05/15/21 18:59 06:59 18:59 Other: Voiding Method Diaper Diaper Diaper Incontinent Incontinent Incontinent # Voids 4 2 # Bowel Movements 2 - Labs CBC & Chem 7: 05/15/21 06:15 05/15/21 06:15 Labs: Abnormal Lab Results - Last 24 Hours (Table) 05/14/21 05/14/21 05/15/21 Range/Units 17:30 20:09 02:18 RBC (4.40-5.60) X 10*6/uL Hgb (13.0-17.0) g/dL Hct (39.6-50.0) % Potassium (3.5-5.5) mmol/L Carbon Dioxide (20.0-27.5) mmol/L Glucose (70-110) mg/dL POC Glucose (mg/dL) 172 H 205 H 182 H (75-99) mg/dL Calcium (8.7-10.3) mg/dL Total Bilirubin (0.30-1.20) mg/dL AST (14-35) U/L Total Protein (6.2-8.2) g/dL Albumin (3.8-4.9) g/dL Albumin/Globulin Ratio (1.60-3.17) g/dL 05/15/21 05/15/21 05/15/21 Range/Units 05:16 06:15 06:15 RBC 3.45 L (4.40-5.60) X 10*6/uL Hgb 10.4 L (13.0-17.0) g/dL Hct 30.8 L (39.6-50.0) % Potassium 3.0 L (3.5-5.5) mmol/L Carbon Dioxide 17.9 L (20.0-27.5) mmol/L Glucose 194 H (70-110) mg/dL POC Glucose (mg/dL) 201 H (75-99) mg/dL Calcium 8.0 L (8.7-10.3) mg/dL Total Bilirubin <0.15 L (0.30-1.20) mg/dL AST 13 L (14-35) U/L Total Protein 5.9 L (6.2-8.2) g/dL Albumin 3.2 L (3.8-4.9) g/dL Albumin/Globulin Ratio 1.24 L (1.60-3.17) g/dL 05/15/21 Range/Units 11:41 RBC (4.40-5.60) X 10*6/uL Hgb (13.0-17.0) g/dL Hct (39.6-50.0) % Potassium (3.5-5.5) mmol/L Carbon Dioxide (20.0-27.5) mmol/L Glucose (70-110) mg/dL POC Glucose (mg/dL) 210 H (75-99) mg/dL Calcium (8.7-10.3) mg/dL Total Bilirubin (0.30-1.20) mg/dL AST (14-35) U/L Total Protein (6.2-8.2) g/dL Albumin (3.8-4.9) g/dL Albumin/Globulin Ratio (1.60-3.17) g/dL
[2021-05-15 12:17] VITALS: BMI 32.8
[2021-05-15] MEDS ORDERED: POTASSIUM CHLORIDE ER 20 MEQ TAB.ER PO STA (12:52)
--- NOTE | 2021-05-15 12:54 | P.PN ---
Subjective Progress Note Date: 05/15/21 Principal diagnosis: SBO Feeling better, tolerating full liquid diet today. No abdominal pain, no fevers or chills. No nausea or vomiting. Objective - Vital Signs Vital signs: Vital Signs Temp 97.7 F 05/15/21 11:20 Pulse 85 05/15/21 11:20 Resp 18 05/15/21 11:20 BP 114/70 05/15/21 11:20 Pulse Ox 98 05/15/21 11:20 Intake & Output 05/14/21 05/15/21 05/15/21 18:59 06:59 18:59 Weight 95 kg Other: Voiding Method Diaper Diaper Diaper Incontinent Incontinent Incontinent # Voids 4 2 # Bowel Movements 2 - Exam General: Nontoxic, no distress and appears stated age. Derm: Skin warm and dry, normal coloration for ethnicity. Head: Atraumatic, normocephalic and symmetric. Eyes: EOMs intact, no lid lag, and anicteric sclera Mouth: no lip lesions, mucus membranes moist Cardiovascular: regular rate and rhythm with normal S1S2, no murmur, positive posterior tibial pulses bilaterally, and cap refill < 2 seconds. Lungs: Respirations even, regular, and unlabored on room air. Lungs CTA bilaterally, no rhonchi, no rales, no wheezing, and no accessory muscle usage. Abdominal: soft distended, tenderness to palpation left middle and lower quadrant, no guarding, no appreciable organomegaly. NG tube to low intermittent suction with return of dark brown gastric contents. Ext: Patient bedridden secondary to chronic deformity of right hip and previous CVA resulting in left-sided paralysis. Patient has full range of motion with right upper extremity. Bilateral lower extremity edema left greater than right patient reports chronic finding since CVA. Neuro: Speech clear, face symmetrical . Slow to respond. Patient with complete left side hemiparesis Psych: Alert and oriented to person, place, time, and situation. Appropriate and pleasant affect. Slow to respond. - Labs CBC & Chem 7: 05/15/21 06:15 05/15/21 06:15 Labs: Abnormal Lab Results - Last 24 Hours (Table) 05/14/21 05/14/21 05/15/21 Range/Units 17:30 20:09 02:18 RBC (4.40-5.60) X 10*6/uL Hgb (13.0-17.0) g/dL Hct (39.6-50.0) % Potassium (3.5-5.5) mmol/L Carbon Dioxide (20.0-27.5) mmol/L Glucose (70-110) mg/dL POC Glucose (mg/dL) 172 H 205 H 182 H (75-99) mg/dL Calcium (8.7-10.3) mg/dL Total Bilirubin (0.30-1.20) mg/dL AST (14-35) U/L Total Protein (6.2-8.2) g/dL Albumin (3.8-4.9) g/dL Albumin/Globulin Ratio (1.60-3.17) g/dL 05/15/21 05/15/21 05/15/21 Range/Units 05:16 06:15 06:15 RBC 3.45 L (4.40-5.60) X 10*6/uL Hgb 10.4 L (13.0-17.0) g/dL Hct 30.8 L (39.6-50.0) % Potassium 3.0 L (3.5-5.5) mmol/L Carbon Dioxide 17.9 L (20.0-27.5) mmol/L Glucose 194 H (70-110) mg/dL POC Glucose (mg/dL) 201 H (75-99) mg/dL Calcium 8.0 L (8.7-10.3) mg/dL Total Bilirubin <0.15 L (0.30-1.20) mg/dL AST 13 L (14-35) U/L Total Protein 5.9 L (6.2-8.2) g/dL Albumin 3.2 L (3.8-4.9) g/dL Albumin/Globulin Ratio 1.24 L (1.60-3.17) g/dL 05/15/21 Range/Units 11:41 RBC (4.40-5.60) X 10*6/uL Hgb (13.0-17.0) g/dL Hct (39.6-50.0) % Potassium (3.5-5.5) mmol/L Carbon Dioxide (20.0-27.5) mmol/L Glucose (70-110) mg/dL POC Glucose (mg/dL) 210 H (75-99) mg/dL Calcium (8.7-10.3) mg/dL Total Bilirubin (0.30-1.20) mg/dL AST (14-35) U/L Total Protein (6.2-8.2) g/dL Albumin (3.8-4.9) g/dL Albumin/Globulin Ratio (1.60-3.17) g/dL Assessment and Plan Plan: Ileus versus Small bowel obstruction, improved after placement of NG tube and hydration with IV fluids -Gen. surgery following, no plans for surgical intervention at this time -NG tube discontinued, now advanced to full liquid diet, tolerating. D/w surgery. -Continue IV hydration with D5W at 50 mL's per hour Acute kidney injury Resolved. -Hold nephrotoxic medications Continue with IV fluid hydration Monitor I's and O's Continue close monitoring with repeat a.m. labs. Hypomagnesemia, resolved Hypokalemia -Replace, continue to monitor with repeat a.m. labs Hypernatremia -Sodium was 149, resolved. continue D5W at 50 mL's per hour. Will continue to monitor with repeat labs. Seizure disorder -Seizure precautions, fall precautions, aspiration precautions. -Continue daily medication regimen with Lamictal , Topamax, phenobarbital, and Dilantin. Hypertension Monitor vital signs and continue daily medication regimen with metoprolol. Insulin-dependent Diabetes mellitus -Glycemic protocol with NovoLog sliding scale. 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 -Continue with safe and supportive care. CODE STATUS: Full code DVT prophylaxis: Heparin Discussed with: Patient and RN Anticipated discharge date: in am Anticipated discharge place: Return to [facility] A total of 35 minutes was spent on the care of this complex patient more than 50% of the time was spent in counseling and care coordination.
[2021-05-15] MEDS: POTASSIUM CHLORIDE ER 20 MEQ TAB.ER PO SCH ×5 (13:10→23:19)
[2021-05-15 17:32] LABS: Glucose,Whole Blood 228 mg/dL (75-99)
[2021-05-15 20:55] LABS: Glucose,Whole Blood 230 mg/dL (75-99)
[2021-05-15] MEDS: TOPIRAMATE 25 MG TAB PO SCH (21:13)
[2021-05-15] MEDS ORDERED: Potassium Replacement Protocol 1 EACH MISC MISCELLANE PRN (22:20)
[2021-05-16] MEDS: POTASSIUM CHLORIDE ER 20 MEQ TAB.ER PO SCH (00:46)
[2021-05-16] MEDS: LEVOTHYROXINE 125 MCG TAB PO SCH (06:03)
[2021-05-16 07:50] LABS: Glucose,Whole Blood 183 mg/dL (75-99)
[2021-05-16] MEDS: METOPROLOL TARTRATE 50 MG TAB PO SCH (08:30)
[2021-05-16] MEDS: lamoTRIgine 25 MG TAB PO SCH (08:30)
[2021-05-16] MEDS: TAMSULOSIN 0.4 MG CAP.ER.24H PO SCH (08:31)
[2021-05-16] MEDS: PHENYTOIN SODIUM EXTENDED 100 MG CAP PO SCH (08:31)
[2021-05-16] MEDS: SODIUM BICARBONATE TAB 650 MG TAB PO SCH (08:31)
--- NOTE | 2021-05-16 10:17 | P.PN ---
Subjective Progress Note Date: 05/16/21 Principal diagnosis: ileus Patient without complaints. Denies abdominal pain. Says he is tolerating his full liquid diet. No nausea or vomiting. He has been moving his bowels. Says his last colonoscopy was a few years ago at [facility]. Objective - Vital Signs Vital signs: Vital Signs Temp 98.5 F 05/16/21 07:11 Pulse 97 05/16/21 08:45 Resp 16 05/16/21 08:45 BP 118/68 05/16/21 07:11 Pulse Ox 92 L 05/16/21 07:11 Intake & Output 05/15/21 05/16/21 05/16/21 18:59 06:59 18:59 Intake Total 590 Output Total 1 Balance 589 Weight 95 kg Intake: Oral 590 Output: Stool 1 Other: Voiding Method Diaper Diaper Diaper Incontinent Incontinent Incontinent # Voids 3 2 - Exam Abdomen: Soft, nontender, nondistended - Labs CBC & Chem 7: 05/15/21 06:15 05/15/21 21:30 Labs: Abnormal Lab Results - Last 24 Hours (Table) 05/15/21 05/15/21 05/15/21 Range/Units 11:41 16:08 17:31 Potassium 3.1 L (3.5-5.1) mmol/L POC Glucose (mg/dL) 210 H 228 H (75-99) mg/dL 05/15/21 05/15/21 05/16/21 Range/Units 20:54 21:30 07:45 Potassium 3.4 L (3.5-5.1) mmol/L POC Glucose (mg/dL) 230 H 183 H (75-99) mg/dL Assessment and Plan (1) Ileus Narrative/Plan: 65-year-old male with ileus. Patient with mild proctitis on CAT scan. Continue advancing diet as tolerated. Recommend outpatient evaluation for possible colonoscopy if one has not been performed recently. Patient unsure when his last one was with a lot of was within the last few years. No surgical plans at this point. We'll sign off. Please reconsult if any new issues arise. Current Visit: Yes Status: Acute Code(s): K56.7 - ILEUS, UNSPECIFIED SNOMED Code(s): 858900933
[2021-05-16] MEDS: HEPARIN SODIUM,PORCINE/PF 5,000 UNIT/0.5 ML SYRINGE SQ SCH (10:21)
[2021-05-16] MEDS: INSULIN ASPART (NovoLOG) 100 UNIT/ML VIAL SQ SCH ×2 (10:21→13:31)
[2021-05-16 11:21] LABS: Basophils # (A) 0.07 X 10*3/uL (0.00-0.10); Basophils % (A) 0.8 %; Eosinophils # (A) 0.53 X 10*3/uL (0.04-0.35); Eosinophils % (A) 6.2 %; HCT 30.6 % (39.6-50.0); HGB 10.3 g/dL (13.0-17.0); Immature Grans, Automated 0.7 %; Lymphocytes # (A) 1.63 X 10*3/uL (0.90-5.00); Lymphocytes % (A) 19.2 %; MCHC 33.7 g/dL (32.0-37.0); MCV 89.2 fL (80.0-97.0); Mean Platelet Volume 10.9 fL (9.5-12.2); Monocytes # (A) 0.77 X 10*3/uL (0.20-1.00); Monocytes % (A) 9.1 %; NRBC Per 100 WBC 0 /100 WBCS (0.0-0.0); Neutrophils # (A) 5.44 X 10*3/uL (1.80-7.70); Platelet Count 277 X 10*3/uL (140-440); RBC 3.43 X 10*6/uL (4.40-5.60); RDW 14.6 % (11.5-14.5)
[2021-05-16 11:37] LABS: Magnesium 1.9 mg/dL (1.5-2.4)
[2021-05-16 11:49] LABS: African American GFR (CKD) 81.8 (60.0-200.0); Anion Gap 10.3 mmol/L (10.00-18.00); BUN/Creat Ratio 15.55 Ratio (12.00-20.00); Blood Urea Nitrogen 17.1 mg/dL (9.0-27.0); Calcium 8.3 mg/dL (8.7-10.3); Carbon Dioxide 18.7 mmol/L (20.0-27.5); Non-African American GFR(CKD) 70.6 (60.0-200.0); Potassium 4.8 mmol/L (3.5-5.5)
[2021-05-16 12:13] LABS: Glucose,Whole Blood 229 mg/dL (75-99)
[2021-05-16 12:33] VITALS: BP 124/67; PULSE 74; RESP 17; TEMP 97.5
--- NOTE | 2021-05-16 12:56 | P.DS ---
Providers Date of admission: 05/11/21 18:05 Expected date of discharge: 05/16/21 Attending physician: Js Ga MD Consults: 05/11/21 18:12 Consult Physician Routine Consulting Provider: Sravan Camarillo Consult Reason/Comments: ileus Do you want consulting provider notified?: Yes Primary care physician: Stated None Hospital Course: 65-year-old male with multiple comorbidities, history of CVA, seizures, hypothyroid, diabetes mellitus, hypertension presented from the half-way with abdominal pain and vomiting. No report of bloody vomiting. While in the ED he had few other episodes of vomiting, x-rays were done and showed possible bowel obstruction. He was admitted for surgery evaluation. Patient will be initiated on NG tube connected to intermittent low wall suctioning Again patient unable to provide any meaningful history Blood work showed leukocytosis and acute kidney injury on CKD, NG tube was inserted and he was admitted for further evaluation by surgery. He was started on IV fluids and kept NPO. He had CT abdomen and pelvis which showed mild proctitis, was seen by surgery, was diagnosed with Ileus versus Small bowel obstruction, which improved after placement of NG tube and hydration with IV fluids. No surgical intervention was performed. He started having flatus and bowel movements. Then he was started on diet which was gradually advanced. He tolerated it well. Renal function improved. K and mg were replaced. Na which was initially 149 improved with fluids. Today he was cleared by surgery. He will discharged back the SD in a stable condition. Surgery recommended outpatient evaluation for possible colonoscopy. Patient Condition at Discharge: Fair Plan - Discharge Summary New Discharge Prescriptions: Continue Phenytoin Sodium Extended [Dilantin] 200 mg PO BID@0900,1700 Metoprolol Tartrate [Lopressor] 50 mg PO BID@0600,1700 lamoTRIgine [LaMICtal] 50 mg PO BID@0900,1700 Gemfibrozil [Lopid] 600 mg PO BID@0900,1700 Liraglutide [Victoza 3-Felice] 1.2 mg PO DAILY@0600 Topiramate [Topamax] 50 mg PO HS@1700 Niacin 500 mg PO HS@1700 Levothyroxine Sodium [Synthroid] 125 mcg PO DAILY@0600 Insulin Glargine,Hum.rec.anlog [[place]ardenia[place]llouie Vasquez U-100] See Protocol SQ HS@2100 Atorvastatin [Lipitor] 20 mg PO HS@1800 Heparin Sodium,Porcine [Heparin Sodium] 5,000 unit SQ TID@0600,1400,2200 Aspirin [[place] Aspirin EC] 81 mg PO DAILY@0900 Sodium Bicarbonate Tab 650 mg PO DAILY@0900 PHENobarbitaL [PHENobarbital] 64.8 mg PO DAILY@1400 Loperamide [Imodium] 2 - 4 mg PO BID PRN PRN Reason: Diarrhea INSULIN ASPART (NovoLOG) [NovoLOG (formulary)] See Protocol SQ BID Acetaminophen Tab [Tylenol] 650 mg PO Q4H PRN PRN Reason: GENERAL DISCOMFORT icosapent ethyL [Icosapent Ethyl] 2 gm PO BID@0900,1700 Cholecalciferol [Vitamin D3 (25 Mcg = 1000 Iu)] 50 mcg PO DAILY@0900 Tamsulosin HCl [Flomax] 0.4 mg PO DAILY@0900 Ferrous Sulfate [Iron (65 MG Elemental)] 325 mg PO DAILY@0900 Discontinued Loratadine [Claritin] 10 mg PO DAILY PRN PRN Reason: SEASONAL ALLERGIES Discharge Medication List Atorvastatin [Lipitor] 20 mg PO HS@1800 06/03/18 [History] Gemfibrozil [Lopid] 600 mg PO BID@0900,1700 06/03/18 [History] Insulin Glargine,Hum.rec.anlog [Basaglar Martinikpen U-100] See Protocol SQ HS@2100 06/03/18 [History] Levothyroxine Sodium [Synthroid] 125 mcg PO DAILY@0600 06/03/18 [History] Liraglutide [Victoza 3-Felice] 1.2 mg PO DAILY@0600 06/03/18 [History] Metoprolol Tartrate [Lopressor] 50 mg PO BID@0600,1700 06/03/18 [History] Niacin 500 mg PO HS@1700 06/03/18 [History] Phenytoin Sodium Extended [Dilantin] 200 mg PO BID@0900,1700 06/03/18 [History] Topiramate [Topamax] 50 mg PO HS@1700 06/03/18 [History] lamoTRIgine [LaMICtal] 50 mg PO BID@0900,1700 06/03/18 [History] Aspirin [[place] Aspirin EC] 81 mg PO DAILY@0900 11/03/19 [History] Heparin Sodium,Porcine [Heparin Sodium] 5,000 unit SQ TID@0600,1400,2200 01/07/19 [History] PHENobarbitaL [PHENobarbital] 64.8 mg PO DAILY@1400 01/24/19 [History] Sodium Bicarbonate Tab 650 mg PO DAILY@0900 01/24/19 [History] Acetaminophen Tab [Tylenol] 650 mg PO Q4H PRN 05/11/21 [History] Cholecalciferol [Vitamin D3 (25 Mcg = 1000 Iu)] 50 mcg PO DAILY@0900 05/11/21 [History] Ferrous Sulfate [Iron (65 MG Elemental)] 325 mg PO DAILY@0905/11/21 [History] INSULIN ASPART (NovoLOG) [NovoLOG (formulary)] See Protocol SQ BID 05/11/21 [History] Loperamide [Imodium] 2 - 4 mg PO BID PRN 05/11/21 [History] Tamsulosin HCl [Flomax] 0.4 mg PO DAILY@0900 05/11/21 [History] icosapent ethyL [Icosapent Ethyl] 2 gm PO BID@0900,1700 05/11/21 [History] Follow up Appointment(s)/Referral(s): None,Stated [Primary Care Provider] - 1-2 days Patient Instructions/Handouts: Seizure/Epilepsy Discharge Instructions & Follow-Up
== END 2021-05-16 14:44 | DRG 389 ==
LOC: EC 16:27 → 5NMEDONC 18:05
PROVIDERS: ADMIT Internal Medicine; ATTEND Internal Medicine
PROC: 0D9670Z Drainage of Stomach with Drainage Device, Via Natural or Artificial Opening (ICD-10-PCS; principal; 2021-05-11)
DX: K56.7 Ileus, unspecified (principal); E87.0 Hyperosmolality and hypernatremia; E87.2 Acidosis; I69.354 Hemiplegia and hemiparesis following cerebral infarction affecting left non-dominant side; N17.9 Acute kidney failure, unspecified; D72.829 Elevated white blood cell count, unspecified; E03.9 Hypothyroidism, unspecified; E11.9 Type 2 diabetes mellitus without complications; E78.5 Hyperlipidemia, unspecified; E83.42 Hypomagnesemia; I25.10 Atherosclerotic heart disease of native coronary artery without angina pectoris; M21.951 Unspecified acquired deformity of right thigh; R00.0 Tachycardia, unspecified; I45.10 Unspecified right bundle-branch block; I25.5 Ischemic cardiomyopathy; E87.6 Hypokalemia; F32.A Depression, unspecified; F41.9 Anxiety disorder, unspecified; G40.909 Epilepsy, unspecified, not intractable, without status epilepticus; I10 Essential (primary) hypertension; I25.2 Old myocardial infarction; Z79.82 Long term (current) use of aspirin; Z79.890 Hormone replacement therapy; Z79.899 Other long term (current) drug therapy; Z87.891 Personal history of nicotine dependence; Z95.5 Presence of coronary angioplasty implant and graft; Z99.3 Dependence on wheelchair; Z79.4 Long term (current) use of insulin; Z88.8 Allergy status to other drugs, medicaments and biological substances
CPT/HCPCS: 36415; 74018; 74019; 74176; 80048; 80053; 83605; 83735; 84132; 85025; 85027; 85610; 85730; 93005; 96361; 96374; 99285

== ENCOUNTER 2021-05-19 20:31 | Emergency (ER) | payer MEDICARE, OTHER ==
[2021-05-19 20:39] VITALS: TEMP 98.1
[2021-05-19] MEDS ORDERED: SODIUM CHLORIDE 0.9% 1,000 ML IV STA (21:01)
[2021-05-19] MEDS ORDERED: ONDANSETRON 4 MG/2 ML VIAL IVP STA (21:02)
[2021-05-19] MEDS ORDERED: FAMOTIDINE 20 MG/2 ML VIAL IV STA (21:02)
[2021-05-19] MEDS ORDERED: DICYCLOMINE 10 MG/ML 2 ML AMP IM STA (21:02)
--- NOTE | 2021-05-19 21:04 | ED ---
General Adult HPI - General Chief complaint: Weakness Stated complaint: Diarrhea Time Seen by Provider: 05/19/21 20:42 Source: patient, EMS, RN notes reviewed Mode of arrival: wheelchair Limitations: no limitations - History of Present Illness Initial comments: Patient is a pleasant 65-year-old male presenting to the emergency Department with diarrhea. Onset of symptoms was a couple of weeks ago. Patient still has symptoms despite being recently released from the hospital. Patient has been on Imodium with no reported improvement of symptoms. Patient has some nausea however no longer is vomiting. No abdominal pain. Patient states he had some earlier. No fevers. Patient is unclear if he has had recent antibiotics or not. Patient has chronic paralysis and does not walk secondary to severe stroke in 1986. - Related Data Home Medications Medication Instructions Recorded Confirmed Atorvastatin [Lipitor] 20 mg PO HS@1700 06/03/18 05/19/21 Gemfibrozil [Lopid] 600 mg PO BID@0900,1700 06/03/18 05/19/21 Insulin Glargine,Hum.rec.anlog 10 unit SQ HS@17006/03/18 05/19/21 [Basaglar Kwikpen U-100] Levothyroxine Sodium [Synthroid] 125 mcg PO DAILY@0600 06/03/18 05/19/21 Liraglutide [Victoza 3-Felice] 1.2 mg PO DAILY@0600 06/03/18 05/19/21 Metoprolol Tartrate [Lopressor] 50 mg PO BID@0900,1700 06/03/18 05/19/21 Niacin 500 mg PO HS@1700 06/03/18 05/19/21 Phenytoin Sodium Extended 200 mg PO BID@0900,1700 06/03/18 05/19/21 [Dilantin] Topiramate [Topamax] 50 mg PO HS@1700 06/03/18 05/19/21 lamoTRIgine [LaMICtal] 50 mg PO BID@0900,1700 06/03/18 05/19/21 Aspirin [[place] Aspirin EC] 81 mg PO DAILY 01/07/19 05/19/21 Heparin Sodium,Porcine [Heparin 5,000 unit SQ TID@0600,1400,2200 01/07/19 05/19/21 Sodium] PHENobarbitaL [PHENobarbital] 64.8 mg PO DAILY@1400 01/24/19 05/19/21 Sodium Bicarbonate Tab 650 mg PO DAILY 01/24/19 05/19/21 Acetaminophen Tab [Tylenol] 650 mg PO Q4H PRN 05/11/21 05/19/21 Cholecalciferol [Vitamin D3 (25 25 mcg PO DAILY 05/11/21 05/19/21 Mcg = 1000 Iu)] Ferrous Sulfate [Iron (65 MG 325 mg PO DAILY 05/11/21 05/19/21 Elemental)] Loperamide [Imodium] 2 mg PO Q12H PRN 05/11/21 05/19/21 Tamsulosin HCl [Flomax] 0.4 mg PO HS@1700 05/11/21 05/19/21 icosapent ethyL [Icosapent Ethyl] 2 gm PO BID@0900,1700 05/11/21 05/19/21 Insulin Lispro [humaLOG] See Protocol SQ BID@0900,1700 05/19/21 05/19/21 Lactulose 10 gm PO BID 05/19/21 05/19/21 Allergies Allergy/AdvReac Type Severity Reaction Status Date / Time piperacillin [From Zosyn] Allergy Unknown Verified 05/19/21 20:34 tazobactam [From Zosyn] Allergy Unknown Verified 05/19/21 20:34 Review of Systems ROS Statement: Those systems with pertinent positive or pertinent negative responses have been documented in the HPI. ROS Other: All systems not noted in ROS Statement are negative. Constitutional: Denies: fever Eyes: Denies: eye pain ENT: Denies: ear pain Respiratory: Denies: cough Cardiovascular: Denies: chest pain Endocrine: Denies: fatigue Gastrointestinal: Reports: as per HPI, nausea, diarrhea. Denies: vomiting Genitourinary: Denies: dysuria Musculoskeletal: Denies: back pain Skin: Denies: rash Neurological: Denies: headache Past Medical History Past Medical History: CVA/TIA, Diabetes Mellitus, Hyperlipidemia, Hypertension, Myocardial Infarction (OR), Renal Disease, Seizure Disorder, Thyroid Disorder, Vascular Disorder Additional Past Medical History / Comment(s): Brain surgery 10 yrs ago for aneurysm and had CVA with left sided weakness upper and lower extremity and had trach/vented, (pt was left hand dominent), muscle weakness, wheelchair bound, last seizure many years ago, ischemic cardiomyopathy, IDDM type II, hypothyroid, pilonidal cyst. Last Myocardial Infarction Date:: History of Any Multi-Drug Resistant Organisms: None Reported Past Surgical History: Unable to Obtain Additional Past Surgical History / Comment(s): brain surgery for aneurysm, PCI with stent, nasal cartlidge surgery. Past Anesthesia/Blood Transfusion Reactions: No Reported Reaction Past Psychological History: Anxiety, Depression Smoking Status: Former smoker Past Alcohol Use History: None Reported Past Drug Use History: Marijuana - Past Family History Mother History Unknown: Yes Additional Family Medical History / Comment(s): Mother is living. Father History Unknown: Yes Additional Family Medical History / Comment(s): Father is living. General Exam Limitations: no limitations General appearance: alert, in no apparent distress Head exam: Present: normocephalic Eye exam: Present: normal appearance ENT exam: Present: normal oropharynx Neck exam: Present: normal inspection Respiratory exam: Present: normal lung sounds bilaterally Cardiovascular Exam: Present: regular rate, normal rhythm GI/Abdominal exam: Present: soft, normal bowel sounds. Absent: distended, tenderness, guarding, rebound, rigid Extremities exam: Present: pedal edema Neurological exam: Present: alert Psychiatric exam: Present: normal affect, normal mood Skin exam: Present: normal color Course Vital Signs 05/19/21 05/19/21 05/19/21 20:33 21:00 21:30 Temperature 98.1 F Pulse Rate 83 81 77 Respiratory 16 10 L 11 L Rate Blood Pressure 152/80 147/69 162/73 O2 Sat by Pulse 98 98 98 Oximetry EKG Findings - EKG Comments: EKG Findings:: Sinus rhythm at 84. AK 188. QRS 154. QT 4:30. QTC 444. Left axis. Right bundle block. LVH criteria. No acute ST change. T-wave inversion V3 V4. Medical Decision Making - Medical Decision Making Patient reevaluated and resting comfortably in bed. Patient updated. Patient states he is feeling much better. Case discussed with Dr. Mcgarry who does not have further recommendations. - Lab Data Result diagrams: 05/19/21 21:04 05/19/21 21:04 Lab Results 05/19/21 05/19/21 05/19/21 Range/Units 21:04 21:04 21:04 WBC 8.7 (3.8-10.6) k/uL RBC 4.04 L (4.30-5.90) m/uL Hgb 12.3 L (13.0-17.5) gm/dL Hct 37.1 L (39.0-53.0) % MCV 91.9 (80.0-100.0) fL MCH 30.4 (25.0-35.0) pg MCHC 33.1 (31.0-37.0) g/dL RDW 15.2 (11.5-15.5) % Plt Count 445 (150-450) k/uL MPV 8.1 Neutrophils % 59 % Lymphocytes % 24 % Monocytes % 8 % Eosinophils % 5 % Basophils % 1 % Neutrophils # 5.1 (1.3-7.7) k/uL Lymphocytes # 2.1 (1.0-4.8) k/uL Monocytes # 0.7 (0-1.0) k/uL Eosinophils # 0.4 (0-0.7) k/uL Basophils # 0.1 (0-0.2) k/uL Poikilocytosis Slight PT 10.3 (9.0-12.0) sec INR 0.9 (<1.2) APTT 21.4 L (22.0-30.0) sec Sodium 138 (137-145) mmol/L Potassium 4.6 (3.5-5.1) mmol/L Chloride 108 H (98-107) mmol/L Carbon Dioxide 17 L (22-30) mmol/L Anion Gap 13 mmol/L BUN 30 H (9-20) mg/dL Creatinine 1.29 H (0.66-1.25) mg/dL Est GFR (CKD-EPI)AfAm 67 (>60 ml/min/1.73 sqM) Est GFR (CKD-EPI)NonAf 58 (>60 ml/min/1.73 sqM) Glucose 136 H (74-99) mg/dL Plasma Lactic Acid Castro (0.7-2.0) mmol/L Calcium 9.0 (8.4-10.2) mg/dL Magnesium 1.7 (1.6-2.3) mg/dL Total Bilirubin 0.7 (0.2-1.3) mg/dL AST 26 (17-59) U/L ALT 16 (4-49) U/L Alkaline Phosphatase 126 (38-126) U/L Total Protein 8.0 (6.3-8.2) g/dL Albumin 4.0 (3.5-5.0) g/dL Valproic Acid <10.0 ug/mL 05/19/21 Range/Units 21:04 WBC (3.8-10.6) k/uL RBC (4.30-5.90) m/uL Hgb (13.0-17.5) gm/dL Hct (39.0-53.0) % MCV (80.0-100.0) fL MCH (25.0-35.0) pg MCHC (31.0-37.0) g/dL RDW (11.5-15.5) % Plt Count (150-450) k/uL MPV Neutrophils % % Lymphocytes % % Monocytes % % Eosinophils % % Basophils % % Neutrophils # (1.3-7.7) k/uL Lymphocytes # (1.0-4.8) k/uL Monocytes # (0-1.0) k/uL Eosinophils # (0-0.7) k/uL Basophils # (0-0.2) k/uL Poikilocytosis PT (9.0-12.0) sec INR (<1.2) APTT (22.0-30.0) sec Sodium (137-145) mmol/L Potassium (3.5-5.1) mmol/L Chloride (98-107) mmol/L Carbon Dioxide (22-30) mmol/L Anion Gap mmol/L BUN (9-20) mg/dL Creatinine (0.66-1.25) mg/dL Est GFR (CKD-EPI)AfAm (>60 ml/min/1.73 sqM) Est GFR (CKD-EPI)NonAf (>60 ml/min/1.73 sqM) Glucose (74-99) mg/dL Plasma Lactic Acid Castro 1.1 (0.7-2.0) mmol/L Calcium (8.4-10.2) mg/dL Magnesium (1.6-2.3) mg/dL Total Bilirubin (0.2-1.3) mg/dL AST (17-59) U/L ALT (4-49) U/L Alkaline Phosphatase (38-126) U/L Total Protein (6.3-8.2) g/dL Albumin (3.5-5.0) g/dL Valproic Acid ug/mL Disposition Clinical Impression: Diarrhea Disposition: HOME SELF-CARE Condition: Stable Instructions (If sedation given, give patient instructions): Acute Diarrhea (ED) Additional Instructions: Please do follow-up with patient's primary care physician in the next one to 2 days for recheck. Consider testing for C. diff. Unable to test at this time because patient has no stool. Return for not tolerating fluids, fevers, pain, worsening or change in symptoms or other concerns. Is patient prescribed a controlled substance at d/c from ED?: No Referrals: Eliezer Mandujano MD [STAFF PHYSICIAN] - 1-2 days Time of Disposition: 22:44
[2021-05-19 21:12] LABS: Basophils # (A) 0.1 k/uL (0-0.2); Basophils % (A) 1 %; Eosinophils # (A) 0.4 k/uL (0-0.7); Eosinophils % (A) 5 %; HCT 37.1 % (39.0-53.0); HGB 12.3 gm/dL (13.0-17.5); Lymphocytes # (A) 2.1 k/uL (1.0-4.8); Lymphocytes % (A) 24 %; MCH 30.4 pg (25.0-35.0); MCHC 33.1 g/dL (31.0-37.0); MCV 91.9 fL (80.0-100.0); Mean Platelet Volume 8.1; Monocytes # (A) 0.7 k/uL (0-1.0); Monocytes % (A) 8 %; Neutrophils # (A) 5.1 k/uL (1.3-7.7); Neutrophils % (A) 59 %; Platelet Count 445 k/uL (150-450); Poikilocytosis Slight; RBC 4.04 m/uL (4.30-5.90); RDW 15.2 % (11.5-15.5); WBC 8.7 k/uL (3.8-10.6)
[2021-05-19 21:23] LABS: ALT 16 U/L (4-49); AST 26 U/L (17-59); African American GFR (CKD) 67 (>60 ml/min/1.73 sqM); Alkaline Phosphatase 126 U/L (38-126); Anion Gap 13 mmol/L; Blood Urea Nitrogen 30 mg/dL (9-20); Carbon Dioxide 17 mmol/L (22-30); Chloride 108 mmol/L (98-107); Glucose 136 mg/dL (74-99); Magnesium 1.7 mg/dL (1.6-2.3); Non-African American GFR(CKD) 58 (>60 ml/min/1.73 sqM); Potassium 4.6 mmol/L (3.5-5.1); Sodium 138 mmol/L (137-145); Total Bilirubin 0.7 mg/dL (0.2-1.3)
[2021-05-19 21:28] LABS: INR 0.9 (<1.2); Partial Thromboplastin Time 21.4 sec (22.0-30.0); Prothrombin Time 10.3 sec (9.0-12.0); Valproic Acid (Depakene) <10.0 ug/mL
--- NOTE | 2021-05-19 22:15 | XR ---
EXAMINATION TYPE: XR abdomen 1V DATE OF EXAM: 05/19/2021 COMPARISON: 05/11/2021 HISTORY: Pain TECHNIQUE: 2 views FINDINGS: There is no sign of intestinal obstruction or pneumoperitoneum. Fecal pattern is normal. Th ere is large bowel gas consistent with air swallowing. There is deformity of the left hip related to old trauma. Lung bases are clear. There are no calcifications over the kidneys. IMPRESSION: Nonacute abdomen. There is improvement in the small bowel distention compared to last exa m. There is evidence for large bowel ileus.
[2021-05-19 23:28] VITALS: BP 138/73; PULSE 78; RESP 16
== END 2021-05-19 23:47 | disposition home or self-care (01) ==
LOC: EC 20:31
DX: R19.7 Diarrhea, unspecified (principal); E11.9 Type 2 diabetes mellitus without complications; E78.5 Hyperlipidemia, unspecified; I10 Essential (primary) hypertension; I25.2 Old myocardial infarction; E07.9 Disorder of thyroid, unspecified; F41.9 Anxiety disorder, unspecified; F32.A Depression, unspecified; F12.90 Cannabis use, unspecified, uncomplicated; Z79.4 Long term (current) use of insulin; Z79.82 Long term (current) use of aspirin; Z88.1 Allergy status to other antibiotic agents; Z86.73 Personal history of transient ischemic attack (TIA), and cerebral infarction without residual deficits; Z87.891 Personal history of nicotine dependence
CPT/HCPCS: 99284; 96374; 96375; 96372; 96361 ×2; 36415; 93005; 80164; 80053; 80175; 83605; 83735; 85025; 85610; 85730; 74018; J0500; J2405